=== PATIENT | male | born 1940 | race Caucasian/White ===

== ENCOUNTER 2016-10-10 12:09 | Inpatient (IN) | payer MEDICARE, OTHER ==
[2016-10-10] VITALS (15 sets, daily range): BP systolic 97–126; BP diastolic 55–78
[~2016-10-10] VITALS: Ht 175.3 cm; Wt 103.6 kg
--- NOTE | ~2016-10-10 | PR ---
[place], [place] PROGRESS NOTE NAME: RENY QUEVEDO UNIT #: [id number] ROOM: [place] [address] DOCTOR: CHAITANYA WAN MD BIRTHDATE: [birth year] DOS: 10/12/2016 SUBJECTIVE: The patient is awake, alert, but confused. OBJECTIVE: VITAL SIGNS: Blood pressure 103/59, heart rate 79 beats per minute, breathing 19 times per minute, temperature 98 degrees Fahrenheit. GENERAL APPEARANCE: The patient is alert and oriented x 3, in no visible distress, except for mental confusion and generalized weakness. HEENT AND NECK: Exam within normal limits. CARDIOVASCULAR SYSTEM: Heart rate is regular in rate and rhythm. S1 and S2 normally audible. LUNGS: Clear to auscultation. ABDOMEN: Soft, nontender. No obvious organomegaly. Bowel sounds are present. EXTREMITIES: Without significant cyanosis or edema. IMPRESSION: 1. Urinary tract infection resistant to Escherichia coli, being treated with ceftriaxone to which it is resistant. I will change the antibiotic, to be treated with cefoxitin and ceftriaxone which is being discontinued based on the sensitivity report for Escherichia coli urine infection. 2. Acute pancreatitis with elevation of lipase as he was again made n.p.o. by Dr. Zhu who continues to follow him. He has an acalculous, but enlarged gallbladder on CT scan. 3. The patient with sepsis, being treated with antibiotics. No leukocytosis, no fever anymore. 4. History of deep venous thrombosis involving right lower extremity. 5. The patient being hydrated with normal saline. 6. Hypokalemia, being treated with extra potassium supplements. CHAITANYA WAN MD CM:PNTRANS [phone] CHAITANYA WAN MD 10/12/16 2244 interface
--- NOTE | ~2016-10-10 | WRIGHTHP ---
[place], [place] PATIENT HISTORY AND PHYSICAL EXAM NAME: RENY QUEVEDO UNIT #: [id number] ROOM: [place] [address] DOCTOR: ROCÍO NASH MD BIRTHDATE: [birth year] DATE OF DICTATION: 10/11/16 DATE OF ADMISSION: 10/10/16 HISTORY OF PRESENT ILLNESS: The patient is 75 years old, comes in with complaints of low oxygen. The patient was just released from the half-way about a few days ago. He was at home. Visiting nurses saw him yesterday. They found that he was quite hypoxic and was asked to be sent out to the Emergency Room. In the ER, he was evaluated, was found to have lactic acidosis with possible sepsis and was admitted. The patient was hypotensive and tachycardic. He denies having any chest pains or palpitations or shortness of breath this morning, is slightly confused, does not remember exactly where he lives right now. He thinks he is still at the [facility]. PAST MEDICAL HISTORY: Significant for: 1. Last hospitalization in December 2015 with an infected knee prosthesis, and at that time ____ for surgery and he was sent to the half-way for close to a year and was just released about a week ago. 2. Septic joint, left knee, status post repair, redo knee. 3. Multiple admissions for UTIs. 4. COPD. 5. Benign hypertension. 6. History of DVT and IVC filter placement in the past in 2006. 7. Type 2 diabetes mellitus, [id number]. 8. Failure to thrive, adult. 9. Mixed hyperlipidemia. 10. Chronic low back pain. MEDICATIONS: That he is currently on are amlodipine/olmesartan 10/20 daily, atorvastatin 40 daily, citalopram 10 daily, Lasix 20 daily, glipizide 5 b.i.d., metformin 500 daily, potassium 20 daily. SOCIAL HISTORY: Nonsmoker. PHYSICAL EXAMINATION: GENERAL: He is awake, alert, oriented to person and not to place or time. VITAL SIGNS: Pressure is 108/45, pulse 103, respirations 20, temperature 97.3. LUNGS: Diminished breath sounds. HEART: Irregular. ABDOMEN: Obese. EXTREMITIES: Without any edema. ASSESSMENT AND PLAN: 1. The patient who presents with hypoxic respiratory failure, acute, most likely from sepsis. The patient has ordered blood cultures, urine cultures, IV fluids, and IV antibiotics. 2. Lactic acidosis, slowly coming down. 3. Slight elevation in troponin, possibly just related to tachycardia. Consultation with Dr. Gillespie has been obtained. The patient is placed on IV heparin protocol in the ER, which I will continue right now. 4. Slight elevation in lipase, possible mild pancreatitis. The patient is kept n.p.o. Lipase level has come down today. We will start him on a clear liquid diet. Dr. Zhu [place], [place] PATIENT HISTORY AND PHYSICAL EXAM NAME: RENY QUEVEDO UNIT #: [id number] ROOM: [place] [address] DOCTOR: ROCÍO NASH MD BIRTHDATE: [address] of the abdomen and pelvis shows no evidence of pancreatic abscess or pseudocyst or infection. 5. Staghorn calculi without any evidence of hydronephrosis. He has a Brunson catheter and it is draining clear urine. 6. Markedly distended gallbladder without any stones, awaiting opinion from Dr. Zhu. ROCÍO NASH MD CM:HISPHYS:PATIENT HISTORY AND PHYSICAL EXAMINATION 0734 1423 ROCÍO NASH MD 10/14/16 1424 XIOMARA [email or web address]
--- NOTE | ~2016-10-10 | CON ---
[place], [place] REPORT OF CONSULTATION NAME: RENY QUEVEDO UNIT #: [id number] ROOM: [place] [address] DOCTOR: DAQUAN FRANCO MD BIRTHDATE: [birth year] DATE: 10/11/16 REASON FOR CONSULTATION: New atrial fibrillation. HISTORY OF PRESENT ILLNESS: The patient is a 75-year-old Polish man with a history of longstanding hypertension, recurrent DVT with chronic venous thrombosis and has an inferior vena caval filter. He has had diastolic heart failure according to Dr. Gillespie's notes. The patient does have type 2 diabetes mellitus. He has never had a stroke, atrial fibrillation, cancer, COPD or any kidney problems and no bleeding from the stomach. He had knee surgery done last year and has had urinary tract infections. He was in a alf and went home a few days ago and apparently fell out of a chair because of manipulation, he was not dizzy, did not pass out. He came to the Emergency Department where he was found to be in atrial fibrillation with very rapid ventricular rate. He was not aware of any irregularity of his heart rate. He was not particularly short of breath and had not noticed any swelling in the legs. No loss of consciousness. HOME MEDICATIONS: Include amlodipine, atorvastatin, citalopram, furosemide, glipizide, metformin, and potassium chloride. PHYSICAL EXAMINATION: GENERAL: This reveals a patient who is alert, oriented, looks a little pale complexion, but today he is not in any distress. He is not tachypneic, although has oxygen on. VITAL SIGNS: Pulse is irregular at 84 beats per minute, blood pressure is 122/78. NECK: Normal JVP. AJR is negative. No bruits in the neck. HEART: Cardiac auscultation, there are no obvious murmurs. EXTREMITIES: He has no edema in the lower extremities, but has stasis dermatitis. Pedal pulses are difficult to appreciate. RESPIRATORY: He is not tachypneic. Auscultation reveals mildly diminished breath sounds, but a few crackles in both lungs. ABDOMEN: Large, supple, nontender. DIAGNOSTIC STUDIES: An ECG on admission demonstrated atrial fibrillation with ventricular rate of 147 beats per minute. Chest x-ray did not demonstrate any abnormality. LABORATORY DATA: Troponin I level was 0.77. BUN 81, creatinine 2.70. Serum albumin 2.4 g/dL, potassium 3.8, magnesium was 3.2. IMPRESSION: 1. This patient has atrial fibrillation with rapid ventricular rate. This is a new diagnosis. He is currently on IV diltiazem drip and the heart rate has slowed down very nicely. 2. Chronic kidney disease. Renal insufficiency is quite severe. 3. Elevated troponin I level. I think this is most likely due to marked tachycardia and significant renal insufficiency; however, because of atrial fibrillation, it is probably a good idea to perform a Lexiscan Cardiolite study to exclude significant underlying coronary artery disease. RECOMMENDATIONS: [place], [place] REPORT OF CONSULTATION NAME: RENY QUEVEDO UNIT #: [id number] ROOM: [place] [address] DOCTOR: DAQUAN FRANCO MD BIRTHDATE: [birth year] 1. I would prefer to use atenolol to control the ventricular rate, and the IV diltiazem will be discontinued. He has already been started on Xarelto and he needs to be on low dose because of renal insufficiency. 2. An echocardiogram was done today, which demonstrated an LV ejection fraction of 60%, mild left ventricular hypertrophy, moderately dilated right atrium and mildly dilated right ventricle and no sclerosis of the aortic valve, but no regurgitation. There was no pericardial effusion. In about 3-4 weeks after, i.e., adequate anticoagulation, electrical cardioversion should be attempted if he fails to revert to normal sinus rhythm spontaneously. I thank you on behalf of Dr. Gillespie for this consult. DAQUAN FRANCO MD CM:CONSTR:REPORT OF CONSULTATION 1338 10/14/16 1137 XIOMARA ABRAMS.R
--- NOTE | ~2016-10-10 | DS ---
[place], [place] DISCHARGE SUMMARY [id number]IT #: [id number] ROOM: [place] [address] DOCTOR: CHAITANYA WAN MD BIRTHDATE: [birth year] DOS: 10/13/2016 DISCHARGE DIAGNOSES: 1. Urinary tract infection with resistant Escherichia coli. 2. Acute pancreatitis with increasing lipase level. 3. CT scan of the abdomen showing acalculous enlarged gallbladder. 4. Hypernatremia. 5. Hypokalemia. 6. History of deep vein thrombosis in the right leg. 7. VQ scan low probability for pulmonary embolism. HOSPITAL COURSE: 1. The patient was admitted to the ICU for shortness of breath, atrial fibrillation with rapid ventricular response and was found to have urinary tract infection. [facility]. The patient is obese and has advanced disability. The patient was found to have acute pancreatitis and he had significant complaints of upper abdominal pains. The patient was admitted and he was found to have progressively increasing lipase levels. A CT scan of the abdomen was performed, which showed staghorn calculi in the kidneys, no hydronephrosis, markedly distended gallbladder without gallstones or biliary ductal dilatation. While the patient was kept n.p.o. and on hydration, he was developing progressive hypernatremia and hypokalemia along with elevation of pancreatic enzymes, which were elevated to 3167 today. No leukocytosis. Hemoglobin of 10.6, BUN and creatinine of 39 and 1.3. The patient continues to complain of epigastric pains. Since the patient is in poor health and his condition is getting worse and there is no specialized GI surgeon available at our hospital, I am transferring the patient to surgical ICU at [facility] in [place], [place]. The patient has been accepted and will be transferred there by an ambulance. The patient is in a stable condition to be transferred at this time. His blood pressure, heart rate and breathing are stable and he is afebrile. 2. Type 2 diabetes mellitus with reasonably controlled blood sugars. 3. Hypernatremia and hypokalemia, for which I will switch his fluids to D5W with 20 of potassium chloride per liter. His sodium was 140, elevated to 158 today and potassium low at 3.2. 4. Urinary tract infection with resistant E. coli, which are being treated with cefoxitin. Blood cultures were negative. Minimally positive cardiac enzymes maxing at 1.1 without any chest pains and the levels were coming down during his stay at the hospital. DISCHARGE MANAGEMENT: Ondansetron 4 mg every 6 hours p.r.n. IV, citalopram 10 mg a day, Lipitor 40 mg a day, atenolol 50 mg daily, Xarelto 15 mg b.i.d., cefoxitin 1 gram IV every 6 hours. The patient is n.p.o. [place], [place] DISCHARGE SUMMARY NAME: RENY QUEVEDO UNIT #: [id number] ROOM: [place] [address] DOCTOR: CHAITANYA WAN MD BIRTHDATE: [birth year] CHAITANYA WAN MD CM:NICOL [id number] CHAITANYA WAN MD 10/14/16 0236 interface
[~2016-10-10 12:09] MED LIST: AZOR 10 MG-20 M1 TAB PO; CITALOPRAM10 MG PO; COUMADIN1 MG PO; GLUCOPHAGE500 M1 PO; GLYBURIDE5 MG PO; HYDROCODONE BIT1 T11 PO; LASIX20 MG PO; LASIX40 MG PO; LEVOFLOXACIN500 MG PO; LIPITOR40 MG PO; LOPID600 MG PO; MEROPENEM500 M1 IV; METFORMIN500 MG PO; MOM30 ML PO; Metformin Hydr500 MG PO; NORCO 5-325 TA1 EACH PO; POTASSIUM20 MEQ PO; TUMS 500500 MG PO; VANCOMYCIN250 MG/5 M IV; VIBRAMYCIN100 MG PO; WARFARIN SOD5 MG PO; XANAX0.5 MG PO
[2016-10-10 12:49] LABS: BILIRUBIN NEGATIVE (NEGATIVE); BLOOD 2+ (NEGATIVE); CLARITY SL CLOUDY (CLEAR); COLOR YELLOW (YELLOW); GLUCOSE NEGATIVE (NEGATIVE); KETONE NEGATIVE (NEGATIVE); LEUKO ESTERASE 3+ (NEGATIVE); NITRITE NEGATIVE (NEGATIVE); PROTEIN 2+ (NEGATIVE); UROBILINOGEN 0.2 E.U./dl (0.2-1.0)
[2016-10-10 12:51] LABS: HEMATOCRIT 39.1 % (42.0-52.0); HEMOGLOBIN 12.8 g/dl (14.0-18.0); MEAN CELL VOLUME 83.7 fl (80.0-94.0); MEAN CORPUSCULAR HGB 27.4 pg (27.0-31.0); MEAN CORPUSCULAR HGB CONC 32.7 g/dl (33.0-37.0); MEAN PLATELET VOLUME 11.6 fl (9.6-12.3); PLATELET COUNT AUTOMATED 266 10*3/uL (130-400); RED BLOOD COUNT 4.67 10*6/uL (4.50-5.90); RED CELL DISTRI WIDTH 15.6 % (0-14.5); WHITE BLOOD COUNT 11.4 10*3/uL (4.8-10.8)
[2016-10-10 12:59] LABS: INTERNATIONAL NORM RATIO 1.1 (2.0-3.5); PROTHROMBIN TIME 11.7 SECONDS (9.0-12.4)
[2016-10-10] MEDS ORDERED: GLIPIZIDE5 MG PO (13:03)
[2016-10-10] MEDS ORDERED: LOPID600 M1 PO (13:05)
[2016-10-10 13:06] LABS: BACTERIA 3+; MUCOUS 2+; URINE REFLEX COMMENT YES (NO); WBC TNTC wbc/hpf (0-5)
[2016-10-10 13:07] LABS: ALBUMIN 2.4 gm/dl (3.1-4.5); BILIRUBIN, TOTAL 0.4 mg/dl (0.2-1.0); MAGNESIUM 3.2 mg/dL (1.5-2.1); POTASSIUM 3.8 mmol/L (3.5-5.1); TOTAL PROTEIN 7.4 gm/dL (6.4-8.2)
[2016-10-10 13:11] LABS: TROPONIN I 1.31 ng/ml (<0.045)
[2016-10-10 13:13] LABS: C-REACTIVE PROTEIN 33.2 MG/DL (0-0.3)
[2016-10-10 13:15] LABS: LYMPHOCYTE # 1.6 10*3/uL (1.3-4.4); MONOCYTE # 0.9 10*3/uL (0.1-1.0); NEUTROPHIL # 8.9 10*3/uL (2.3-7.9); NEUTROPHILS 78 % (47-73); PLATELET SUFFICIENCY NORMAL (NORMAL); TOTAL CELLS COUNTED 100 #CELLS
[2016-10-10 14:48] LABS: LA>2 REFLEX 2 HR DRAW NOW
[2016-10-10 15:20] LABS: LA>2 RFLX FOLLOW UP AT 2 HRS 3.7 mmol/L (0.4-2.0)
[2016-10-10 17:04] LABS: LA>2 REFLEX 4 HR DRAW NOW
[2016-10-11] VITALS (10 sets, daily range): BP systolic 91–112; BP diastolic 45–567
[2016-10-12] VITALS: BP 100/53
[2016-10-12 04:00] VITALS: BP 90/54
[2016-10-12 06:15] LABS: MEAN CELL VOLUME 85.4 fl (80.0-94.0); MEAN CORPUSCULAR HGB 27.3 pg (27.0-31.0); MEAN PLATELET VOLUME 11.3 fl (9.6-12.3); PLATELET COUNT AUTOMATED 301 10*3/uL (130-400); RED BLOOD COUNT 3.77 10*6/uL (4.50-5.90); RED CELL DISTRI WIDTH 15.8 % (0-14.5); WHITE BLOOD COUNT 10.6 10*3/uL (4.8-10.8)
[2016-10-12 06:26] LABS: HEMATOCRIT 32.2 % (42.0-52.0); HEMOGLOBIN 10.3 g/dl (14.0-18.0)
[2016-10-12 06:49] LABS: BILIRUBIN, TOTAL 0.3 mg/dl (0.2-1.0); TOTAL PROTEIN 6.1 gm/dL (6.4-8.2)
[2016-10-12 07:02] LABS: ACANTHOCYTES FEW; BURR CELLS FEW; LYMPHOCYTE # 0.2 10*3/uL (1.3-4.4); MONOCYTE # 0.3 10*3/uL (0.1-1.0); NEUTROPHIL # 10.1 10*3/uL (2.3-7.9); NEUTROPHILS 95 % (47-73); PLATELET SUFFICIENCY NORMAL (NORMAL); ROULEAUX SLIGHT; TOTAL CELLS COUNTED 100 #CELLS
[2016-10-12 08:00] VITALS: BP 106/66
[2016-10-12 12:00] VITALS: BP 102/60
[2016-10-12 16:00] VITALS: BP 103/59
[2016-10-12 20:00] VITALS: BP 105/53
[2016-10-13] VITALS: BP 102/55
[2016-10-13 04:00] VITALS: BP 112/61
[2016-10-13 06:08] LABS: BASO % 0.1 % (0.0-1.0); EOS % 0.2 % (1.0-4.0); HEMATOCRIT 33.3 % (42.0-52.0); HEMOGLOBIN 10.6 g/dl (14.0-18.0); IG # 0.2 10*3/uL (0.0-0.1); LYMPH # 0.9 10*3/uL (1.3-4.4); LYMPH % 8.5 % (27.0-41.0); MEAN CELL VOLUME 87.4 fl (80.0-94.0); MEAN CORPUSCULAR HGB 27.8 pg (27.0-31.0); MEAN CORPUSCULAR HGB CONC 31.8 g/dl (33.0-37.0); MEAN PLATELET VOLUME 11.2 fl (9.6-12.3); MONO # 0.6 10*3/uL (0.1-1.0); MONO % 5.5 % (3.0-9.0); NEUT # 8.4 10*3/uL (2.3-7.9); NEUT % 84.1 % (47.0-73.0); PLATELET COUNT AUTOMATED 321 10*3/uL (130-400); RED BLOOD COUNT 3.81 10*6/uL (4.50-5.90); RED CELL DISTRI WIDTH 15.9 % (0-14.5)
[2016-10-13 06:11] LABS: CARBON DIOXIDE 22 mmol/L (21-32); EST GLOM FILT AFRICAN AMERICAN > 60 ml/min; GLUCOSE 144 mg/dL (65-99)
[2016-10-13 06:24] LABS: POTASSIUM 3.2 mmol/L (3.5-5.1); SODIUM 158 mmol/L (136-145)
[2016-10-13 06:35] LABS: BUN 39 mg/dl (7-24)
[2016-10-13 06:37] LABS: CHLORIDE 129 mmol/L (98-107)
[2016-10-13 08:00] VITALS: BP 122/63
[2016-10-13 12:00] VITALS: BP 120/60
[2016-10-13 16:00] VITALS: BP 132/64
[2016-10-13] MEDS ORDERED: XARE15TA PO (17:48)
[2016-10-13 20:00] VITALS: BP 104/56
== END 2016-10-13 20:53 | disposition short-term general hospital (02) | DRG 871 ==
LOC: ED 12:09 → EDHOLD 13:55 → ICCU 14:10
PROVIDERS: Internal Medicine; Student in an Organized Health Care Education/Training Program
DX: A41.9 Sepsis, unspecified organism (principal); J96.01 Acute respiratory failure with hypoxia; E87.2 Acidosis; E87.0 Hyperosmolality and hypernatremia; K85.90 Acute pancreatitis without necrosis or infection, unspecified; N39.0 Urinary tract infection, site not specified; I82.491 Acute embolism and thrombosis of other specified deep vein of right lower extremity; J44.9 Chronic obstructive pulmonary disease, unspecified; Z86.718 Personal history of other venous thrombosis and embolism; Z79.01 Long term (current) use of anticoagulants; R62.7 Adult failure to thrive; E78.2 Mixed hyperlipidemia; M54.5 Low back pain; G89.29 Other chronic pain; N20.0 Calculus of kidney; I48.91 Unspecified atrial fibrillation; I12.9 Hypertensive chronic kidney disease with stage 1 through stage 4 chronic kidney disease, or unspecified chronic kidney disease; N18.9 Chronic kidney disease, unspecified; Z85.038 Personal history of other malignant neoplasm of large intestine; Z88.0 Allergy status to penicillin; E11.22 Type 2 diabetes mellitus with diabetic chronic kidney disease; R65.20 Severe sepsis without septic shock; E87.6 Hypokalemia

== ENCOUNTER 2017-01-19 09:38 | Inpatient (IN) | payer MEDICARE, OTHER ==
[~2017-01-19] VITALS: Ht 175.3 cm; Wt 107.7 kg
[2017-01-19] VITALS (8 sets, daily range): BP systolic 135–181; BP diastolic 79–115
--- NOTE | ~2017-01-19 | PR ---
[place], [place] PROGRESS NOTE NAME: RENY QUEVEDO [facility] #: [id number] UNIT #: [id number] ROOM: 411 DOCTOR: CHAITANYA WAN MD BIRTHDATE: [birth year] DOS: 01/21/2017 SUBJECTIVE: The patient continues to improve with his breathing and cough. OBJECTIVE: GENERAL APPEARANCE: The patient is alert and oriented x 3, in no visible distress except for obesity and generalized weakness. VITAL SIGNS: Blood pressure 112/56, heart rate of 98 beats per minute, breathing 16 times per minute, temperature 98 degrees Fahrenheit. HEENT AND NECK: Exam within normal limits. CARDIOVASCULAR SYSTEM: Heart rate is regular in rate and rhythm. S1 and S2 normally audible. LUNGS: Clear to auscultation. ABDOMEN: Soft, nontender. No obvious organomegaly. Bowel sounds are present. EXTREMITIES: Without significant cyanosis or edema. IMPRESSION: 1. The patient exacerbation of chronic obstructive pulmonary disease, increased shortness of breath, improving with treatment with antibiotics. 2. Urinary tract infection with urine cultures growing Acinetobacter lwoffi being treated with clindamycin. 3. Nonhealing ulcer on the inside of the left ankle medial malleolus related to stasis dermatitis being dressed on regular basis. Wound dressings being applied. 4. Chronic atrial fibrillation with controlled heart rates. The patient anticoagulated with Xarelto. 5. Type 2 diabetes mellitus. Blood sugars are being monitored and treated. 6. Benign essential hypertension with controlled blood pressures with treatment. 7. Hypothyroidism, treated with supplements. CHAITANYA WAN MD CM:PNTRANS 1616 0125 CHAITANYA WAN MD 01/22/17 0125 interface
--- NOTE | ~2017-01-19 | WRIGHTHP ---
[place], [place] PATIENT HISTORY AND PHYSICAL EXAM NAME: RENY QUEVEDO [facility] #: [id number] UNIT #: [id number] ROOM: 411 DOCTOR: CHAITANYA WNA MD BIRTHDATE: [birth year] DOS: 01/19/2017 HISTORY OF PRESENT ILLNESS: The patient is a 76-year-old gentleman sent over to the Emergency Department from [facility] with complaints of increasing shortness of breath. The patient was given nebulizer treatments at the intermediate without much help. The patient had a productive cough with greenish sputum for several days with increasing shortness of breath for 2 days along with wheezing. The patient was evaluated in the Emergency Department and found to have acute exacerbation of COPD and a urinary tract infection and recommended for admission and further management. REVIEW OF SYSTEMS: LUNGS: Increasing shortness of breath and wheezing. GASTROINTESTINAL: No nausea, vomiting, diarrhea, constipation. URINARY: The patient is asymptomatic. CARDIOVASCULAR: No chest pains or palpitations. PAST MEDICAL HISTORY: DVT involving the right leg. FAMILY HISTORY: Noncontributory. SOCIAL HISTORY: The patient has been a resident at the nursing homes for the last 2-1/2 years and his also recently got admitted to his present intermediate and she was there with him. ALLERGIES: PENICILLIN. PHYSICAL EXAMINATION: GENERAL: Alert and oriented x 3, morbidly obese. HEENT AND NECK: Extraocular movements are intact. Sclerae are anicteric. Oral mucosa is moist and clean. No obvious facial weakness. Neck is supple without any lymphadenopathy. No thyromegaly. No JVD. No carotid arterial bruits. LUNGS: Clear to auscultation. No wheezing. No rhonchi. CARDIOVASCULAR SYSTEM: Heart rate is regular in rate and rhythm. S1 and S2 normally audible. No significant murmur or any other abnormal cardiac sounds. ABDOMEN: Soft, nontender. No obvious organomegaly. Bowel sounds are present. No obvious herniation. EXTREMITIES: Generalized weakness and chronic stasis dermatitis in both legs with small nonhealing ulcer just over the medial malleolus at the left ankle. CENTRAL NERVOUS SYSTEM: Alert and oriented x 3. Cranial nerves II-XII are intact. Speech is normal. The patient is able to move all extremities. Normal muscle strength. Deep tendon reflexes are equal on both sides. Plantars were downgoing. LABORATORY DATA: Urinalysis fluid too numerous to count wbc's. Chest x-ray without acute abnormality. Normal serum electrolytes. INR 1.2, hemoglobin 9.7. IMPRESSION: 1. The patient with acute exacerbation of chronic obstructive pulmonary disease, to be treated with nebulizer treatments, corticosteroids, oxygen, antibiotics and followed closely on the monitor. [place], [place] PATIENT HISTORY AND PHYSICAL EXAM [facility]: [id number] UNIT #: [id number] ROOM: 411 DOCTOR: CHAITANYA WAN MD BIRTHDATE: [birth year] 2. Urinary tract infection, cystitis, urine culture sent. The patient to be treated with antibiotics and treatment adjusted according to culture results. 3. Chronic nonhealing ulcer over the left ankle medial malleolus dressings to be continued. The patient has chronic stasis dermatitis and being followed by vascular surgery and wound care. 4. Morbid obesity. The patient is to work with dietary. 5. Advance disability. The patient to work with physical therapy. 6. Morbid obesity. 7. History of chronic atrial fibrillation. The patient is anticoagulated with Xarelto. Heart rate controlled. 8. Type 2 diabetes mellitus. We will monitor blood sugars. Continue insulin and adjust treatment as necessary. 9. Mixed hyperlipidemia. 10. Benign essential hypertension. 11. Major depression, recurrent, mild. 12. Hypothyroidism. The patient treated with levothyroxine which will be continued. CHAITANYA WAN MD CM:HISPHYS:PATIENT HISTORY AND PHYSICAL EXAMINATION 1343 1414 CHAITANYA WAN MD 01/19/17 1414 interface
--- NOTE | ~2017-01-19 | DS ---
[place], [place] DISCHARGE SUMMARY NAME: RENY QUEVEDO [facility] #: [id number] UNIT #: [id number] ROOM: 411 DOCTOR: CHAITANYA WAN MD BIRTHDATE: [birth year] DOS: 01/22/2017 DISCHARGE DIAGNOSES: 1. Exacerbation of chronic obstructive pulmonary disease with acute over chronic respiratory failure, improved with treatment. 2. Urinary tract infection growing Acinetobacter Lwoffi, being treated with clindamycin and cystitis. 3. Nonhealing ulcer on the left side of the ankle medial malleolus related to stasis dermatitis, being treated on regular basis. 4. Chronic atrial fibrillation with controlled heart rates and the patient anticoagulated with Xarelto. 5. Type 2 diabetes mellitus. 6. Benign essential hypertension. 7. Hypothyroidism. 8. Morbid obesity. 9. Advanced disability. 10. Type 2 diabetes mellitus. 11. Mixed hyperlipidemia. 12. Benign essential hypertension. 13. Major depression, recurrent, mild. 14. Hypothyroidism. HOSPITAL COURSE: The patient was admitted with hypoxemia, shortness of breath, and feeling unwell. The patient was diagnosed with having exacerbation of COPD and also figured out to have a urinary tract infection and cystitis. Cultures were sent. Sputum bruce grew normal bacteria, but he was treated with antibiotics and corticosteroids and his breathing improved and he is breathing well now and at his baseline and will be discharged back to the detention. Urinary tract infection. The urine cultures growing Acinetobacter Lwoffi, being treated with clindamycin without change to Bactrim-DS at the detention and give it to him for 1 week according to urine culture results. Anemia of chronic disease. Hemoglobin at 9.3 and stable. Benign essential hypertension treated and controlled and followed. Chronic atrial fibrillation with controlled heart rates. Patient anticoagulated with Xarelto. Hypothyroidism, treated with supplements. Advanced disability. We are taking bedsore precautions turning him every 2 hours and use an air mattress. Physical therapy was also consulted. LABORATORY DATA: As mentioned above. DISCHARGE MANAGEMENT: Bactrim-DS b.i.d. for 1 week, DuoNeb every 4 hours as needed for shortness of breath, Tradjenta 5 mg daily, Levemir insulin 5 units daily. Check bedside sugars q.i.d. every Friday and , levothyroxine 25 [place], [place] DISCHARGE SUMMARY NAME: RENY QUEVEDO UNIT #: [id number] ROOM: 411 DOCTOR: SOCO PURDY,CHAITANYA Mahan BIRTHDATE: [birth year] mg daily, Lipitor 40 mg a day, Xarelto 20 mg daily, Zofran 4 mg every 6 hours p.r.n. for nausea and vomiting. CHAITANYA WAN MD CM:DISCHARG 1101 1125 CHAITANYA WAN MD 01/22/17 1125 interface
--- NOTE | ~2017-01-19 | PR ---
[place], [place] PROGRESS NOTE NAME: RENY QUEVEDO UNIT #: [id number] ROOM: 411 DOCTOR: CHAITANYA WAN MD BIRTHDATE: [birth year] DOS: 01/20/2017 SUBJECTIVE: The patient is starting to feel better. His breathing is improving. OBJECTIVE: VITAL SIGNS: Blood pressure 151/82, heart rate 85 beats per minute, breathing 16 times per minute, temperature 98 degrees Fahrenheit. GENERAL APPEARANCE: The patient is alert and oriented x 3, in no visible distress. Generalized weakness and morbid obesity. HEENT AND NECK: Exam within normal limits. CARDIOVASCULAR SYSTEM: Heart rate is regular in rate and rhythm. S1 and S2 normally audible. LUNGS: Clear to auscultation. ABDOMEN: Soft, nontender. No obvious organomegaly. Bowel sounds are present. EXTREMITIES: Without significant cyanosis or edema. IMPRESSION: 1. Urinary tract infection with heavy gram-negative bacilli, being covered with clindamycin. Final culture results are still pending. 2. Morbid obesity and generalized weakness. We are taking bedsore precautions including using an air mattress and turning the patient every 2 hours and taking fall precautions. 3. Acute exacerbation of chronic obstructive pulmonary disease with shortness of breath and hypoxemia, improved with treatment. 4. Urinary tract infection and cystitis is being treated with antibiotics now. 5. Nonhealing ulcer over the left ankle medial malleolus from venous stasis and chronic vascular insufficiency is being regularly ____, no signs of acute infection. 6. Morbid obesity. The patient is working with dietary. 7. Chronic atrial fibrillation with controlled heart rates. The patient is anticoagulated with Xarelto. 8. Type 2 diabetes mellitus. Blood sugars are being monitored and treated. 9. Benign essential hypertension with controlled blood pressures with treatment. 10. Hypothyroidism. The patient is on replacement with levothyroxine. [place], [place] PROGRESS NOTE NAME: RENY QUEVEDO UNIT #: [id number] ROOM: 411 DOCTOR: CHAITANYA WAN MD BIRTHDATE: [birth year] CHAITANYA WAN MD CM:PNTRANS 1617 1924 CHAITANYA WAN MD 01/21/17 0501 interface
[~2017-01-19 09:38] MED LIST changes: +GLIPIZIDE5 MG PO; +LOPID600 M1 PO; +XARE15TA PO
[2017-01-19 10:00] LABS: BASO % 0.5 % (0.0-1.0); EOS # 0.1 10*3/uL (0.0-0.4); EOS % 0.9 % (1.0-4.0); HEMATOCRIT 32.6 % (42.0-52.0); HEMOGLOBIN 9.7 g/dl (14.0-18.0); LYMPH # 1.1 10*3/uL (1.3-4.4); MEAN CELL VOLUME 84.2 fl (80.0-94.0); MEAN CORPUSCULAR HGB 25.1 pg (27.0-31.0); MEAN CORPUSCULAR HGB CONC 29.8 g/dl (33.0-37.0); MEAN PLATELET VOLUME 10.5 fl (9.6-12.3); MONO # 0.7 10*3/uL (0.1-1.0); MONO % 8.3 % (3.0-9.0); NEUT # 6.2 10*3/uL (2.3-7.9); NEUT % 75.9 % (47.0-73.0); PLATELET COUNT AUTOMATED 382 10*3/uL (130-400); RED BLOOD COUNT 3.87 10*6/uL (4.50-5.90); RED CELL DISTRI WIDTH 16.3 % (0-14.5); WHITE BLOOD COUNT 8.1 10*3/uL (4.8-10.8)
[2017-01-19 10:09] LABS: INTERNATIONAL NORM RATIO 1.2 (2.0-3.5); PROTHROMBIN TIME 13.4 SECONDS (9.0-12.4)
[2017-01-19 10:17] LABS: ALBUMIN 3.1 gm/dl (3.1-4.5); ALKALINE PHOSPHATASE 86 U/L (45-117); BILIRUBIN, TOTAL 0.4 mg/dl (0.2-1.0); BUN 19 mg/dl (7-24); CARBON DIOXIDE 25 mmol/L (21-32); CHLORIDE 107 mmol/L (98-107); CPK 44 U/L (39-308); EST GLOM FILT AFRICAN AMERICAN > 60 ml/min; GLUCOSE 141 mg/dL (65-99); MAGNESIUM 2.1 mg/dL (1.5-2.1); POTASSIUM 4.1 mmol/L (3.5-5.1); SGOT/AST 26 IU/L (3-35); SGPT/ALT 19 U/L (12-78); SODIUM 141 mmol/L (136-145); TOTAL PROTEIN 7.4 gm/dL (6.4-8.2)
[2017-01-19 10:18] LABS: CKMB 0.7 ng/ml (0.5-3.6); TROPONIN I 0.025 ng/ml (<0.045)
[2017-01-19 10:33] LABS: BILIRUBIN NEGATIVE (NEGATIVE); BLOOD 3+ (NEGATIVE); CLARITY CLOUDY (CLEAR); COLOR YELLOW (YELLOW); GLUCOSE NEGATIVE (NEGATIVE); KETONE NEGATIVE (NEGATIVE); LEUKO ESTERASE 3+ (NEGATIVE); NITRITE NEGATIVE (NEGATIVE); PH 7.5 (5.0-9.0); PROTEIN 2+ (NEGATIVE); SPECIFIC GRAVITY 1.015 (1.005-1.030); UROBILINOGEN 0.2 E.U./dl (0.2-1.0)
[2017-01-19 10:40] LABS: RBC TNTC rbc/hpf (0-2); URINE REFLEX COMMENT YES (NO); WBC TNTC wbc/hpf (0-5)
[2017-01-19] MEDS ORDERED: CELEXA20 MG PO (12:18)
[2017-01-19] MEDS ORDERED: ZOFRAN4 MG PO (12:18)
[2017-01-19] MEDS ORDERED: [UNRECOGNIZED DRUG - OTHER] PO (12:19)
[2017-01-19] MEDS ORDERED: MULTI-DAY VITA1 EACH PO (12:20)
[2017-01-19] MEDS ORDERED: LANTUS100 U/ML SC (12:21)
[2017-01-19] MEDS ORDERED: [UNRECOGNIZED DRUG - OTHER] PO (12:21)
[2017-01-19] MEDS ORDERED: [UNRECOGNIZED DRUG - OTHER] PO (12:22)
[2017-01-19] MEDS ORDERED: SYNTHROID25 MCG PO (12:22)
[2017-01-19] MEDS ORDERED: CITRIC ACID PO (12:22)
[2017-01-19] MEDS ORDERED: JANUVIA25 MG PO (12:23)
[2017-01-19] MEDS ORDERED: NOVOLOG10 ML SC (12:24)
[2017-01-19] MEDS ORDERED: XARE20MG PO (12:25)
[2017-01-19] MEDS ORDERED: GEMFIBROZIL600 MG PO (12:26)
[2017-01-20] VITALS: BP 148/73
[2017-01-20 04:00] VITALS: BP 122/76
[2017-01-20 06:44] LABS: BASO % 0.1 % (0.0-1.0); EOS % 0.1 % (1.0-4.0); HEMATOCRIT 31.4 % (42.0-52.0); HEMOGLOBIN 9.3 g/dl (14.0-18.0); LYMPH # 0.9 10*3/uL (1.3-4.4); LYMPH % 11.1 % (27.0-41.0); MEAN CELL VOLUME 84.2 fl (80.0-94.0); MEAN CORPUSCULAR HGB 24.9 pg (27.0-31.0); MEAN CORPUSCULAR HGB CONC 29.6 g/dl (33.0-37.0); MEAN PLATELET VOLUME 10.6 fl (9.6-12.3); MONO # 0.6 10*3/uL (0.1-1.0); MONO % 7.8 % (3.0-9.0); NEUT # 6.5 10*3/uL (2.3-7.9); NEUT % 80.4 % (47.0-73.0); PLATELET COUNT AUTOMATED 359 10*3/uL (130-400); RED BLOOD COUNT 3.73 10*6/uL (4.50-5.90); RED CELL DISTRI WIDTH 15.9 % (0-14.5); WHITE BLOOD COUNT 8.1 10*3/uL (4.8-10.8)
[2017-01-20 08:00] VITALS: BP 129/76
[2017-01-20 12:00] VITALS: BP 138/73
[2017-01-20 16:04] VITALS: BP 151/82
[2017-01-20 20:00] VITALS: BP 126/73
[2017-01-21] VITALS: BP 145/73
[2017-01-21 08:00] VITALS: BP 151/77
[2017-01-21 12:03] VITALS: BP 112/56
[2017-01-21 16:00] VITALS: BP 116/54
[2017-01-21 20:00] VITALS: BP 119/59
[2017-01-22] VITALS: BP 136/89
[2017-01-22 08:00] VITALS: BP 123/75
[2017-01-22 12:00] VITALS: BP 121/72
== END 2017-01-22 15:44 | disposition home or self-care (01) | DRG 189 ==
LOC: ED 09:38 → 4E 11:01 → EDHOLD 11:01 → 4E 11:08
PROVIDERS: Internal Medicine; Registered Nurse
DX: J96.21 Acute and chronic respiratory failure with hypoxia (principal); N30.01 Acute cystitis with hematuria; B96.89 Other specified bacterial agents as the cause of diseases classified elsewhere; J44.1 Chronic obstructive pulmonary disease with (acute) exacerbation; F33.0 Major depressive disorder, recurrent, mild; L97.329 Non-pressure chronic ulcer of left ankle with unspecified severity; E11.9 Type 2 diabetes mellitus without complications; I10 Essential (primary) hypertension; I48.2 Chronic atrial fibrillation; I87.2 Venous insufficiency (chronic) (peripheral); E03.9 Hypothyroidism, unspecified; E78.2 Mixed hyperlipidemia; E66.01 Morbid (severe) obesity due to excess calories; Z68.35 Body mass index [BMI] 35.0-35.9, adult; Z88.0 Allergy status to penicillin; Z86.718 Personal history of other venous thrombosis and embolism

== ENCOUNTER 2017-03-03 07:07 | Inpatient (IN) | payer MEDICARE, OTHER ==
[~2017-03-03] VITALS: Ht 175 cm; Wt 109.0 kg
[2017-03-03] VITALS (9 sets, daily range): BP systolic 113–147; BP diastolic 51–90
--- NOTE | ~2017-03-03 | PR ---
[place], [place] PROGRESS NOTE NAME: RENY QUEVEDO UNIT #: [id number] ROOM: 525 DOCTOR: BRAYDEN CASSIDY DO BIRTHDATE: [birth year] DOS: 03/06/2017 SUBJECTIVE: The patient was seen and evaluated this morning with Dr. Crane. The patient is alert, awake and responsive. The patient denies any fever, chills, nausea, vomiting, shortness of breath or chest pain at this time. The patient denies any complaints at this time. PHYSICAL EXAMINATION: VITAL SIGNS: Temperature 98, pulse 79, respiratory rate 20, blood pressure 143/68, pulse ox of 96 on 3 liters nasal cannula. HEENT: No changes. Chronic obesity. NECK: Supple. CARDIOVASCULAR: S1, S2 audible. LUNGS: No wheezing or no crackles noted. Decreased breath sounds at the bases. ABDOMEN: Soft and obese. EXTREMITIES: Remains unchanged from yesterday. LABORATORY DATA: No labs were done today although today the sodium was 141, potassium 3.4, chloride 98, carbon dioxide 36. Magnesium was 2.1. ASSESSMENT: 1. Acute congestive heart failure, diastolic dysfunction. 2. Pleural effusion related to underlying congestive heart failure with atrial fibrillation. 3. Chronic obesity. 4. History of past nicotine abuse. 5. Chronic obstructive pulmonary disease, no exacerbation at this time. PLAN: 1. The patient can be continued on previous treatment as in Lasix daily. 2. Supportive therapy plan of management and care. 3. The patient should be assessed as an outpatient for obstructive sleep apnea disorder. 4. Supportive care. 5. Possible discharge tomorrow. BRAYDEN CASSIDY DO [place], [place] PROGRESS NOTE NAME: RENY QUEVEDO UNIT #: [id number] ROOM: 525 DOCTOR: BRAYDEN CASSIDY DO BIRTHDATE: [birth year] RAE CRANE MD CM:PNTRANS 1114 1215 BRAYDEN CASSIDY DO 03/06/17 1528 interface
--- NOTE | ~2017-03-03 | PR ---
[place], [place] PROGRESS NOTE NAME: RENY QUEVEDO [facility] #: [id number] UNIT #: [id number] ROOM: 525 DOCTOR: ROCÍO NASH MD BIRTHDATE: [birth year] DOS: SUBJECTIVE: The patient is doing fine without any complaints. He is still short of breath. OBJECTIVE: VITAL SIGNS: Blood pressure 127/67, pulse of 84, respirations 20, temperature 97.6. LUNGS: Diminished breath sounds. Scattered wheezes heard. HEART: Regular. ABDOMEN: Obese. EXTREMITIES: Without any edema. ASSESSMENT AND PLAN: 1. Moderate size pleural effusion of the right with possible atelectasis in the right lower lobe with bronchopneumonia. The patient will need a thoracentesis. We will ask Dr. Massey for an opinion. Right now, we will continue antibiotics. 2. Benign hypertension, controlled with normal LV function. 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 3. Failure to thrive, adult. PT, OT to be consulted. ROCÍO NASH MD CM:PNTRANS [id number] ROCÍO NASH MD 03/05/17 0330 interface
--- NOTE | ~2017-03-03 | DS ---
[place], [place] DISCHARGE SUMMARY NAME: RENY QUEVEDO [facility] #: [id number] UNIT #: [id number] ROOM: 525 DOCTOR: ROCÍO NASH MD BIRTHDATE: [birth year] DOS: 03/07/2017 DIAGNOSES: 1. Acute diastolic congestive heart failure. 2. Urinary tract infection with Morganella morganii resistant to floxins. 3. Exposed hardware, right lower leg, for removal as an outpatient by Dr. Diop. 4. Severe peripheral vascular disease, left iliac occlusive disease. Please consult Dr. Song Faulkner as an outpatient. 5. Small right lower lobe pneumonia with pleural effusion, which is resolved. 6. Echocardiogram showing normal LV function with concentric LVH, cleared for surgery by Cardiology. CONSULTANTS: Dr. Diop, Dr. Massey, Dr. Gillespie. HOSPITAL COURSE: The patient is 76 years old, very well known to us, comes in with complaints of shortness of breath. Please see H and P for details. After admission, the patient had a chest x-ray which showed possibility of CHF, also possibility of pneumonia. A CT of the chest was done, which showed moderate sized pleural effusion. The patient was placed on IV diuretics. Consultation with Dr. Gillespie as well as Dr. Massey was obtained. Dr. Molina feels that cardiac thrasher, he is stable for any pending surgery. Dr. Massey did not feel that the patient's effusion was large enough to undergo thoracentesis. The patient has improved with diuretics IV. He does have poor circulation in both legs with stasis dermatitis of the left lower leg. No open wounds are seen. Small skin tears are noted. On the right ankle, the hardware is slightly exposed. The patient was seen by Dr. Diop who will remove this hardware as an outpatient. Arterial Dopplers did show occlusive disease on the left side. This should not prevent him from having his surgery on the right side. He would benefit from a CT angiogram, can be scheduled with Dr. Faulkner at [place] . Repeat chest x-ray shows clearing of the CHF. This morning, the patient is stable and can be discharged to home. He does use oxygen 2 liters, which he needs to continue using it along with breathing treatments with DuoNeb q. 4. His other medications are Lasix 40 daily, potassium 10 daily, Bactrim-DS 1 tablet twice daily, Lipitor 40 daily, citalopram 20 daily, Zofran 4 mg q. 6 p.r.n., acidophilus 3 tablets p.o. twice a day, Lantus 5 units daily, levothyroxine 25 mcg daily, Januvia 25 daily, Xarelto 20 daily, NovoLog for coverage scale. Blood sugars to be checked daily. [place], [place] DISCHARGE SUMMARY NAME: EMYRENY Nata UNIT #: [id number] ROOM: 525 DOCTOR: ROCÍO NASH MD BIRTHDATE: [birth year] ROCÍO NASH MD CM:DISCHARG [id number] ROCÍO NASH MD 03/07/17 1438 interface
--- NOTE | ~2017-03-03 | PR ---
[place], [place] PROGRESS NOTE NAME: RENY QUEVEDO [facility] #: [id number] UNIT #: [id number] ROOM: 525 DOCTOR: ROYCE CHANG MD,RAE BIRTHDATE: [birth year] DOS: 03/05/2017 SUBJECTIVE: The patient was independently seen and examined with [id number] encounter. The history was confirmed. Physical examination was personally performed as well. Changes in treatment with any additional recommendation or management were personally made for today's visit. The note done by the medical instrument technician was approved. The patient has been noted without any acute respiratory distress at this time. Still noted symptoms of shortness of breath. Denies symptoms of chest pain, coughing or sputum expectoration. The patient was planned for assessment for the thoracentesis of the right pleural effusion. The anticoagulation as Xarelto was remained on hold. OBJECTIVE: VITAL SIGNS: Noted that he remains afebrile, respiratory rate 20, heart rate 92-108, blood pressure 110/55-141/73. HEENT: Noted with chronic severe obesity. NECK: Supple. CARDIOVASCULAR: S1, S2 audible. LUNGS: Noted without any wheezing or crackles. Decreased breath sounds in the lower portion of the lungs bilaterally. ABDOMEN: Soft and obese. EXTREMITIES: Remains unchanged from yesterday. LABORATORY DATA: No labs were done today. IMPRESSION: 1. The patient with bilateral pleural fluid, larger on the right than the left side with finding consistent with acute congestive heart failure, currently considered for thoracentesis. 2. Chronic obesity. 3. Suspected obstructive sleep apnea disorder. The patient has been assessed at the bedside with the ultrasound of the chest was performed personally of both right and the left chest wall. Only small amount of fluid was noted on the right side with minimal fluid was noted on the left side as well. The patient will be continued on current conservative treatment, it will not benefit from thoracentesis for very small fluid at this time, which is not safe to perform the thoracentesis because of the lung was noted in the area of the fluid moving frequently. PLAN OF TREATMENT: He will be continued on the previous treatment as in progress as well. Other supportive therapy, plan of management and care. Outpatient assessment should be done for the obstructive sleep apnea disorder ____ did not done so. [place], [place] PROGRESS NOTE NAME: RENY QUEVEDO UNIT #: [id number] ROOM: [facility] DOCTOR: RAE SALDAÑA MD BIRTHDATE: [birth year] RAE CRANE MD CM:PNTRANS [id number] RAE CHANG MD 03/06/17 0248 interface
--- NOTE | ~2017-03-03 | PR ---
[place], [place] PROGRESS NOTE [facility] [id number] UNIT #: [id number] ROOM: 525 DOCTOR: ROYCE CHANG MD,RAE BIRTHDATE: [birth year] DOS: 03/06/2017 SUBJECTIVE: The patient was seen today for [id number] encounter. Physical examination performed the history was confirmed. The labs were reviewed. Any change in treatment for the patient for today's visit were personally made. The note done by the lpn or medical assistant, was approved. The patient has been noted comfortable, resting on the bed at this time. Shortness of breath has been noted with progressive resolution of the coughing has been decreasing progressively. OBJECTIVE: LUNGS: Auscultation of the chest was noted improvement in air entry, absence of any crackles. There were no wheezing. ABDOMEN: Soft and obese. EXTREMITIES: Remains unchanged. LABORATORY DATA: Electrolyte panel noted potassium mildly decreased at 3.4, CO2 was noted mildly elevated at 36. IMPRESSION: Resolving acute congestive heart failure, pleural fluid, which were not noted tappable by this patient at this time ____ because of progressive improvement with diuretics therapy. The coughing related to the congestive heart failure is improving. Mild hyperkalemia was noted with metabolic alkalosis secondary to diuretic therapy. The patient was recommended about current plan of management at this time. No additional change in treatment will be recommended. PLAN OF TREATMENT: To monitor the patient. A chest x-ray could be obtained again tomorrow if the patient remains in the hospital for reassessment of the pleural fluid. RAE CRANE MD CM:PNTRANS [phone] RAE CHANG MD 03/06/179 interface
--- NOTE | ~2017-03-03 | PR ---
[place], [place] PROGRESS NOTE NAME: RENY QUEVEDO [facility] #: [id number] UNIT #: [id number] ROOM: 525 DOCTOR: ROCÍO NASH MD BIRTHDATE: [birth year] DOS: 03/06/2017 SUBJECTIVE: The patient is doing fine without any complaints. He did go for an arterial Doppler this morning. During the night, he did develop a 6-beat run of V-tach and Dr. Gillespie was informed and routine labs were ordered. OBJECTIVE: VITAL SIGNS: This morning, the graph trend shows that he is afebrile, pressure is 143/60, pulse of 70, respirations 20, temperature 98.0. LUNGS: Clear. HEART: Regular. ABDOMEN: Obese. EXTREMITIES: Decreased edema. The lower leg wounds, exposure of the hardware all the same. LABORATORY DATA: Sodium 141, potassium 3.4, chloride 98, bicarbonate 36, magnesium 2.1. ASSESSMENT AND PLAN: 1. Acute diastolic congestive heart failure, on IV diuretics. 2. Hypokalemia. Supplementation given. 3. Nonsustained ventricular tachycardia. Dr. Gillespie is following. Recent echo was normal. No further workup planned. 4. Urinary tract infection with Morganella morganii, on IV antibiotics. 5. Adult failure to thrive, exposure to hardware. Discussed with . He most likely will have it removed as an outpatient. The patient should be able to go back to the intermediate in the morning. 6. Right lower lobe consolidation which is clinically improving. Chest x-ray is pending. ROCÍO NASH MD CM:PNTRANS [id number] ROCÍO NASH MD 03/06/17 1529 interface
--- NOTE | ~2017-03-03 | CON ---
[place], [place] REPORT OF CONSULTATION NAME: RENY QUEVEDO [facility] #: [id number] UNIT #: [id number] ROOM: 525 DOCTOR: ROYCE CHANG MDRAE BIRTHDATE: [birth year] DOS: 03/04/2017 REASON FOR CONSULTATION: Assessed the patient for shortness of breath and possible thoracentesis for the pleural fluid. The patient was seen with a [id number] encounter today. History was confirmed with the patient. Physical examination was personally performed as well. All the lab data was reviewed. The consultation, which was dictated by the medical investigator was approved. The assessment and management and the recommendation and changes in the treatment were personally made for today's consultation. HISTORY OF PRESENT ILLNESS: This is a 76-year-old white male brought to the hospital because the patient developed symptoms of shortness of breath, which has been ongoing for this patient for the past 4-5 days. Symptoms have been noted to be progressive worsening. The patient has symptoms of some nonproductive cough along with the symptoms of shortness of breath. The cough has been noted to be essentially dry. He denies any symptoms of wheezing. Denies symptoms of chest pain. The patient does have increased edema of the lower extremities as well. He has not been noted to have any symptoms of hemoptysis. The patient has been admitted to the hospital. Chest x-ray and later on CT scan of the chest was done yesterday without contrast that shows evidence of pleural fluids bilaterally. REVIEW OF SYSTEMS: Already done by the medical investigator. PAST MEDICAL HISTORY: This patient is known with history of: 1. Chronic cholecystitis. 2. Chronic obstructive pulmonary disease. 3. Moderate obesity. 4. Stasis dermatitis of lower extremities. 5. Atrial fibrillation. The patient long-term on anticoagulation with Xarelto. 6. Hypothyroidism. 7. Essential hypertension. 8. Chronic obesity. 9. History of failure to thrive. SOCIAL HISTORY: Reported as history of tobacco use since early age, 2 pack of cigarettes per day that has been discontinued approximately in 1986. Denies any history of alcohol use or any illicit drug use. The patient is , has no children. He has worked in the [employer] for about 42 years. . PAST SURGICAL HISTORY: Noted with history of left knee surgery in the past. HOME MEDICATIONS: Listed for the patient at the time of admission were noted as use of Lipitor, citalopram, levothyroxine, multivitamin, Zofran, Xarelto, Januvia and sliding scale insulin coverage. DRUG ALLERGIES: PENICILLIN. PHYSICAL EXAMINATION: GENERAL: This is a 76-year-old white male who has been currently noted to be [place], [place] REPORT OF CONSULTATION NAME: RENY QUEVEDO UNIT #: [id number] ROOM: [facility] DOCTOR: ROYCE CHANG MD,RAE BIRTHDATE: [birth year] awake and alert, sitting on his bed without any distress. VITAL SIGNS: Height of 5 feet 9 inches, weight 240 pounds, BMI 35.5. Vital signs which was recorded shows normal temperature, respiratory rate 20-25, heart rate of 96-106 with blood pressure 119/61-127/67. Pulse oxygen saturation of the patient was recorded as 99% saturation on 3 liters cannula this morning. HEENT: Examination shows chronic obesity. Decreased posterior pharyngeal space. NECK: Supple. Head was atraumatic. CARDIOVASCULAR: S1, S2 is audible. LUNGS: Decreased breath sounds noted in the lower portion of the lungs, more on the right than the left side. There was no wheezing heard. ABDOMEN: Soft and significantly obese. EXTREMITIES: Shows 2+ pitting edema. Chronic skin changes of the lower extremity noted with venous stasis pigmentation. There were no abnormal lesions or rashes. CENTRAL NERVOUS SYSTEM: Cranial nerves 2-12 intact. No focal deficit. MUSCULOSKELETAL: No obvious gross deformities seen. LABORATORY DATA: CBC on 03/03/2017 hemoglobin 9.6, hematocrit 35.4, WBC count normal, platelet count were normal. Lactic acid on admission yesterday was normal. PT/PTT yesterday; INR 1.4, PTT normal. CMP yesterday on admission; glucose 130, BUN and creatinine was normal. CO2 was 36. CPK-MB and troponin normal. ProBNP was elevated at approximately 9000 or greater. Echocardiogram that was done for the patient on 03/03/2017 shows left ventricular ejection fraction noted at 60%. Technically difficult study. There were significant valvular abnormalities described. Chest x-ray that was done yesterday 03/03/2017 on admission for the patient shows cardiomegaly with evidence of pleural effusions. The patient was suspected with possibility of additional area of atelectasis infiltration in the right lower lobe. The CT scan of the chest that was completed for the patient yesterday shows ____ 8 mm incidental finding of right upper lung nodule visible, which were noted noncalcified. Moderate sized pleural fluid noted in the right side. Small left-sided pleural fluid noted with area of compression atelectasis of the left lower lobe was noted likely. IMPRESSION: 1. The patient has been currently admitted to the hospital noted with acute congestive heart failure, diastolic dysfunction as well. 2. Pleural fluid was also noted related to the underlying congestive heart failure with atrial fibrillation history and chronic anticoagulation as well. 3. History of chronic obesity. Strong suspicion of obstructive sleep apnea disorder, need to be assessed as an outpatient as well. Other previous medical problems noted in the past history component. 4. History of past nicotine abuse. Discontinued several years ago. 5. History of chronic obstructive pulmonary disease, does not show any findings of acute exacerbation at the present time. PLAN OF TREATMENT: The patient's Xarelto will be discontinued temporarily for thoracentesis which will be done tomorrow with the ultrasound personal assessment being performed at the bedside prior to thoracentesis to see the [place], [place] REPORT OF CONSULTATION NAME: RENY QUEVEDO UNIT #: [id number] ROOM: [facility] DOCTOR: RAE SALDAÑA MD BIRTHDATE: [birth year] adequate pleural fluid for thoracentesis. This will result in improvement in symptoms of shortness of breath. Antibiotics will be discontinued at this time. There was no clinical suspicion of pneumonia. Other supportive therapy, plan of management as well as previously. Usual care, other supportive plan and management as well. Additional treatment changes will be done based on the progression of the illness. The patient is currently getting IV diuretics and continued monitoring of the BUN and creatinine was advised. Thanks for allowing me to participate in the care of this patient. RAE CRANE MD CM:CONSTR:REPORT OF CONSULTATION 1215 03/05/17 0316 interface
--- NOTE | ~2017-03-03 | PR ---
[place], [place] PROGRESS NOTE NAME: RENY QUEVEDO [facility] #: [id number] UNIT #: [id number] ROOM: 525 DOCTOR: ROCÍO NASH MD BIRTHDATE: [birth year] DOS: 03/07/2017 SUBJECTIVE: The patient is doing fine without any complaints this morning. OBJECTIVE: VITAL SIGNS: Graphic trend shows pressure 109/61, pulse of 81, respirations 20, temperature 98.7. LUNGS: Diminished breath sounds, clear. HEART: Regular. ABDOMEN: Obese, soft. EXTREMITIES: No edema. CHF is resolving on the chest x-ray. ASSESSMENT AND PLAN: 1. Acute diastolic congestive heart failure, improving. 2. Small right lower lobe pneumonia with pleural effusion, which is resolved. 3. Adult failure to thrive. The patient to go back to [facility] today. ROCÍO NASH MD CM:PNTRANS [id number] ROCÍO NASH MD 03/07/17 1237 interface
--- NOTE | ~2017-03-03 | WRIGHTHP ---
[place], [place] PATIENT HISTORY AND PHYSICAL EXAM NAME: RENY QUEVEDO [facility] #: [id number] UNIT #: [id number] ROOM: 525 DOCTOR: ROCÍO NASH MD BIRTHDATE: [birth year] DOS: 03/03/2017 HISTORY OF PRESENT ILLNESS: The patient comes in with complaints of increasing shortness of breath. I had seen him on Friday at the half-way and at that time he did not have any complaints. By Friday morning, he started having a cough, which is productive of copious amounts of sputum. A chest x-ray was ordered, which showed possibility of CHF and the patient was sent out this morning to the Emergency Room. He was seen in the ER, had a repeat chest x-ray performed which showed pneumonia, right lower lobe with small pleural effusion, so he was admitted. The patient complains of quite a lot of shortness of breath and cough. He denies having any fever or chills. PAST MEDICAL HISTORY: Significant for, 1. History of chronic cholecystitis. He is awaiting a cholecystectomy. 2. Exacerbation of COPD with last hospitalization in January 2017. 3. Chronic UTIs. 4. Poorly healing wounds on the left leg, which has completely healed now. 5. Stasis dermatitis. 6. Chronic AFib, on Xarelto. 7. Benign hypertension. 8. Hypothyroidism. 9. Morbid obesity. 10. Failure to thrive. MEDICATIONS: He is on are Lipitor 40 daily, citalopram 40 daily, levothyroxine 25 mcg daily, multivitamin 1 tablet daily, Zofran 4 mg q. 6, Xarelto 20 daily, Januvia 25 daily, insulin sliding scale and Lantus 5 units every 5 p.m. SOCIAL HISTORY: Nonsmoker. Does not use any alcohol. He is currently a resident of [facility] along with his . PHYSICAL EXAMINATION: VITAL SIGNS: Graphic trend shows a blood pressure of 138/64, pulse of 97, respirations 20 and temperature 97.7. LUNGS: Diminished breath sounds. Scattered wheezes and rhonchi heard today. CARDIOVASCULAR: Irregular heart rate in the low 90s. ABDOMEN: Obese, soft. EXTREMITIES: Chronic stasis dermatitis to the left leg. No swelling noticed. GENERAL: He is awake, alert and oriented with moderate respiratory distress. His Brunson catheter is tinged pink with fairly good urine output. LABORATORY DATA: At the time of admission, lactic acid 1.1. White cell count is 7.7, hemoglobin 9.6, hematocrit 35.4, platelets 295. Protime 15.1 with an INR of 1.4. Chest x-ray again bronchopneumonia, left, right lower lobe with effusion. Comp glucose 130, BUN 22, creatinine 0.96, sodium 145, potassium 4.1. ASSESSMENT AND PLAN: 1. Right lower lobe pneumonia with parapneumonic pleural effusion. The patient has been cultured in the Emergency Room. Intravenous antibiotics and breathing treatments have been started. The patient has also ordered a CT of the chest to [place], [place] PATIENT HISTORY AND PHYSICAL EXAM NAME: RENY QUEVEDO [facility] #: [id number] UNIT #: [id number] ROOM: [facility] DOCTOR: ROCÍO NASH MD BIRTHDATE: [birth year] see the extent of the infection. 2. Chronic obstructive pulmonary disease with chronic respiratory failure, on oxygen supplemental. Saturations are maintained right now. 3. Benign hypertension, controlled. 4. Chronic atrial fibrillation, on long-term anticoagulation. No changes in further medicines made. ROCÍO NASH MD CM:HISPHYS:PATIENT HISTORY AND PHYSICAL EXAMINATION [phone] ROCÍO NASH MD 03/03/17 151 interface
--- NOTE | ~2017-03-03 | CON ---
[place], [place] REPORT OF CONSULTATION NAME: RENY QUEVEDO [facility] #: [id number] UNIT #: [id number] ROOM: 525 DOCTOR: BRAYDEN CASSIDY DO BIRTHDATE: [birth year] DOS: 03/04/2017 REASON FOR CONSULTATION: Pulmonary effusion by Dr. Shae Almazan. HISTORY OF PRESENT ILLNESS: This is a 76-year-old male presenting to [facility] with chief complaint of shortness of breath that has been worsening since about 1-1/2 week. The patient presents from [facility]. The patient had an x-ray done last night and the results came this morning and was brought to the ER. The patient continues to have cough with green and black sputum. The patient states that he was also having some knee swelling of his right knee and left knee secondary to the knee surgery that he had 1 year ago. The patient denies any chest pain. HPI limited due to the patient's clinical condition. The patient denies any fever, chills, nausea or vomiting. PAST MEDICAL HISTORY: The patient has history of DVT. The patient has history of COPD, hyperlipidemia, and GERD. The patient has history of hypothyroidism, diabetes mellitus type 2. PAST SURGICAL HISTORY: Knee surgery, total knee replacement, arthroscopic knee surgery, vein stripping bilaterally, bilateral TKA, 2 disks removed, left ankle ligament transfer, left knee surgery in 08/2016. SOCIAL HISTORY: The patient denies any alcohol or drug use. The patient does not smoke currently. The patient used to smoke 2 packs per day for 40 years. FAMILY HISTORY: No pertinent family history, but history of coronary disease and hypertension in the family. OCCUPATION: The patient has been working in [employer] for 42 years. SOCIAL HISTORY: The patient is retired now. REVIEW OF SYSTEMS: GENERAL: The patient denies fever, chills, nausea, vomiting, weight loss, weight gain. HEENT: The patient denies vision change, hearing loss, nasal discharge, eye pain, tearing, nose congestion, or nose pain. CARDIOVASCULAR: The patient denies chest pain, palpitation, lower extremity edema, diaphoresis. RESPIRATORY: The patient reports shortness of breath. The patient reports cough with green and black sputum. The patient denies wheezing or dyspnea on exertion. The patient denies stridor. ABDOMINAL: The patient denies abdominal pain, nausea, vomiting, diarrhea, constipation, melena, hematochezia, hematemesis, or loss of appetite. GENITOURINARY: The patient denies hematuria, dysuria increase or decrease in frequency. NEUROLOGICAL: The patient denies lightheadedness, dizziness, confusion. PSYCHIATRIC: The patient denies depression, anxiety, substance abuse. [place], [place] REPORT OF CONSULTATION NAME: RENY QUEVEDO UNIT #: [id number] ROOM: [facility] DOCTOR: BRAYDEN CASSIDY DO BIRTHDATE: [birth year] PHYSICAL EXAMINATION: GENERAL: Appears sick, mild distress. HEENT: Atraumatic, normocephalic. Eyes: No lesion, no ulceration nonicteric. ENT: No lesion, no scars. Nares patent. No pharyngeal erythema. NECK: Without lesion, without masses. Trachea midline. Supple, nontender. HEART: Irregularly irregular rhythm, normal rate, no murmur. Pulses equal in all extremities. LUNGS: Diminished bilaterally. Diffuse wheezing and rhonchi present bilaterally. ABDOMEN: Soft, nontender, normal bowel sounds. No distention, no guarding, no rebound tenderness. EXTREMITIES: Mild bilateral lower extremity edema is present. No palpable or skin lesions. Lower extremities, chronic venous stasis notable. PSYCHOLOGICAL: Poor historian. LABORATORY DATA: Hematology: White cell count of 7.7, hemoglobin 9.6, platelet count of 294. Chemistry: Sodium of 145, potassium of 4.1, chloride of 106, carbon dioxide of 36, BUN of 22, creatinine of 0.96 and glucose of 130, magnesium of 2.3. CRP of 1.21, albumin of 2.9. INR of 1.4. Urine appears to have 3+ leukocyte esterase, 2+ protein, 3+ blood. MICROBIOLOGY: Blood cultures are pending to date. Urine culture shows about 100,000 heavy gram-negative bacteria. MRSA of the nares, pending. IMAGING: On 03/03/2017, chest x-ray showed stable cardiomegaly, bronchopneumonia of the right lower lobe with pleural effusion. Chest CT on 03/03/2017, showed mild right pleural effusion, small left pleural effusion, pulmonary fibrosis, coronary artery calcifications, small nodular densities within the right upper lobe and right middle lobes are unchanged to prior exam, date 01/02/2016. ASSESSMENT AND PLAN: 1. Plan for thoracentesis tomorrow at 6:30 upon further evaluation. 2. Please refer to Dr. Crane's note for assessment and plan. Thank you for the consult. BRAYDEN CASSIDY DO [place], [place] REPORT OF CONSULTATION NAME: RENY QUEVEDO UNIT #: [id number] ROOM: [facility] DOCTOR: BRAYDEN CASSIDY DO BIRTHDATE: [birth year] RAE CRANE MD CM:CONSTR:REPORT OF CONSULTATION 1105 03/04/17 1206 interface
--- NOTE | ~2017-03-03 | PR ---
[place], [place] PROGRESS NOTE NAME: RENY QUEVEDO [facility] #: [id number] UNIT #: [id number] ROOM: 525 DOCTOR: BRINDA DEXTER MD BIRTHDATE: [birth year] DOS: 03/06/2017 SUBJECTIVE: The patient was independently seen and examined [id number]. The patient apparently had about 8 beats on the ventricular tachycardia. Electrolytes were checked, examined. The patient was asymptomatic. Potassium was 3.4, magnesium was 2.1. Today, he is in sinus rhythm with right bundle branch block. Denies any chest discomfort. Does have shortness of breath. REVIEW OF SYSTEMS: As per HPI. OBJECTIVE: HEENT: Unremarkable. LUNGS: Diminished breath sounds. HEART: Sounds are regular. ABDOMEN: Obese, soft, nontender. NEUROLOGIC: Stable. IMPRESSION: The patient with bilateral pleural fluid, diastolic heart failure, chronic obesity, obstructive sleep apnea, history of a short run of v-tach. The patient had an echocardiogram done. Basically, left ventricle has normal size inferolateral wall at the base, appears hypokinetic, severe concentric left ventricular hypertrophy. EF is about 60%. Diastole could not be fully assessed. IMPRESSION: The patient with a short run of ventricular tachycardia. RECOMMENDATIONS: Continue the present medications as ordered. The patient is already on Xarelto and atorvastatin. If no contraindication, add a very small dose of metoprolol 25 b.i.d., selective beta quinten. Ejection fraction is well preserved and we will followup. BRINDA DEXTER MD CM:PNTRANS [id number] BRINDA DEXTER MD 03/06/17 1602 interface
--- NOTE | ~2017-03-03 | CON ---
[place], [place] REPORT OF CONSULTATION NAME: RENY QUEVEDO [facility] #: [id number] UNIT #: [id number] ROOM: 525 DOCTOR: GUERITA PURDYBRINDA BIRTHDATE: [birth year] DOS: 03/04/2017 HISTORY OF PRESENT ILLNESS: The patient is very well known to me. I was consulted because of elevated BNP. The patient had an echocardiogram done, which was read by some other grocery associate, though I am the grocery associate of the record, knowing this patient for multiple years. The patient's echocardiogram showed an ejection fraction appears to be preserved. The reason for study was possible CHF. The ejection fraction calculated at 60%, normal ejection fraction and normal wall motion. Right ventricle is normal. Atria is normal. Aortic valve was normal. Mitral valve was normal. No evidence of pulmonic or mitral regurgitation. The patient denies any chest discomfort. Chest x-ray showed possibility of congestive heart failure and the patient was adequately diuresed. He has no significant history of coronary artery disease. PAST MEDICAL HISTORY: Significant for chronic atrial fibrillation, hypertension, hypothyroidism, morbid obesity, failure to thrive, exacerbation of COPD. MEDICATIONS: He is on Lipitor, levothyroxine. SOCIAL HISTORY: He is a nonsmoker, not an alcoholic. REVIEW OF SYSTEMS: CONSTITUTIONAL: No fever, no chills. Positive shortness of breath. HEENT: No visual disturbances or hearing problems. CARDIOVASCULAR: No chest discomfort. RESPIRATORY: Does have shortness of breath. GASTROINTESTINAL: No nausea, no vomiting. GENITOURINARY: No dysuria. NEUROLOGIC: Appears to be no syncope. PHYSICAL EXAMINATION: GENERAL: The patient is not in any distress. HEENT: Unremarkable. NECK: Supple, elevated JVD. LUNGS: Diminished breath sounds. HEART: Sounds are regular. ABDOMEN: Soft, nontender. NEUROLOGIC: Stable. LABORATORY DATA: Hemoglobin 9.6, hematocrit 35.4. INR is 1.4. Electrolytes are normal. Creatinine is normal. Chest x-ray shows stable cardiomegaly, bronchopneumonia, right lower lobe with pleural effusion. IMPRESSION: The patient admitted with shortness of breath, possible pneumonia, elevated BNP, history of hypertension, chronic atrial fibrillation. RECOMMENDATIONS: Continue the Xarelto. Monitor the blood pressure closely. Continue with other medications. I do not think it is congestive heart failure, elevated BNP is multifactorial and we will follow up. [place], [place] REPORT OF CONSULTATION NAME: RENY QUEVEDO [place] UNIT #: [id number] ROOM: [facility] DOCTOR: BRINDA DEXTER MD BIRTHDATE: [birth year] BRINDA DEXTER MD CM:CONSTR:REPORT OF CONSULTATION 0738 03/04/17 2252 interface
--- NOTE | ~2017-03-03 | PR ---
[place], [place] PROGRESS NOTE NAME: RENY UQEVEDO [facility] #: [id number] UNIT #: [id number] ROOM: 525 DOCTOR: JONATHAN OLEA DPM BIRTHDATE: [birth year] DOS: 03/06/2017 SUBJECTIVE: The patient was seen for followup of exposed ankle hardware, lateral right calcaneus. The patient is resting comfortably in bed. OBJECTIVE: Upon removal of the dressing, there was exposed hardware to the lateral right calcaneus. There is localized inflammation, but no signs of purulent drainage or foul odor, no acute abscess, no acute infectious process noted. Review of radiographs revealed a protruding hardware plate from the lateral right foot. ASSESSMENT: Internal fixation exposed; ulceration, lateral aspect of the right foot. PLAN: Evaluation and management. Ordered Bactroban and gauze dressing to be applied daily. Discussed the case with Dr. Diop who had placed the patient's hardware. The patient will be discharged per Dr. Almazan and the patient will be consulted for surgical consult to be performed on an outpatient basis by Dr. Diop. Dr. Diop has photographs of the patient's foot and radiographs and will consult the patient for removal of the hardware. Discussed the case also with Dr. Almazan who is okay with the patient having the hardware removed on an outpatient basis. We will follow the patient accordingly and again, he will follow with Dr. Diop next week for surgical consultation. JONATHAN OLEA DPM CM:PNROSANNA [id number] JONATHAN OLEA DPM 03/06/17 1245 interface
--- NOTE | ~2017-03-03 | PR ---
[place], [place] PROGRESS NOTE NAME: RENY QUEVEDO UNIT #: [id number] ROOM: 525 DOCTOR: BRAYDEN CASSIDY DO BIRTHDATE: [birth year] DOS: 03/07/2017 SUBJECTIVE: The patient was seen and evaluated this morning with Dr. Crane. The patient denies any fever, chills, nausea, vomiting, shortness of breath or chest pain. The patient denies any complaint at this time. OBJECTIVE: VITAL SIGNS: Temperature 98.7, pulse 81, respiratory rate 20, blood pressure 109/61, bedside pulse ox is 94 on 2 liters of nasal cannula. HEENT: Shows no changes, chronic obesity. NECK: Supple. CARDIOVASCULAR: S1, S2 audible. PULMONARY: No wheezes or crackles noted. Decreased breath sounds at the bases. ABDOMEN: Soft and obese. EXTREMITIES: Remain unchanged from yesterday. LABORATORY DATA: White cell count 7.7, hemoglobin 9.6, platelet count 294. No labs were ordered this morning. ASSESSMENT: 1. Acute congestive heart failure with diastolic dysfunction. 2. Pleural effusion related to underlying CHF with atrial fibrillation, improving. 3. Chronic obesity. 4. History of past nicotine abuse. 5. Chronic COPD, no exacerbation at this time. PLAN: 1. The patient can be continued on previous treatment as in Lasix daily. 2. Supportive therapy, plan of management and care. 3. The patient should be assessed as an outpatient for obstructive sleep apnea disorder. 4. Supportive care. 5. Possible discharge. BRAYDEN CASSIDY DO [place], [place] PROGRESS NOTE NAME: RENY QUEVEDO UNIT #: [id number] ROOM: 525 DOCTOR: BRAYDEN CASSIDY DO BIRTHDATE: [birth year] RAE CRANE MD CM:PNTRANS [phone] [id number] BRAYDEN CASSIDY DO 03/07/17913 interface
--- NOTE | ~2017-03-03 | PR ---
[place], [place] PROGRESS NOTE NAME: [facility] [id number] UNIT #: [id number] ROOM: 525 DOCTOR: ROCÍO NASH MD BIRTHDATE: [birth year] DOS: SUBJECTIVE: The patient does not have any new complaints. Appreciate Dr. Massey's input. OBJECTIVE: VITAL SIGNS: Graphic trend shows a pressure of 110/55, pulse of 92, respirations 20 and temperature 98.3. LUNGS: Diminished breath sounds. No wheezes, rales or rhonchi heard. HEART: Regular. ABDOMEN: Soft. EXTREMITIES: Without any edema. Right leg, hardware is exposed in the lateral malleolus. LABORATORY DATA: Urine culture positive for Morganella morganii, which is sensitive to the ceftriaxone. MRSA naris was negative. ASSESSMENT AND PLAN: 1. Right-sided pneumonia with pleural effusion. Dr. Massey was consulted. He did not feel that the patient's effusion is significant enough to have a thoracentesis performed. Repeated chest x-ray will be ordered tomorrow; if it shows clearing, we will plan to discharge him back to the intermediate. 2. Urinary tract infection with Morganella morganii, again on antibiotics. We will discontinue Brunson catheter. 3. Exposed hardware. The patient has had surgery performed on the right foot 30 years ago by . ____. ROCÍO NASH MD CM:PNTRANS [id number] ROCÍO NASH MD 03/05/17 1022 interface
--- NOTE | ~2017-03-03 | CON ---
[place], [place] REPORT OF CONSULTATION [id number] UNIT #: [id number] ROOM: 525 DOCTOR: MARIA T BROOKS PRIYA BIRTHDATE: [birth year] DOS: 03/05/2017 HISTORY OF PRESENT ILLNESS: This is a 76-year-old male who was admitted for pneumonia. He is a familiar patient of our clinic. He has had surgery by Dr. Diop many years ago to bilateral feet. His recent right foot and ankle surgery was in 2013. Podiatry was consulted to evaluate exposed hardware to the right lower extremity. He does not know when the wounds appeared. He denies any pain to the ulceration site. He denies any nausea, vomiting, fever, chills, calf pain, shortness of breath or chest pain. He states that he resides in a senior living and admits that he does not ambulate much. He has not followed up at our clinic recently. He has no other pedal complaints. PAST MEDICAL HISTORY: Chronic cholecystitis, COPD, chronic UTIs, poor healing wounds, stasis dermatitis, chronic AFib, benign hypertension, hypothyroidism, morbid obesity. PAST SURGICAL HISTORY: Bilateral foot surgeries. SOCIAL HISTORY: Denies tobacco use, alcohol use. Currently resides at [facility]. MEDICATIONS: Lipitor, citalopram, levothyroxine, multivitamins, Zofran, Xarelto, Januvia, insulin sliding scale and Lantus. REVIEW OF SYSTEMS: GENERAL: A and O x 3, in no acute distress. CARDIOVASCULAR: Denies any heart murmurs, arrhythmias, chest palpitations or chest pain. LUNGS: Denies any shortness of breath or difficulty breathing. HEENT: Denies any trouble with vision or swallowing. NEUROLOGIC: Admits to decreased sensation to the bilateral lower extremities. MUSCULOSKELETAL: Admits to muscle weakness to bilateral lower extremities. DERMATOLOGIC: Ulceration to the right lower extremity. He does not know how long it has been there. PSYCHIATRIC: Denies any history of depression or anxiety. FOCUSED PODIATRIC LOWER EXTREMITY EVALUATION: VASCULAR: DP and PT pulses are faintly palpable bilaterally. No hair present to bilateral lower extremities. His skin appears to be shiny and atrophic with discoloration noted to bilateral lower extremities. CFT is less than 5 seconds to all digits. +2 pitting edema noted to bilateral lower extremities. Neuroprotective sensation is decreased to the bilateral digits. Sensation is decreased with [place] monofilament to bilateral digits. Decreased muscle tone and symmetry noted to bilateral lower extremities. MUSCULOSKELETAL: 3 to 5 muscle strength noted in bilateral lower extremities. Decreased range of motion noted to the ankle joint, subtalar joint and first MTPJ. Equinus deformity noted to bilateral lower extremities. DERMATOLOGIC: Thin, shiny skin noted to bilateral lower extremities with chronic venous changes noted as well. There is a full thickness ulceration noted down to the subcutaneous tissue with exposed hardware of the [facility] and [place], [place] REPORT OF CONSULTATION NAME: RENY QUEVEDO UNIT #: [id number] ROOM: 525 DOCTOR: MARIA T BROOKS PRIYA BIRTHDATE: [birth year] screw noted at the lateral aspect of the right foot. No ascending erythema, no calor, no purulent drainage, no fluctuation, no malodor noted to the right lower extremity. No acute signs of infection noted at this time. ASSESSMENT: 1. Exposed hardware, right foot, no acute signs of infection at this time. 2. Diabetes mellitus with peripheral neuropathy. 3. Chronic obstructive pulmonary disease. 4. Pneumonia. The patient is being treated at the hospital at this time. PLAN: 1. The patient is seen and examined. 2. Ulceration site dressed with Betadine dry sterile dressing. 3. Recommend PRAFO boots for bilateral heels at all times while in bed to avoid heel decubitus ulcers. 4. Ordered arterial ABIs to evaluate for sufficient arterial blood flow. 5. Procedure can be performed as an outpatient once he is discharged to senior living. He is to follow up in our clinic in 1 week after discharge. The senior living is to call our office to follow up for his appointment. 6. Discussed with Dr. Diop, who agrees with above assessment and plan. Thank you for the consultation. Feel free to call me at my cell phone, . MARCIAL BROOKS DPM CM:CONSTR:REPORT OF CONSULTATION 1907 03/07/17 0816 interface
--- NOTE | ~2017-03-03 | PR ---
[place], [place] PROGRESS NOTE NAME: RENY QUEVEDO [facility] #: [id number] UNIT #: [id number] ROOM: 525 DOCTOR: ROYCE CHANG MD,RAE BIRTHDATE: [birth year] DOS: 03/07/2017 SUBJECTIVE: The patient was seen today independently with [id number] encounter. History was confirmed and physical examination performed. The assessment of the patient and the management changes were personally done for this patient for today's assessment. All the available labs were reviewed. He has been noted comfortable at this time, resting on the bed without any difficulty. Denies symptoms of chest pain or any abdominal pain. The patient denies any symptoms of hemoptysis. PHYSICAL EXAMINATION: VITAL SIGNS: Reviewed for the patient was noted essentially normal today. The pulse oxygen saturation of the patient was noted as 2 liters nasal cannula 100% saturation. LUNGS: For this patient was noted without any wheezing or crackles at this time. ABDOMEN: Soft, nontender. IMPRESSION: Resolving respiratory status noted with a small pleural fluid. Clinical improvement noted in congestive heart failure. The patient did not require any intervention for the pleural fluid at this time. The pleural fluid has been improving radiologically as well as clinically. The note done by the medical consultant was approved. PLAN OF TREATMENT: No change in treatment at this time was recommended. The patient could be discharged home whenever he desires from the pulmonary standpoint. RAE CRANE MD CM:PNTRANS [phone] RAE CHANG MD 03/07/17 1643 interface
--- NOTE | ~2017-03-03 | PR ---
[place], [place] PROGRESS NOTE NAME: RENY QUEVEDO [facility] #: [id number] UNIT #: [id number] ROOM: 525 DOCTOR: BRAYDEN CASSIDY DO BIRTHDATE: [birth year] DOS: 03/05/2017 SUBJECTIVE: The patient was seen and evaluated today with Dr. Crane. The patient is alert, awake and responsive. The patient denies any nausea, vomiting, diarrhea, lightheadedness, dizziness, chest pain. The patient says his shortness of breath has improved. The patient ____ this morning. Bedside ultrasound was done to evaluate the fluid in his right lung. His CT showed bilateral pleural effusion, right greater than the left. Bedside ultrasound was performed, very small amount of fluid was appreciated, which does not need drainage as of right now. OBJECTIVE: VITAL SIGNS: Temperature 97.8, pulse 96, respiratory 20, blood pressure 113/54. GENERAL: Awake, alert, no distress. HEENT: No change. CARDIOVASCULAR: S2, S1 audible. NECK: Supple. LUNGS: Decreased breath sounds at the bases. No wheezing appreciated. ABDOMEN: Soft and significantly obese. EXTREMITIES: 2+ pitting edema and venous stasis noted. NEUROLOGY: No focal neurological deficits. LABORATORY DATA: White cell count 7.7, hemoglobin 9.6, platelet count of 294. Sodium of 145, BUN of 22, creatinine of 0.96. INR of 1.4. 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 No definitive radiologic evidence of acute osteomyelitis ____ soft tissue swelling. IMPRESSION: 1. Acute congestive heart failure, diastolic dysfunction. 2. Pleural effusion related to underlying congestive heart failure with atrial fibrillation. 3. Chronic obesity. 4. History of past nicotine abuse, continued for several years. 5. Chronic obstructive pulmonary disease, no exacerbation at this time. PLAN: 1. Thoracentesis was not performed, very minimal fluid was noted. 2. Continue Lasix 40 mg IV daily. Maintain oxygen saturation above 90%. Continue antibiotic and DuoNeb. 3. Supportive care. BRAYDEN CASSIDY DO [place], [place] PROGRESS NOTE NAME: RENY QUEVEDO UNIT #: [id number] ROOM: [facility] DOCTOR: BRAYDEN CASSIDY DO BIRTHDATE: [birth year] RAE CRANE MD CM:LATHA [phone] BRAYDEN CASSIDY DO 03/05/17 1921 interface
[~2017-03-03 07:07] MED LIST changes: +CELEXA20 MG PO; +CITRIC ACID PO; +GEMFIBROZIL600 MG PO; +JANUVIA25 MG PO; +LANTUS100 U/ML SC; +MULTI-DAY VITA1 EACH PO; +NOVOLOG10 ML SC; +SYNTHROID25 MCG PO; +XARE20MG PO; +ZOFRAN4 MG PO; +[UNRECOGNIZED DRUG - OTHER] PO; +[UNRECOGNIZED DRUG - OTHER] PO; +[UNRECOGNIZED DRUG - OTHER] PO
[2017-03-03 07:34] LABS: BASO % 0.5 % (0.0-1.0); EOS # 0.1 10*3/uL (0.0-0.4); EOS % 1.7 % (1.0-4.0); HEMATOCRIT 35.4 % (42.0-52.0); HEMOGLOBIN 9.6 g/dl (14.0-18.0); LYMPH # 0.9 10*3/uL (1.3-4.4); LYMPH % 11.1 % (27.0-41.0); MEAN CELL VOLUME 81.6 fl (80.0-94.0); MEAN CORPUSCULAR HGB 22.1 pg (27.0-31.0); MEAN CORPUSCULAR HGB CONC 27.1 g/dl (33.0-37.0); MEAN PLATELET VOLUME 11.1 fl (9.6-12.3); MONO # 0.8 10*3/uL (0.1-1.0); MONO % 9.8 % (3.0-9.0); NEUT # 5.9 10*3/uL (2.3-7.9); NEUT % 76.5 % (47.0-73.0); PLATELET COUNT AUTOMATED 294 10*3/uL (130-400); RED BLOOD COUNT 4.34 10*6/uL (4.50-5.90); RED CELL DISTRI WIDTH 17.5 % (0-14.5); WHITE BLOOD COUNT 7.7 10*3/uL (4.8-10.8)
[2017-03-03 07:43] LABS: ACT PARTIAL THROMBO TIME 25.6 SECONDS (20.8-31.5); INTERNATIONAL NORM RATIO 1.4 (2.0-3.5)
[2017-03-03 07:50] LABS: ALBUMIN 2.9 gm/dl (3.1-4.5); ALKALINE PHOSPHATASE 75 U/L (45-117); BUN 22 mg/dl (7-24); CHLORIDE 106 mmol/L (98-107); CPK 28 U/L (39-308); CREATININE 0.96 mg/dL (0.70-1.30); LIPASE 144 U/L (73-393); MAGNESIUM 2.3 mg/dL (1.5-2.1); POTASSIUM 4.1 mmol/L (3.5-5.1); SGOT/AST 19 IU/L (3-35); SGPT/ALT 12 U/L (12-78); SODIUM 145 mmol/L (136-145); TOTAL PROTEIN 7.1 gm/dL (6.4-8.2); TROPONIN I 0.026 ng/ml (<0.045)
[2017-03-03 07:51] LABS: CKMB < 0.5 ng/ml (0.5-3.6)
[2017-03-03 08:01] LABS: BILIRUBIN NEGATIVE (NEGATIVE); BLOOD 3+ (NEGATIVE); CLARITY CLOUDY (CLEAR); COLOR RED (YELLOW); GLUCOSE NEGATIVE (NEGATIVE); KETONE NEGATIVE (NEGATIVE); NITRITE NEGATIVE (NEGATIVE); PH 7.5 (5.0-9.0); UROBILINOGEN 0.2 E.U./dl (0.2-1.0)
[2017-03-03 08:07] LABS: RBC TNTC rbc/hpf (0-2)
[2017-03-03 08:08] LABS: LEUKO ESTERASE 3+ (NEGATIVE)
[2017-03-04 08:00] VITALS: BP 119/60
[2017-03-04 12:00] VITALS: BP 114/58
[2017-03-04 16:00] VITALS: BP 132/79
[2017-03-04 20:00] VITALS: BP 123/59
[2017-03-05] VITALS: BP 141/73
[2017-03-05 08:00] VITALS: BP 110/55
[2017-03-05 12:00] VITALS: BP 113/54
[2017-03-05 16:00] VITALS: BP 132/65
[2017-03-05 20:00] VITALS: BP 126/61
[2017-03-06] VITALS: BP 143/68
[2017-03-06 03:15] LABS: MAGNESIUM 2.1 mg/dL (1.5-2.1); POTASSIUM 3.4 mmol/L (3.5-5.1)
[2017-03-06 12:00] VITALS: BP 112/66
[2017-03-06 16:00] VITALS: BP 121/65
[2017-03-07] VITALS: BP 109/61
[2017-03-07 08:00] VITALS: BP 128/72
[2017-03-07] MEDS ORDERED: LASIX40 MG PO (08:15)
[2017-03-07] MEDS ORDERED: K-TAB10 MEQ PO (08:15)
[2017-03-07] MEDS ORDERED: BACTRIM 400-801 EACH PO (08:16)
== END 2017-03-07 12:09 | DRG 871 ==
LOC: ED 07:07 → 5E 08:48 → EDHOLD 08:48 → 5E 08:54
PROVIDERS: Emergency Medicine; Internal Medicine Cardiovascular Disease; ADMIT Internal Medicine
DX: A41.9 Sepsis, unspecified organism (principal); J18.9 Pneumonia, unspecified organism; I50.31 Acute diastolic (congestive) heart failure; I47.2 Ventricular tachycardia; J96.10 Chronic respiratory failure, unspecified whether with hypoxia or hypercapnia; J90 Pleural effusion, not elsewhere classified; E87.3 Alkalosis; I11.0 Hypertensive heart disease with heart failure; N39.0 Urinary tract infection, site not specified; I82.509 Chronic embolism and thrombosis of unspecified deep veins of unspecified lower extremity; B96.89 Other specified bacterial agents as the cause of diseases classified elsewhere; Z16.29 Resistance to other single specified antibiotic; I73.9 Peripheral vascular disease, unspecified; Z96.652 Presence of left artificial knee joint; R31.9 Hematuria, unspecified; K81.1 Chronic cholecystitis; I48.2 Chronic atrial fibrillation; E03.9 Hypothyroidism, unspecified; R62.7 Adult failure to thrive; I87.2 Venous insufficiency (chronic) (peripheral); G47.33 Obstructive sleep apnea (adult) (pediatric); E87.6 Hypokalemia; E11.42 Type 2 diabetes mellitus with diabetic polyneuropathy; E66.8 Other obesity; J44.9 Chronic obstructive pulmonary disease, unspecified; Z88.0 Allergy status to penicillin; Z79.4 Long term (current) use of insulin; Z79.899 Other long term (current) drug therapy; Z87.440 Personal history of urinary (tract) infections; Z82.49 Family history of ischemic heart disease and other diseases of the circulatory system; Z90.49 Acquired absence of other specified parts of digestive tract; Z87.891 Personal history of nicotine dependence; Z79.01 Long term (current) use of anticoagulants; Z68.35 Body mass index [BMI] 35.0-35.9, adult; L97.519 Non-pressure chronic ulcer of other part of right foot with unspecified severity; M24.673 Ankylosis, unspecified ankle; T50.2X5A Adverse effect of carbonic-anhydrase inhibitors, benzothiadiazides and other diuretics, initial encounter; Y92.89 Other specified places as the place of occurrence of the external cause

== ENCOUNTER → 2017-03-24 | Outpatient (CLI) | payer MEDICARE, OTHER ==
[~2017-03-24] MED LIST changes: +BACTRIM 400-801 EACH PO; +DOXYCYCLINE100 M3 PO; +DUONEB 3 MG/3 ML3 M1 INH; +K-TAB10 MEQ PO; +Synthroid,Levo25 MCG PO; +VITAMIN D50000 UNIT PO
== END | disposition home or self-care (01) ==
LOC: CT 03:10
DX: M20.11 Hallux valgus (acquired), right foot (principal); M76.61 Achilles tendinitis, right leg; I70.201 Unspecified atherosclerosis of native arteries of extremities, right leg; M86.8X7 Other osteomyelitis, ankle and foot; M62.561 Muscle wasting and atrophy, not elsewhere classified, right lower leg; I87.8 Other specified disorders of veins; Z98.890 Other specified postprocedural states

== ENCOUNTER 2017-03-27 13:15 | Inpatient (IN) | payer MEDICARE, OTHER ==
[~2017-03-27] VITALS: Ht 175.3 cm; Wt 122.2 kg
[2017-03-27] VITALS (7 sets, daily range): BP systolic 117–162; BP diastolic 52–89
--- NOTE | ~2017-03-27 | PR ---
[place], [place] PROGRESS NOTE NAME: [facility] #: [id number] UNIT #: [id number] ROOM: 521 DOCTOR: ROYCE CHANG MD,RAE BIRTHDATE: [birth year] DOS: 03/31/2017 SUBJECTIVE: The patient has been noted comfortable at this time without any distress. He has been noted fully awake and alert. Denies any acute shortness of breath. He has been using oxygen supplementation this morning with the nasal cannula. OBJECTIVE: VITAL SIGNS: For the patient which has been recorded showed the temperature as normal. The respiratory rate of the patient recorded as 20 this morning, heart rate 66, blood pressure 118/50. HEENT: Showed no new change. NECK: Supple. CARDIOVASCULAR: S1, S2 audible. LUNGS: Without any crackles, rhonchi or wheezing. Breaths are noted mildly decreased bilaterally. ABDOMEN: Soft, nontender. IMPRESSION: The patient who has been currently showing gradual reduction and improvement in respiratory symptoms with acute tracheobronchitis, acute on chronic hypoxic respiratory failure, acute congestive heart failure, which is improving gradually. Suspected obstructive sleep apnea disorder. PLAN OF MANAGEMENT: No changes in the plan for this patient at this time. Continue the BiPAP, which will be used by the patient at nighttime, diuretic therapy, other treatment plan. Discharge planning per primary care physician to be done. RAE CRANE MD CM:PNTRANS [id number] RAE CHANG MD 03/31/17 2342 interface
--- NOTE | ~2017-03-27 | PR ---
[place], [place] PROGRESS NOTE NAME: RENY QUEVEDO [facility] #: [id number] UNIT #: [id number] ROOM: [facility] DOCTOR: MARIA T BROOKS PRIYA BIRTHDATE: [birth year] DOS: SUBJECTIVE: The patient is seen for his chronic wound to the lateral aspect of his right lower extremity. He has history of chronic osteomyelitis. He follows up in our clinic regularly. He denies any nausea, vomiting, fever or chills at this time. PAST MEDICAL HISTORY: Venous insufficiency, CHF, COPD and coronary artery disease. CURRENT MEDICATIONS: Please see MAR for current list of medications. ALLERGIES: PENICILLIN. OBJECTIVE: EXTREMITIES: There is a full thickness ulceration to the right lower extremity with an exposed hardware to the lateral ankle. There is no periwound erythema, edema, malodor or purulent drainage noted to the lateral aspect of the wound. Decreased pitting edema noted to right lower extremity. ASSESSMENT: Excellent fixation with ulceration, right lateral ankle. PLAN: Betadine with dry sterile dressing and compression below the knee to the right lower extremity has been applied. Dressing changes may be performed weekly. There is no acute surgical intervention at this time. We will be keeping an eye on him. He will follow up with us in the clinic after discharge. MARCIAL BROOKS DPM CM:PNTRANS [id number] MARCIAL BROOKS DPM 03/29/171852 interface
--- NOTE | ~2017-03-27 | PR ---
[place], [place] PROGRESS NOTE NAME: RENY QUEVEDO UNIT #: [id number] ROOM: [facility] DOCTOR: CHAITANYA WAN MD BIRTHDATE: [birth year] DOS: 03/29/2017 SUBJECTIVE: The patient is breathing better. He is more awake and alert and oriented. He has been cleared to be transferred to a step-down unit by his cisco network architect. PHYSICAL EXAMINATION: VITAL SIGNS: Blood pressure 114/44, heart rate 75 beats per minute, breathing 21 times per minute, temperature 98.3 degrees Fahrenheit. GENERAL APPEARANCE: Generalized weakness and obesity. HEENT AND NECK: Exam within normal limits. CARDIOVASCULAR SYSTEM: Heart rate is regular in rate and rhythm. S1 and S2 normally audible. LUNGS: Clear to auscultation. ABDOMEN: Soft, nontender. No obvious organomegaly. Bowel sounds are present. EXTREMITIES: Without significant cyanosis or edema. IMPRESSION: 1. The patient with acute over chronic congestive heart failure, diastolic type, being diuresed by Dr. Gillespie, his cisco network architect. The patient remained in the ICU and has been cleared for transfer to [facility]. 2. Morbid obesity, generalized failure to thrive. The patient to work with physical therapy. 3. Exacerbation of severe underlying chronic obstructive pulmonary disease, being treated and controlled. The patient had some complaints of purulent sputum. 4. Left ankle hardware exposure with chronic nonhealing wound. Foot doctors and wound care to follow. 5. Type 2 diabetes mellitus with much better controlled blood sugars with no concentrated sweet diet. Her sugars are ranging between 110 to 150 mostly. The patient is apparently very poorly compliant with his diet at home. 6. Chronic atrial fibrillation with controlled heart rates. The patient is anticoagulated with Xarelto. 7. Hypothyroidism, treated with supplements. 8. Benign essential hypertension with controlled blood pressures with treatment. [place], [place] PROGRESS NOTE NAME: RENY QUEVEDO UNIT #: [id number] ROOM: [facility] DOCTOR: CHAITANYA WAN MD BIRTHDATE: [birth year] CHAITANYA WAN MD CM:PNTRANS [id number] CHAITANYA WAN MD 03/29/17 2217 interface
--- NOTE | ~2017-03-27 | PR ---
[place], [place] PROGRESS NOTE NAME: RENY QUEVEDO UNIT #: [id number] ROOM: [facility] DOCTOR: BRINDA DEXTER MD BIRTHDATE: [birth year] DOS: 03/29/2017 SUBJECTIVE: 24-hour events noted. Discussed with the nursing staff. The patient was seen by Dr. Louise who was covering me yesterday. The patient has diuresed very well and breathing significantly. The patient with chronic atrial fibrillation and diastolic heart failure. The patient is on Xarelto. The patient's breathing is also significantly better. The patient's heart rate was slightly fast and his atenolol has been resumed. He is in atrial fibrillation, rate in 80s. HEENT is unremarkable. His I's and O's, he had negative 996 mL. Blood pressure today is 110/50. He is in atrial fibrillation. REVIEW OF SYSTEMS: HEENT: No visual disturbances. CARDIOVASCULAR: No chest discomfort. RESPIRATORY SYSTEM: Positive dyspnea on exertion. NEUROLOGIC: No syncope. GASTROINTESTINAL: No nausea, no vomiting. GENITOURINARY: No dysuria or hematuria. Hemodynamically appears to be stable. He had some hematuria yesterday. PHYSICAL EXAMINATION: GENERAL: He is alert, oriented x 3. HEENT: Mildly elevated JVD. LUNGS: Diminished breath sounds. HEART: Sounds are irregularly irregular. ABDOMEN: Obese, soft, nontender. EXTREMITIES: About 2+ edema. LABORATORY DATA: Hemoglobin 9, hematocrit 31.9, BUN and creatinine is 24 and 1. IMPRESSION: Worsening of diastolic heart failure, COPD, morbid obesity, exacerbation of severe underlying COPD, type 2 diabetes, chronic atrial fibrillation. RECOMMENDATIONS: Continue with the present care. Continue IV diuretics, strict I's and O's with 1500 mL fluid restriction. Monitor the heart rate and blood pressure very closely. We did increase the diuretic yesterday and also resumed his atenolol. Heart rate is much better. Continue the Xarelto and I will followup. [place], [place] PROGRESS NOTE NAME: RENY QUEVEDO UNIT #: [id number] ROOM: [facility] DOCTOR: BRINDA DEXTER MD BIRTHDATE: [birth year] BRINDA DEXTER MD CM:LATHA 3 1 BRINDA DEXTER MD 03/29/17 0851 interface
--- NOTE | ~2017-03-27 | PR ---
[place], [place] PROGRESS NOTE [facility] [id number] UNIT #: [id number] ROOM: 521 DOCTOR: ROYCE CHANG MD,RAE BIRTHDATE: [birth year] DOS: 03/30/2017 SUBJECTIVE: He has been comfortably resting on the bed, used the BiPAP last night. This morning, using oxygen supplementation. Denies symptoms of coughing, sputum expectoration or any chest pain. OBJECTIVE: VITAL SIGNS: For the patient which has been recorded shows normal temperature, respiratory rate 17, heart rate 80, blood pressure 135/57, pulse oxygen saturation 3 liters nasal cannula 97% saturation. HEENT: Chronic obesity. NECK: Supple, short and obese. CARDIOVASCULAR: S1, S2 audible. LUNGS: The patient was noted without any wheezing. Scattered crackles of the lungs were noted bilaterally. ABDOMEN: Soft, nontender and obese. EXTREMITIES: Shows resolving edema. LABORATORY DATA: BMP: BUN 28, creatinine normal, potassium 3.3 today, culture of the sputum preliminary showing normal bruce. Final culture results pending. IMPRESSION: Acute tracheobronchitis. The patient would be considered with ongoing acute on chronic hypoxic respiratory failure with acute congestive heart failure with gradual, but progressive resolution. Overall debility. Consider obstructive sleep apnea disorder. PLAN OF TREATMENT: Continuation of the current plan of therapy with supplementation of electrolytes by the primary care physician. Other supportive plan of management and care plan. Additional treatment changes need to be made based on progression of the illness. REA CRANE MD CM:PNTRANS [id number] RAE CHANG MD 03/31/17 0327 interface
--- NOTE | ~2017-03-27 | CON ---
[place], [place] REPORT OF CONSULTATION [facility] [id number] UNIT #: [id number] ROOM: [facility] DOCTOR: DAQUAN FRANCO MD BIRTHDATE: [birth year] DOS: 03/28/2017 HISTORY OF PRESENT ILLNESS: This is a 76-year-old -[place] man with history of COPD, morbid obesity, atrial fibrillation of longstanding, hypothyroidism, essential hypertension, has had cholecystitis. He quit smoking about 30 years ago. He was admitted to this hospital about a month ago with increasing shortness of breath and pleural effusions. He came back again because of worsening shortness of breath. He had no chest pain, palpitations, and no loss of consciousness and he reports no acute neurological symptoms. Dr. Gillespie was asked to evaluate because of heart failure. HOME MEDICATIONS: Include DuoNeb, atorvastatin 40 daily, cholecalciferol 50,000 units once a week. Celexa 20 mg daily, doxycycline 100 mg daily, furosemide 40 mg p.o. daily, levothyroxine, multivitamins, potassium chloride, Xarelto, Januvia and insulin. PHYSICAL EXAMINATION: GENERAL: This is a patient who is extremely obese. He is lying in bed with head propped up. His complexion is fine. There is no jaundice. Temperature is normal. There is no obvious thyromegaly. No finger clubbing is present. VITAL SIGNS: Pulse is irregular at 120 beats per minute, blood pressure 135/87. NECK: JVP is about 10-15 cm with positive AJR. He has no obvious murmurs. Heart sounds are rather distant. Pulmonic sound is not increased in intensity. He has severe edema of the lower extremity and both legs below the knees are addressed. There is fair amount of edema of the thighs and buttocks. Torso is also quite edematous. RESPIRATORY: Breath sounds are diminished with crackles in the lower zones. LABORATORY DATA: Chest x-ray demonstrates moderate pulmonary edema and glucose 129, BUN 17, creatinine 0.87, potassium 3.8, serum albumin 3.0. Troponin I level 0.0253. IMPRESSION: This patient has at least moderate degree of heart failure. This is likely to be diastolic failure due to atrial fibrillation with rapid ventricular rate, hypertension and most likely obesity. RECOMMENDATIONS: This patient probably has about 30 pounds or more of volume overload at this time and I strongly recommended using larger doses of furosemide with potassium supplement if necessary while monitoring renal function and the patient's blood pressure. Impression is that this patient is likely to be in this hospital for the next several days while he is being diuresed. Atenolol 25 mg b.i.d. is being started. I thank you on behalf of Dr. Gillespie for this consult. [place], [place] REPORT OF CONSULTATION NAME: EMYRENY Nata UNIT #: [id number] ROOM: [facility] DOCTOR: DAQUAN FRANCO MD BIRTHDATE: [birth year] DAQUAN FRANCO MD CM:CONSTR:REPORT OF CONSULTATION 1419 03/29/17 0228 interface
--- NOTE | ~2017-03-27 | CON ---
[place], [place] REPORT OF CONSULTATION NAME: RENY QUEVEDO UNIT #: [id number] ROOM: [facility] DOCTOR: RAE SALDAÑA MD BIRTHDATE: [birth year] DOS: 03/28/2017 REASON FOR CONSULTATION: Assess the patient's respiratory failure symptoms. HISTORY OF PRESENT ILLNESS: This 76-year-old white male who has been known to me from the past, recent admission. The patient has been admitted to the hospital in 02/2017 for the acute respiratory failure noted with acute congestive heart failure, pleural fluid and other problem. The patient has been treated in this hospital and currently resides in [facility]. He has been admitted to the hospital, brought by the ambulance. The patient has been noticed with increased shortness of breath recently. He has been noted with use of oxygen supplementation 3 liters nasal cannula. The patient noted poor historian and not able to provide me much of the history. Most of the history has been obtained from her past medical records of this hospitalization in 02/2015 and others as well as a physician documentation and nurse's notes. He has not been noted with any symptoms of coughing. Denies any symptoms of chest pain or chest congestion. The patient denies symptoms of wheezing. He has been noted with acute congestive heart failure. Chest x-ray on admission yesterday and started on the BiPAP that treatment. The patient has used the BiPAP treatment until this morning. This morning, using oxygen supplementation with the nasal cannula. He has not been noted symptoms of hemoptysis. The patient's review of systems cannot be effectively completed, the patient's inability to give history; however, limited. REVIEW OF SYSTEMS: For the patient were noted as. CONSTITUTIONAL: Symptoms of shortness of breath. EYES: Denies any symptoms of burning in the eyes, redness, discharge or visual loss. ENT: Denies any symptoms of postnasal drainage or headache. CARDIOVASCULAR: Denies any symptoms of fever or chills. Complains of fatigue. GASTROINTESTINAL: Denies any symptoms of abdominal pain, nausea, vomiting, diarrhea, hematemesis, melena, or hematochezia. GENITOURINARY: Denies dysuria, suprapubic pain. MUSCULOSKELETAL: Chronic pain in the joints as well as right ankle problems with some surgical failure issues and others being treated by the wait staff as an outpatient. CENTRAL NERVOUS SYSTEM: Mostly noted bedbound without any focal deficit. Remaining systems limited review noted, negative. PAST MEDICAL HISTORY: 1. History of COPD. 2. Chronic hypoxic respiratory failure. He uses oxygen at 3 liters per nasal cannula. 3. History of stasis dermatitis of lower extremities. 4. History of chronic cholecystitis. 5. Atrial fibrillation, chronic. 6. Hypothyroidism. 7. Essential hypertension. 8. Obesity. [place], [place] REPORT OF CONSULTATION NAME: RENY QUEVEDO UNIT #: [id number] ROOM: [facility] DOCTOR: IMTIAZ SALDAÑA MDM BIRTHDATE: [birth year] 9. Failure to thrive. 10. Congestive heart failure with the diastolic dysfunction. 11. History of peripheral vascular disease, needs to be addressed by the vascular surgeon. SOCIAL HISTORY: The patient has been noted history of tobacco use since teenager, 2 packs of cigarettes per day until 1986. There is no history of alcohol or illicit drug use. The patient is . He has no children. He has worked 42 years in the [employer]. FAMILY HISTORY: Noncontributory. MEDICATIONS: Current administered medications noted use of IV Lasix, Xarelto, citalopram, and other p.r.n. medications. Medication which were listed in the medication reconciliation from the nursing facility were noted as use of DuoNeb, Lipitor, vitamin D, citalopram, doxycycline, Lasix oral, Synthroid, multivitamin, potassium chloride, Xarelto, Januvia, NovoLog insulin and Lantus insulin. DRUG ALLERGIES: NOTED ALLERGY TO THE PENICILLINS. PHYSICAL EXAMINATION: GENERAL: A 76-year-old white male who has been noted currently awake and alert without any distress at this time. VITAL SIGNS: Height of 5 feet 9 inches, weight 265 pounds, BMI 32.5. Vital signs of the patient which were recorded showed the temperature noted normal, respiratory rate 16-34, heart rate of 100-101, blood pressure 160/87-143/69. Intake since admission 720 mL intake output was 1975 mL with administration of Lasix with a negative of 1.255 liters. Pulse oxygen saturation of the patient was noted on the BiPAP as 98% with 35% oxygen. HEENT: Head was atraumatic. Eyes nonicterus. Severe decreased posterior pharyngeal space, high tongue base and crowding of soft tissue structures. CARDIOVASCULAR: S1, S2 is audible. LUNGS: The patient was noted with oeax-on-zyeialys decreased breath sounds, scattered crackles without any wheezing. ABDOMEN: Soft, obese, nontender. EXTREMITIES: Limited examination with some edema. CENTRAL NERVOUS SYSTEM: The patient was noted to have general weakness, fatigue, cranial nerves 2-12 intact. SKIN: No lesions or rashes. MUSCULOSKELETAL: No acute deformities seen. LABORATORY DATA: CBC, 03/27/2017, hemoglobin 9.1, hematocrit 32.6, WBC count normal, platelet count was normal. CMP, 03/27/2017, glucose 145, BUN and creatinine was normal. CO2 is 37. Albumin 2.8. C-reactive protein was minimally elevated with the patient as 1.91. The ESR was noted as 9.9 rather that was normal yesterday. CBC yesterday, hemoglobin 9.6, hematocrit 34.4, WBC count normal, platelet count was normal. Arterial blood gas of the patient that was done yesterday, pH of 7.33, pCO2 of 74, pO2 of 82. ABG which was done this [place], [place] REPORT OF CONSULTATION NAME: RENY QUEVEDO UNIT #: [id number] ROOM: [facility] DOCTOR: ROYCE CHANG MD,[facility] BIRTHDATE: [birth year] morning, pH of 7.48, pCO2 of 55, pO2 of 92 with BiPAP setting of 14/8. The chest x-ray of the patient 1 view, which was done for this patient yesterday was reviewed. The patient noted with findings of moderate congestive heart failure, interstitial edema, basilar area of atelectasis. Pulmonary rovreto were noted full for this patient because of his pulmonary vascular engorgement. IMPRESSION: 1. The patient who has been currently admitted to the hospital with acute congestive heart failure secondary to diastolic dysfunction and acute hypercapnic and hypoxic respiratory failure, chronic hypercapnia and hypoxia. 2. The patient with a history of chronic obstructive pulmonary disease, does not seem to be acute exacerbation. 3. History of morbid obesity as well. 4. Overall severe debility. 5. Strong suspicion of obstructive sleep apnea disorder, not assessed previously. PLAN OF MANAGEMENT: The patient has responded to the treatment with a BiPAP, which will be continued for the patient intermittently from today and continue at nighttime. Repeat another chest x-ray of the patient today to reassess the progression of the congestive heart failure. Diuretic therapy to be continued. Start the patient on Dulera in this hospital for the management of COPD and to be continued Symbicort or other similar medication outpatient as well. Upon discharge, the patient recommended to use the BiPAP. Ideally, patient should have a diagnostic sleep study done to rule out obstructive sleep apnea disorder and treatment to be addressed accordingly. Other supportive therapy, plan and management and care. A 2-view chest x-ray of the patient has been ordered. Bronchodilators were also ordered for this patient to be given 4 times a day to resolve any bronchospasm at present. Other supportive therapy, plan of management as well. Usual treatment for this patient. Additional treatment changes needs to be made for this patient based on the progression of the illness. Arterial blood gases also showing correction of the hypercarbia for this patient with complication of benign prostatic hypertrophy. Thank you for allowing me to participate in the care of this patient. RAE CRANE MD CM:CONSTR:REPORT OF CONSULTATION 1151 03/28/17 2100 interface
--- NOTE | ~2017-03-27 | DS ---
[place], [place] DISCHARGE SUMMARY NAME: RENY QUEVEDO [facility] #: [id number] UNIT #: [id number] ROOM: 521 DOCTOR: CHAITANYA WAN MD BIRTHDATE: [birth year] DOS: 03/31/2017 DISCHARGE DIAGNOSES: 1. Acute over chronic diastolic type congestive heart failure, improved with treatment. His wet machine tender, Dr. Gillespie followed. 2. Acute exacerbation of chronic obstructive pulmonary disease, improved with treatment. 3. Hypokalemia from diuresis, resolved with extra potassium supplements. 4. Left ankle hardware exposure, chronic nonhealing wound, to be followed by wound center. 5. Type 2 diabetes mellitus, well controlled with no concentrated sweet diet at the hospital. 6. Chronic atrial fibrillation. 7. Hypothyroidism. 8. Benign essential hypertension. 9. Morbid obesity. 10. Severe peripheral arterial disease with left iliac arterial occlusion. 11. Concentric left ventricular hypertrophy. 12. Major depression, recurrent. 13. Chronic obstructive pulmonary disease. 14. Advanced adult failure to thrive. Palliative care consulted. HOSPITAL COURSE: The patient was admitted to [facility] with acute congestive heart failure and acute exacerbation of severe underlying COPD with acute over chronic respiratory failure. The patient has advanced disability and morbid obesity including hardware exposure of the left ankle with chronic nonhealing wound. The patient was followed by wound care and he would be asked to continue to follow with wound care after discharge to the assisted. Acute diastolic type congestive heart failure, followed by Dr. Gillespie, wet machine tender and treated with diuresis. The patient appears to have achieved maximum benefit from this admission and will be discharged back to the assisted on increased dose of Lasix and potassium. His basic metabolic profile will need to be repeated in 1 week. Acute exacerbation of COPD, treated with bronchodilators, oxygen, antibiotics and has improved. Morbid obesity, old age and adult failure to thrive with multiple medical problems. The patient needs to be treated conservatively and I have asked for palliative care consult to follow the patient and talk to the patient and his family about other alternatives to his present aggressive treatment where he is getting repeatedly admitted to the hospital by intense treatment. The patient was kept in ICU for treatment and now moved down to a step-down unit. Considering the patient's overall bad health, I am suspecting that he will be returning to the hospital for similar diagnosis for repeated admissions related to infection, congestive heart failure, even COPD including hypoxemia and respiratory failure. [place], [place] DISCHARGE SUMMARY NAME: RENY QUEVEDO [facility] #: [id number] UNIT #: [id number] ROOM: 521 DOCTOR: CHAITANYA WAN MD BIRTHDATE: [birth year] Type 2 diabetes mellitus with much better controlled blood sugars at the hospital where he was kept on no concentrated sweet diet. The patient apparently poorly compliant with his diet at assisted and his sugars are overall uncontrolled. The patient's diet needs to be improved. At the hospital, I was able to be take him off the insulin that he was taking at the assisted by just taking sugars out of his diet. The patient is also morbidly obese and if he looses 10-15 pounds of weight, his sugar control should further improve. The patient's blood sugars during his stay at the hospital ranged between 100-150 mostly and appeared to be very well controlled with just slight modification of his diet where I removed sugars from his diet. Chronic atrial fibrillation with controlled heart rates. The patient also anticoagulated with Xarelto. Hypothyroidism, treated with supplements. Benign essential hypertension, with controlled blood pressures with treatment. LABORATORY DATA: Sputum cultures grew normal bruce. Normal serum electrolytes before discharge to the assisted today. Baseline BUN and creatinine. DISCHARGE MANAGEMENT: Tylenol 1 gram every 8 hours on regular basis, Tradjenta 5 mg daily, potassium chloride 20 mEq daily, levothyroxine 25 mcg daily, Lipitor 40 mg a day, atenolol 25 mg b.i.d., furosemide 40 mg b.i.d. orally, Dulera 200 mcg 2 inhalations twice a day, DuoNeb q.i.d., Xarelto 20 mg a day, citalopram 20 mg a day. FOLLOWUP: With the wound care center. One hour time spent with the patient in relation to his discharge back to the assisted. [place], [place] DISCHARGE SUMMARY NAME: RENY QUEVEDO UNIT #: [id number] ROOM: 521 DOCTOR: CHAITANYA WAN MD BIRTHDATE: [birth year] CHAITANYA WAN MD CM:NIOCL [id number] CHAITANYA WAN MD 03/31/17 1134 interface
--- NOTE | ~2017-03-27 | CON ---
[place], [place] REPORT OF CONSULTATION NAME: RENY QUEVEDO [facility] #: [id number] UNIT #: [id number] ROOM: [facility] DOCTOR: VANDANA MYERS DPM BIRTHDATE: [birth year] DOS: 03/28/2017 SUBJECTIVE: This patient is seen as consulted for evaluation of a chronic wound in his right lateral ankle with fixation exposed. He has history of chronic osteomyelitis. He states they are contemplating removal of the fixation, which could be another surgery, but he is not sure he would be medically weekly. He was admitted for volume overload, CHF and is in ICU. PAST MEDICAL HISTORY: Positive for chronic venous insufficiency, CHF, COPD and coronary artery disease. CURRENT MEDICATIONS: Include Xarelto, Lasix, Celexa and albuterol. ALLERGIES: THE PATIENT IS ALLERGIC TO PENICILLIN. OBJECTIVE: Upon lower extremity physical examination, there is an Unna boot on the left leg that was just placed 2 days ago. There is a dressing on the right leg that was removed at this time. Neurovascular status appears to be mildly decreased. There is mild cavovarus foot type. The lateral right heel has an open ulceration with fixation present within the wound. There is no surrounding edema or erythema, no drainage or malodor, no signs of an acute active infection at this time. ASSESSMENT: Exposed fixation with ulceration, right lateral ankle and history of surgery. PLAN: Consult is performed. Dry dressing is changed with compression below the knee on the right lower extremity. The wound on the right lateral ankle is stable and is noninfected. Nothing needs to be done acutely at this time. We will follow him while he is in the hospital and he will continue to follow up as an outpatient to address this tissue. Thanks for the opportunity to take part in care of this patient. VANDANA MYERS DPM CM:CONSTR:REPORT OF CONSULTATION 1153 03/29/17 0239 interface
--- NOTE | ~2017-03-27 | PR ---
[place], [place] PROGRESS NOTE NAME: RENY QUEVEDO [facility] #: [id number] UNIT #: [id number] ROOM: 521 DOCTOR: CHAITANYA WAN MD BIRTHDATE: [birth year] DOS: 03/30/2017 SUBJECTIVE: The patient continues to feel better, still very weak. OBJECTIVE: VITAL SIGNS: Blood pressure 129/63, heart rate 77 beats per minute, breathing 27 times per minute, temperature of 98.2 degrees Fahrenheit, morbidly obese. HEENT AND NECK: Exam within normal limits. CARDIOVASCULAR SYSTEM: Heart rate is regular in rate and rhythm. S1 and S2 normally audible. LUNGS: Clear to auscultation. ABDOMEN: Soft, nontender. No obvious organomegaly. Bowel sounds are present. EXTREMITIES: Without significant cyanosis or edema. NEUROLOGIC: Generalized weakness. SKIN: Chronic skin changes on lower extremities. IMPRESSION: 1. Hypokalemia from diuresis, to be replaced with extra potassium today. I will continue to monitor his potassium levels. 2. Acute over chronic respiratory failure and exacerbation of chronic obstructive pulmonary disease, improving with treatment. 3. Acute over chronic congestive heart failure, diastolic type, being diuresed by Dr. Gillespie, his chemical processing technician. I will transfer him to [facility]. 4. Left ankle hardware exposure, chronic nonhealing wound, followed by foot doctor. 5. Type 2 diabetes mellitus, with well controlled blood sugars without any treatment, with no concentrated sweet diet. 6. Chronic atrial fibrillation, with controlled heart rates. The patient anticoagulated with Xarelto. 7. Hypothyroidism, treated with supplements. 8. Benign essential hypertension, with controlled blood pressures with treatment. CHAITANYA WAN MD CM:PNTRANS [id number] CHAITANYA WAN MD 03/30/17 1608 interface
--- NOTE | ~2017-03-27 | WRIGHTHP ---
[place], [place] PATIENT HISTORY AND PHYSICAL EXAM NAME: RENY QUEVEDO [facility] #: [id number] UNIT #: [id number] ROOM: [facility] DOCTOR: CHAITANYA WAN MD BIRTHDATE: [birth year] DOS: HISTORY OF PRESENT ILLNESS: The patient is a 76-year-old gentleman with a past medical history of; 1. Obesity. 2. Adult failure to thrive. 3. Diastolic type, chronic CHF. 4. Exposed hardware in the right lower extremity followed by Dr. Doni Rios. 5. Severe peripheral arterial disease, left iliac arterial occlusion. 6. Concentric LVH. 7. Chronic atrial fibrillation. 8. Type 2 diabetes mellitus. 9. Benign essential hypertension. 10. Hypothyroidism. 11. Major depression recurrent. 12. COPD. The patient presented to Emergency Department at [facility] sent over from [facility] with increasing shortness of breath for over last 2 weeks. The patient also has complained of cough with purulent sputum and he says he is getting dressing to his left ankle where he has nonhealing ulcer and has both of his legs throughout. No chest pains. No other GI or urinary symptoms. REVIEW OF SYSTEMS: LUNGS: Increasing shortness of breath. No wheezing. GASTROINTESTINAL: No nausea, vomiting, diarrhea or constipation. CARDIOVASCULAR: No chest pains or palpitations. FAMILY HISTORY: Noncontributory. HOME MEDICATIONS: Tradjenta, potassium, levothyroxine, Lipitor, atenolol, furosemide, Xarelto, DuoNeb and citalopram. ALLERGIES: KNOWN ALLERGIES TO PENICILLIN. PHYSICAL EXAMINATION: GENERAL: Alert and oriented x 3, morbidly obese, very weak, generalized weakness, but in no distress. Morbid obesity. VITAL SIGNS: Blood pressure 126/54, heart rate 96 beats per minute, breathing 26 times per minute and temperature 99 degrees Fahrenheit. HEENT AND NECK: Extraocular movements are intact. Sclerae are anicteric. Oral mucosa is moist and clean. No obvious facial weakness. Neck is supple without any lymphadenopathy. No thyromegaly. No JVD. No carotid arterial bruits. LUNGS: Clear to auscultation. No wheezing. No rhonchi. CARDIOVASCULAR SYSTEM: Heart rate is regular in rate and rhythm. S1 and S2 normally audible. No significant murmur or any other abnormal cardiac sounds. ABDOMEN: Soft, nontender. No obvious organomegaly. Bowel sounds are present. No obvious herniation. EXTREMITIES: The patient has left ankle wound and stasis dermatitis involving [place], [place] PATIENT HISTORY AND PHYSICAL EXAM [facility]: [id number] UNIT #: [id number] ROOM: [facility] DOCTOR: CHAITANYA WAN MD BIRTHDATE: [birth year] both legs and superficial ulcerations. CENTRAL NERVOUS SYSTEM: Alert and oriented x 3. Cranial nerves II-XII are intact. Speech is normal. The patient is able to move all extremities. Normal muscle strength. Deep tendon reflexes are equal on both sides. Plantars were downgoing. IMPRESSION AND PLAN: 1. Morbid obesity, generalized adult failure to thrive. We will take bedsore precautions and fall precautions. 2. Acute diastolic type congestive heart failure. Dr. Dani wadsworth and the patient is being diuresed with IV Lasix. I will monitor serum electrolytes and BUN and creatinine. 3. Exacerbation of severe underlying chronic obstructive pulmonary disease. I will get a sputum culture and treat accordingly. 4. Left ankle hardware exposure with chronic nonhealing wound. have been consulted for continued wound care. 5. Type 2 diabetes mellitus. Blood sugars running between 100-150 mostly. Blood sugars to be monitored and treated accordingly. The patient started on no concentrated sweet diet. 6. Benign essential hypertension. Blood pressure to be monitored and treated. The patient is in the ICU being closely monitored. 7. Hypothyroidism, treated with thyroid supplements. 8. Chronic atrial fibrillation with controlled heart rates. The patient anticoagulated with Xarelto and Cardiology following. CHAITANYA WAN MD CM:HISPHYS:PATIENT HISTORY AND PHYSICAL EXAMINATION 20 99 CHAITANYA WAN MD 03/28/172158 interface
--- NOTE | ~2017-03-27 | PR ---
[place], [place] PROGRESS NOTE NAME: RENY QUEVEDO UNIT #: [id number] ROOM: [facility] DOCTOR: RAE SALDAÑA MD BIRTHDATE: [birth year] DOS: 03/29/2017 SUBJECTIVE: He has been noted comfortable at this time without any distress. He has been noted comfortable at this time, resting on his bed. Shortness of breath has been noted with gradual reduction. Denies symptoms of chest pain or any abdominal pain. The patient has not reported any acute new symptoms at the present time. OBJECTIVE: VITAL SIGNS: For the patient which were recorded. Temperature normal, respiratory rate 21, heart rate 74, blood pressure 114/74. Pulse oxygen saturation nasal cannula 95% saturation with the BiPAP 98% saturation last night. HEENT: Chronic obesity. NECK: Supple. CARDIOVASCULAR: S1, S2 audible. LUNGS: General reduction in the breath sounds noted in the lungs bilaterally with scattered crackles. ABDOMEN: Soft, nontender and obese. LABORATORY DATA: BMP on 03/29/2017 noted normal BUN and creatinine, CO2 39. The culture of the sputum for today was pending. Gram stain was noted with many white blood cells, moderate epithelial cells, moderate gram-positive cocci in pairs, chains and clusters. The CBC of this morning, hemoglobin 9, hematocrit 31.9, platelet count was normal. IMPRESSION: 1. The patient who been currently admitted to the hospital and treated for management of acute on chronic hypoxic respiratory failure. 2. Chronic obesity. 3. History of chronic obstructive pulmonary disease without any acute exacerbation. 4. Suspected obstructive sleep apnea disorder. PLAN OF TREATMENT: The patient is responding to treatment with currently very well. We will be continued on current plan and management and care. The chest x-ray shows continued reduction and improvement in the congestive heart failure with a followup PA and lateral chest x-ray which was obtained yesterday. [place], [place] PROGRESS NOTE NAME: RENY QUEVEDO UNIT #: [id number] ROOM: [facility] DOCTOR: RAE SALDAÑA MD BIRTHDATE: [birth year] RAE CRANE MD CM:PNTRANS [id number] RAE CHANG MD 03/30/17 0027 interface
[~2017-03-27 13:15] MED LIST changes: -DOXYCYCLINE100 M3 PO; -DUONEB 3 MG/3 ML3 M1 INH; -Synthroid,Levo25 MCG PO; -VITAMIN D50000 UNIT PO
--- NOTE | 2017-03-27 14:03 | NUR ---
WHILE TURNING PT TO CHECK FOR WOUNDS,PT'S RIGHT FOREARM STRUCK THE SIDE RAIL. PT DID SUSTAIN A SKIN TEAR, APPROX 2CM IN LENGTH. AREA WAS CLEANSED,STERILE DRESSING APPLIED TO AREA. ARIAN SAPP
[2017-03-27 14:23] LABS: BASO % 0.3 % (0.0-1.0); EOS # 0.1 10*3/uL (0.0-0.4); EOS % 0.9 % (1.0-4.0); HEMATOCRIT 34.4 % (42.0-52.0); HEMOGLOBIN 9.6 g/dl (14.0-18.0); LYMPH # 0.6 10*3/uL (1.3-4.4); LYMPH % 8.2 % (27.0-41.0); MEAN CELL VOLUME 80.9 fl (80.0-94.0); MEAN CORPUSCULAR HGB 22.6 pg (27.0-31.0); MEAN CORPUSCULAR HGB CONC 27.9 g/dl (33.0-37.0); MEAN PLATELET VOLUME 10.2 fl (9.6-12.3); MONO # 0.8 10*3/uL (0.1-1.0); MONO % 10.7 % (3.0-9.0); NEUT # 6.2 10*3/uL (2.3-7.9); NEUT % 79.4 % (47.0-73.0); PLATELET COUNT AUTOMATED 238 10*3/uL (130-400); RED BLOOD COUNT 4.25 10*6/uL (4.50-5.90); RED CELL DISTRI WIDTH 20.1 % (0-14.5); WHITE BLOOD COUNT 7.8 10*3/uL (4.8-10.8)
[2017-03-27 14:28] LABS: ABG HCO3 38.5 mmol/l (22-26); ABG O2 SATURATION 95.4 % (95-97); ARTERIAL BLOOD GAS PH 7.336 (7.35-7.45); ARTERIAL BLOOD GAS PO2 82.1 mmHg (80-90)
[2017-03-27 14:49] LABS: BUN 17 mg/dl (7-24); CHLORIDE 100 mmol/L (98-107); CREATININE 0.87 mg/dL (0.70-1.30); POTASSIUM 3.8 mmol/L (3.5-5.1); SGOT/AST 21 IU/L (3-35); SGPT/ALT 16 U/L (12-78); SODIUM 142 mmol/L (136-145)
[2017-03-27 14:51] LABS: ALKALINE PHOSPHATASE 86 U/L (45-117); TOTAL PROTEIN 7.2 gm/dL (6.4-8.2)
--- NOTE | 2017-03-27 14:55 | NUR ---
PT IS BEING PLACED ON BIPAP AT 14/8 BASED ON BLOOD GAS RESULTS. HE REMAINS AWAKE AND ALERT. ARIAN SAPP
--- NOTE | 2017-03-27 16:37 | NUR ---
PT IS SLEEPING NOW. PULSE OX ON BIPAP AT 35% O2 IS 97%. VS ARE STABLE. NO DISTRESS IS NOTED. ARIAN SAPP
--- NOTE | 2017-03-27 17:45 | NUR ---
A 76, admitted to [facility], under the services of Dr. SOCO PURDY,CHAITANYA Mahan with a diagnosis of CHF. Chief complaint is SHORTNESS OF BREATH. Patient arrived via ambulance from ER. Monitor applied. Initial assessment completed. Vital signs taken and recorded. DR. SOCO PURDY,CHAITANYA Mahan notified of admission to the unit. Orders received. See assessment for past medical history, medications and allergies. Patient and/or family oriented to unit. [facility] visitation policy reviewed. Clothing/patient valuable form completed. CALEB BECERRA
[2017-03-27] MEDS ORDERED: Synthroid,Levo25 MCG PO (18:30)
[2017-03-27] MEDS ORDERED: DOXYCYCLINE100 M3 PO (18:31)
[2017-03-27] MEDS ORDERED: DUONEB 3 MG/3 ML3 M1 INH (18:32)
[2017-03-27] MEDS ORDERED: VITAMIN D50000 UNIT PO (18:48)
--- NOTE | 2017-03-27 20:49 | NUR ---
DR CRANE NOTIFIED OF CONSULT, NEW ORDERS RECEIVED.
--- NOTE | 2017-03-27 20:52 | NUR ---
DR DERAS PAGED FOR CONSULT.
--- NOTE | 2017-03-27 20:56 | NUR ---
DR DERAS RETURNED CALL, NEW ORDERS RECEIVED.
[2017-03-28] VITALS: BP 143/69
--- NOTE | 2017-03-28 | NUR ---
Patient resting quietly with no c/o discomfort. Respirations easy and regular. Vital signs stable. No overt distress. CALEB BRINK
[2017-03-28 04:00] VITALS: BP 160/87
--- NOTE | 2017-03-28 04:00 | NUR ---
Patient resting quietly with no c/o discomfort. Respirations easy and regular. Vital signs stable. No overt distress. CALEB BRINK
[2017-03-28 05:43] LABS: ABG BASE EXCESS 15.9 mmol/L (-2.0-2.0); ABG HCO3 41.6 mmol/l (22-26); ARTERIAL BLOOD GAS PH 7.488 (7.35-7.45)
[2017-03-28 08:00] VITALS: BP 127/71
--- NOTE | 2017-03-28 08:30 | NUR ---
PT IS LTC AT [facility] AND CAN RETURN UPON DC.
--- NOTE | 2017-03-28 08:43 | NUR ---
VIOLIN TUTOR VS. DOCTOR IN ROOM. PT IS LTC AT [facility].
--- NOTE | 2017-03-28 08:56 | NUR ---
Dr. Gillespie was notified of consult.Stated that Dr. Louise would be rounding today and that he is aware of consult.
--- NOTE | 2017-03-28 09:15 | NUR ---
Awake and alert. Bi-Pap to off . Oral care given. Dr. Massey in to evaulate . No new orders at this time.
--- NOTE | 2017-03-28 10:30 | NUR ---
NOT USING BIPAP AT THIS TIME.
[2017-03-28 12:00] VITALS: BP 135/87
--- NOTE | 2017-03-28 12:55 | NUR ---
To X-Ray via cart.
--- NOTE | 2017-03-28 14:12 | NUR ---
RENY DWYER [id number] Please refer to the physician's history and physical for past medical history, comorbid conditions, and allergies. Diagnosis: CHF Refugio Score: 18,LOW OR NO RISK WOUND DESCRIPTIONS: Location of the wound: right forearm Type of wound: skin tear Thickness: Partial Size: 2cm x 2.5cm x 0.1cm Tunneling: none Undermining: none Sinus Tract: none Presence of Exudate: Serosanguineous Amount: Light Color: Red Odor: None Periwound Skin Appearance: Normal Wound edges: approximated Pain (associated with wound): patient denies pain at time of assessment How does patient state this happened? patient states he hit his arm on bed siderail. Surface the patient is resting on: Position Pro SKIN PREVENTION RECOMMENDATION: 1. Pressure redistribution support surface as appropriate 2. Elevate heels 3. Remove boots/TEDS every shift and reapply 4. Head of bed 30 degrees as tolerated 5. Assess nutrition and hydration 6. Manage moisture 7. Avoid the use of containment devices while in bed 8. Use absorptive products on surfaces limit layers of linens on bed 9. Turn and reposition every 1-2 hours in bed and every 1 hour in chair as tolerated 10. Weight shifts every 15 minutes while up in chair 11. Offloading with pillows or device to keep heels elevated off bed 12. Monitor skin at least every shift 13. Inspect under medical devices twice a day WOUND TREATMENT RECOMMENDATIONS: Skin tear guidelines: Cleanse right forearm with NS. Apply sureprep to periwound. Apply versatel, hydrogel and cover with optifoam gentle.
[2017-03-28 15:35] VITALS: BP 126/54
--- NOTE | 2017-03-28 17:41 | NUR ---
Bi-pap off for supper.
[2017-03-28 20:00] VITALS: BP 107/50
[2017-03-29] VITALS: BP 140/69
[2017-03-29 04:00] VITALS: BP 119/58
[2017-03-29 04:37] LABS: BASO % 0.4 % (0.0-1.0); EOS # 0.2 10*3/uL (0.0-0.4); EOS % 2.7 % (1.0-4.0); HEMATOCRIT 31.9 % (42.0-52.0); LYMPH # 1.4 10*3/uL (1.3-4.4); LYMPH % 18.3 % (27.0-41.0); MEAN CELL VOLUME 79.4 fl (80.0-94.0); MEAN CORPUSCULAR HGB 22.4 pg (27.0-31.0); MEAN CORPUSCULAR HGB CONC 28.2 g/dl (33.0-37.0); MEAN PLATELET VOLUME 11.1 fl (9.6-12.3); MONO # 0.9 10*3/uL (0.1-1.0); MONO % 12.4 % (3.0-9.0); NEUT # 4.9 10*3/uL (2.3-7.9); NEUT % 65.5 % (47.0-73.0); PLATELET COUNT AUTOMATED 225 10*3/uL (130-400); RED BLOOD COUNT 4.02 10*6/uL (4.50-5.90); RED CELL DISTRI WIDTH 19.9 % (0-14.5); WHITE BLOOD COUNT 7.5 10*3/uL (4.8-10.8)
[2017-03-29 05:04] LABS: BUN 24 mg/dl (7-24); CHLORIDE 98 mmol/L (98-107); CREATININE 1.04 mg/dL (0.70-1.30); POTASSIUM 3.5 mmol/L (3.5-5.1); SODIUM 143 mmol/L (136-145)
[2017-03-29 08:00] VITALS: BP 126/59
--- NOTE | 2017-03-29 10:50 | NUR ---
0800 IV to left thumb bleeding at site noted to be dislodged . 2x2 to site. Awake and alert this AM. Pleasent 1030 Assisted up to chair w/ 2 assists and use of walker. Legs elevated and Heel raisers on.
[2017-03-29 12:00] VITALS: BP 114/44
--- NOTE | 2017-03-29 13:50 | NUR ---
rEMAINS UP IN CHAIR AT THIS TIME. nO C/O OFFERED.
[2017-03-29 16:00] VITALS: BP 130/75
--- NOTE | 2017-03-29 17:05 | NUR ---
1430 rETURNED TO BED W/ 2 ASSIST AND WALKER. Spouse called in .Update was given. No c/o
--- NOTE | 2017-03-29 17:06 | NUR ---
Dr. Rodriguez and podiatry in.
--- NOTE | 2017-03-29 17:07 | NUR ---
Dressing change to rt leg per podiatry.
--- NOTE | 2017-03-29 19:14 | NUR ---
24 HR chart check completed.
[2017-03-29 20:00] VITALS: BP 129/60
--- NOTE | 2017-03-29 20:23 | NUR ---
PATIENT DOES NOT WANT A BATH AT THIS TIME.
[2017-03-30] VITALS: BP 126/70
[2017-03-30 04:00] VITALS: BP 134/75
[2017-03-30 05:27] LABS: BUN 28 mg/dl (7-24); CHLORIDE 98 mmol/L (98-107); CREATININE 0.99 mg/dL (0.70-1.30); POTASSIUM 3.3 mmol/L (3.5-5.1); SODIUM 142 mmol/L (136-145)
--- NOTE | 2017-03-30 06:36 | NUR ---
GLUCOSE ON THIS MORNINGS LABS 111.
--- NOTE | 2017-03-30 06:41 | NUR ---
PATIENT REMOVED FROM BI-PAP PER HIS REQUEST. WILL MONITOR SPO2.
[2017-03-30 08:00] VITALS: BP 135/57
--- NOTE | 2017-03-30 08:27 | NUR ---
Awake , alert and oriented this AM. Pleasent, Breakfast ordered.
[2017-03-30 12:00] VITALS: BP 129/63
--- NOTE | 2017-03-30 15:15 | NUR ---
To bed felton for large soft BM , Then complete bed bath and up to chair w/ 2 assists.
[2017-03-30 15:40] VITALS: BP 113/46
--- NOTE | 2017-03-30 16:12 | NUR ---
RECEIVED ON . CONDITION STABLE.
--- NOTE | 2017-03-30 16:18 | NUR ---
Transferred to 521 via easy chair. Report to Mechelle SAPP . Belongings sent w/ pt. Spouse called in prior to departure and informed of transfer.
[2017-03-30 20:00] VITALS: BP 96/54
[2017-03-31] VITALS: BP 115/57
--- NOTE | 2017-03-31 01:20 | NUR ---
C/O PAIN LEFT FOOT RATED "9" SHARP OFF AND ON. CALLED DR. WAN AND ORDER RECEIVED.
--- NOTE | 2017-03-31 01:50 | NUR ---
TYLENOL GIVEN PER ORDER FOR LEFT FOOT PAIN RATED "9" PER PT. SEE MAR.
--- NOTE | 2017-03-31 02:55 | NUR ---
TYLENOL EFFECTIVE FOR LEFT FOOT PAIN PER PT. PAIN RATED ZERO
[2017-03-31 06:44] LABS: BUN 22 mg/dl (7-24); CHLORIDE 101 mmol/L (98-107); POTASSIUM 3.7 mmol/L (3.5-5.1); SODIUM 145 mmol/L (136-145)
[2017-03-31 08:00] VITALS: BP 118/50
--- NOTE | 2017-03-31 09:35 | NUR ---
PHYSICAL THERAPY PAtient evaluated on 5, full evaluation to follow. Continue with PT as per plan of care with fall, max (A) x 2, halima out of bed recommended, wound with pin coming out right ankle- will treat NWB R LE until MD orders differently and severe acute debility precautions. May require SNF for impaired mobility. PAtient is high complexity via chart review, tests and evaluation: 62400. thank you for this referral. Patricia Pang,PT
[2017-03-31] MEDS ORDERED: KLOR-CON M2020 ME1 PO (10:36)
[2017-03-31] MEDS ORDERED: FUROSEMIDE10 MG/1 M1 PO (10:36)
[2017-03-31] MEDS ORDERED: TENORMIN25 MG PO (10:36)
--- NOTE | 2017-03-31 10:44 | NUR ---
Faxed updates to [facility], patient can return when medically stable for discharge.
[2017-03-31 11:23] VITALS: BP 118/62
--- NOTE | 2017-03-31 11:55 | NUR ---
DR. MYERS APPROVED PATIENTS DISCHARGE. SPOKE WITH HIM AT AT 1148. DR. VALENTE ALSO APPROVED PATIENT DISCHARGE TODAY. SPOKE TO HIS OFFICE AT 2632. AWAITING RESPONSE FROM DR. REAVES, OFFICE LINE WAS BUSY X2.
--- NOTE | 2017-03-31 13:14 | NUR ---
CONTACTED DR. DEXTER AT 1313 AND HE CLEARED PATIENT FOR DISCHARGE TODAY. HE WANTS PATIENT TO FOLLOW UP WITH HIM IN 4 WEEKS.
--- NOTE | 2017-03-31 13:58 | NUR ---
Patient is being discharged back to the [facility] transportation scheduled for 2:30 with [place]. NH, nursing and family noitfied.
--- NOTE | 2017-03-31 15:19 | NUR ---
Discharge instructions reviewed with patient/family. Patient receptive and verbalizes understanding. Follow-up care arranged. Written instructions given to patient/family. Patient transported by [facility] to [facility]. TOM ZAMORA
== END 2017-03-31 15:19 | disposition home or self-care (01) | DRG 291 ==
LOC: ED 13:15 → 5E 16:47 → EDHOLD 16:47 → ICCU 17:23 → 5E 03-30 15:59
PROVIDERS: Emergency Medicine; Internal Medicine Critical Care Medicine; ADMIT Internal Medicine
PROC: 5A09457 Assistance with Respiratory Ventilation, 24-96 Consecutive Hours, Continuous Positive Airway Pressure (ICD-10-PCS; principal; 2017-03-27)
DX: I11.0 Hypertensive heart disease with heart failure (principal); J96.21 Acute and chronic respiratory failure with hypoxia; I74.5 Embolism and thrombosis of iliac artery; J44.0 Chronic obstructive pulmonary disease with (acute) lower respiratory infection; E66.01 Morbid (severe) obesity due to excess calories; M86.9 Osteomyelitis, unspecified; J96.22 Acute and chronic respiratory failure with hypercapnia; J44.1 Chronic obstructive pulmonary disease with (acute) exacerbation; F33.9 Major depressive disorder, recurrent, unspecified; L97.319 Non-pressure chronic ulcer of right ankle with unspecified severity; L97.329 Non-pressure chronic ulcer of left ankle with unspecified severity; E11.69 Type 2 diabetes mellitus with other specified complication; E11.622 Type 2 diabetes mellitus with other skin ulcer; I50.33 Acute on chronic diastolic (congestive) heart failure; E11.51 Type 2 diabetes mellitus with diabetic peripheral angiopathy without gangrene; I48.2 Chronic atrial fibrillation; E03.9 Hypothyroidism, unspecified; R62.7 Adult failure to thrive; Z51.5 Encounter for palliative care; Z96.652 Presence of left artificial knee joint; J20.9 Acute bronchitis, unspecified; G47.33 Obstructive sleep apnea (adult) (pediatric); I25.10 Atherosclerotic heart disease of native coronary artery without angina pectoris; Z88.0 Allergy status to penicillin; Z79.4 Long term (current) use of insulin; Z79.899 Other long term (current) drug therapy; Z68.32 Body mass index [BMI] 32.0-32.9, adult

== ENCOUNTER 2017-04-05 09:59 | Inpatient (IN) | payer MEDICARE, OTHER ==
[~2017-04-05] VITALS: Ht 175.2 cm; Wt 117.2 kg
--- NOTE | ~2017-04-05 | PR ---
[place], [place] PROGRESS NOTE NAME: RENY QUEVEDO [facility] #: [id number] UNIT #: [id number] ROOM: 419 DOCTOR: BRINDA DEXTER MD BIRTHDATE: [birth year] DOS: 04/10/2017 SUBJECTIVE: 24-hour events noted. Discussed with the nursing staff. Patient has been seen for the exposed hardware of the right ankle by vascular people and Unna boots are in place. The patient has chronic dyspnea on exertion. The patient is with morbid obesity. Denies any chest discomfort. OBJECTIVE: VITAL SIGNS: Blood pressure is 130/70. Heart rate is controlled at 86. NECK: Supple. No JVD. LUNGS: Diminished air entry. HEART: Sounds regular. ABDOMEN: Morbidly obese. LABORATORY DATA: Last hemoglobin 8.6 and 21.2. Today's labs are pending. Last creatinine is 1.0. IMPRESSION AND PLAN: Acute diastolic heart failure, improving chest x-ray, decreased right pleural effusion, exacerbation of chronic obstructive pulmonary disease, type 2 diabetes, morbidly obese, sleep apnea. Continue the present care. Continue fluid restrictions of 1500 mL if feasible and monitor. We will followup. BRINDA DEXTER MD CM:PNROSANNA [id number] BRINDA DEXTER MD 04/15/17 2879 interface
--- NOTE | ~2017-04-05 | PR ---
[place], [place] PROGRESS NOTE NAME: RENY QUEVEDO [facility] #: [id number] UNIT #: [id number] ROOM: 419 DOCTOR: ROYCE CHANG MD,RAE BIRTHDATE: [birth year] DOS: 04/09/2017 SUBJECTIVE: He has been doing well with continued reduction and improvement of respiratory symptoms. Shortness of breath has been improving. Denies symptoms of chest pain or any abdominal pain. OBJECTIVE: VITAL SIGNS: Showed a normal temperature, respiratory rate 20, heart rate 91, blood pressure 146/82. Pulse oxygen saturation 3 liters 97% saturation. HEENT: Examination shows no acute change. NECK: Supple. CARDIOVASCULAR: S1, S2 audible. LUNGS: Questionable crackles, no wheezing. Breath sounds noted mildly decreased bilaterally. ABDOMEN: Soft, nontender. LABORATORY DATA: Cytology of the right pleural fluid was noted as benign. This was done from the pleural fluid of the 16th of this month. IMPRESSION: 1. The patient who has been currently noted with transudative pleural fluid. 2. Congestive heart failure, resolving. 3. Resolving acute exacerbation of chronic obstructive pulmonary disease as well and other problems progressively. PLAN OF MANAGEMENT: No changes from the pulmonary standpoint. The patient will continue other previous therapy as in progress without changes. Other supportive plan of therapy and care. RAE CRANE MD CM:PNTRANS [phone] [id number] RAE CHANG MD 04/09/17 2000 interface
--- NOTE | ~2017-04-05 | PR ---
[place], [place] PROGRESS NOTE NAME: RENY QUEVEDO [facility] #: [id number] UNIT #: [id number] ROOM: 419 DOCTOR: ROCÍO NASH MD BIRTHDATE: [birth year] DOS: 04/08/2017 SUBJECTIVE: The patient states that he feels a lot better. Thoracentesis was performed; about 1000 mL of fluid was removed by Dr. Massey. The patient denies having any chest pains, palpitations. OBJECTIVE: VITAL SIGNS: Graphic trend shows blood pressure 110/70, pulse of 84, respirations 16, temperature 97.8. LUNGS: Diminished breath sounds. No wheezes, rales or rhonchi heard. HEART: Regular. ABDOMEN: Obese. EXTREMITIES: Bilateral Unna boot present. ASSESSMENT AND PLAN: 1. Acute diastolic congestive heart failure. The patient has diuresed nicely. We will go ahead and decrease the dose of the diuretics. Discussed with Dr. Massey and Dr. Gillespie. Chest x-ray continues to show improvement in the vascular congestion. 2. Chronic atrial fibrillation, on long-term use of anticoagulants. 3. Type 2 diabetes mellitus, blood sugar is controlled. A repeat chest x-ray will be ordered tomorrow and the plan is to [facility]. ROCÍO NASH MD CM:PNTRANS [id number] ROCÍO NASH MD 04/11/17 0455 interface
--- NOTE | ~2017-04-05 | PROC NOTE ---
[place], [place] PROCEDURE NOTE NAME: RENY QUEVEDO [facility] #: [id number] UNIT #: [id number] ROOM: 419 DOCTOR: ROYCE CHANG MD,RAE BIRTHDATE: [birth year] DOS: 04/07/2017 Right-sided ultrasound guided thoracentesis PREOPERATIVE DIAGNOSES: The patient with increased right pleural fluid. The patient's symptoms of shortness of breath. POSTOPERATIVE DIAGNOSIS: Removal of 1000 mL of pleural fluid from the right pleural space without any difficulty, which was noted renny colored. PROCEDURE DESCRIPTION: Informed consent was obtained from the patient. The patient was brought to the OR and placed in sitting position. Ultrasound of the chest was personally performed and the pocket of fluid. Thoracentesis was localized and lower posterior chest wall. After that, skin was cleaned with chlorhexidine solution. 1% lidocaine was administered in the skin in intercostal space during administration of local anesthetic, the right pleural space was entered. A small amount of fluid was aspirated after a small incision given in the skin. Turkel thoracentesis catheter introduced through the incision into the right pleural space. A total of 1000 mL of pleural fluid was drained in the vacuum bottles and specimens were also collected. All the specimens sent for appropriate testing. Procedure was tolerated by the patient. The chest x-ray done post-procedure shows significant improvement in the aeration of the lungs with small area of remaining atelectasis. Finding of congestive heart failure, remains persistent. RAE CRANE MD CM:PROCNOTE:PROCEDURE NOTE 1025 16 RAE CHANG MD
--- NOTE | ~2017-04-05 | WRIGHTHP ---
[place], [place] PATIENT HISTORY AND PHYSICAL EXAM NAME: RENY QUEVEDO [facility] #: [id number] UNIT #: [id number] ROOM: 419 DOCTOR: ROCÍO NASH MD BIRTHDATE: [birth year] DOS: 04/05/2017 HISTORY OF PRESENT ILLNESS: This is one of the multiple admissions of the patient to the hospital. He is a resident of [facility], became extremely short of breath and started having audible wheezes, so was sent out to the Emergency Room. He was evaluated in the ER, was admitted with acute exacerbation of COPD, was last admitted to the hospital earlier this month with acute diastolic CHF. The patient denies having any chest pains, palpitations, does not have any fever or chills, does not have any abdominal pain, nausea, any emesis. PAST MEDICAL HISTORY: Significant for; 1. Diastolic CHF. 2. Benign hypertension with normal LV function. 3. COPD. 4. Morbid obesity. 5. Benign hypertension. 6. Chronic atrial fibrillation. 7. Hypothyroidism. 8. Peripheral vascular disease of the left side, left lower leg. 9. Right side of the exposed hardware. 10. Major depression. MEDICATIONS: That he is on are breathing treatments, Tylenol, atorvastatin, vitamin D, citalopram, Lasix, levothyroxine, multivitamin, potassium, Xarelto, Januvia, Lantus and sliding scale. SOCIAL HISTORY: Nonsmoker, does not use any alcohol. PHYSICAL EXAMINATION: GENERAL: He is awake and alert and oriented. VITAL SIGNS: Graphic trend shows a pressure 159/85, pulse of 85, respirations 20, temperature 97.4. LUNGS: Diminished breath sounds, few scattered wheezes heard. HEART: Regular. ABDOMEN: Obese with abdominal breathing noted. EXTREMITIES: Quinton wrap both legs. LABORATORY DATA: At the time of admission, ESR is normal at 10. WBC count is 8.4, hemoglobin 8.2, hematocrit 30.4, platelets 219. Comprehensive glucose 121. Electrolytes were normal. Chest x-ray shows vascular congestion with moderate size pleural effusion in the right base. ASSESSMENT AND PLAN: 1. The patient with acute diastolic congestive heart failure. Diuresis will be started. Because of the possibility of moderate pleural effusion, the patient will undergo a CT of the chest this morning. Rule out myocardial infarction protocol has so far been negative. Cardiology consultation will be obtained. 2. Chronic obstructive pulmonary disease, oxygen dependent, stable without major issues this morning, is getting breathing treatments. [place], [place] PATIENT HISTORY AND PHYSICAL EXAM NAME: RENY QUEVEDO UNIT #: [id number] ROOM: [facility] DOCTOR: ROCÍO NASH MD BIRTHDATE: [birth year] 3. Chronic atrial fibrillation, controlled heart rates with the long-term use of anticoagulants. ROCÍO NASH MD CM:HISPHYS:PATIENT HISTORY AND PHYSICAL EXAMINATION 0732 4 ROCÍO NASH MD 04/06/1745 interface
--- NOTE | ~2017-04-05 | PR ---
[place], [place] PROGRESS NOTE NAME: RENY QUEVEDO [facility] #: [id number] UNIT #: [id number] ROOM: 419 DOCTOR: ROCÍO NASH MD BIRTHDATE: [birth year] DOS: SUBJECTIVE: The patient is doing fine without any complaints this morning. OBJECTIVE: VITAL SIGNS: Blood pressure is 130/77, pulse of 70, respirations 18, afebrile. LUNGS: Diminished breath sounds, very few fine rales heard at the bases. HEART: Irregular. ABDOMEN: Obese. EXTREMITIES: Without any edema. LABORATORY DATA His chest x-ray continues to show minimal amount of CHF, but clinically the patient has improved. BMP this morning shows glucose 197, BUN 35, creatinine 1, sodium 138, potassium 3.9, chloride 96, bicarbonate 30. WBC count is 8.9, hemoglobin 9.4, hematocrit 33.6, platelets 235. ASSESSMENT AND PLAN: 1. Acute diastolic congestive heart failure, resolving. 2. Chronic obstructive pulmonary disease with acute exacerbation, improving. 3. Chronic lymphedema, status post Unna boot placement. 4. Benign hypertension. 5. Type 2 diabetes mellitus, non-insulin dependent. The patient is overall stable. Plan is to discharge him back to the shelter. ROCÍO NASH MD CM:PNTRANS 8 14 ROCÍO NASH MD 04/10/172113 interface
--- NOTE | ~2017-04-05 | PR ---
[place], [place] PROGRESS NOTE NAME: RENY QUEVEDO [facility] #: [id number] UNIT #: [id number] ROOM: 419 DOCTOR: BRINDA DEXTER MD BIRTHDATE: [birth year] DOS: 04/08/2017 SUBJECTIVE: The patient very well known to me. Morbid obesity with diastolic heart failure with recent admission. Dr. Louise who was covering me yesterday saw the patient. The patient has been on IV diuretics and diuresing very well. The last ejection fraction was well preserved. He has put out 1800 mL. Total input of 1550/3350 mL. Leg edema has significantly improved. OBJECTIVE: HEENT: Unremarkable with elevated JVD. LUNGS: Diminished breath sounds. HEART: Sounds are regular. ABDOMEN: Obese. EXTREMITIES: 2+ edema. LABORATORY DATA: Hemoglobin 8.6, hematocrit 31.2, BUN is 28, creatinine is 1. REVIEW OF SYSTEMS: Significantly improved as per HPI. IMPRESSION AND PLAN: Diastolic heart failure, COPD, hypertension, hyperlipidemia, morbid obesity, right-sided heart failure. Continue with the present medications. Post-thoracentesis, chronic atrial fibrillation. Continue the Xarelto. Continue the respiratory toilet and I will followup. BRINDA DEXTER MD CM:PNTRANS 0722 1414 BRINDA DEXTER MD 04/15/17 0739 interface
--- NOTE | ~2017-04-05 | PROC NOTE ---
[place], [place] PROCEDURE NOTE NAME: RENY QUEVEDO UNIT #: [id number] ROOM: 419 DOCTOR: BRINDA DEXTER MD BIRTHDATE: [birth year] DOS: 04/10/2017 SUBJECTIVE: 24-hour events noted. Discussed with the nursing staff. Patient has been seen for the exposed hardware of the right ankle by vascular people and Unna boots are in place. The patient has chronic dyspnea on exertion. The patient is with morbid obesity. Denies any chest discomfort. OBJECTIVE: VITAL SIGNS: Blood pressure is 130/70. Heart rate is controlled at 86. NECK: Supple. No JVD. LUNGS: Diminished air entry. HEART: Sounds regular. ABDOMEN: Morbidly obese. LABORATORY DATA: Last hemoglobin 8.6 and 21.2. Today's labs are pending. Last creatinine is 1.0. IMPRESSION AND PLAN: Acute diastolic heart failure, improving chest x-ray, decreased right pleural effusion, exacerbation of chronic obstructive pulmonary disease, type 2 diabetes, morbidly obese, sleep apnea. Continue the present care. Continue fluid restrictions of 1500 mL if feasible and monitor. We will followup. BRINDA DEXTER MD CM:PROCNOTE:PROCEDURE NOTE 0631 1712 BRINDA DEXTER MD
--- NOTE | ~2017-04-05 | PR ---
[place], [place] PROGRESS NOTE NAME: RENY QUEVEDO [facility] #: [id number] UNIT #: [id number] ROOM: 419 DOCTOR: ROCÍO NASH MD BIRTHDATE: [birth year] DOS: 04/07/2017 SUBJECTIVE: The patient states that he still feels that he is choking because of shortness of breath. He denies having any chest pains or palpitations, denies having any fever or chills. OBJECTIVE: VITAL SIGNS: Graphic trend shows that he is afebrile, blood pressure 119/78, pulse of 90, respirations 18, temperature 98.2. LUNGS: Diminished breath sounds. Scattered wheezes. HEART: Irregular. ABDOMEN: Obese, soft. EXTREMITIES: Without any edema. ASSESSMENT AND PLAN: 1. Moderate right-sided pleural effusion from acute diastolic congestive heart failure. Discussed with Dr. Massey. He plans to do a thoracentesis this morning. 2. Acute diastolic congestive heart failure, already on maximal medication. Plan, diuretics and cardiac medications. 3. Chronic atrial fibrillation, rate controlled. Continue Xarelto. 4. Chronic obstructive pulmonary disease with mild exacerbation, Pulmicort will be added to his breathing treatments. ROCÍO NASH MD CM:PNTRANS 32 ROCÍO NASH MD 04/08/1749 interface
--- NOTE | ~2017-04-05 | PR ---
[place], [place] PROGRESS NOTE NAME: RENY QUEVEDO [facility] #: [id number] UNIT #: [id number] ROOM: 419 DOCTOR: ROCÍO NASH MD BIRTHDATE: [birth year] DOS: 04/09/2017 SUBJECTIVE: The patient is quite bright this morning. He states that he is starting to feel better. OBJECTIVE: VITAL SIGNS: Graphic trend shows blood pressure 150/89, pulse of 94, respirations 20, temperature 98.4. LUNGS: Diminished breath sounds. Few scattered wheezes heard. HEART: Regular. ABDOMEN: Obese, soft. EXTREMITIES: Bilateral Unna boot. ASSESSMENT AND PLAN: 1. Acute diastolic congestive heart failure, improving clinically. Chest x-ray the last one we have is from , which shows decrease in the right pleural effusion with continued presence of congestive heart failure. Pleural fluid analysis, this most likely is transudative from the congestive heart failure. 2. Acute exacerbation of chronic obstructive pulmonary disease, stable and improving. 3. Chronic respiratory failure, partly related to restrictive lung disease. Would benefit from weight loss. 4. Type 2 diabetes mellitus. Blood sugars are fairly controlled even on the steroids. 5. Failure to thrive. We will discontinue Brunson catheter. Plan is to discharge her to intermediate in the morning. ROCÍO NASH MD CM:PNTRANS 1853 ROCÍO NASH MD 04/10/17 0041 interface
--- NOTE | ~2017-04-05 | CON ---
[place], [place] REPORT OF CONSULTATION [id number] UNIT #: [id number] ROOM: 419 DOCTOR: JONATHAN OLEA DPM BIRTHDATE: [birth year] DOS: 04/08/2017 SUBJECTIVE: The patient presents well known to our practice, has had exposed hardware to lateral right foot and chronic venous insufficiency of the left lower leg. PAST MEDICAL HISTORY: Diastolic CHF, benign hypertension, COPD, morbid obesity, chronic AFib, hypothyroidism, PVD of the left lower extremity, right side exposed hardware, major depression. SOCIAL HISTORY: Nonsmoker. Denies alcohol or illicit drug use. OBJECTIVE: Upon removal of dressing on the right lower extremity, the ulceration of the lateral right foot has improved. There is still exposed hardware in the lateral foot noted. No signs of abscess or infection. The Unna boots is intact of the left lower extremity. ASSESSMENT: Chronic venous insufficiency, edema of left lower extremity exposed hardware with ulceration, lateral right foot. PLAN: Evaluation and management. Dry dressing applied to right foot daily, spoke with Dr. Villarreal regarding the patient's case. She will see the patient tomorrow and change the Unna boot on the left lower extremity. The patient again questioned when his hardware would be removed but the patient had a pending vascular consultation for proceeding with removal of the fixation, Dr. Villarreal will discuss with Dr. Diop and discussed with the patient again tomorrow as they have been treating the patient at the office, but the patient needs a vascular clearance before removal of the hardware. JONATHAN OLEA DPM CM:CONSTR:REPORT OF CONSULTATION 1232 04/11/17 0803 interface
--- NOTE | ~2017-04-05 | DS ---
[place], [place] DISCHARGE SUMMARY NAME: RENY QUEVEDO [facility] #: [id number] UNIT #: [id number] ROOM: 419 DOCTOR: ROCÍO NASH MD BIRTHDATE: [birth year] DOS: 04/10/2017 DIAGNOSES: 1. Acute diastolic congestive heart failure. 2. Benign hypertension. 3. Type 2 diabetes mellitus, insulin-dependent. 4. Chronic obstructive pulmonary disease exacerbation. 5. Restrictive lung disease from morbid obesity. 6. Possible obstructive sleep apnea. 7. Chronic atrial fibrillation, on long-term use of anticoagulants. 8. Hypothyroidism. 9. Peripheral vascular disease of the left lower leg. 10. Exposed hardware on the right lower leg. 11. Major depression. DISCHARGE MEDICATIONS: Breathing treatments with DuoNeb q. 4 hours, carvedilol 3.125 twice a day, lisinopril 2.5 daily, Aldactone 25 daily, Pulmicort 0.5 b.i.d. in the breathing treatments, Lipitor 40 daily, citalopram 20 daily, Zofran 4 q. 6 hours p.r.n., Januvia 25 daily, Xarelto 20 daily, doxycycline 100 b.i.d. for 7 days, potassium 10 daily, insulin Lantus 5 units q.p.m., levothyroxine 25 mcg daily and Lasix 40 mg twice a day. Please do basic metabolic panels every week since the patient is on Aldactone and potassium supplementation. HOSPITAL COURSE: The patient is 76-year-old, very well known to us, comes in with complaints of difficulty breathing. Please refer to H and P dictated for further details. After admission, the patient was placed on high dose of Lasix, cardiac medications were adjusted. Dr. Massey and Dr. Gillespie were consulted. The patient was placed on IV steroids. CT of the chest was done, which showed a large right-sided pleural effusion. Dr. Massey did do a thoracentesis, about 1000 mL of fluid was removed and the patient started feeling better after that. His Lasix has been increased to twice a day and he has slowly diuresed. Chest x-rays still lagging behind, still shows some mild CHF. Clinically, the patient has improved. The plan therefore is to discharge him to home. Please do CBC also with the next basic metabolic panel and repeat a chest x-ray in 1 week. Blood sugars to be checked daily. ADA 1800 diet and fluid restriction to 1800 mL. [place], [place] DISCHARGE SUMMARY NAME: RENY QUEVEDO UNIT #: [id number] ROOM: [facility] DOCTOR: ROCÍO NASH MD BIRTHDATE: [birth year] ROCÍO NASH MD CM:DISCHELIZ 1 [phone] ROCÍO NASH MD 04/10/17 1731 interface
--- NOTE | ~2017-04-05 | PR ---
[place], [place] PROGRESS NOTE NAME: RENY QUEVEDO UNIT #: [id number] ROOM: 419 DOCTOR: MARIA T BROOKS PRIYA BIRTHDATE: [birth year] DOS: 04/09/2017 SUBJECTIVE: The patient seen and examined at bedside. Denies any nausea, vomiting, fever or chills. He states he feels better after the thoracentesis. Denies any calf pain to bilateral lower extremities at this time. OBJECTIVE: VITAL SIGNS: Blood pressure 146/82, respirations 20, pulse 91, temperature 97.9. No new labs performed today. Focused lower extremities physical examination: Neurovascular status unchanged since admission. Right lower extremity: The lateral aspect of the right ankle has exposed hardware, noted to the lateral ankle. No purulent drainage, no malodor, no periwound erythema, no active signs of infection noted. +3 pitting edema noted in bilateral extremities. Unna boot applied to the left lower extremity at this time. No open wounds or open lesions noted. No acute signs of cellulitis noted at this time. MUSCULOSKELETAL: The patient admits to pain on palpation to bilateral ankles. Denies any pain to the ulceration sites on the right lower extremity. ASSESSMENT: 1. Exposed hardware, right ankle, currently stable at this time. 2. Venous insufficiency, bilateral. 3. Generalized edema, bilateral. 4. Congestive heart failure, status post thoracentesis. PLAN: 1. The patient is seen and examined. 2. Reapplied Unna boot to the left lower extremity. Change dressing with Betadine, dry sterile dressing to the right ankle. Applied Quinton bandage to the right lower extremity up to the knee for attempt and compression. 3. The patient needs vascular examination prior to removal of hardware at this time. 4. We will continue to follow. 5. Continue offloading bilateral heels with Prevalon boots. 6. Okay to discharge from Podiatry standpoint once clinically stable. [place], [place] PROGRESS NOTE NAME: RENY QUEVEDO UNIT #: [id number] ROOM: 419 DOCTOR: MARIA T BROOKS PRIYA BIRTHDATE: [birth year] MARCIAL BROOKS DPM CM:PNTRANS [id number] MARCIAL BROOKS DPM 04/10/17 0400 interface
--- NOTE | ~2017-04-05 | PR ---
[place], [place] PROGRESS NOTE NAME: RENY QUEVEDO UNIT #: [id number] ROOM: 419 DOCTOR: ROYCE CHANG MD,RAE BIRTHDATE: [birth year] DOS: 04/08/2017 SUBJECTIVE: He has been noted with significant reduction and improvement of respiratory symptoms after thoracentesis that was done yesterday. Shortness of breath has improved significantly. There was some mild cough. The patient denies symptoms of chest pain or any abdominal pain. Denies symptoms of hemoptysis. OBJECTIVE: VITAL SIGNS: For the patient which were recorded, showed the temperature noted as normal. The respiratory rate 20, heart rate 87, blood pressure 138/86. Pulse oxygen saturation was recorded 3 liters nasal cannula 97% saturation this morning. HEENT: Chronic obesity. NECK: Supple. CARDIOVASCULAR: S1, S2 audible. LUNGS: Shows improved aeration of the lungs bilaterally with occasional crackles. There was no wheezing. ABDOMEN: Soft, obese, nontender. EXTREMITIES: Show chronic obesity with mild edema. LABORATORY DATA: Analysis of pleural fluid ____ right pleural space, noted WBC count of 1375 with differentials of macrophages, lymphocytes and neutrophils. The pleural fluid was noted with the chemistry of total protein of 2.1, albumin 1.1, pH of 7.37. ____ 86, all consistent with a transudative effusion. Chest x-ray of the patient that was done post-thoracentesis was also reviewed, shows reduction and improvement in the pleural fluid with findings of congestive heart failure still noted. IMPRESSION: 1. The patient with resolving acute congestive heart failure, status post thoracentesis with removal of recurrent pleural fluid effectively. 2. The patient with morbid obesity with obstructive sleep apnea disorder. 3. Acute on chronic hypoxic respiratory failure as well. 4. Acute exacerbation of chronic obstructive pulmonary disease, resolving gradually. PLAN OF TREATMENT: Continue maximal diuretic therapy. Monitor kidney functions. The patient received Lasix 40 mg IV b.i.d. Monitor intake and output and bronchodilators. Also, dose of Solu-Medrol will be continued same for exacerbation of COPD management as well. Bronchodilator will be continued ____ BiPAP was encouraged. [place], [place] PROGRESS NOTE NAME: RENY QUEVEDO UNIT #: [id number] ROOM: [facility] DOCTOR: RAE SALDAÑA MD BIRTHDATE: [birth year] RAE CRANE MD CM:LATHA 22 33 RAE CHANG MD 04/08/171932 interface
--- NOTE | ~2017-04-05 | CON ---
[place], [place] REPORT OF CONSULTATION [facility] [id number] UNIT #: [id number] ROOM: 419 DOCTOR: DAQUAN FRANCO MD BIRTHDATE: [birth year] DOS: 04/07/2017 HISTORY OF PRESENT ILLNESS: This is a 76-year-old -Turkmen male with a history of diastolic heart failure, chronic atrial fibrillation, severe COPD with exacerbation, morbid obesity, essential hypertension, hypothyroidism, peripheral vascular disease with some procedures and depression. He was in the hospital a week or so ago and now has come back because of increasing shortness of breath. He has been coughing and also has been wheezing quite a bit. Nothing really comes up. He has had no chest pain or palpitations. No loss of consciousness. He has chronic swelling in the legs. HOME MEDICATIONS: Include DuoNeb aerosol treatments, atorvastatin 40 daily, vitamin D3, citalopram 20 mg daily, doxycycline 100 mg b.i.d., furosemide 40 mg p.o., levothyroxine 25 mcg daily, multivitamins, Zofran p.r.n., potassium 10 mEq daily, Xarelto 20 mg daily, Januvia 25 mg daily and NovoLog. PHYSICAL EXAMINATION: GENERAL: Reveals a patient who is very obese. He is not able to sit up because of obesity. He has oxygen on and is fairly tachypneic, but not cyanotic. Temperature is normal. VITAL SIGNS: Pulses are irregular at 96 beats per minute, blood pressure 145/81. NECK: External jugular veins are distended. EXTREMITIES: He has severe edema of the feet and also there is edema of the torso and the thighs. RESPIRATORY: Breath sounds are severely diminished with expiratory and inspiratory crackles and wheezing. DIAGNOSTIC STUDIES: Chest x-ray demonstrated mild pulmonary edema and an ECG demonstrated atrial fibrillation with a ventricular rate of 107 beats per minute and complete right bundle branch block. IMPRESSION: 1. This patient has significant diastolic heart failure and IV furosemide that we have started is appropriate and should be continued until his edema has substantially reduced and/or renal function begins to get abnormal. 2. Chronic obstructive pulmonary disease exacerbation is also a major problem. He had an echocardiogram done about a year ago, which demonstrated hyperdynamic left ventricle and LVH. Another echocardiogram will be done and will be read by Dr. Gillespie. I thank you on behalf of Dr. Gillespie for this consult. [place], [place] REPORT OF CONSULTATION NAME: EMYRENY UNIT #: [id number] ROOM: 419 DOCTOR: DAQUAN FRANCO MD BIRTHDATE: [birth year] DAQUAN FRANCO MD CM:CONSTR:REPORT OF CONSULTATION 1229 04/08/17 0341 interface
--- NOTE | ~2017-04-05 | CON ---
[place], [place] REPORT OF CONSULTATION NAME: RENY QUEVEDO [facility] #: [id number] UNIT #: [id number] ROOM: 419 DOCTOR: ROYCE CHANG MDRAE BIRTHDATE: [birth year] DOS: 04/07/2017 CONSULTATION REQUESTED BY: Dr. Jennie Almazan. REASON FOR CONSULTATION: Assess the patient for possible thoracentesis. HISTORY OF PRESENT ILLNESS: This is a 76-year-old white male, who has been known to me, has been hospitalized a couple of times in the last 4 weeks. He has been managed for acute congestive heart failure for this patient with respiratory failure in the hospital. The patient was treated adequately and improved significantly and discharged to the [facility]. The patient has been readmitted to the hospital as the patient came into the hospital from the nursing facility as he has developed increased shortness of breath with audible wheezing. The patient denies any symptoms of chest pain. Denies symptoms of hemoptysis. The patient's shortness of breath was noted with mild exertion activity and rest as well. The wheezing has been noted somewhat decreased since hospitalization. He denies any symptoms of acute chest pain or angina. He has been noted with history of chronic edema of the lower extremity with intermittent increased edema noted at times. REVIEW OF SYSTEMS: CONSTITUTIONAL: Fatigue and tiredness described without any symptoms of fever or chills. EYES: Denies any burning, redness, or tenderness. EARS, NOSE, AND THROAT SYMPTOMS: No sore throat, hoarseness, otalgia, postnasal drainage or epistaxis. CARDIOVASCULAR SYSTEM: The patient was noted without any symptoms of anginal pain. Edema of the lower extremity with some lymphedema, which has been noted chronic as well. Denies any palpitations. GASTROINTESTINAL: Chronic obesity was noted with patient without any symptoms of dysphagia, nausea, vomiting, diarrhea, hematemesis, melena, or hematochezia. GENITOURINARY: Denies dysuria, suprapubic pain, or hematuria. SKIN: Chronic venous stasis pigmentation of the lower extremities without any abnormal rashes or lesions noted. CENTRAL NERVOUS SYSTEM: The patient was noted essentially with decreased mobility. Remaining systems were reviewed with the patient, they were noted all negative. PAST MEDICAL HISTORY: 1. The patient was known with history of COPD. 2. Chronic hypoxic respiratory failure, use of oxygen supplementation. 3. Chronic stasis dermatitis, pigmentation in the lower extremities. 4. History of chronic cholecystitis. 5. Atrial fibrillation. 6. Hypothyroidism. 7. Essential hypertension. 8. Morbid obesity. 9. Failure to thrive. 10. Congestive heart failure, diastolic dysfunction. [place], [place] REPORT OF CONSULTATION NAME: RENY QUEVEDO UNIT #: [id number] ROOM: 419 DOCTOR[facility] [birth year] 11. Peripheral vascular disease. 12. History of deep venous thrombosis as well. 13. History of colon cancer. PAST SURGICAL HISTORY: reported. 1. [place] filter placement. 2. Partial colectomy for the cancer of the colon. 3. Right total knee replacement. 4. Diskectomy. 5. Ligament transfer of the left ankle with the problem of the hardware. 6. Venous stripping both lower extremities. SOCIAL HISTORY: Currently a resident of nursing facility. He has been noted history of tobacco use since teenager, 2 packs of cigarettes per day, with complete tobacco cessation done in 1986. There was no history of alcohol or illicit drug use. He has worked 42 years in the [employer]. FAMILY HISTORY: Noted noncontributory. CURRENT MEDICATIONS: Administered was noted as use of IV Solu-Medrol, spironolactone, lisinopril, Pulmicort Respules, Coreg, Lipitor, Xarelto 20 mg, Tradjenta, citalopram, levothyroxine, Lasix, sliding scale insulin coverage, doxycycline and oxygen supplementation and other p.r.n. medications administration. DRUG ALLERGIES: NOTED WITH ALLERGIES TO THE PENICILLINS. PHYSICAL EXAMINATION: GENERAL: A 76-year-old male who has been currently noted awake and alert without any distress. VITAL SIGNS: Height of 5 feet 9 inches, weight of 285 pounds with BMI of 42.6. Vital signs recorded as a normal temperature, respiratory recorded as 20, heart rate of 96-103, blood pressure 130/70-145/81, pulse oxygen saturation on nasal cannula 3 L 96% saturation. HEENT: Examination shows chronic severe obesity. Head was atraumatic. Eyes, no icterus. NECK: Supple. CARDIOVASCULAR: S1, S2 is audible. LUNGS: The patient noted with ____ breath sounds in the right lower lung and the left lung base. Scattered crackles. Expiratory wheezing bilaterally. ABDOMEN: Soft, obese, nontender. EXTREMITIES: Showed chronic venous stasis pigmentation with mild superimposed edema. The abdomen noted with severe morbid obesity. Bowel sounds are present. CENTRAL NERVOUS SYSTEM: There were no gross focal deficits noted for this patient with cranial nerves 2-12 intact. MUSCULOSKELETAL: No gross deformities. SKIN: Showed no abnormal lesions. Chronic venous stasis pigmentation changes in lower extremities. LABORATORY DATA: The patient's CBC on 04/05/2017; hemoglobin 8.2, hematocrit [place], [place] REPORT OF CONSULTATION NAME: RENY QUEVEDO UNIT #: [id number] ROOM: 419 DOCTOR: RO[facility]CE [facility] B[facility]: [birth year] 30.1, platelet count were normal, WBC count were normal. PT/PTT noted normal. INR was noted mildly elevated at 1.5 with normal PTT. CMP of the patient on 04/05/2017; glucose 117. CO2 was 34. ProBNP 5230. Lactic acid 1.7. The troponin for the patient 3 sets were noted all normal. CBC of the patient this morning, hemoglobin 8.6, hematocrit 31.2, platelet count normal, WBC count normal. BMP today: BUN 28, creatinine was normal. Glucose was noted at 140. Blood culture of the patient showed no bacterial growths taken on admission. ESR was noted at 10. Chest x-ray on 04/05/2017 that was done for this patient shows pleural fluid was noted with finding of congestive heart failure, fluid overload with worsening of the chest x-ray noted as compared with the previous chest x-ray on his last admission. The pleural fluid certainly has been noted increased significantly on the right side. The CT scan of the chest without contrast done yesterday, shows moderate to large pleural fluid noted with increased fluid with comparison of CT scan of 03/03/2017. The patient was noted to have two nodules which were present in the right upper lung and one nodule appeared to be 8 mm in size, at this time appeared to be decreased to 5 mm at this time; another nodule which is noted close to the current nodule, subpleural surface was still noted with triangular density 8 mm in size. Small right pleural fluids were noted as well. Interstitial edema noted, ground glass opacity and a cyst was also noted for this patient in the right lower lobe as well. IMPRESSION: 1. The patient who has been currently noted with progressive increased of the pleural fluid with acute respiratory failure, congestive heart failure worsening with diastolic dysfunction causing the current symptoms. 2. Nodules in the lung noted previously in the right lung one appear to be smaller than the previous one, the other 8 mm nodule was noted significance unknown. Left pleural fluid secondary to congestive heart failure. There was no clinical evidence, radiologic evidence of pneumonia suspected at this time, passive atelectasis of the right lower lobe was noted secondary to the pleural fluid. The patient had finding of pulmonary nodule in the right lung needs further monitoring. 3. The patient with suspected obstructive sleep apnea disorder, not diagnosed for this patient in the past. The patient has acute exacerbation of chronic obstructive pulmonary disease as well. 4. Severe morbid obesity as well. History of chronic venous stasis pigmentation of lower extremities as well. 5. History of ankle surgery previously with some hardware issue, which has been addressed by the Podiatry services previously as well on his last admission. PLAN OF MANAGEMENT: Certainly because of the pleural fluid is increasing for the patient significantly at this time, the bedside thoracentesis will be done. I personally performed the ultrasound assessment of the lungs bilaterally, very small left pleural fluid was noted, but moderate to large right pleural fluid was identified which would be amenable for safe thoracentesis. The patient was told about that and the consent was obtained as the patient agreed for the procedure. Continue diuretic therapy and to closely monitor kidney functions as well. The antibiotics certainly could be discontinued. Continue IV Solu-Medrol [place], [place] REPORT OF CONSULTATION NAME: RENY QUEVEDO [facility] UNIT #: [id number] ROOM: 419 DOCTOR: ROYCE CHANG MD,RAE BIRTHDATE: [birth year] for this patient for the medical management of acute exacerbation of COPD. Current nodule for the patient needs to be monitored with outpatient followup CT scan, possibly to be done in 3 and 6 months later on for assessment. Solu-Medrol dose will be gradually decreased based on progression of the illness. Other supportive therapy, plan of management and care as previously in progress. Additional treatment changes will be done based on the progression of the illness. Maximize the diuretic therapy. Continuation ____ for this patient with chronic atrial fibrillation. RAE CRANE MD CM:CONSTR:REPORT OF CONSULTATION 1050 04/08/17 0259 interface
[~2017-04-05 09:59] MED LIST changes: +DOXYCYCLINE100 M3 PO; +DUONEB 3 MG/3 ML3 M1 INH; +FUROSEMIDE10 MG/1 M1 PO; +KLOR-CON M2020 ME1 PO; +Synthroid,Levo25 MCG PO; +TENORMIN25 MG PO; +VITAMIN D50000 UNIT PO
[2017-04-05 10:09] VITALS: BP 130/66
[2017-04-05 10:16] LABS: BASO % 0.3 % (0.0-1.0); EOS # 0.1 10*3/uL (0.0-0.4); EOS % 1.8 % (1.0-4.0); HEMATOCRIT 30.1 % (42.0-52.0); HEMOGLOBIN 8.2 g/dl (14.0-18.0); LYMPH # 1.1 10*3/uL (1.3-4.4); MEAN CELL VOLUME 80.5 fl (80.0-94.0); MEAN CORPUSCULAR HGB 21.9 pg (27.0-31.0); MEAN CORPUSCULAR HGB CONC 27.2 g/dl (33.0-37.0); MEAN PLATELET VOLUME 10.5 fl (9.6-12.3); MONO # 0.7 10*3/uL (0.1-1.0); MONO % 8.7 % (3.0-9.0); NEUT # 5.7 10*3/uL (2.3-7.9); NEUT % 74.5 % (47.0-73.0); PLATELET COUNT AUTOMATED 215 10*3/uL (130-400); RED BLOOD COUNT 3.74 10*6/uL (4.50-5.90); WHITE BLOOD COUNT 7.7 10*3/uL (4.8-10.8)
[2017-04-05 10:25] LABS: ACT PARTIAL THROMBO TIME 28.9 SECONDS (20.8-31.5); INTERNATIONAL NORM RATIO 1.5 (2.0-3.5)
[2017-04-05 10:34] LABS: ALBUMIN 2.7 gm/dl (3.1-4.5); ALKALINE PHOSPHATASE 77 U/L (45-117); BUN 18 mg/dl (7-24); CHLORIDE 102 mmol/L (98-107); CREATININE 0.93 mg/dL (0.70-1.30); MAGNESIUM 2.1 mg/dL (1.5-2.1); POTASSIUM 4.1 mmol/L (3.5-5.1); SGOT/AST 18 IU/L (3-35); SGPT/ALT 13 U/L (12-78); SODIUM 142 mmol/L (136-145); TOTAL PROTEIN 6.7 gm/dL (6.4-8.2)
[2017-04-05 10:35] LABS: TROPONIN I 0.031 ng/ml (<0.045)
--- NOTE | 2017-04-05 11:56 | NUR ---
LEVAQUIN INFUSING AT TIME OF ADMISSION.
[2017-04-05 12:00] VITALS: BP 142/82
[2017-04-05 12:10] VITALS: BP 142/82
--- NOTE | 2017-04-05 12:10 | NUR ---
A 76, admitted to , under the services of ROCÍO Mcgarry MD with a diagnosis of CHF. Chief complaint is SHORTNESS OF BREATH AND CHEST PAIN. Patient arrived via ambulance from ER. Monitor applied. Initial assessment completed. Vital signs taken and recorded. ROCÍO MCGARRY MD notified of admission to the unit. Orders received. See assessment for past medical history, medications and allergies. Patient and/or family oriented to unit. [facility] Clothing/patient valuable form completed. KATE TRINIDAD
[2017-04-05] MEDS ORDERED: PAIN RELIEVER650 MG PO (12:24)
[2017-04-05] MEDS ORDERED: DOXYCYCLINE100 M3 PO (12:25)
[2017-04-05] MEDS ORDERED: KLOR-CON 1010 ME1 PO (12:26)
[2017-04-05] MEDS ORDERED: LANTUS SOL100 UNIT/1 SQ (12:27)
[2017-04-05] MEDS ORDERED: LASIX40 MG PO (12:28)
[2017-04-05] MEDS ORDERED: Synthroid,Levo25 MCG PO (12:29)
[2017-04-05] MEDS ORDERED: NOVOLOG10 ML SQ (12:30)
[2017-04-05] MEDS ORDERED: PROBIOTIC250 MG PO (12:31)
--- NOTE | 2017-04-05 12:33 | NUR ---
MED REC UPDATED PER LIST PROVIDED BY [facility].
--- NOTE | 2017-04-05 14:47 | NUR ---
PHOTO OF WOUND UPPER RT ARM TAKEN PER POLICY WITH PT'S PERMISSION. PT HAS WOUND/WOUNDS ON RT LEG. DRSG CHANGED YESTERDAY, PER PT DRSG IS TO BE CHANGED WEEKLY BY DR. BOLDEN. COOKER CASING NOTIFIED. PICTURE OF DRSG/DATE TAKEN.
[2017-04-05 16:00] VITALS: BP 134/65
[2017-04-05 20:00] VITALS: BP 144/76
--- NOTE | 2017-04-05 20:00 | NUR ---
PATIENT IS SITTING IN BED WATCHING TV. HE HAS NO VOICED COMPLAINTS AT THIS TIME. RESPIRATIONS EASY/REGULAR. NO SXS OF DISTRESS. PLEASANT/COOPERATIVE WITH CARE. HE HAD SOME ISSUES WITH HIS IV BLEEDING AROUND THE SITE. I CLEANED IT UP, REDRESSED IT. IT STILL FLUSHES EASILY AND HAS GOOD BLOOD RETURN. PATIENT STATES IT DOES NOT HURT AT ALL AND DOES NOT WANT TO BE POKED AGAIN IF HE DOESNT HAVE TO BE.
[2017-04-06] VITALS: BP 159/85
--- NOTE | 2017-04-06 03:25 | NUR ---
SLEEPING. RESPIRATIONS EASY/REGULAR. NO SXS OF DISTRESS. CALL LIGHT IN REACH.
[2017-04-06 08:00] VITALS: BP 146/88
--- NOTE | 2017-04-06 10:06 | NUR ---
CALLED DR GÓMEZ FOR NEW CONSULTATION. HE DID NOT ANSWER AND VOICEMAIL WAS NOT SET UP YET.
--- NOTE | 2017-04-06 10:18 | NUR ---
DR FRANCO NOTIFIED OF NEW CONSULTATION. HE STATES THAT HE WILL SEE MR QUEVEDO ON 04/07/17. NO NEW ORDERS ARE GIVEN.
[2017-04-06 12:00] VITALS: BP 113/50
[2017-04-06 16:00] VITALS: BP 119/56
--- NOTE | 2017-04-06 16:31 | NUR ---
Dr shi notified of consult.
[2017-04-06 20:00] VITALS: BP 125/61
--- NOTE | 2017-04-06 20:00 | NUR ---
PT RESTING IN BED. REPOSITIONED SELF IN BED. OXYGEN IN USE. HEEL PROTECTORS ON. ECCYMOTIC AREAS BILATERAL ARMS NOTED. CALL LIGHT IN REACH. SEE SHIFT ASSESSMENT.
--- NOTE | 2017-04-06 22:30 | NUR ---
PT RESTING IN BED. NO C/O AT THIS TIME. CALL LIGHT IN REACH.
[2017-04-07] VITALS: BP 130/73
--- NOTE | 2017-04-07 | NUR ---
PT RESTING IN BED. RESP-EASY AND REGULAR. CALL LIGHT IN REACH. NO C/O AT THIS TIME.
--- NOTE | 2017-04-07 04:00 | NUR ---
PT RESTING IN BED. DRESSING TO RIGHT ARM CHANGED WITH SMALL AMOUNT RED DRAINAGE NOTED. CALL LIGHT IN REACH. BED ALARM ON.
[2017-04-07 04:50] LABS: BASO % 0.1 % (0.0-1.0); HEMATOCRIT 31.2 % (42.0-52.0); HEMOGLOBIN 8.6 g/dl (14.0-18.0); LYMPH # 0.8 10*3/uL (1.3-4.4); LYMPH % 9.4 % (27.0-41.0); MEAN CELL VOLUME 80.2 fl (80.0-94.0); MEAN CORPUSCULAR HGB 22.1 pg (27.0-31.0); MEAN CORPUSCULAR HGB CONC 27.6 g/dl (33.0-37.0); MEAN PLATELET VOLUME 11.9 fl (9.6-12.3); MONO # 0.6 10*3/uL (0.1-1.0); MONO % 7.5 % (3.0-9.0); NEUT # 6.8 10*3/uL (2.3-7.9); NEUT % 82.5 % (47.0-73.0); PLATELET COUNT AUTOMATED 247 10*3/uL (130-400); RED BLOOD COUNT 3.89 10*6/uL (4.50-5.90); RED CELL DISTRI WIDTH 19.9 % (0-14.5); WHITE BLOOD COUNT 8.2 10*3/uL (4.8-10.8)
[2017-04-07 05:02] LABS: BUN 28 mg/dl (7-24); CHLORIDE 99 mmol/L (98-107); CREATININE 1.02 mg/dL (0.70-1.30); POTASSIUM 4.2 mmol/L (3.5-5.1); SODIUM 139 mmol/L (136-145)
--- NOTE | 2017-04-07 06:00 | NUR ---
PT RESTING IN BED. TOLERATED ROUTINE MEDS WITH NO PROBLEM. BSG-[id number], SEE EMAR. CALL LIGHT IN REACH.
[2017-04-07 08:00] VITALS: BP 145/81
--- NOTE | 2017-04-07 08:30 | NUR ---
RECONSIGNMENT CLERK VS. EATING BREAKFAST. LTC AT [facility] AND PLANS TO RETURN UPON DC.
[2017-04-07 10:01] LABS: BODY FLUID WBC 1375 /uL
[2017-04-07 10:53] LABS: BF LYMPHOCYTES 34 %; BF MACROPHAGES 63 %; BF MESOTHELIALS 1 %; BF NEUTROPHILS 2 %
--- NOTE | 2017-04-07 11:29 | NUR ---
EMYRENY GERARDO [id number] Please refer to the physician's history and physical for past medical history, comorbid conditions, and allergies. Diagnosis: CHF SEVERE SEPSIS RESP FAILURE PNEUMONIA Refugio Score: 20,LOW OR NO RISK WOUND DESCRIPTIONS: Location of the wound: right upper arm Type of wound: skin tear Thickness: Partial Size: 1.3cm x 2.5cm x 0.1cm Tunneling: none Undermining: none Sinus Tract: none Presence of Exudate: Serosanguineous Amount: Moderate Color: Red Odor: None Periwound Skin Appearance: Normal Wound edges: approximated Pain (associated with wound): none at time of assessment How does patient state this happened? pt stated it happened during his last admission here on the [facility]. Patient has wraps to BLE patient stated that Dr. Marion comes and changes the RLE daily and the LLE weekly and was changed last on 04/04/17. Patient stated the hardware is still sticking out of the RLE and he isn't sure when he is going to get surgery. Surface the patient is resting on: Isoflex SKIN PREVENTION RECOMMENDATION: 1. Pressure redistribution support surface as appropriate 2. Elevate heels 3. Remove boots/TEDS every shift and reapply 4. Head of bed 30 degrees as tolerated 5. Assess nutrition and hydration 6. Manage moisture 7. Avoid the use of containment devices while in bed 8. Use absorptive products on surfaces limit layers of linens on bed 9. Turn and reposition every 1-2 hours in bed and every 1 hour in chair as tolerated 10. Weight shifts every 15 minutes while up in chair 11. Offloading with pillows or device to keep heels elevated off bed 12. Monitor skin at least every shift 13. Inspect under medical devices twice a day WOUND TREATMENT RECOMMENDATIONS: Consult podiatry for RLE and LLE. Cleanse Right upper arm with nss and apply sureprep around wound versatel to wound bed cover with hydrogel then optifoam gentle daily.
[2017-04-07 12:00] VITALS: BP 122/59
--- NOTE | 2017-04-07 13:08 | NUR ---
PATIENT CONSULT CALLED. DR. MYERS BARREL LATHE OPERATOR OUTSIDE. AITCHBONE BREAKER STATED THAT SHE WOULD LET DR. MYERS KNOW ABOUT CONSULT. NO OTHER CONCERNS.
[2017-04-07 16:00] VITALS: BP 119/78
[2017-04-07 20:00] VITALS: BP 135/57
[2017-04-08] VITALS: BP 128/65
--- NOTE | 2017-04-08 00:14 | NUR ---
24 HR chart check completed.
--- NOTE | 2017-04-08 06:49 | NUR ---
DR. DEXTER CALLED AND WANTED CONSULT IN HIS NAME INSTEAD OF DR. FRANCO. DR. FRANCO WAS COVERING FOR HIM.
[2017-04-08 08:00] VITALS: BP 138/86
--- NOTE | 2017-04-08 08:00 | NUR ---
DR. REAVES IN TO SEE PT.
--- NOTE | 2017-04-08 08:27 | NUR ---
PATIENT IS RESTING COMFORTABLY IN BED. PATIENT DENIES ANY SOB OR PAIN AT THIS TIME. PATIENT WAS COOPERATIVE AND HAD NO FURTHER COMPLAINTS OR REQUESTS UPON ASSESSSMENT. SEE SHIFT ASSESSMENT. STUDENT NURSE ON FLOOR AND WILL BE DOCUMENTING AND PERFORMING MEDICATION ADMINISTRATION.
--- NOTE | 2017-04-08 09:00 | NUR ---
DR NASH DOES NOT WANT PALLIATIVE CARE FOR THIS PT.
[2017-04-08 12:00] VITALS: BP 110/70
--- NOTE | 2017-04-08 12:03 | NUR ---
DR. OLEA IN TO SEE PT. HE CHANGED DRESSING TO RIGHT ANKLE. HE WILL ORDER DRESSINGS
--- NOTE | 2017-04-08 14:00 | NUR ---
PATIENT RESTING IN BED. PATIENT WAS ABLE TO GET UP AND MOVE TO BEDSIDE CHAIR WITH WALKER PLUS 2 ASSIST. PATIENT HAS NO FURTHER REQUESTS OR COMPLAINTS AT THE TIME. WILL CONTINUE TO MONITOR PATIENT. CALL LIGHT WITHIN REACH.
[2017-04-08 16:00] VITALS: BP 110/61
--- NOTE | 2017-04-08 18:44 | NUR ---
PATIENT RESTING COMFORTABLY IN BED. FAMILY MEMBER IS AT PATIENT BEDSIDE. PATIENT HAS NO COMPLAINTS OR REQUESTS AT THIS TIME. WILL CONTINUE TO MONITOR PATIENT. SEE SHIFT ASSESSMENT.
[2017-04-08 20:00] VITALS: BP 128/76
--- NOTE | 2017-04-08 20:00 | NUR ---
PATIENT VOICES NO COMPLAINTS AT THIS TIME. SAID HE THINKS HES GOING BACK TO [facility] TOMORROW. PATIENT STATES HE CAN TELL SOME OF THE SWELLING HAS GONE DOWN. WILL CONTINUE TO MONITOR. PATIENT LEFT WITH CALL LIGHT IN REACH.
[2017-04-09] VITALS: BP 109/53
--- NOTE | 2017-04-09 07:24 | NUR ---
Rested quietly through the night. Denied pain. Resp easy and regular. Will continue to monitor.
[2017-04-09 08:00] VITALS: BP 132/86; BP 146/82
--- NOTE | 2017-04-09 08:21 | NUR ---
PATIENT IS RESTING COMFORTABLY IN BED WATCHING TELEVISION. PATIENT DENIES ANY PAIN, DISCOMFORT, OR SOB. PATIENT IS RECEIVING 3LPM VIA NC AND HAS A SLIGHT WHEEZE ON BOTH INS AND EXP. PATIENT WAS PLEASANT AND COOPERATIVE UPON ASSESSMENT. CALL LIGHT IS WITHIN REACH. SEE SHIFT ASSESSMENT.
--- NOTE | 2017-04-09 10:44 | NUR ---
PATIENT REQUESTING MEDICATION FOR LEFT LEG PAIN. NOTIFIED AND ORDERS TAKEN AND REVIEWED.
--- NOTE | 2017-04-09 11:07 | NUR ---
PT C/O LEFT LEG RATES PAIN 6 ON PAIN SCALE 0-10. MEDICATED WITH NORCO PO PER PRN ORDER, SEE EMAR. CALL LIGHT IN REACH.
--- NOTE | 2017-04-09 11:52 | NUR ---
DR. BROOKS WAS IN TO SEE PATIENT AND CHANGE REGIS BOOT ON THE LEFT LEG AND PERFORM DRESSING CHANGE ON THE RIGHT. NO FURTHER ORDERS GIVEN AT THIS TIME.
[2017-04-09 12:00] VITALS: BP 147/77
--- NOTE | 2017-04-09 12:00 | NUR ---
PT RESTING IN BED. STATES PAIN MEDICATION HELPED. CALL LIGHT IN REACH.
--- NOTE | 2017-04-09 13:13 | NUR ---
PATIENT IS SITTING UP IN THE CHAIR, PATIENT DENIES ANY PAIN OR DISCOMFORT AT THIS TIME. PATIENT WAS POLITE AND COOPERATIVE DURING ASSESSMENT. PATIENT IS ON THE MONITOR. SEE SHIFT ASSESSMENT.
[2017-04-09 16:00] VITALS: BP 150/89
--- NOTE | 2017-04-09 17:47 | NUR ---
PATIENT IS RESTING IN BED, PATIENT HAS URINARY FREQUENCY AND REQUIRES FREQ LINEN CHANGES. PATIENT HAD NO COMPLAINTS OR REQUESTS UPON ASSESSMENT. CALL LIGHT IS WITHIN REACH SEE SHIFT ASSESSMENT.
--- NOTE | 2017-04-09 19:44 | NUR ---
PATIENT LYING IN BED, STATED HE WAS HOPING TO GET OUT OF HERE TODAY. WASNT SURE WANT THE PLANS FOR HIM WAS. PATIENT LEFT WITH CALL LIGHT IN REACH.
[2017-04-09 20:00] VITALS: BP 154/82
[2017-04-10] VITALS: BP 132/76
--- NOTE | 2017-04-10 | NUR ---
RESTING IN BED WATCHING T.V. 02 INTACT AT 3LPM VIA NASAL CANNULA; PULSE OX 97% ON 3 LITERS. LUNGS WITH A SLIGHT WHEEZE NOTED; NO COUGH NOTED AT THIS TIME. HEP LOCK INTACT TO RIGHT WRIST; SITE ASYMPTOMATIC. REGIS BOOTS INTACT & HEEL PROTECTORS. PT. VOICES NO C/O AT THIS TIME; CALL LIGHT WITHIN REACH.
--- NOTE | 2017-04-10 05:49 | NUR ---
BLOOD SUGAR 205; COVERAGE GIVEN PER EMAR.
[2017-04-10 06:33] LABS: BASO % 0.1 % (0.0-1.0); HEMATOCRIT 33.6 % (42.0-52.0); HEMOGLOBIN 9.4 g/dl (14.0-18.0); LYMPH # 0.4 10*3/uL (1.3-4.4); MEAN CORPUSCULAR HGB 21.8 pg (27.0-31.0); MEAN PLATELET VOLUME 10.8 fl (9.6-12.3); MONO # 0.5 10*3/uL (0.1-1.0); NEUT # 7.9 10*3/uL (2.3-7.9); NEUT % 88.4 % (47.0-73.0); PLATELET COUNT AUTOMATED 235 10*3/uL (130-400); RED BLOOD COUNT 4.31 10*6/uL (4.50-5.90); RED CELL DISTRI WIDTH 19.1 % (0-14.5); WHITE BLOOD COUNT 8.9 10*3/uL (4.8-10.8)
[2017-04-10 07:04] LABS: BUN 35 mg/dl (7-24); CHLORIDE 96 mmol/L (98-107); POTASSIUM 3.9 mmol/L (3.5-5.1); SODIUM 138 mmol/L (136-145)
[2017-04-10 07:06] LABS: CREATININE 0.97 mg/dL (0.70-1.30)
[2017-04-10 08:00] VITALS: BP 130/77
--- NOTE | 2017-04-10 08:00 | NUR ---
IN BED AWAKE ALERT AND ORIENTED X3, NO S/S OF DISTRESS. WILL CONT TO MONITOR. CALL LIGHT IN REACH. SEE ASSESS.
[2017-04-10] MEDS ORDERED: ALDACTONE25 MG PO (09:16)
[2017-04-10] MEDS ORDERED: LASIX40 MG PO (09:16)
[2017-04-10] MEDS ORDERED: CARVEDILOL3.125 MG PO (09:16)
[2017-04-10] MEDS ORDERED: LISINOPRIL2.5 MG PO (09:16)
[2017-04-10] MEDS ORDERED: PULMICORT RESP0.5 MG NEB (09:16)
--- NOTE | 2017-04-10 10:37 | NUR ---
Patient is being discharged back to [facility], transportation scheduled for 1:30 with [facility]. ME and nursing notified.
--- NOTE | 2017-04-10 11:23 | NUR ---
REPORT CALLED TO [facility].
[2017-04-10 12:00] VITALS: BP 123/53
--- NOTE | 2017-04-10 14:00 | NUR ---
PT DISCHARGED AT THIS TIME. IV REMOVED AND PRESSURE DRESSING APPLIED. HEART MONITOR RETURNED TO FLOOR. REPORT WAS ALREADY CALLED TO [facility].
== END 2017-04-10 14:00 | disposition home or self-care (01) | DRG 871 ==
LOC: ED 09:59 → 4E 11:39 → EDHOLD 11:39 → 4E 11:45
PROVIDERS: Internal Medicine Critical Care Medicine; Student in an Organized Health Care Education/Training Program; ADMIT Internal Medicine
PROC: 0W993ZZ Drainage of Right Pleural Cavity, Percutaneous Approach (ICD-10-PCS; principal; 2017-04-07)
DX: A41.9 Sepsis, unspecified organism (principal); I50.31 Acute diastolic (congestive) heart failure; J96.21 Acute and chronic respiratory failure with hypoxia; L97.519 Non-pressure chronic ulcer of other part of right foot with unspecified severity; J90 Pleural effusion, not elsewhere classified; E11.51 Type 2 diabetes mellitus with diabetic peripheral angiopathy without gangrene; J44.1 Chronic obstructive pulmonary disease with (acute) exacerbation; K81.1 Chronic cholecystitis; L97.929 Non-pressure chronic ulcer of unspecified part of left lower leg with unspecified severity; J98.11 Atelectasis; I11.0 Hypertensive heart disease with heart failure; R65.20 Severe sepsis without septic shock; R91.1 Solitary pulmonary nodule; Z96.651 Presence of right artificial knee joint; I89.0 Lymphedema, not elsewhere classified; E78.5 Hyperlipidemia, unspecified; R62.7 Adult failure to thrive; I87.2 Venous insufficiency (chronic) (peripheral); F32.9 Major depressive disorder, single episode, unspecified; E03.9 Hypothyroidism, unspecified; G47.33 Obstructive sleep apnea (adult) (pediatric); E66.01 Morbid (severe) obesity due to excess calories; I48.2 Chronic atrial fibrillation; Z99.81 Dependence on supplemental oxygen; Z79.01 Long term (current) use of anticoagulants; Z79.899 Other long term (current) drug therapy; Z86.718 Personal history of other venous thrombosis and embolism; Z85.038 Personal history of other malignant neoplasm of large intestine; Z90.49 Acquired absence of other specified parts of digestive tract; Z87.891 Personal history of nicotine dependence; Z88.0 Allergy status to penicillin; Z68.39 Body mass index [BMI] 39.0-39.9, adult; Z86.73 Personal history of transient ischemic attack (TIA), and cerebral infarction without residual deficits; Z82.49 Family history of ischemic heart disease and other diseases of the circulatory system

== ENCOUNTER 2017-04-11 21:10 | Inpatient (IN) | payer MEDICARE, OTHER ==
[~2017-04-11] VITALS: Ht 175.2 cm; Wt 119.4 kg
--- NOTE | ~2017-04-11 | DS ---
[place], [place] DISCHARGE SUMMARY NAME: RENY QUEVEDO [facility] #: [id number] UNIT #: [id number] ROOM: 526 DOCTOR: CHAITANYA WAN MD BIRTHDATE: [birth year] DOS: 04/16/2017 DISCHARGE DIAGNOSES: 1. The patient with acute diastolic type congestive heart failure, improved with treatment. Dr. Gillespie, his air technician evaluated him. 2. Severe sepsis with urine infection, extended-spectrum beta-lactamase positive, urine cultures and blood cultures were positive for gram-negative bacilli, being followed by Infectious Disease. 3. Morbid obesity. 4. Chronic atrial fibrillation, with controlled heart rates. 5. Type 2 diabetes mellitus. 6. Mixed hyperlipidemia. 7. Diastolic type congestive heart failure, chronic. 8. Morbid obesity, generalized weakness and adult failure to thrive. 9. Hardware exposure at the right ankle with chronic infection, followed by Dr. Rios. 10. Concentric left ventricular hypertrophy. 11. Severe peripheral arterial disease and left iliac arterial occlusion. 12. Major depression, recurrent, moderate. 13. Chronic obstructive pulmonary disease. 14. Benign essential hypertension. 15. Type 2 diabetes mellitus, better controlled on no concentrated sweet diet. The patient with advanced disability and adult failure to thrive presented to [facility] for admission again for shortness of breath, some purulent sputum. The patient was found to have severe sepsis with urine cultures growing resistant ESBL E. coli, which was treated with meropenem and Infectious Disease specialist, Dr. Guevara followed the patient. We are arranging to [facility] the [facility] to [facility], [place] where he came from, but the cost of antibiotic is an issue. Case management working along with Infectious disease specialist to get him discharged back to the [facility] today. The patient has achieved maximum benefit from the stay at the hospital and he is alert and oriented and asymptomatic now, but requires at least 2 weeks of more antibiotics. Acute diastolic type congestive heart failure, followed by Dr. Gillespie and Dr. Louise. The patient was diuresed with IV Lasix. Acute exacerbation of COPD, treated with antibiotics, bronchodilators. Sputum cultures were ordered. The patient is followed by foot doctors for right ankle hardware exposure and chronic infection. The patient also had followed with Dr. Rios as an outpatient. Type 2 diabetes mellitus, with better controlled blood sugars with no concentrated sweet diet, all treatment continued. Hypothyroidism, replaced with supplements. [place], [place] DISCHARGE SUMMARY [id number] #: [id number] ROOM: 526 DOCTOR: CHAITANYA WAN MD BIRTHDATE: [birth year] Benign essential hypertension, with controlled blood pressures with treatment. Chronic atrial fibrillation. The patient's heart rate is controlled. The patient anticoagulated with Xarelto. LABORATORY DATA: Culture results positive as mentioned above. Normal serum electrolytes, bilirubin, liver enzymes. Hemoglobin 8.4 with anemia of chronic disease. Urine cultures grew resistant E. coli. Blood culture is growing gram-negative bacilli. Final culture results are still pending. DISCHARGE MANAGEMENT: Antibiotic to be discharged and written by Infectious Disease specialist, Dr. Guevara, Flomax 0.4 mg a day, Lipitor 40 mg a day, Levemir insulin 5 units daily, spironolactone 25 mg a day, Tradjenta 5 mg a day, ____ mg a day, potassium chloride 10 mEq daily, lisinopril 2.5 mg a day, furosemide 40 mg b.i.d., citalopram 20 mg a day, Coreg 3.125 mg b.i.d., Protonix 40 mg a day, DuoNeb q.i.d. with Pulmicort 0.5 mg b.i.d., doxycycline 100 mg b.i.d., furosemide 40 mg b.i.d., ____ 20 mg a day. Antibiotic orders to come from Infectious Disease specialist. One hour time spent on patient's discharge procedure and making arrangements. CHAITANYA WAN MD CM:DISCHARG [id number] 140 CHAITANYA WAN MD 04/16/17 1404 interface
--- NOTE | ~2017-04-11 | CON ---
[place], [place] REPORT OF CONSULTATION NAME: RENY QUEVEDO [facility] #: [id number] UNIT #: [id number] ROOM: 526 DOCTOR: VANDANA MYERS DPM BIRTHDATE: [birth year] DOS: 04/14/2017 SUBJECTIVE: The patient is seen as consult for evaluation of right foot wound. The patient has had a chronic wound in the area with hardware exposed. He was recently admitted at this time for UTI and sepsis. He denies any pain. He also has an Unna boot on his left lower extremity, which is changed every Friday. PAST MEDICAL HISTORY: Positive for morbid obesity, chronic AFib, type 2 diabetes, CHF, COPD, hyperlipidemia, overall very poor health. ALLERGIES: PENICILLIN. CURRENT MEDICATIONS: Include Lipitor, Aldactone, Xarelto, Micro-K, Zestril, Tradjenta, Levemir, Lasix, doxycycline, Celexa, Coreg, Protonix, Zofran, albuterol and Pulmicort. OBJECTIVE: Upon lower extremity physical examination, the left lower extremity is wrapped with an Unna boot with minimal edema noted. No stricture or drainage is noted. The right lower extremity neurovascular status is unchanged. There is fixation exposed at the lateral ankle and heel area with no surrounding edema or erythema. No purulent drainage or malodor. No signs of infection noted at the wound site on the right lateral heel. ASSESSMENT: Diabetes mellitus; chronic wound, right lateral ankle with exposed fixation; venous insufficiency; edema. PLAN: Consult is performed. Dry dressing is changed on the right foot. Unna boot can be changed on Friday. Right foot is stable. We will continue to follow while in the hospital. Thank you for the opportunity to take part in care of this patient. VANDANA MYERS DPM CM:CONSTR:REPORT OF CONSULTATION 1157 04/14/17 1558 interface
--- NOTE | ~2017-04-11 | PR ---
[place], [place] PROGRESS NOTE NAME: RENY QUEVEDO UNIT #: [id number] ROOM: 526 DOCTOR: MARIA T BROOKS PRIYA BIRTHDATE: [birth year] DOS: 04/16/2017 SUBJECTIVE: The patient is seen and examined. Planning for discharge either today or tomorrow. He states he feels a lot better and denies any shortness of breath. He denies any calf pain at this time. OBJECTIVE: VITAL SIGNS: Temperature 97.7, pulse 76, respirations 20, blood pressure 126/67. LOWER EXTREMITY PHYSICAL EXAMINATION: NEUROVASCULAR: Status unchanged. MUSCULOSKELETAL: Pain to bilateral lower extremities in multiple areas along the ankle and heel. DERMATOLOGIC: There is a full thickness ulceration with exposed hardware to lateral aspect of the right foot. No active signs of infection noted at this time. There is significant pretibial edema noted to bilateral lower extremities with the right worse than the left. On bilateral extremities, there are chronic stasis dermatitis changes noted. No other open lesions or wounds or heel decubitus ulcers are noted at this time. ASSESSMENT 1. Full thickness ulceration with exposed hardware to the right foot. 2. Venous insufficiency bilaterally. 3. Stasis dermatitis bilateral. 4. Generalized edema bilateral. 5. Congestive heart failure. PLAN: 1. The patient is seen and examined. 2. Unna boot wrap to the left lower extremity. 3. Dry sterile dressing with compressive bandage applied up to the knee to the right lower extremity. 4. The patient okay to discharge from Podiatry standpoint once medically stable. 5. He is to follow up with Podiatry in the office next Friday if he is discharged prior to then. [place], [place] PROGRESS NOTE NAME: RENY QUEVEDO UNIT #: [id number] ROOM: 526 DOCTOR: MARIA T BROOKS PRIYA BIRTHDATE: [birth year] MARCIAL BROOKS DPM CM:PNTRANS [id number] 03 MARCIAL BROOKS DPM 04/16/172202 interface
--- NOTE | ~2017-04-11 | PR ---
[place], [place] PROGRESS NOTE NAME: RENY QUEVEDO [facility] #: [id number] UNIT #: [id number] ROOM: 526 DOCTOR: CHAITANYA WAN MD BIRTHDATE: [birth year] DOS: 04/14/2017 SUBJECTIVE: Patient feeling about the same, but his urine cultures are growing E. coli and blood culture also growing gram-negative bacilli. PHYSICAL EXAMINATION: VITAL SIGNS: Blood pressure 112/58, heart rate 77 beats per minute, breathing 20 times per minute, temperature 98 degrees Fahrenheit. GENERAL APPEARANCE: The patient is alert and oriented x 3, in no visible distress. Obesity and adult failure to thrive. HEENT AND NECK: Exam within normal limits. CARDIOVASCULAR SYSTEM: Heart rate is regular in rate and rhythm. S1 and S2 normally audible. LUNGS: Clear to auscultation. ABDOMEN: Soft, nontender. No obvious organomegaly. Bowel sounds are present. EXTREMITIES: Without significant cyanosis or edema. With right ankle hardware which is exposed. IMPRESSION: 1. Patient with sepsis and urine culture is growing E. coli and blood culture showing gram-negative bacilli, is being now treated with meropenem. 2. Advanced adult failure to thrive. I have recommended palliative care for the patient. 3. Morbid obesity. Patient working with Physical Therapy and Dietary. 4. Chronic atrial fibrillation with controlled heart rates. 5. Type II diabetes mellitus. Patient's blood sugars are reasonably controlled. 6. Chronic diastolic type congestive heart failure, compensated. CHAITANYA WAN MD CM:PNTRANS [phone] CHAITANYA WAN MD 04/16/17 1458 interface
--- NOTE | ~2017-04-11 | PR ---
[place], [place] PROGRESS NOTE NAME: RENY QUEVEDO [facility] #: [id number] UNIT #: [id number] ROOM: 526 DOCTOR: CHAITANYA WAN MD BIRTHDATE: [birth year] DOS: 04/13/2017 SUBJECTIVE: The patient without any new complaints. Generalized weakness. OBJECTIVE: VITAL SIGNS: Blood pressure 104/73, heart rate 91 beats per minute, breathing 20 times per minute, temperature 98 degrees Fahrenheit. GENERAL: Morbidly obese. EXTREMITIES: With right ankle hardware exposure and chronic bilateral leg and pedal edema. IMPRESSION: 1. The patient with urinary tract infection, sepsis, leukocytosis, fever and lactic acid elevation is all improving. Blood cultures are growing gram-negative bacilli. Urine culture final reports are still pending. They are also growing heavy gram-negative bacilli. Infectious disease specialist, Dr. Thalia Guevara is following and treating the patient with doxycycline. Final culture results are still pending. 2. Morbid obesity. The patient working physical therapy and dietary. 3. Chronic atrial fibrillation, with controlled heart rate. 4. Type 2 diabetes mellitus. Blood sugars are being monitored and treated. The patient is on no concentrated sweet diet. 5. Mixed hyperlipidemia, treated with Lipitor. 6. Diastolic type congestive heart failure, compensated. 7. Overall very poor health and adult failure to thrive with recurrent admissions to the hospital. CHAITANYA WAN MD CM:PNTRANS [phone] CHAITANYA WAN MD 04/13/172133 interface
--- NOTE | ~2017-04-11 | WRIGHTHP ---
[place], [place] PATIENT HISTORY AND PHYSICAL EXAM NAME: RENY QUEVEDO [facility] #: [id number] UNIT #: [id number] ROOM: 526 DOCTOR: CHAITANYA WAN MD BIRTHDATE: [birth year] DOS: 04/12/2017 HISTORY OF PRESENT ILLNESS: The patient is a 76-year-old gentleman who presented to the Emergency Department, brought over from [facility] with complaints of right upper quadrant pains for about 4 days, worse for about 3 hours prior to coming to the hospital. The patient was evaluated in the Emergency Department and found to be febrile and septic with elevated lactic acid level, elevated at 3.8. His chest x-ray showed bibasilar atelectasis and he was found to have urosepsis and too numerous to count white cells in the urine and was nitrite positive. The patient also had leukocytosis with white cell count of 14,800 and he was recommended for admission and management. The patient has been admitted to a monitored bed. Overall, he is in poor health with recurrent hospital admissions and he has improved with treatment with antibiotics and with hydration. No chest pain. No shortness of breath. No other GI or urinary symptoms. The patient is starting to feel better. No chest pains. REVIEW OF SYSTEMS: LUNGS: No increasing shortness of breath or wheezing. GASTROINTESTINAL: No nausea, vomiting, diarrhea or constipation. CARDIOVASCULAR: No chest pains or palpitations. SOCIAL HISTORY: Denies smoking cigarettes, alcohol and drug abuse. FAMILY HISTORY: Noncontributory. HOME MEDICATIONS: Potassium, levothyroxine, Tradjenta, Dulera, furosemide, atenolol, Xarelto, citalopram, DuoNeb. ALLERGIES: Known allergies to PENICILLIN. PHYSICAL EXAMINATION: VITAL SIGNS: Blood pressure of 130/80, heart rate 99 beats per minute, breathing 18 times per minute, temperature of 99 degrees, going up to 101.4 degrees Fahrenheit. GENERAL: Alert and oriented x 3. Moderately obese with generalized weakness. EXTREMITIES: Hardware exposure at the left ankle, chronic bilateral leg edema and stasis dermatitis. LABORATORY DATA: Blood culture is growing gram-negative bacilli in 2/2 bottles. Chest x-ray showing bibasilar atelectasis. Urinalysis showing signs of urinary tract infection, white cell count elevated to 14,800. Normal serum electrolytes. IMPRESSION: 1. The patient presenting with urine infection and sepsis with leukocytosis, fever of more than 101 degrees Fahrenheit. Lactic acid elevation of 3.8. The patient admitted and Infectious disease specialist has been consulted and the patient is on doxycycline and improving. Infectious Diseases is to continue to [place], [place] PATIENT HISTORY AND PHYSICAL EXAM NAME: RENY QUEVEDO UNIT #: [id number] ROOM: 526 DOCTOR: SOCO PURDY,CHAITANYA Mahan BIRTHDATE: [birth year] follow him for sepsis. 2. Left ankle hardware exposure, follows up with Orthopedic Surgery. 3. Benign essential hypertension. Blood pressure monitored and treated. 4. Chronic atrial fibrillation. The patient anticoagulated and heart rates are controlled. 5. Type 2 diabetes mellitus, insulin requiring. Blood sugars are being monitored and treated. The patient kept on no concentrated sweet diet, but generally keeps his sugars under control. 6. Morbid obesity. The patient to work with dietary. 7. Diastolic type congestive heart failure, compensated. 8. Mixed hyperlipidemia, treated with Lipitor. 9. Overall poor health and adult failure to thrive with recurrent admissions to the hospital. I will consult palliative care again. One hour of time was spent with the patient, evaluation and history and physical. CHAITANYA WAN MD CM:HISPHYS:PATIENT HISTORY AND PHYSICAL EXAMINATION 56 39 CHAITANYA WAN MD 04/12/172038 interface
--- NOTE | ~2017-04-11 | PR ---
[place], [place] PROGRESS NOTE NAME: RENY QUEVEDO [facility] #: [id number] UNIT #: [id number] ROOM: 526 DOCTOR: JONATHAN OLEA DPM BIRTHDATE: [birth year] DOS: 04/15/2017 SUBJECTIVE: The patient is seen for followup of wound, lateral right foot with exposed hardware and followup of left lower extremity, which has an Unna boot. The patient is sleeping comfortably in bed without any apparent distress. OBJECTIVE: The dressings are intact bilateral. The Unna boot is intact with no breakthrough bleeding, left foot. The dressing intact to the right foot with no acute drainage. No signs of purulent drainage or foul odor. 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 PLAN: Evaluation and management. Continue dressing changes. The Unna boot will be changed tomorrow. JONATHAN OLEA DPM CM:PNTRANS [id number] JONATHAN OLEA DPM 04/15/17 1238 interface
[2017-04-11 21:10] VITALS: BP 99/53
[~2017-04-11 21:10] MED LIST changes: +ALDACTONE25 MG PO; +CARVEDILOL3.125 MG PO; +KLOR-CON 1010 ME1 PO; +LANTUS SOL100 UNIT/1 SQ; +LISINOPRIL2.5 MG PO; +NOVOLOG10 ML SQ; +PAIN RELIEVER650 MG PO; +PROBIOTIC250 MG PO; +PULMICORT RESP0.5 MG NEB
[2017-04-11 22:26] LABS: HEMATOCRIT 34.9 % (42.0-52.0); HEMOGLOBIN 9.8 g/dl (14.0-18.0); MEAN CELL VOLUME 77.4 fl (80.0-94.0); MEAN CORPUSCULAR HGB 21.7 pg (27.0-31.0); MEAN CORPUSCULAR HGB CONC 28.1 g/dl (33.0-37.0); MEAN PLATELET VOLUME 11.6 fl (9.6-12.3); PLATELET COUNT AUTOMATED 225 10*3/uL (130-400); RED BLOOD COUNT 4.51 10*6/uL (4.50-5.90); RED CELL DISTRI WIDTH 19.6 % (0-14.5); WHITE BLOOD COUNT 14.8 10*3/uL (4.8-10.8)
--- NOTE | 2017-04-11 22:29 | NUR ---
INFORMED OF CRITICAL LACTIC ACID
[2017-04-11 22:35] VITALS: BP 102/62
[2017-04-11 22:42] LABS: BILIRUBIN NEGATIVE (NEGATIVE); BLOOD 3+ (NEGATIVE); CLARITY CLOUDY (CLEAR); COLOR YELLOW (YELLOW); GLUCOSE NEGATIVE (NEGATIVE); KETONE NEGATIVE (NEGATIVE); LEUKO ESTERASE 3+ (NEGATIVE); NITRITE POSITIVE (NEGATIVE); PH 5.5 (5.0-9.0); SPECIFIC GRAVITY <= 1.005 (1.005-1.030); UROBILINOGEN 0.2 E.U./dl (0.2-1.0)
[2017-04-11 22:43] LABS: ALBUMIN 2.7 gm/dl (3.1-4.5); ALKALINE PHOSPHATASE 86 U/L (45-117); BUN 41 mg/dl (7-24); CHLORIDE 99 mmol/L (98-107); CREATININE 1.26 mg/dL (0.70-1.30); LIPASE 259 U/L (73-393); MAGNESIUM 2.1 mg/dL (1.5-2.1); SGOT/AST 27 IU/L (3-35); SGPT/ALT 28 U/L (12-78); SODIUM 141 mmol/L (136-145); TOTAL PROTEIN 6.1 gm/dL (6.4-8.2); TROPONIN I 0.035 ng/ml (<0.045)
[2017-04-11 22:49] LABS: TOTAL CELLS COUNTED 100 #CELLS
[2017-04-11 22:50] LABS: BURR CELLS FEW; MICROCYTOSIS SLIGHT; OVALOCYTES FEW; TARGET CELLS FEW
[2017-04-11 22:51] LABS: WBC TNTC wbc/hpf (0-5)
[2017-04-11 22:51] LABS: SCHISTOCYTES FEW
[2017-04-11 22:52] LABS: BACTERIA 2+
[2017-04-11 22:52] LABS: PLATELET SUFFICIENCY NORMAL (NORMAL)
--- NOTE | 2017-04-12 00:33 | NUR ---
PATIENT BATHED. TOLERATED WELL. BED IN POSITION, SIDE RIALS UPX2, CALL LIGHT IN REACH
--- NOTE | 2017-04-12 01:30 | NUR ---
RECIEVED REPORT FROM RN IN ER. AT THIS TIME.
--- NOTE | 2017-04-12 01:43 | NUR ---
[facility] 76, admitted to , under the services of Dr. SOCO PURDY,CHAITANYA Mahan with a diagnosis of UTI AND SEPSIS. Chief complaint is UPPER ABDOMINAL PAIN. Patient arrived via ambulance from ER. Monitor applied. Initial assessment completed. Vital signs taken and recorded. DR. SOCO PURDY,CHAITANYA Mahan notified of admission to the unit. Orders received. See assessment for past medical history, medications and allergies. Patient and/or family oriented to unit. [address] visitation policy reviewed. Clothing/patient valuable form completed. ELVIS SHI
--- NOTE | 2017-04-12 01:43 | NUR ---
A 76, admitted to , under the services of Dr. SOCO PURDY,CHAITANYA Mahan with a diagnosis of UTI, SEPSIS. Chief complaint is SENT FROM [facility] FOR EVAL OF ABD PAIN, PATIENT STATES D/T GALLBLADDER. Patient arrived via bed from ER. Monitor applied. Initial assessment completed. Vital signs taken and recorded. DR. SOCO PURDY,CHAITANYA Mahan notified of admission to the unit. Orders received. See assessment for past medical history, medications and allergies. Patient and/or family oriented to unit. [facility] visitation policy reviewed. Clothing/patient valuable form completed. TORRES RAM
[2017-04-12 01:45] VITALS: BP 105/54
--- NOTE | 2017-04-12 01:45 | NUR ---
UNABLE TO VIEW WOUNDS TO PATIENTS LEFT LOWER LEG D/T MAJO HAVING ON AN UNNA BOOT THAT WAS APPLIED BY DR. OLEA . MAJO STATES NOONE IS TO REMOVE THT EXCEPT THE DOCTOR.
[2017-04-12 02:00] VITALS: BP 105/54
[2017-04-12] MEDS ORDERED: LIQUACEL 100 LI30 ML PO (02:45)
--- NOTE | 2017-04-12 03:00 | NUR ---
DR. WAN CALLED ADMISSION ORDERS RECIEVED. DR. WAN AWARE OF WOUNDS , DR. OLEA CONSULTED.
--- NOTE | 2017-04-12 06:25 | NUR ---
ATTEMPTED TO CALL DR. GONZALEZ AT THIS TIME FOR CONSULTATION. DR. GONZALEZ'S CELL PHONE WENT STRAIGHT TO [employer] X2. A BRIEF MESSAGE HAS BEEN LEFT REQUESTING A RETURN CALL TO THE 5TH FLOOR FOR A CONSULTATION. AWAITING RETURN CALL.
--- NOTE | 2017-04-12 07:54 | NUR ---
DR GONZALEZ NOTIFIED OF CONSULT. NEW ORDERS RECEIVED.
[2017-04-12 08:00] VITALS: BP 130/80
--- NOTE | 2017-04-12 10:46 | NUR ---
RENY QUEVEDO [id number] Please refer to the physician's history and physical for past medical history, comorbid conditions, and allergies. Diagnosis: UTI SPESIS Refugio Score: 15,AT RISK WOUND DESCRIPTIONS: Location of the wound: right ankle Type of wound: stage 4 Thickness: Full Size: 1.0cm x 0.5cm x 0.2cm Tunneling: none Undermining: none Sinus Tract: none Presence of Exudate: Amount: None Color: Odor: None Periwound Skin Appearance: Erythema Wound edges: Pain (associated with wound): Patient stated pain 12/30 during assessment How does patient state this happened? Patient states he had surgery done to the ankle "few years ago." Metal noted protruding out of wound. Patient was unsure if metal was used in prior surgery. Location of the wound: right forearm Type of wound: skin tear Thickness: Partial Size: 2.0cm x 2.5cm x 0.1cm Tunneling: none Undermining: none Sinus Tract: none Presence of Exudate: Serous Amount: Light Color: [place] Odor: None Periwound Skin Appearance: Normal Wound edges: approximated Pain (associated with wound): patient denied pain at time of assessment How does patient state this happened? patient stated he bumped it off the bed Location of the wound: right hand Type of wound: skin tear Thickness: Partial Size: 0.4cm x 0.3cm x 0.1cm Tunneling: none Undermining: none Sinus Tract: none Presence of Exudate: Amount: None Color: Red Odor: None Periwound Skin Appearance: Normal Wound edges: approximated Pain (associated with wound): patient denies pain at time of assessment How does patient state this happened? patient states he bumped it off the bed Surface the patient is resting on: Position Pro SKIN PREVENTION RECOMMENDATION: 1. Pressure redistribution support surface as appropriate 2. Elevate heels 3. Remove boots/TEDS every shift and reapply 4. Head of bed 30 degrees as tolerated 5. Assess nutrition and hydration 6. Manage moisture 7. Avoid the use of containment devices while in bed 8. Use absorptive products on surfaces limit layers of linens on bed 9. Turn and reposition every 1-2 hours in bed and every 1 hour in chair as tolerated 10. Weight shifts every 15 minutes while up in chair 11. Offloading with pillows or device to keep heels elevated off bed 12. Monitor skin at least every shift 13. Inspect under medical devices twice a day WOUND TREATMENT RECOMMENDATIONS: Consult podiatry for right ankle Skin tear guidelines for right forearm and hand: cleanse wound with NS. Apply sureprep to periwound. Apply versatel, hydrogel and cover with optifoam gentle or rolled gauze.
[2017-04-12 12:00] VITALS: BP 103/43
--- NOTE | 2017-04-12 12:06 | NUR ---
DR WAN NOTIFIED OF CRITICAL LAB VALUE OF POSITIVE BLOOD CULTURES; INFECTION DISEASE CONSULTED. LEFT MESSAGE WITH ANSWERING SERVICE. WAITING FOR PHYSCIAN TO RETURN PHONE CALL.
--- NOTE | 2017-04-12 15:53 | NUR ---
MEDICATED WITH TYLENOL PER PRN ORDER FOR COMPLAINTS OF LEFT LEG PAIN. WILL MONITOR FOR EFFECTIVENESS.
[2017-04-12 16:00] VITALS: BP 86/45
[2017-04-12 20:00] VITALS: BP 92/68
[2017-04-13] VITALS: BP 95/50
--- NOTE | 2017-04-13 00:33 | NUR ---
24 HR chart check completed.
[2017-04-13 06:11] LABS: EOS # 0.1 10*3/uL (0.0-0.4); EOS % 0.9 % (1.0-4.0); HEMATOCRIT 30.4 % (42.0-52.0); HEMOGLOBIN 8.7 g/dl (14.0-18.0); LYMPH # 0.7 10*3/uL (1.3-4.4); LYMPH % 5.3 % (27.0-41.0); MEAN CELL VOLUME 75.8 fl (80.0-94.0); MEAN CORPUSCULAR HGB 21.7 pg (27.0-31.0); MEAN CORPUSCULAR HGB CONC 28.6 g/dl (33.0-37.0); MEAN PLATELET VOLUME 10.8 fl (9.6-12.3); MONO # 0.9 10*3/uL (0.1-1.0); NEUT # 11.5 10*3/uL (2.3-7.9); RED BLOOD COUNT 4.01 10*6/uL (4.50-5.90); RED CELL DISTRI WIDTH 19.8 % (0-14.5); WHITE BLOOD COUNT 13.4 10*3/uL (4.8-10.8)
[2017-04-13 06:21] LABS: PLATELET COUNT AUTOMATED 155 10*3/uL (130-400)
[2017-04-13 06:37] LABS: BUN 37 mg/dl (7-24); CHLORIDE 100 mmol/L (98-107); CREATININE 1.04 mg/dL (0.70-1.30); POTASSIUM 3.7 mmol/L (3.5-5.1); SODIUM 142 mmol/L (136-145)
[2017-04-13 08:00] VITALS: BP 126/66
[2017-04-13 12:00] VITALS: BP 117/58
--- NOTE | 2017-04-13 13:00 | NUR ---
DRESSING CHANGED TO RIGHT LEG PER ORDER. PT TOLERATED WELL.
[2017-04-13 16:00] VITALS: BP 104/73
[2017-04-13 20:00] VITALS: BP 121/64
[2017-04-14] VITALS: BP 103/63
[2017-04-14 06:29] LABS: EOS # 0.1 10*3/uL (0.0-0.4); EOS % 1.4 % (1.0-4.0); HEMATOCRIT 29.7 % (42.0-52.0); HEMOGLOBIN 8.7 g/dl (14.0-18.0); LYMPH # 0.7 10*3/uL (1.3-4.4); LYMPH % 7.7 % (27.0-41.0); MEAN CELL VOLUME 75.8 fl (80.0-94.0); MEAN CORPUSCULAR HGB 22.2 pg (27.0-31.0); MEAN CORPUSCULAR HGB CONC 29.3 g/dl (33.0-37.0); MEAN PLATELET VOLUME 11.1 fl (9.6-12.3); MONO # 1.2 10*3/uL (0.1-1.0); MONO % 12.3 % (3.0-9.0); NEUT # 7.4 10*3/uL (2.3-7.9); NEUT % 77.8 % (47.0-73.0); PLATELET COUNT AUTOMATED 150 10*3/uL (130-400); RED BLOOD COUNT 3.92 10*6/uL (4.50-5.90); RED CELL DISTRI WIDTH 19.9 % (0-14.5); WHITE BLOOD COUNT 9.5 10*3/uL (4.8-10.8)
[2017-04-14 06:31] LABS: BUN 30 mg/dl (7-24); CHLORIDE 99 mmol/L (98-107); CREATININE 0.99 mg/dL (0.70-1.30); POTASSIUM 3.9 mmol/L (3.5-5.1); SODIUM 138 mmol/L (136-145)
--- NOTE | 2017-04-14 07:49 | NUR ---
Dr. Rodriguez called with positive BC. Orders to call ID, Dr. Guevara with results. Asked about BS stated leave at BID.
[2017-04-14 08:00] VITALS: BP 118/73
--- NOTE | 2017-04-14 08:06 | NUR ---
CALLED DR. HICKMAN TO NOTIFY THAT SENSITIVITY IS BACK. HER OFFICE IS GOING TO PAGE HER.
--- NOTE | 2017-04-14 10:24 | NUR ---
PATIENT MEDICATED WITH PRN TYLENOL FOR CHRONIC PAIN IN HIS ANKLES. PATIENT RATED PAIN 7/10 DURING PATIENT CARE/BATH. WILL MONITOR.
--- NOTE | 2017-04-14 11:15 | NUR ---
TYLENOL EFFECTIVE, PATIENT IS SATISFIED.
[2017-04-14 12:00] VITALS: BP 109/72
[2017-04-14 16:00] VITALS: BP 112/58
[2017-04-14 20:00] VITALS: BP 138/56
[2017-04-15] VITALS: BP 101/52
--- NOTE | 2017-04-15 01:11 | NUR ---
PATIENT RESTING IN BED WITH EYES CLOSED. NO SIGNS OR SYMPTOMS OF DISTRESS NOTED. AROUSES TO VERBAL STIMULI. DENIES COMPLAINTS OF PAIN OR DISCOMFORT. WILL CONTINUE TO MONITOR. CALL LIGHT IN REACH.
[2017-04-15 06:31] LABS: BASO % 0.1 % (0.0-1.0); EOS # 0.1 10*3/uL (0.0-0.4); EOS % 1.7 % (1.0-4.0); HEMATOCRIT 29.3 % (42.0-52.0); HEMOGLOBIN 8.4 g/dl (14.0-18.0); LYMPH # 0.9 10*3/uL (1.3-4.4); LYMPH % 11.9 % (27.0-41.0); MEAN CELL VOLUME 75.3 fl (80.0-94.0); MEAN CORPUSCULAR HGB 21.6 pg (27.0-31.0); MEAN CORPUSCULAR HGB CONC 28.7 g/dl (33.0-37.0); MEAN PLATELET VOLUME 12.1 fl (9.6-12.3); MONO # 1.1 10*3/uL (0.1-1.0); MONO % 14.2 % (3.0-9.0); NEUT # 5.3 10*3/uL (2.3-7.9); NEUT % 71.3 % (47.0-73.0); PLATELET COUNT AUTOMATED 139 10*3/uL (130-400); RED BLOOD COUNT 3.89 10*6/uL (4.50-5.90); RED CELL DISTRI WIDTH 19.8 % (0-14.5); WHITE BLOOD COUNT 7.5 10*3/uL (4.8-10.8)
[2017-04-15 07:02] LABS: BUN 29 mg/dl (7-24); CHLORIDE 99 mmol/L (98-107); CREATININE 1.03 mg/dL (0.70-1.30); POTASSIUM 4.2 mmol/L (3.5-5.1); SODIUM 137 mmol/L (136-145)
--- NOTE | 2017-04-15 07:34 | NUR ---
Patient comes from the [facility] and can return when medically stable for discharge.
--- NOTE | 2017-04-15 07:39 | NUR ---
INITIAL ASSESSMENT COMPLETE. RESPS EASY ON 3LO2, SPO2 98%. DENIES SOB, EXERTIONAL DYSPNEA NOTED. PT C/O BLE ANKLE PAIN, TYLENOL 650 MG GIVEN PER MAR. ICEPACK IN PLACE TO LL ANKLE. LLE UNNA BOOT IN PLACE. PRAFO BOOTS ON MARICRUZ FEET. VOICES NO OTHER NEEDS AT THIS TIME. CALL LIGHT IN REACH.
[2017-04-15 08:00] VITALS: BP 131/71
--- NOTE | 2017-04-15 10:30 | NUR ---
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
[2017-04-15 12:00] VITALS: BP 137/72
--- NOTE | 2017-04-15 12:00 | NUR ---
MESSAGED DR SANCHEZ-RESIDENT WITH INF DISEASE-THAT [facility] WILL NOT TAKE HIM BACK ON IV MEROPENEM IT IS TOO EXPENSIVE. HE RESPONDED THAT HE WILL TRY TO FIGURE OUT AN ALTERNATIVE.
--- NOTE | 2017-04-15 12:39 | NUR ---
Spoke with Dr. Rodriguez regarding wound care recommendation for skin tears to Right forearm and Right hand.
[2017-04-15 16:00] VITALS: BP 103/50
[2017-04-15 20:00] VITALS: BP 123/78
[2017-04-16] VITALS: BP 132/53
--- NOTE | 2017-04-16 02:01 | NUR ---
RESTING IN BED WITH EYES CLOSED. NO SIGNS OR SYMPTOMS OF DISTRESS NOTED. AROUSES TO VERBAL STIMULI. REPOSITIONED FOR COMFORT. WILL CONTINUE TO MONITOR. CALL LIGHT IN REACH.
[2017-04-16 08:00] VITALS: BP 132/84
--- NOTE | 2017-04-16 08:42 | NUR ---
PATIENT RESTING IN BED, PT IS IN CONTACT ISOLATION. PATIENT DENIES ANY PAIN AND IS WAITING FOR BREAKFAST TO COME TO HIS ROOM. PATIENT DENIES SOB AND IS RECEIVING 2LPM VIA NC. PATIENT HAS NO FURTHER REQUESTS AT THIS TIME. SEE SHIFT ASSESSMENT. CALL LIGHT IS WITHIN REACH.
--- NOTE | 2017-04-16 10:04 | NUR ---
NOTIFIED ENGINEER [employer] OF OF CONSULT FOR VENOUS ACCESS.
--- NOTE | 2017-04-16 11:23 | NUR ---
DR WAN MESSAGED X2 THAT PT NEEDS PICC LINE BEFOER GOING BACK TO SNF.
[2017-04-16 11:39] VITALS: BP 126/67
--- NOTE | 2017-04-16 12:09 | NUR ---
WAS IN TO SEE PATIENT AND DRESSING CHANGES TO BOTH LE.
--- NOTE | 2017-04-16 12:37 | NUR ---
PER JEFF AT [facility], PT CANNOT GET IV MEDS VIA MEDIPORT THERE LPNS ARE NOT ALLOWED TO USE IT. DR WAN MESSAGED.
--- NOTE | 2017-04-16 13:57 | NUR ---
PER JEFF AT [facility], IF PT GETS PICC LINE IN TODAY-MAY RETURN TODAY. STAFF CAN CALL REPORT WHEN READY FOR DC. HE CANNOT GO WITH MEDIOPRT. JET AIRCRAFT SERVICER AWARE.
--- NOTE | 2017-04-16 14:04 | NUR ---
SPOKE TO REGARDING VENOUS ACCESS CONSULT. REQUESTS THAT PATIENTS BE SENT BACK TO SKILLED NURSING, THEN PICC LINE ACCESS CAN BE DETERMINED.
--- NOTE | 2017-04-16 14:44 | NUR ---
SPOKE WITH DR. WAN HE STATES DR. MUSA IS PLACING A MEDIPORT TOMORROW.
--- NOTE | 2017-04-16 15:53 | NUR ---
PATIENT GIVEN TYLENOL PER REQUEST FOR LEFT LEG PAIN RATED A 7/10.
[2017-04-16 16:00] VITALS: BP 113/53
--- NOTE | 2017-04-16 18:40 | NUR ---
PATIENT IS RESTING IN BED. PATIENT HAS BEEN APPLYING AN ICE PACK TO THE LLE THAT HAS AN UNNA BOOT APPLIED. PATIENT HAS HAD PAIN THROUGHOUT THE DAY THAT HAS BEEN RELIEVED WITH MEDICATIONS PER PT REQUEST. PT DENIES SOB AND HAS NO FURTHER REQUESTS AT THIS TIME. SEE SHIFT ASSESSMENT.
[2017-04-16 20:00] VITALS: BP 155/74
[2017-04-17] VITALS: BP 127/78
--- NOTE | 2017-04-17 02:09 | NUR ---
PATIENT RESTING IN BED WITH EYES CLOSED. NO SIGNS OR SYMPTOMS OF DISTRESS NOTED. MEDICATED WITH TYLENOL AT 2118 FOR COMPLAINTS OF LEFT FOOT PAIN WITH EFFECTIVE RESULTS NOTED. ICE PACK ALSO APPLIED TO LEFT FOOT. INCONTINENT OF BLADDER EVERY HOUR WITH LINENS CHANGED AND PATIENT CLEANED. WILL CONTINUE TO MONITOR. CALL LIGHT IN REACH.
--- NOTE | 2017-04-17 07:40 | NUR ---
PT RESTING IN BED, REPOSITIONED IN BED. RESP-EASY AND REGULAR. OXYGEN IN USE. NO C/O AT THIS TIME. CALL LIGHT IN REACH. SEE SHIFT ASSESSMENT.
[2017-04-17 08:00] VITALS: BP 96/50
--- NOTE | 2017-04-17 10:00 | NUR ---
RESTING IN BED. RESP-EASY AND REGULAR. OXYGEN IN USE. CALL LIGHT IN REACH.
[2017-04-17] MEDS ORDERED: INVANZ1 GM/50 ML IV (11:13)
[2017-04-17 11:54] VITALS: BP 110/54
--- NOTE | 2017-04-17 14:40 | NUR ---
DR. SANCHEZ CALLED OK TO GO TO [facility]ARY FOLLOW UP IN 2WEEKS WITH DR. HICKMAN.
--- NOTE | 2017-04-17 14:40 | NUR ---
CALLED DR. OLEA REGARDING DISCHARGE.
--- NOTE | 2017-04-17 14:43 | NUR ---
Patient being discharged back to [facility] [place] and nursing notified.
--- NOTE | 2017-04-17 14:53 | NUR ---
DR. RHINA LYNCH KEEP UNABOOT CLEAN AND DRY TO LEFT FOOT. AND FIGHT FOORT DRESSING CHANGE DRY DRESSING Q 2DAYS. KEEP CLINIC APPOINTMENT ON WEDNESDAYS.
--- NOTE | 2017-04-17 15:00 | NUR ---
Discharge instructions reviewed with patient/AMBULANCE. Patient receptive and verbalizes understanding. Follow-up care arranged. Written instructions given to patient/AMBULANCE. HEPLOCK REMOVED. PICC LINE LEFT IN FOR ANTIBIOTICS. PEEWEE ROSS R
--- NOTE | 2017-04-17 15:44 | NUR ---
DOLORES FROM [employer] TOOK REPORT ON PT. NOTIFIED [facility] WOULD BE HERE AT 4PM.
--- NOTE | 2017-04-17 16:00 | NUR ---
PT REFUSED DISCHARGE PICTURES AT THIS TIME. DON'T WANT DRESSING REMOVED.
--- NOTE | 2017-04-17 16:31 | NUR ---
[facility] ON FLOOR TO TAKE PT TO [facility]. PAPERS GIVEN.
== END 2017-04-17 15:00 | disposition home or self-care (01) | DRG 871 ==
LOC: ED 21:10 → EDHOLD 04-12 00:59 → 5E 04-12 00:59
PROVIDERS: Emergency Medicine Emergency Medical Services; ADMIT Internal Medicine
PROC: 02HV33Z Insertion of Infusion Device into Superior Vena Cava, Percutaneous Approach (ICD-10-PCS; principal; 2017-04-17)
DX: A41.50 Gram-negative sepsis, unspecified (principal); E43 Unspecified severe protein-calorie malnutrition; I50.33 Acute on chronic diastolic (congestive) heart failure; I74.5 Embolism and thrombosis of iliac artery; I48.2 Chronic atrial fibrillation; E11.51 Type 2 diabetes mellitus with diabetic peripheral angiopathy without gangrene; E11.621 Type 2 diabetes mellitus with foot ulcer; N39.0 Urinary tract infection, site not specified; F33.1 Major depressive disorder, recurrent, moderate; J44.1 Chronic obstructive pulmonary disease with (acute) exacerbation; L97.518 Non-pressure chronic ulcer of other part of right foot with other specified severity; R65.20 Severe sepsis without septic shock; E11.65 Type 2 diabetes mellitus with hyperglycemia; I11.0 Hypertensive heart disease with heart failure; E66.01 Morbid (severe) obesity due to excess calories; B96.20 Unspecified Escherichia coli [E. coli] as the cause of diseases classified elsewhere; E78.2 Mixed hyperlipidemia; R62.7 Adult failure to thrive; E03.9 Hypothyroidism, unspecified; Z96.652 Presence of left artificial knee joint; R31.9 Hematuria, unspecified; I87.2 Venous insufficiency (chronic) (peripheral); D50.9 Iron deficiency anemia, unspecified; Z16.12 Extended spectrum beta lactamase (ESBL) resistance; Z79.4 Long term (current) use of insulin; Z88.0 Allergy status to penicillin; Z68.37 Body mass index [BMI] 37.0-37.9, adult; Z79.899 Other long term (current) drug therapy

== ENCOUNTER 2017-10-14 18:14 | Emergency (ER) | payer MEDICARE, OTHER ==
[~2017-10-14] VITALS: Ht 172.7 cm; Wt 147.4 kg
[~2017-10-14 18:14] MED LIST changes: +INVANZ1 GM/50 ML IV; +LIQUACEL 100 LI30 ML PO
[2017-10-14] MEDS ORDERED: LASIX40 MG PO (18:54)
[2017-10-14] MEDS ORDERED: ZOFRAN4 MG PO (18:56)
[2017-10-14 19:25] LABS: HEMATOCRIT 19.3 % (42.0-52.0); MEAN CELL VOLUME 97.5 fl (80.0-94.0); MEAN CORPUSCULAR HGB 30.3 pg (27.0-31.0); MEAN CORPUSCULAR HGB CONC 31.1 g/dl (33.0-37.0); MEAN PLATELET VOLUME 11.4 fl (9.6-12.3); NUCLEATED RED BLOOD CELL 0.1 10*3/uL (0.0-0.0); NUCLEATED RED BLOOD CELL 0.3 % (0.0-0.0); PLATELET COUNT AUTOMATED 219 10*3/uL (130-400); RED BLOOD COUNT 1.98 10*6/uL (4.50-5.90); RED CELL DISTRI WIDTH 15.4 % (0-14.5); WHITE BLOOD COUNT 15.1 10*3/uL (4.8-10.8)
[2017-10-14 19:35] LABS: ACT PARTIAL THROMBO TIME 29.7 SECONDS (20.8-31.5); INTERNATIONAL NORM RATIO 1.3 (2.0-3.5)
[2017-10-14 19:40] VITALS: BP 101/50; BP 103/48; BP 104/44; BP 111/57; BP 111/58; BP 77/32; BP 80/40; BP 83/38; BP 86/39; BP 90/40; BP 92/50; BP 95/56; BP 97/58; BP 99/60
[2017-10-14 19:43] LABS: ALBUMIN 2.4 gm/dl (3.1-4.5); POTASSIUM 4.7 mmol/L (3.5-5.1); TOTAL PROTEIN 5.6 gm/dL (6.4-8.2)
[2017-10-14 19:44] LABS: TOTAL CELLS COUNTED 100 #CELLS; TROPONIN I 0.02 ng/ml (<0.045)
[2017-10-14 19:45] LABS: BURR CELLS MODERATE; PLATELET SUFFICIENCY NORMAL (NORMAL); POLYCHROMASIA SLIGHT
[2017-10-14 20:10] LABS: CREATININE 4.59 mg/dL (0.70-1.30)
[2017-10-14 20:41] LABS: BILIRUBIN NEGATIVE (NEGATIVE); BLOOD 3+ (NEGATIVE); CLARITY CLEAR (CLEAR); COLOR YELLOW (YELLOW); GLUCOSE NEGATIVE (NEGATIVE); KETONE NEGATIVE (NEGATIVE); LEUKO ESTERASE 2+ (NEGATIVE); NITRITE POSITIVE (NEGATIVE); UROBILINOGEN 0.2 E.U./dl (0.2-1.0)
[2017-10-14 20:49] LABS: RBC TNTC rbc/hpf (0-2)
[2017-11-04] MEDS ORDERED: SYNTHROID25 MCG PEG (18:47)
[2017-11-04] MEDS ORDERED: PROTONIX40 MG PEG (18:47)
[2017-11-04] MEDS ORDERED: Carafate1 GM/10 ML PEG (18:48)
[2017-11-04] MEDS ORDERED: DULCOLAX STOOL100 M1 PEG (18:49)
== END 2017-10-15 01:27 | disposition short-term general hospital (02) ==
LOC: ED 18:14
PROVIDERS: Emergency Medicine; Student in an Organized Health Care Education/Training Program
DX: K92.2 Gastrointestinal hemorrhage, unspecified (principal); A41.9 Sepsis, unspecified organism; R65.21 Severe sepsis with septic shock; I11.0 Hypertensive heart disease with heart failure; I50.9 Heart failure, unspecified; I48.91 Unspecified atrial fibrillation; J44.9 Chronic obstructive pulmonary disease, unspecified; E03.9 Hypothyroidism, unspecified; Z79.4 Long term (current) use of insulin; Z79.899 Other long term (current) drug therapy; Z96.652 Presence of left artificial knee joint; Z86.718 Personal history of other venous thrombosis and embolism; Z88.0 Allergy status to penicillin; Z99.81 Dependence on supplemental oxygen

== ENCOUNTER 2017-11-04 18:23 | Inpatient (IN) | payer MEDICARE, OTHER ==
[~2017-11-04] VITALS: Ht 175.3 cm; Wt 114.0 kg
--- NOTE | ~2017-11-04 | DS ---
[place], [place] DISCHARGE SUMMARY NAME: RENY QUEVEDO [facility] #: [id number] UNIT #: [id number] ROOM: 519 DOCTOR: ROCÍO NASH MD BIRTHDATE: [birth year] DOS: 11/06/2017 DIAGNOSES: 1. Acute deep venous thrombosis of the left lower leg. 2. 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 3. Recent PEG tube placement. The patient passed the modified barium swallow. He is starting to eat. PEG tube to be removed at a later date. 4. Benign hypertension. 5. Chronic atrial fibrillation. 6. Peripheral vascular disease with history of hardware removal from the right foot. 7. No osteomyelitis seen on the left foot. HOSPITAL COURSE: This patient is 76-year-old who comes in with complaints of redness and swelling of the left leg with unilateral swelling. A venous Doppler was done, which showed positive DVT. The patient was placed on Xarelto. He has had a recent PEG tube placement at another hospital. Modified barium swallow was done. He passed and he has been started on a regular diet. The patient is not having any other complaints. The left ankle did undergo an MRI, which did not show any evidence of osteomyelitis, Achilles tendinosis and partial tear and plantar fasciitis were seen. Urine culture showed heavy gram-negative bacteria. The patient is on Rocephin. This morning, the patient is stable. The plan is to discharge him back to the [place] [facility]. DISCHARGE MEDICATIONS: Atorvastatin 40 daily, Celexa 20 daily, Zofran 4 q. 6 hours p.r.n., multivitamin 1 tablet daily, breathing treatments, DuoNeb q. 4 hours p.r.n. for shortness of breath, Tylenol 650 q. 6 hours p.r.n. for pain, potassium 10 daily, insulin sliding scale, Lasix 40 daily, Xanax 0.5 q.i.d. p.r.n., vitamin C daily, Protonix 40 daily, levothyroxine 25 daily, Carafate 2 grams a.c. and at bedtime, Levemir 5 units at bedtime, Colace 100 daily, ADA diet 1800 calorie, Ceftin 250 twice daily for 5 days. Repeat urine culture after the completion of the antibiotic and also Xarelto 15 b.i.d. for 2 weeks and then decrease it to 20 daily. [place], [place] DISCHARGE SUMMARY NAME: RENY QUEVEDO UNIT #: [id number] ROOM: 519 DOCTOR: ROCÍO NASH MD BIRTHDATE: [birth year] ROCÍO NASH MD CM:DISCHELIZ [id number] ROCÍO NASH MD 11/12/17 0824 interface
--- NOTE | ~2017-11-04 | PR ---
[place], [place] PROGRESS NOTE NAME: RENY QUEVEDO [facility] #: [id number] UNIT #: [id number] ROOM: 519 DOCTOR: ROCÍO NASH MD BIRTHDATE: [birth year] DOS: 11/06/2017 SUBJECTIVE: The patient is doing fine without any complaints. He is eating after he passed the swallow test. OBJECTIVE: VITAL SIGNS: Graphic trend shows blood pressure of 132/76, pulse of 70, respirations 18. LUNGS: Clear. HEART: Regular. ABDOMEN: Obese, soft. EXTREMITIES: Without any edema. LABORATORY DATA: Urine culture shows heavy gram negative bacteria. Marrow of the ankle shows some ligamental issues. No osteomyelitis was seen. Venous ultrasound showed DVT extensive of the left lower leg. ASSESSMENT AND PLAN: 1. Left leg swelling, unilateral with deep venous thrombosis noted, on Xarelto. The patient has history of deep venous thrombosis and inferior vena cava filter in the past. 2. Urinary tract infection, on antibiotics. The patient should be able to go back to the care home today. ROCÍO NASH MD CM:PNTRANS [id number] ROCÍO NASH MD 11/06/17 0947 interface
--- NOTE | ~2017-11-04 | PROC NOTE ---
[place], [place] PROCEDURE NOTE NAME: RENY QUEVEDO UNIT #: [id number] ROOM: 519 DOCTOR: WILLOW GABRIEL BIRTHDATE: [birth year] DOS: 11/05/2017 MODIFIED BARIUM SWALLOW LOCATION: [facility], room 519, bed 1. ORDERING PHYSICIAN: Dr. Almazan. RADIOLOGIST: Dr. Wolff. BACKGROUND INFORMATION: The patient is a 76-year-old male who was seen for a modified barium swallow. This test was ordered to determine appropriateness to resume oral feeding. This patient has been tube fed for the past couple of weeks. A prior modified barium swallow had been performed at another facility. Results of this study are not available at this time. The patient was admitted through the Emergency Department from [facility] for evaluation of infection, cellulitis and possible DVT. MEDICAL HISTORY: Includes HTN, DVT, DM, CVA, COPD, colon cancer, AFib, depression and anemia. The patient was alert and cooperative for the examination, but displayed mild confusion regarding his history. Oral peripheral examination revealed edentulous status. Labial range of motion was poor. Labial strength and coordination were adequate. Lingual range of motion was mildly impaired. Strengths and coordination were adequate. The patient was able to volitionally cough and swallow. METHODS AND MATERIALS USED FOR THE EXAM: The patient was positioned in the lateral plane and the exam was viewed under fluoroscopy. The patient was presented with a variety of consistencies to assess swallowing skills including applesauce mixed with barium presented in half teaspoon amounts, barium-coated banana and cookie taken in bite size pieces and thin liquid barium taken by cup and straw in single sip size amounts. ORAL PHASE: The patient achieved adequate labial seal around cup, spoon and straw with no anterior loss. Bolus formation and transit were adequate with all consistencies. Mastication of barium-coated cookie was impaired. The patient was not able to chew the cookie due to edentulous status and eventually spit it out. Tongue to palate contact was adequate with consistencies given. Tongue retraction was adequate. Velar functioning was within normal limits with no nasal regurgitation. PHARYNGEAL PHASE: Unremarkable. ESOPHAGEAL PHASE: This phase of the swallow was not formally assessed during this exam. IMPRESSIONS AND RECOMMENDATIONS: Based upon assessment results, this [place], [place] PROCEDURE NOTE NAME: RENY QUEVEDO UNIT #: [id number] ROOM: [facility] DOCTOR: WILLOW GABRIEL BIRTHDATE: [birth year] 76-year-old patient presents with a mild oral dysphagia characterized by difficulty chewing solid consistency. No other difficulty was displayed. There was no penetration, aspiration or residue. Recommend an oral diet consisting of soft foods and thin liquid. Recommend universal safe swallow precautions such as upright seating for meals, small bites and sips and eating slowly. Short term followup is recommended to ensure safety as the patient will be resuming oral intake. The patient and nurse were educated on results and recommendations and verbalized understanding. Thank you very much for this referral. Should you have any questions regarding this patient, please contact the speech pathologist at [phone]. WILLOW GABRIEL CM:PROCNOTE:PROCEDURE NOTE 1045 1949 WILLOW GABRIEL
--- NOTE | ~2017-11-04 | WRIGHTHP ---
[place], [place] PATIENT HISTORY AND PHYSICAL EXAM NAME: RENY QUEVEDO [facility] #: [id number] UNIT #: [id number] ROOM: 519 DOCTOR: ROCÍO NASH MD BIRTHDATE: [birth year] DOS: 11/04/2017 HISTORY OF PRESENT ILLNESS: The patient is 76-year-old, very well known to us. I had seen him exactly a week ago when he came back from [facility] after admission there for sepsis and respiratory failure. When he came back, he was noted to have a small wound about size of a quarter, 1 cm deep on the top of the left ankle. The legs did not look red or swollen at that time. He also had a PEG tube for feeding purposes. Yesterday, the nursing staff at the [facility] noted the left leg to be increasingly swollen and red and so the patient was sent out to the Emergency Room. The patient's left leg is quite red and swollen and angry looking. He does not complain of a lot of discomfort. He does not have any fever or chills. He would like to drink some water. PAST MEDICAL HISTORY: Significant for: 1. Recent sepsis with respiratory failure. 2. Recent PEG tube placement. 3. Type 2 diabetes mellitus, non-insulin dependent. 4. Benign hypertension with normal LV function. 5. Chronic atrial fibrillation. 6. Peripheral vascular disease with history of hardware removal from the right foot recently. MEDICATIONS: That he is on are breathing treatments, Xanax, ascorbic acid, Colace, levothyroxine, Protonix, Carafate, atorvastatin, citalopram, Lasix, potassium and Levemir. SOCIAL HISTORY: Nonsmoker, does not use any alcohol. He is a resident currently at [facility]. PHYSICAL EXAMINATION: GENERAL: He is awake and alert and oriented, in no distress. VITAL SIGNS: Graphic trend shows blood pressure of 132/70, pulse of 76, respirations 14, afebrile. LUNGS: Diminished breath sounds. No wheezes, rales or rhonchi heard. HEART: Regular. ABDOMEN: Soft. PEG tube in place. EXTREMITIES: Without any edema on the right. The hardware was removed recently on the right lower leg for, which he had for history of a trimalleolar fracture. On the left the wound is about the same as last time I saw him over a week ago, small eschar noted on it, but the whole leg is quite red and swollen and tender. ASSESSMENT AND PLAN: 1. Left leg swelling, unilateral leg edema. We will have to do a venous Doppler to rule out deep venous thrombosis. 2. Cellulitis of the left leg, on antibiotics, question is whether the patient has an osteomyelitis. ESR, CRP mildly elevated. MRI of the foot is ordered and depending on the findings, we will decide on further treatment plan. 3. Recent PEG tube placement. The patient is awake and alert and oriented and does not have any trouble swallowing saliva. We will try to do a speech study with modified barium swallow. [place], [place] PATIENT HISTORY AND PHYSICAL EXAM NAME: RENY QUEVEDO [facility] #: [id number] UNIT #: [id number] ROOM: [facility] DOCTOR: ROCÍO NASH MD BIRTHDATE: [birth year] 4. Type 2 diabetes mellitus, insulin-dependent. Continue insulin. Blood sugar is to be checked twice daily. The patient is on tube feeding. ROCÍO NASH MD CM:HISPHYS:PATIENT HISTORY AND PHYSICAL EXAMINATION [id number] ROCÍO NASH MD 11/12/17 0821 interface
[2017-11-04 18:24] VITALS: BP 98/67
[2017-11-04] MEDS ORDERED: XANAX0.5 MG PEG (18:41)
[2017-11-04] MEDS ORDERED: ASCORBIC ACID 500 MG/ML PEG (18:42)
[2017-11-04] MEDS ORDERED: SYNTHROID25 MCG PO (18:47)
[2017-11-04] MEDS ORDERED: PROTONIX40 MG PO (18:47)
[2017-11-04] MEDS ORDERED: Carafate1 GM/10 ML PO (18:48)
[2017-11-04] MEDS ORDERED: DULCOLAX STOOL100 M1 PO (18:49)
[2017-11-04] MEDS ORDERED: LEVEMIR100 UNIT/1 SC (19:21)
[2017-11-04 19:55] LABS: BILIRUBIN NEGATIVE (NEGATIVE); BLOOD 1+ (NEGATIVE); CLARITY SL CLOUDY (CLEAR); COLOR YELLOW (YELLOW); GLUCOSE NEGATIVE (NEGATIVE); KETONE NEGATIVE (NEGATIVE); LEUKO ESTERASE 3+ (NEGATIVE); NITRITE POSITIVE (NEGATIVE); SPECIFIC GRAVITY <= 1.005 (1.005-1.030)
[2017-11-04 20:10] LABS: BASO % 0.5 % (0.0-1.0); EOS # 0.2 10*3/uL (0.0-0.4); EOS % 1.9 % (1.0-4.0); HEMATOCRIT 31.9 % (42.0-52.0); HEMOGLOBIN 10.1 g/dl (14.0-18.0); LYMPH # 1.9 10*3/uL (1.3-4.4); LYMPH % 21.7 % (27.0-41.0); MEAN CELL VOLUME 91.4 fl (80.0-94.0); MEAN CORPUSCULAR HGB 28.9 pg (27.0-31.0); MEAN CORPUSCULAR HGB CONC 31.7 g/dl (33.0-37.0); MEAN PLATELET VOLUME 11.3 fl (9.6-12.3); MONO % 11.7 % (3.0-9.0); NEUT # 5.4 10*3/uL (2.3-7.9); NUCLEATED RED BLOOD CELL 0.2 % (0.0-0.0); PLATELET COUNT AUTOMATED 258 10*3/uL (130-400); RED BLOOD COUNT 3.49 10*6/uL (4.50-5.90); RED CELL DISTRI WIDTH 15.9 % (0-14.5); WHITE BLOOD COUNT 8.6 10*3/uL (4.8-10.8)
[2017-11-04 20:23] LABS: BACTERIA 2+; WBC TNTC wbc/hpf (0-5)
[2017-11-04 20:27] LABS: ALBUMIN 2.5 gm/dl (3.1-4.5); ALKALINE PHOSPHATASE 101 U/L (45-117); BUN 20 mg/dl (7-24); CHLORIDE 101 mmol/L (98-107); CREATININE 0.87 mg/dL (0.70-1.30); POTASSIUM 3.6 mmol/L (3.5-5.1); SGOT/AST 24 IU/L (3-35); SGPT/ALT 13 U/L (12-78); SODIUM 136 mmol/L (136-145); TOTAL PROTEIN 6.7 gm/dL (6.4-8.2)
[2017-11-04 20:57] VITALS: BP 108/41
[2017-11-04 21:15] VITALS: BP 103/62
[2017-11-05] VITALS: BP 103/58
[2017-11-05 08:00] VITALS: BP 105/54
[2017-11-05 12:00] VITALS: BP 108/53
[2017-11-05 16:00] VITALS: BP 115/54
[2017-11-05 20:00] VITALS: BP 101/50
[2017-11-06] VITALS: BP 112/57
[2017-11-06 08:00] VITALS: BP 129/62
[2017-12-16] MEDS ORDERED: MILK OF MA400 MG/51 PO (11:29)
[2017-12-16] MEDS ORDERED: ACIDOPHILUS1 EACH PO (11:30)
[2017-12-16] MEDS ORDERED: GLUCAGEN DIAGNOS1 MG IJ (11:31)
[2017-12-16] MEDS ORDERED: RISA-BID CAPLE1 EACH PO (11:34)
[2017-12-16] MEDS ORDERED: VITAMIN C500 M4 PO (11:36)
[2017-12-16] MEDS ORDERED: XARE20MG PO (11:37)
[2017-12-16] MEDS ORDERED: Percocet 325 MG1 TAB PO (11:38)
[2017-12-16] MEDS ORDERED: BISCOLAX10 M1 R (11:39)
[2017-12-16] MEDS ORDERED: ALBUTEROL S5 MG/1 ML INH (11:40)
== END 2017-11-06 13:15 | disposition other institution (70) | DRG 300 ==
LOC: ED 18:23 → EDHOLD 20:28 → 5E 20:28
PROVIDERS: Nurse Practitioner
PROC: BD11YZZ Fluoroscopy of Esophagus using Other Contrast (ICD-10-PCS; principal; 2017-11-05)
DX: I82.402 Acute embolism and thrombosis of unspecified deep veins of left lower extremity (principal); L03.116 Cellulitis of left lower limb; I48.2 Chronic atrial fibrillation; N39.0 Urinary tract infection, site not specified; J44.9 Chronic obstructive pulmonary disease, unspecified; E11.51 Type 2 diabetes mellitus with diabetic peripheral angiopathy without gangrene; I10 Essential (primary) hypertension; F32.9 Major depressive disorder, single episode, unspecified; Z96.652 Presence of left artificial knee joint; Z79.4 Long term (current) use of insulin; Z79.899 Other long term (current) drug therapy; Z95.828 Presence of other vascular implants and grafts; Z86.73 Personal history of transient ischemic attack (TIA), and cerebral infarction without residual deficits; Z85.038 Personal history of other malignant neoplasm of large intestine; Z88.0 Allergy status to penicillin

== ENCOUNTER 2017-11-21 13:55 | Emergency (ER) | payer MEDICARE, OTHER ==
[~2017-11-21 13:55] MED LIST changes: +ASCORBIC ACID 500 MG/ML PEG; +Carafate1 GM/10 ML PO; +DULCOLAX STOOL100 M1 PO; +LEVEMIR100 UNIT/1 SC; +PROTONIX40 MG PO; +XANAX0.5 MG PEG
[2017-11-21 13:59] VITALS: BP 115/58
[2017-11-21 14:21] LABS: BASO # 0.1 10*3/uL (0.0-0.1); BASO % 0.7 % (0.0-1.0); EOS # 0.3 10*3/uL (0.0-0.4); EOS % 3.8 % (1.0-4.0); HEMATOCRIT 29.7 % (42.0-52.0); HEMOGLOBIN 9.2 g/dl (14.0-18.0); LYMPH # 1.3 10*3/uL (1.3-4.4); LYMPH % 17.2 % (27.0-41.0); MEAN CELL VOLUME 90.8 fl (80.0-94.0); MEAN CORPUSCULAR HGB 28.1 pg (27.0-31.0); MEAN PLATELET VOLUME 10.6 fl (9.6-12.3); MONO # 0.7 10*3/uL (0.1-1.0); MONO % 9.7 % (3.0-9.0); NEUT # 5.2 10*3/uL (2.3-7.9); NEUT % 67.9 % (47.0-73.0); PLATELET COUNT AUTOMATED 250 10*3/uL (130-400); RED BLOOD COUNT 3.27 10*6/uL (4.50-5.90); RED CELL DISTRI WIDTH 15.5 % (0-14.5); WHITE BLOOD COUNT 7.6 10*3/uL (4.8-10.8)
[2017-11-21 14:40] LABS: ALBUMIN 2.4 gm/dl (3.1-4.5); ALKALINE PHOSPHATASE 94 U/L (45-117); BUN 12 mg/dl (7-24); CHLORIDE 109 mmol/L (98-107); CREATININE 0.97 mg/dL (0.70-1.30); LIPASE 195 U/L (73-393); POTASSIUM 3.7 mmol/L (3.5-5.1); SGOT/AST 20 IU/L (3-35); SGPT/ALT 15 U/L (12-78); SODIUM 141 mmol/L (136-145); TOTAL PROTEIN 6.9 gm/dL (6.4-8.2)
[2017-12-16] MEDS ORDERED: MILK OF MA400 MG/51 PO (11:29)
[2017-12-16] MEDS ORDERED: ACIDOPHILUS1 EACH PO (11:30)
[2017-12-16] MEDS ORDERED: GLUCAGEN DIAGNOS1 MG IJ (11:31)
[2017-12-16] MEDS ORDERED: RISA-BID CAPLE1 EACH PO (11:34)
[2017-12-16] MEDS ORDERED: VITAMIN C500 M4 PO (11:36)
[2017-12-16] MEDS ORDERED: XARE20MG PO (11:37)
[2017-12-16] MEDS ORDERED: Percocet 325 MG1 TAB PO (11:38)
[2017-12-16] MEDS ORDERED: BISCOLAX10 M1 R (11:39)
[2017-12-16] MEDS ORDERED: ALBUTEROL S5 MG/1 ML INH (11:40)
== END 2017-11-21 16:17 ==
LOC: ED 13:55
PROVIDERS: Nurse Practitioner Family
DX: K59.00 Constipation, unspecified (principal); E66.01 Morbid (severe) obesity due to excess calories; I48.91 Unspecified atrial fibrillation; I11.0 Hypertensive heart disease with heart failure; I50.9 Heart failure, unspecified; E03.9 Hypothyroidism, unspecified; Z96.652 Presence of left artificial knee joint; Z86.718 Personal history of other venous thrombosis and embolism; Z98.890 Other specified postprocedural states; Z79.4 Long term (current) use of insulin; Z79.899 Other long term (current) drug therapy; Z88.0 Allergy status to penicillin

== ENCOUNTER → 2017-12-17 | Day surgery (SDC) | payer MEDICARE, OTHER ==
[~2017-12-17] MED LIST changes: +ACIDOPHILUS1 EACH PO; +ALBUTEROL S5 MG/1 ML INH; +BISCOLAX10 M1 R; +FLEET MINERAL133 ML R; +GLUCAGEN DIAGNOS1 MG IJ; +MACRODANTIN100 M1 PO; +MILK OF MA400 MG/51 PO; +NYSTATIN1 EAC5 T; +Percocet 325 MG1 TAB PO; +RISA-BID CAPLE1 EACH PO; +VITAMIN C500 M4 PO
--- NOTE | ~2017-12-17 | CON ---
[place], [place] REPORT OF CONSULTATION NAME: RENY QUEVEDO UNIT #: [id number] ROOM: DOCTOR: CARLOS PURDYYANAFORMERLY [facility] BIRTHDATE: [birth year] DOS: 12/17/2017 GASTROENDOSCOPIC REPORT This is a 77-year-old patient who is residing in a [facility] with a history of dysphagia in the past and history of PEG tube. The patient has regained his swallow and based on the investigation that I did he has been able to complete 3 solid meals without choking and coughing on meals. PAST MEDICAL HISTORY: Associated with respiratory insufficiency and sepsis, diabetes mellitus, obesity, hypertension, chronic atrial fibrillation, peripheral vascular disease. SOCIAL HISTORY: Nonsmoker, nonalcohol consumer. FAMILY HISTORY: Noncontributory. ALLERGIES: Listed in the chart. MEDICATIONS: List reviewed as listed in the chart. Did not include any anticoagulants or antiplatelets. REVIEW OF SYSTEMS: HEAD, EYES, EARS, NOSE, AND THROAT: Denies double vision, blurred vision. RESPIRATORY: Denies acute shortness of breath. CARDIOVASCULAR: Denies acute chest pain. DIGESTIVE SYSTEM: Regain of swallow with a history of dysphagia, history of PEG tube placement. PHYSICAL EXAMINATION: VITAL SIGNS: Stable. HEAD, EYES, EARS, NOSE, AND THROAT: Head normocephalic, nontraumatic. Mouth and buccal mucosa benign. NECK: Supple, no thyromegaly, no cervical lymphadenopathy. CHEST: Symmetric anatomy, equal expansion. Decreased air entry in general. HEART: At the present time normal sinus rhythm. ABDOMEN: Obese, large, soft. No hepato-organomegaly. PEG tube in place. EXTREMITIES: No cyanosis, no pedal edema. NEUROLOGIC: Alert, oriented to time, place, person. IMPRESSION: History of dysphagia, status post PEG tube, history of regain of swallow for removal of PEG. OTHER ADJUNCTIVE DIAGNOSES: History of diabetes, hypertension, dysphagia, respiratory insufficiency. In his old records, I see that he has old medications listed. PLAN AND DISCUSSION: At this stage, the anterior abdominal wall, aseptically was prepped and percutaneous endoscopic gastrostomy was pulled, site was dressed, saturated Neosporin ointment and pressure banding by physician was [place], [place] REPORT OF CONSULTATION NAME: RENY QUEVEDO UNIT #: [id number] ROOM: DOCTOR: CARLOS PURDY,TANIA BIRTHDATE: [birth year] applied. The patient to have back on his medications and today to stay on clear liquid and from tomorrow, can be restarted feeding. His Xarelto has been on hold. At this time, per request of the [facility] and he can be restarted from tomorrow on board. TANIA GONZALEZ MD CM:CONSTR:REPORT OF CONSULTATION 1119 12/17/17 1159 interface
[2017-12-17 09:50] VITALS: BP 106/67
== END | disposition home or self-care (01) ==
LOC: SDC 12-16 08:45
DX: K94.23 Gastrostomy malfunction (principal); I10 Essential (primary) hypertension; E11.9 Type 2 diabetes mellitus without complications; E66.09 Other obesity due to excess calories; I48.2 Chronic atrial fibrillation; I73.9 Peripheral vascular disease, unspecified; Z79.899 Other long term (current) drug therapy; Z79.01 Long term (current) use of anticoagulants; J44.9 Chronic obstructive pulmonary disease, unspecified; E07.9 Disorder of thyroid, unspecified; F32.9 Major depressive disorder, single episode, unspecified; F41.9 Anxiety disorder, unspecified; K21.9 Gastro-esophageal reflux disease without esophagitis; I25.10 Atherosclerotic heart disease of native coronary artery without angina pectoris; Z86.73 Personal history of transient ischemic attack (TIA), and cerebral infarction without residual deficits; Z86.718 Personal history of other venous thrombosis and embolism; Z96.653 Presence of artificial knee joint, bilateral; Z88.0 Allergy status to penicillin; Z98.890 Other specified postprocedural states

== ENCOUNTER 2017-12-30 00:21 | Inpatient (IN) | payer MEDICARE, OTHER ==
[~2017-12-30] VITALS: Ht 175.2 cm; Wt 125.0 kg
[2017-12-30] VITALS (9 sets, daily range): BP systolic 97–123; BP diastolic 48–64
--- NOTE | ~2017-12-30 | WRIGHTHP ---
[place], [place] PATIENT HISTORY AND PHYSICAL EXAM NAME: RENY QUEVEDO [facility] #: [id number] UNIT #: [id number] ROOM: 510 DOCTOR: ROCÍO NASH MD BIRTHDATE: [birth year] DOS: 12/30/2017 HISTORY OF PRESENT ILLNESS: The patient is 77 years old. The patient comes in with complaints of high grade fever. [facility] Yesterday, the nursing staff noted that he had a temperature of 100 initially and 2 hours later, the temperature went up to 103. So the patient was sent down to the Emergency Room where he was evaluated. He was found to have lactic acidosis, possibly from meeting sepsis criteria with possibility of UTI and was admitted. This morning, he has significant diaphoresis, but does not have any complaints of chest pains or palpitations, does not have any fever or chills, does not have any abdominal pain, nausea, any emesis. He does have a wound on his right lower leg, but this seems to be healing and granulating nicely. He does not have any drainage or evidence of cellulitis. PAST MEDICAL HISTORY: Significant for: 1. Last hospitalization in October 2017. 2. History of sepsis with respiratory failure. 3. Diabetes mellitus, non-insulin dependent. 4. Benign hypertension. 5. Chronic atrial fibrillation. 6. Peripheral vascular disease. 7. History of DVT, left leg. 8. History of hardware removal from the right foot. 9. History of a left foot surgery. MEDICATIONS: That he is on are breathing treatments, Percocet, ascorbic acid, atorvastatin, citalopram, Colace, levothyroxine, multivitamin, potassium, Protonix, Xarelto, Carafate, bisacodyl, insulin. SOCIAL HISTORY: Nonsmoker, does not use any alcohol. He is a resident currently of [facility]. lives there too. PHYSICAL EXAMINATION: GENERAL: He is awake and alert and oriented, in no major distress this morning. He had a temperature of 101.8, which seems to have resolved after admission. VITAL SIGNS: Rest of the graphic trend shows that he has a blood pressure is 114/55, pulse of 95, respirations 18, temperature 98.3. LUNGS: Clear. HEART: Regular. ABDOMEN: Obese, soft, nontender. EXTREMITIES: With again the right leg, no swelling; left leg, small wound, which is granulating nicely on the anterior aspect of the left foot. LABORATORY DATA: At the time of admission showed a white cell count, which is 15.1, hemoglobin 9.9, hematocrit 33.2, platelets 290. Chest x-ray, no acute abnormalities. Lactic acid 2.8. Protime 13.0 with an INR of 1.2. Comprehensive glucose 188, BUN 23, creatinine 1.23. Electrolytes were normal. ASSESSMENT AND PLAN: 1. The patient is 77 years old who presents with high grade fever, lactic [place], [place] PATIENT HISTORY AND PHYSICAL EXAM NAME: RENY QUEVEDO UNIT #: [id number] ROOM: 510 DOCTOR: ROCÍO NASH MD BIRTHDATE: [birth year] acidosis, meets sepsis criteria. Blood cultures, urine cultures have been ordered. The patient is placed on IV antibiotics, most likely has underlying urinary tract infection. 2. Type 2 diabetes mellitus, insulin-dependent. Blood sugars to be checked, insulin is ordered, diet is also ordered. 3. Benign hypertension, controlled. The [facility] once we have resolution of the fever and identification of the UTI. ROCÍO NASH MD CM:HISPHYS:PATIENT HISTORY AND PHYSICAL EXAMINATION 0732 0810 ROCÍO NASH MD 12/31/17 1345 interface
--- NOTE | ~2017-12-30 | EKG ---
[place], [place] ELECTROCARDIOGRAM REPORT NAME: RENY QUEVEDO UNIT #: [id number] ROOM: 510 DOCTOR: DAQUAN FRANCO MD BIRTHDATE: [birth year] DOS: 12/30/2017 Atrial fibrillation with ventricular rate of 113 beats per minute. Complete right bundle branch block. Mild left axis deviation. An abnormal ECG. No previous tracing is available for comparison. DAQUAN FRANCO MD CM:EKGRPT:ELECTROCARDIOGRAM REPORT 1638 1754 DAQUAN FRANCO MD
--- NOTE | ~2017-12-30 | EKG ---
[place], [place] ELECTROCARDIOGRAM REPORT NAME: RENY QUEVEDO UNIT #: [id number] ROOM: 510 DOCTOR: DAQUAN FRANCO MD BIRTHDATE: [birth year] DOS: 12/30/2017 TIME: 0056 hours. FINDINGS: 1. Normal sinus rhythm at DICTATION ENDS HERE DAQUAN FRANCO MD CM:EKGRPT:ELECTROCARDIOGRAM REPORT 1707 1850 DAQUAN FRANCO MD
--- NOTE | ~2017-12-30 | PR ---
[place], [place] PROGRESS NOTE NAME: RENY QUEVEDO [facility] #: [id number] UNIT #: [id number] ROOM: 510 DOCTOR: ROCÍO NASH MD BIRTHDATE: [birth year] DOS: 12/31/2017 SUBJECTIVE: The patient is not having any complaints today. He has been afebrile for the last 24 hours. OBJECTIVE: VITAL SIGNS: Blood pressure is 117/50, pulse of 78, respirations 20, temperature 98. LUNGS: Clear. HEART: Regular. ABDOMEN: Obese, soft, nontender. EXTREMITIES: Without any edema. LABORATORY DATA: Blood cultures so far preliminary results show no bacterial growth. Urine culture is still pending. Lactic acid level is still slightly elevated at 2.6. No other labs available. ASSESSMENT AND PLAN: 1. The patient who presents with fever and sepsis pattern is being ruled out with cultures. 2. Urinary tract infection, on IV antibiotics, awaiting culture results. The patient has become afebrile. Routine labs will be ordered for tomorrow. 3. Type 2 diabetes mellitus, insulin-dependent. Blood sugars are not very well controlled. Increase Lantus dosage. 4. Chronic atrial fibrillation, on long-term use of anticoagulants, to be continued. ROCÍO NASH MD CM:PNTRANS ROCÍO NASH MD 12/31/17 0734 interface
--- NOTE | ~2017-12-30 | DS ---
[place], [place] DISCHARGE SUMMARY NAME: RENY QUEVEDO [facility] #: [id number] UNIT #: [id number] ROOM: 510 DOCTOR: ROCÍO NASH MD BIRTHDATE: [birth year] DOS: 01/01/2018 DIAGNOSES: Urinary tract infection with ESBL E. coli, contact isolation. HOSPITAL COURSE: The patient is very well known to us, a resident of [facility], was brought in because of complaints of high-grade fever, temperature going up to 103. He denies having any chest pains or palpitations. Urine was positive for leukocytes with reflux. White cell count was elevated and lactic acid was also elevated. White cell count was 15,000, went up to 16.3 and then has come down to normal. Lactic acid has remained in the 2.6 range. Urine culture shows gram negative bacteria, which turned out to be ESBL E. coli. Avoid antibiotics if we need to, but since the patient had a high grade fever and elevated white cell count, I have opted to treat him with antibiotics. The patient is relatively stable this morning. White cell count is normalized and he has not had any fever, so the plan is to discharge him to home on p.o. antibiotics. DISCHARGE MEDICATIONS: Will be nitrofurantoin 100 b.i.d., atorvastatin 40 daily, citalopram 20 daily, ondansetron 4 mg q. 6 hours p.r.n. for nausea, acidophilus, 3 tablets p.o. b.i.d., multivitamin 1 tablet daily, DuoNeb q. 6 hours p.r.n., Tylenol 650 q. 6 hours p.r.n., Klor-Con 20 daily, NovoLog a.c. and at bedtime for coverage, Zofran 4 mg q. 6 hours p.r.n., Protonix 40 daily, levothyroxine 25 mcg daily, Carafate 10 q.i.d., Colace 100 daily, insulin, increased to 10 units at bedtime, Lantus, mag oxide 30 mL daily p.r.n., vitamin C 500 daily, Xarelto 20 daily, breathing treatment with DuoNeb q. 4 hours p.r.n. ROCÍO NASH MD CM:NICOL 0736 2 ROCÍO NASH MD 01/01/18 0801 interface
--- NOTE | ~2017-12-30 | PR ---
[place], [place] PROGRESS NOTE NAME: RENY QUEVEDO [facility] #: [id number] UNIT #: [id number] ROOM: 510 DOCTOR: ROCÍO NASH MD BIRTHDATE: [birth year] DOS: 01/01/2018 SUBJECTIVE: The patient is feeling good. He does not have any complaints. He has been afebrile. OBJECTIVE: VITAL SIGNS: Blood pressure is 114/68, pulse of 87, respirations 18, temperature 98.1. LUNGS: Diminished breath sounds. No wheezes, rales or rhonchi heard. HEART: Regular. ABDOMEN: Obese, soft. EXTREMITIES: Without any edema. LABORATORY DATA: Urine culture shows E. coli, which is an extended beta lactamase organism. ASSESSMENT AND PLAN: This is a patient who presents with high-grade fever, urinary tract infection with ESBL E. coli. The patient since he has had a high-grade fever will be treated with antibiotics, and since he is afebrile now, I will place him on nitrofurantoin and discharge him to [facility] this morning. ROCÍO NASH MD CM:PNTRANS 0730 ROCÍO NASH MD 01/01/18 0740 interface
[~2017-12-30 00:21] MED LIST changes: -FLEET MINERAL133 ML R; -MACRODANTIN100 M1 PO; -NYSTATIN1 EAC5 T
[2017-12-30 01:11] LABS: BASO # 0.1 10*3/uL (0.0-0.1); BASO % 0.3 % (0.0-1.0); EOS # 0.1 10*3/uL (0.0-0.4); EOS % 0.3 % (1.0-4.0); HEMATOCRIT 33.2 % (42.0-52.0); HEMOGLOBIN 9.9 g/dl (14.0-18.0); LYMPH # 2.1 10*3/uL (1.3-4.4); MEAN CORPUSCULAR HGB 24.8 pg (27.0-31.0); MEAN CORPUSCULAR HGB CONC 29.8 g/dl (33.0-37.0); MEAN PLATELET VOLUME 10.8 fl (9.6-12.3); MONO # 1.3 10*3/uL (0.1-1.0); MONO % 8.8 % (3.0-9.0); NEUT # 11.5 10*3/uL (2.3-7.9); NEUT % 76.2 % (47.0-73.0); PLATELET COUNT AUTOMATED 290 10*3/uL (130-400); RED CELL DISTRI WIDTH 16.8 % (0-14.5); WHITE BLOOD COUNT 15.1 10*3/uL (4.8-10.8)
[2017-12-30 01:21] LABS: INTERNATIONAL NORM RATIO 1.2 (2.0-3.5)
[2017-12-30 01:27] LABS: ALBUMIN 2.7 gm/dl (3.1-4.5); ALKALINE PHOSPHATASE 94 U/L (45-117); BUN 23 mg/dl (7-24); CHLORIDE 104 mmol/L (98-107); CREATININE 1.23 mg/dL (0.70-1.30); POTASSIUM 4.2 mmol/L (3.5-5.1); SGOT/AST 12 IU/L (3-35); SGPT/ALT 12 U/L (12-78); SODIUM 138 mmol/L (136-145); TOTAL PROTEIN 7.8 gm/dL (6.4-8.2)
[2017-12-30 01:29] LABS: TROPONIN I < 0.015 ng/ml (<0.045)
[2017-12-30 01:50] LABS: BILIRUBIN NEGATIVE (NEGATIVE); BLOOD 3+ (NEGATIVE); CLARITY SL CLOUDY (CLEAR); COLOR YELLOW (YELLOW); GLUCOSE NEGATIVE (NEGATIVE); KETONE NEGATIVE (NEGATIVE); LEUKO ESTERASE 3+ (NEGATIVE); NITRITE NEGATIVE (NEGATIVE); PH 6.5 (5.0-9.0); SPECIFIC GRAVITY <= 1.005 (1.005-1.030); UROBILINOGEN 0.2 E.U./dl (0.2-1.0)
[2017-12-30 02:02] LABS: WBC TNTC wbc/hpf (0-5)
[2017-12-30] MEDS ORDERED: NYSTATIN1 EAC5 T (03:16)
[2017-12-30] MEDS ORDERED: FLEET MINERAL133 ML R (03:29)
[2017-12-31 07:36] LABS: BASO % 0.1 % (0.0-1.0); HEMATOCRIT 28.4 % (42.0-52.0); HEMOGLOBIN 8.4 g/dl (14.0-18.0); LYMPH # 1.4 10*3/uL (1.3-4.4); LYMPH % 8.5 % (27.0-41.0); MEAN CORPUSCULAR HGB 24.6 pg (27.0-31.0); MEAN CORPUSCULAR HGB CONC 29.6 g/dl (33.0-37.0); MEAN PLATELET VOLUME 10.4 fl (9.6-12.3); MONO % 6.2 % (3.0-9.0); NEUT # 13.7 10*3/uL (2.3-7.9); NEUT % 84.3 % (47.0-73.0); PLATELET COUNT AUTOMATED 268 10*3/uL (130-400); RED BLOOD COUNT 3.42 10*6/uL (4.50-5.90); RED CELL DISTRI WIDTH 16.7 % (0-14.5); WHITE BLOOD COUNT 16.3 10*3/uL (4.8-10.8)
[2017-12-31 07:58] LABS: BUN 23 mg/dl (7-24); CHLORIDE 109 mmol/L (98-107); CREATININE 1.07 mg/dL (0.70-1.30); POTASSIUM 4.4 mmol/L (3.5-5.1); SODIUM 141 mmol/L (136-145)
[2017-12-31 08:00] VITALS: BP 140/82
[2017-12-31 12:00] VITALS: BP 109/58
[2017-12-31 16:00] VITALS: BP 119/68
[2017-12-31 20:00] VITALS: BP 108/84
[2018-01-01] VITALS: BP 114/68
[2018-01-01 07:21] LABS: BASO % 0.2 % (0.0-1.0); EOS # 0.1 10*3/uL (0.0-0.4); EOS % 0.7 % (1.0-4.0); HEMATOCRIT 29.6 % (42.0-52.0); HEMOGLOBIN 8.8 g/dl (14.0-18.0); LYMPH # 1.2 10*3/uL (1.3-4.4); LYMPH % 11.5 % (27.0-41.0); MEAN CELL VOLUME 84.1 fl (80.0-94.0); MEAN CORPUSCULAR HGB CONC 29.7 g/dl (33.0-37.0); MEAN PLATELET VOLUME 11.2 fl (9.6-12.3); MONO # 0.8 10*3/uL (0.1-1.0); PLATELET COUNT AUTOMATED 288 10*3/uL (130-400); RED BLOOD COUNT 3.52 10*6/uL (4.50-5.90); RED CELL DISTRI WIDTH 16.9 % (0-14.5); WHITE BLOOD COUNT 10.1 10*3/uL (4.8-10.8)
[2018-01-01] MEDS ORDERED: MACRODANTIN100 M1 PO (07:30)
[2018-01-01 07:32] LABS: BUN 26 mg/dl (7-24); CHLORIDE 104 mmol/L (98-107); CREATININE 1.12 mg/dL (0.70-1.30); POTASSIUM 4.2 mmol/L (3.5-5.1); SODIUM 138 mmol/L (136-145)
[2018-01-01 08:00] VITALS: BP 127/80
== END 2018-01-01 11:53 | disposition other institution (70) | DRG 690 ==
LOC: ED 00:21 → 5E 02:28
PROVIDERS: Internal Medicine; Student in an Organized Health Care Education/Training Program
DX: N39.0 Urinary tract infection, site not specified (principal); E11.51 Type 2 diabetes mellitus with diabetic peripheral angiopathy without gangrene; I48.2 Chronic atrial fibrillation; L97.929 Non-pressure chronic ulcer of unspecified part of left lower leg with unspecified severity; I50.9 Heart failure, unspecified; I11.0 Hypertensive heart disease with heart failure; J44.9 Chronic obstructive pulmonary disease, unspecified; B96.20 Unspecified Escherichia coli [E. coli] as the cause of diseases classified elsewhere; Z96.652 Presence of left artificial knee joint; E03.9 Hypothyroidism, unspecified; Z86.718 Personal history of other venous thrombosis and embolism; Z79.4 Long term (current) use of insulin; Z79.899 Other long term (current) drug therapy; Z88.0 Allergy status to penicillin; Z87.440 Personal history of urinary (tract) infections; Z82.49 Family history of ischemic heart disease and other diseases of the circulatory system; Z80.9 Family history of malignant neoplasm, unspecified

== ENCOUNTER 2018-02-21 16:37 | Inpatient (IN) | payer MEDICARE, OTHER ==
[~2018-02-21] VITALS: Ht 175.3 cm; Wt 113.5 kg
--- NOTE | ~2018-02-21 | PR ---
[place], [place] PROGRESS NOTE [id number] UNIT #: [id number] ROOM: 403 DOCTOR: ROYCE CHANG MD,RAE BIRTHDATE: [birth year] DOS: 02/26/2018 SUBJECTIVE: He has been noted comfortable. Bronchoscopy completed yesterday without difficulties with marked improvement in the respiratory secretion clearance noted. The cough has improved significantly. Shortness of breath was noted decreased. There were no symptoms of chest pain. OBJECTIVE: VITAL SIGNS: Normal temperature, respiratory rate 18, heart rate 83, blood pressure 132/57 this morning. Pulse ox saturation on room air 97% saturation. HEENT: Chronic obesity. NECK: Supple. CARDIOVASCULAR: S1, S2 is audible. LUNGS: The patient was noted with occasional wheezing, no crackles. ABDOMEN: Soft, obese, nontender. EXTREMITIES: Chronic changes. LABORATORY DATA: The Gram stain of the bronchial washing yesterday were noted as many white blood cells, moderate epithelial cells, few gram-positive cocci in pairs, normal bruce. IMPRESSION: The patient who has been currently noted with resolving acute tracheobronchitis, removal of the mucus plug. After bronchoscopy, significant reduction and improvement in respiratory symptoms noted. PLAN AND MANAGEMENT. The patient could be considered for discharge to the nursing facility today. Cultures to be monitored with change in antibiotics to be done accordingly. RAE CRANE MD CM:PNTRANS [id number] RAE CHANG MD 02/26/18 1350 interface
--- NOTE | ~2018-02-21 | PR ---
[place], [place] PROGRESS NOTE NAME: RENY QUEVEDO [facility] #: [id number] UNIT #: [id number] ROOM: 403 DOCTOR: ROCÍO NASH MD BIRTHDATE: [birth year] DOS: 02/26/2018 SUBJECTIVE: The patient is resting comfortably, does not have any new complaints. OBJECTIVE: VITAL SIGNS: Blood pressure is 132/57, pulse of 83, respirations 18, temperature 98.2. LUNGS: Diminished breath sounds, but clear. HEART: Regular. ABDOMEN: Obese. EXTREMITIES: No edema. He does have chronic poorly healing wounds on his legs, which is no different than when he came into the hospital. ASSESSMENT AND PLAN: 1. Acute exacerbation of chronic obstructive pulmonary disease, improved. 2. Acute tracheobronchitis with mucus plugging, status bronchoscopy. Bronch cultures so far negative. 3. Urinary tract infection with E. coli resistant to multiple medications. The patient is on IV Zosyn. The plan is to discharge him to long-term on IV antibiotics. A midline has been placed. 4. Type 2 diabetes mellitus, insulin-dependent. Blood sugars are much better this morning, is 189. ROCÍO NASH MD CM:PNTRANS 1013 ROCÍO NASH MD 03/10/18 0805 interface
--- NOTE | ~2018-02-21 | PR ---
[place], [place] PROGRESS NOTE NAME: RENY QUEVEDO [facility] #: [id number] UNIT #: [id number] ROOM: 403 DOCTOR: ROCÍO NASH MD BIRTHDATE: [birth year] DOS: 02/24/2018 SUBJECTIVE: The patient is doing fine without any complaints this morning, but continues to have a moist sounding cough. OBJECTIVE: VITAL SIGNS: Graphic trend this morning, 02/24/2018, pressure is 104/88, pulse of 92, respirations 18, temperature 98.1. LUNGS: Diminished breath sounds, scattered rhonchi. HEART: Regular. ABDOMEN: Obese. EXTREMITIES: Without any edema. ASSESSMENT AND PLAN: 1. Acute exacerbation of chronic obstructive pulmonary disease, on IV steroids. Unfortunately, the blood sugars became extremely high with IV steroids, so it has been discontinued. We will add Pulmicort and a low dose prednisone p.o. We will ask Dr. Massey for a bronchoscopy for mucus clearing. A CT of the chest will also be ordered. 2. Hyperglycemia with hyperosmolar state. Ketone level was normal. Further adjust insulin. 3. Conjunctivitis, improved with the current treatment plan. ROCÍO NASH MD CM:PNTRANS [id number] ROCÍO NASH MD 02/26/18 1246 interface
--- NOTE | ~2018-02-21 | PR ---
[place], [place] PROGRESS NOTE NAME: RENY QUEVEDO [facility] #: [id number] UNIT #: [id number] ROOM: 403 DOCTOR: ROYCE CHANG MD,RAE BIRTHDATE: [birth year] DOS: 02/25/2018 SUBJECTIVE: The patient has been noted the same with nonproductive cough, chest congestion, and some shortness of breath at rest. There were no symptoms of hemoptysis, fever, or chills. The patient minnie no symptoms of nausea, vomiting, diarrhea, n.p.o. past midnight for bronchoscopy planned today. The patient denies any symptoms of pain in the lower extremities. Remaining systems were reviewed with the patient, they were noted all negative. OBJECTIVE: VITAL SIGNS: For the patient which were recorded shows the temperature was noted as normal, respiratory rate 20, heart rate 91, blood pressure 190/50-120/56. Pulse oxygen saturation on room air was 98% saturation. Intake for the patient noted as 460, the output was not recorded. HEENT: Examination shows no acute change. NECK: Supple. CARDIOVASCULAR: S1, S2 was audible. LUNGS: The patient was noted with moderate decreased breath sounds with scattered expiratory wheezing, no crackles. ABDOMEN: Soft and obese. EXTREMITIES: Shows chronic changes without any edema. VISIBLE SKIN: No lesions or rashes. CENTRAL NERVOUS SYSTEM: No gross focal deficit. MUSCULOSKELETAL: No deformities. LABORATORY DATA: CBC today: WBC count was noted as normal, hemoglobin 8.8, hematocrit 30.0, and platelet count 165,000. BMP: BUN 33, creatinine 1.45, and glucose 369. Remaining electrolytes were normal. CT scan of the chest that was done yesterday was personally reviewed. CT scan of the chest does not show any abnormal pulmonary nodule for this patient as well as any pulmonary infiltration. The marking appeared to be increased for in the lungs. CT scan of the chest in 2014 was compared, but had not been off noted much because at that time, the patient noted with large pleural fluid including area of atelectasis in the patient's left lung. The current finding would certainly not suggestive of possibility of malignancy. IMPRESSION: 1. The patient has been currently admitted to the hospital. The patient had been undergoing bronchoscopy today, which is therapeutic because of severe nonproductive cough expected sputum for the tracheobronchitis nonresolving current maximal medical management. 2. Escherichia coli infection. PLAN OF MANAGEMENT: No change in plan of management. Proceed with the bronchoscopy any changes modification in treatment necessary, a bronchoscopy done. Continue the management of the hyperglycemia, other medical plan of care. Monitor kidney functions for this patient as well. The acute kidney injury seems to be gradually resolving current medical treatment. [place], [place] PROGRESS NOTE NAME: RENY QUEVEDO UNIT #: [id number] ROOM: 403 DOCTOR: ROYCE CHANG MD,RAE BIRTHDATE: [birth year] RAE CRANE MD CM:LATHA [id number] RAE CHANG MD 02/26/18 1244 interface
--- NOTE | ~2018-02-21 | PROC NOTE ---
[place], [place] PROCEDURE NOTE [facility] [id number] UNIT #: [id number] ROOM: 403 DOCTOR: ROYCE CHANG MD,RAE BIRTHDATE: [birth year] DOS: 02/25/2018 PROCEDURE: Fibrobronchoscopy done on 02/25/2018. PREOPERATIVE DIAGNOSIS: The patient with persistent severe coughing. POSTOPERATIVE DIAGNOSES: For this patient was noted with a large mucous impaction noted in the bronchial tree with thick green purulent secretion, mucoid secretion, endobronchial tree bilaterally. There were no endobronchial obstructive lesions, acute inflammatory change consistent with tracheobronchitis. PROCEDURE DESCRIPTION: Informed consent obtained for the patient. The patient brought to the OR and placed in supine position. Conscious sedation was initiated by the Anesthesia Department after achieving a proper sedation, airway introduced into the mouth. Bronchoscope advanced airway into laryngeal area. Epiglottis and vocal cord seen. Vocal cord was noted, symmetrically moving with the movement bilaterally. Bronchoscope entered any vocal and tracheal lumen noted with copious amount of thick secretions appeared to be mixture of mucus and green purulent secretion suctioned out the nasim level. Right upper, right middle, right lower, left upper, lingular lobe bronchi were noted similar finding, thick impaction with the mucus plugs. Bronchial tree bilaterally sent for culture. There were no endobronchial obstructive lesions. Acute inflammatory changes noted in the airway with acute tracheobronchitis. Postoperative findings will be discussed with the patient once the patient recovered the effects of acute sedation. RAE CRANE MD CM:PROCNOTE:PROCEDURE NOTE [id number] RAE CHANG MD
--- NOTE | ~2018-02-21 | EKG ---
[place], [place] ELECTROCARDIOGRAM REPORT NAME: RENY QUEVEDO UNIT #: [id number] ROOM: 403 DOCTOR: ANAIS DRAFT REPORT BIRTHDATE: [birth year] [facility] Test Date: 2018-02-21 Test Time: 17:03:43 Pat Name: RENY QUEVEDO Department: ER Room: [facility] Gender: M Station Agent: Hitesh Bustillo : 1940 Requested By: LILO CHRISTIE Order Number: [id number] Reading MD: Campbell Gillespie MD Measurements Intervals Coyle Rate: 105 P: -37 IL: 179 QRS: -32 QRSD: 135 T: -1 QT: 378 QTc: 500 Interpretive Statements Sinus tachycardia Atrial premature complex Right bundle branch block Left ventricular hypertrophy Inferior infarct, old Electronically Signed On 02-24-2018 4:22:05 PDT by Campbell Gillespie MD CM:EKGRPT:ELECTROCARDIOGRAM REPORT [id number] [id number] LILO CHRISTIE EPIPHANY DRAFT REPORT LILO CHRISTIE
--- NOTE | ~2018-02-21 | PR ---
[place], [place] PROGRESS NOTE [facility] [id number] UNIT #: [id number] ROOM: 403 DOCTOR: ROCÍO NASH MD BIRTHDATE: [birth year] DOS: 02/23/2018 SUBJECTIVE: The patient does not have any new complaints. She feels better. OBJECTIVE: VITAL SIGNS: Blood pressure is 110/56, pulse of 92, respirations 16, temperature 97.8. LUNGS: Diminished breath sounds, few scattered rhonchi. HEART: Irregular. ABDOMEN: Obese. EXTREMITIES: No edema noticed. ASSESSMENT AND PLAN: 1. Acute exacerbation of chronic obstructive pulmonary disease, on medications. 2. Acute tracheobronchitis, improving. 3. Possible urinary tract infection. Urine culture pending. 4. Left conjunctivitis. 5. Adult failure to thrive, to go back to [facility] once stable. ROCÍO NASH MD CM:PNTRANS [id number] ROCÍO NASH MD 02/26/18 1245 interface
--- NOTE | ~2018-02-21 | DS ---
[place], [place] DISCHARGE SUMMARY NAME: RENY QUEVEDO [facility] #: [id number] UNIT #: [id number] ROOM: 403 DOCTOR: ROCÍO NASH MD BIRTHDATE: [birth year] DOS: HOSPITAL COURSE: The patient is very well known to us. He is a resident of [facility], was brought in with increasing shortness of breath, cough and hypoxemia. Please refer to H and P for details. After being evaluated in the ER, was admitted. He had acute exacerbation of COPD, was placed on IV steroids, breathing treatments, had a UTI, for which he was placed on Zosyn, which is sensitive to, the patient did not improve a whole lot continued to have significant bronchospasm and Dr. Massey was consulted. Bronchoscopy was performed. Bronch cultures are negative and he seems to be much improved after the bronchoscopy. A midline was placed. Urine culture grew E. coli, which is resistant to quite a lot of antibiotics, but is sensitive to Zosyn. He will continue to receive Zosyn for another 7 days at the snf. Blood pressures are controlled. Echocardiogram showed normal LV function. There is no evidence of CHF. His blood sugars have been controlled, has not been very well controlled as an outpatient and with the steroids that he was given here his blood sugars became extremely elevated and so the steroid dosage has been slowly cut back and the insulin dose has been increased and the blood sugars have finally under control. He does have chronic small poorly healing wounds, which is about the same. He also has been given offloading device and he will go back to the snf today on continued IV antibiotics. His left eye showed evidence of conjunctivitis tobramycin was given, which seems to have improved DISCHARGE MEDICATIONS: Will be DuoNeb q.4, Mucinex 600 b.i.d., Pulmicort 0.5 b.i.d. for 7 days, tobramycin solution 2 drops to left eye q.i.d. for 7 days, prednisone 5 daily for 7 days, atorvastatin 40 daily, Zofran 4 mg q. 6 p.r.n., acidophilus lactobacillus 3 tablets p.o. b.i.d., multivitamin 1 tablet daily, DuoNeb q. 4 Straight, Tylenol 650 q. 6 p.r.n., Liquacel 30 mL q 8, Protonix 40 daily, levothyroxine 25 mcg daily, Colace 100 daily, ascorbic acid 500 mg daily, Xarelto 20 daily, Percocet 5 q.4 p.r.n., bisacodyl 10 mg daily p.r.n., nystatin for local application, Amaryl 4 mg p.o. b.i.d., potassium 20 daily, mirtazapine 15 at bedtime, Lantus insulin has been changed to 40 units q. 5 p.m., Zosyn 3.375 IV q. 8 for 7 days. [place], [place] DISCHARGE SUMMARY NAME: RENY QUEVEDO [facility] UNIT #: [id number] ROOM: 403 DOCTOR: ROCÍO NASH MD BIRTHDATE: [birth year] ROCÍO NASH MD CM:NICOL [phone] ROCÍO NASH MD 02/26/18 0954 interface
--- NOTE | ~2018-02-21 | CON ---
[place], [place] REPORT OF CONSULTATION NAME: RENY QUEVEDO [facility] #: [id number] UNIT #: [id number] ROOM: 403 DOCTOR: ROYCE CHANG MDRAE BIRTHDATE: [birth year] DOS: 02/24/2018 PULMONARY CONSULTATION, EVALUATION AND MANAGEMENT CONSULTATION REQUESTED BY: DR. ALMAZAN REASON FOR CONSULTATION: Assessment of possible bronchoscopy because of significant current retained secretion airway, inability to expectorate and ongoing acute exacerbation of chronic obstructive pulmonary disease. HISTORY OF PRESENT ILLNESS: This is a 77-year-old white male patient, current resident of [facility], brought to the hospital as the patient has been noted with increased symptoms of chest congestion, also noted with hypoxia at nursing facility with wheezing. The patient stated symptoms has been present for the past couple of weeks and not resolving. He cough excessively, unable to expectorate sputum and also noted some rattling in the chest. He does have symptoms of wheezing as well and increased shortness of breath that was noted at rest. The patient was assessed in the Emergency Room and hospitalized on 02/21/[address] Jennie Almazan. He has been rather treated with medication of bronchodilators, oxygen supplementation and the antibiotics as well as other medication. He failed to respond to the treatment. Continue to remain symptomatic. The patient denies any symptoms of chest pain or hemoptysis. His wheezing was still reported with symptoms of shortness of breath. REVIEW OF SYSTEMS: CONSTITUTIONAL: Fatigue and tiredness noted without any symptoms of fever or chills. EYES: Denies any burning, redness, or tenderness. Eyes for this patient was noted with some discharge noted from the left eye for this patient and redness that has been resolving. EARS, NOSE, THROAT SYMPTOMS: Denies sore throat, hoarseness, otalgia, postnasal drainage or epistaxis. CARDIOVASCULAR: Denies anginal pain, edema or pain in the lower extremities. GASTROINTESTINAL: Denies dysphagia, nausea, vomiting, diarrhea, abdominal pain, hematemesis, melena, hematochezia. GENITOURINARY: Denies dysuria, suprapubic pain, or hematuria. MUSCULOSKELETAL: Denies any joint pain, redness, or tenderness. SKIN: Denies abdominal lesions or rashes. CENTRAL NERVOUS SYSTEM: Denies dizziness, headache, diplopia or syncopal episodes. Remaining systems were reviewed with the patient, they were noted all negative. PAST MEDICAL HISTORY: Noted: 1. Longstanding COPD. 2. Chronic hypoxic respiratory failure. 3. Past history of ESBL urinary tract infection. 4. Type 2 diabetes mellitus. 5. Essential hypertension. [place], [place] REPORT OF CONSULTATION NAME: RENY QUEVEDO UNIT #: [id number] ROOM: 403 DOCTOR: ROYCE CHANG MD,[facility] BIRTHDATE: [birth year] 6. Long-term atrial fibrillation, on anticoagulation with Xarelto. 7. History of deep venous thrombosis, left lower extremity. 8. Peripheral vascular disease. 9. History of surgery of the right foot of the patient as well and then subsequent removal of the hardware. 10. Left foot surgery as well. PAST SURGICAL HISTORY: 1. Surgery of both ankles. IVC filter placement. 2. Partial colectomy for the cancer of the colon. 3. Right total knee replacement. 4. Diskectomy. 5. The venous stripping of both lower extremities. SOCIAL HISTORY: The patient is current resident of nursing facility for long-term, has been known with tobacco use since teenager, 2 packs of cigarettes per day until 1986. No history of alcohol use or illicit drug use. He has worked in the [employer] for 42 years. FAMILY HISTORY: Noted noncontributory. MEDICATIONS: The current medication administered for this patient during this hospitalization: 1. Prednisone 10 mg daily. 2. Solu-Medrol 20 mg IV b.i.d. 3. Mucinex 600 mg p.o. b.i.d. 4. Sliding insulin coverage. 5. Synthroid 25 mcg daily. 6. Protonix 40 mg p.o. daily. 7. Lipitor 40 mg daily. 8. Remeron 15 mg at bedtime. 9. Potassium chloride 20 mEq p.o. daily. 10. Vitamin C 500 mg daily. 11. Amaryl 4 mg b.i.d. 12. DuoNeb q. 4 hours. 13. Tobramycin eyedrops. 14. IV Zosyn q. 8 hours. 15. Other p.r.n. medication for different symptoms were also noted, ordered. DRUG ALLERGIES: PENICILLIN CAUSING HIVES. However, the patient was receiving Zosyn without any side effects. PHYSICAL EXAMINATION: GENERAL: This is a 77-year-old white male who has been noted currently awake and alert without any acute distress, noted with excessive coughing and chest congestion on assessment at rest. Height of 5 feet 9 inches, weight of 250 pounds. VITAL SIGNS: The patient shows a normal temperature, respiratory rate 24-20. The heart rate of 88-96. Blood pressure of 104/62-120/56. The pulse oxygen saturation on room air 95% saturation. [place], [place] REPORT OF CONSULTATION NAME: [facility] QUE[facility] #[facility] [id number] UNIT #: [id number] ROOM: [facility] DOCTOR[facility] BIR[facility]: [birth year] HEENT: Moderate obesity. Head was atraumatic. Eyes nonicterus. Decreased posterior pharyngeal space, high tongue base, crowding of soft tissue structures. CARDIOVASCULAR: S1, S2 is audible. LUNGS: The expiratory wheezing in the lungs bilaterally. No crackles were heard. ABDOMEN: Soft. Moderate obesity. Bowel sounds present. EXTREMITIES: Without acute edema. CENTRAL NERVOUS SYSTEM: No apparent focal neurologic deficit. Exam was noted limited. SKIN: Visible skin, no lesions or rashes. MUSCULOSKELETAL: Without any acute deformities. LABORATORY DATA: CBC today: WBC count 10.9, hemoglobin 9.2, platelet count was normal, 90% segmented neutrophils were noted. BMP of the patient this morning, BUN 32, creatinine 1.58, glucose 327. Glucose was noted as 513 yesterday. The CMP of the patient, BUN 23, creatinine 1.35 were noted yesterday as well. PT/PTT on admission noted INR 1.3 and PTT of 34. Urinalysis noted positive for nitrites and 3+ leukocyte esterase, 2+ bacteria. The blood culture for the patient, which was done on 02/21/2018 does not show any abnormal bacterial growth. Culture of the urine for the patient was noted with heavy growth of E. coli for this patient was noted sensitive to the cefoxitin, amikacin, gentamicin, Levaquin, meropenem, Zosyn and some other antibiotics as well. IMPRESSION: 1. The patient who has been currently admitted to the hospital noted with ongoing acute exacerbation of chronic obstructive pulmonary disease with acute bronchitis, retained secretion of major airways, excessive chest congestion, inability to expectorate sputum. 2. Urinary tract infection. The patient is also suspected with E. coli versus colonization. 3. Severely uncontrolled hyperglycemia secondary to corticosteroids use as well noted in the admission. 4. History of type 2 diabetes mellitus and other medical problems noted in the past history were still noted. PLAN OF MANAGEMENT: Continue current dose of Solu-Medrol, bronchodilators and other medications. The patient has been assessed for therapeutic bronchoscopy planned to be done tomorrow morning. Risk and benefits of procedure has been discussed. Xarelto was placed on hold for the next 24 hours; however, the patient has been already administered Xarelto by the nursing staff this morning at 9:30. Even though the dose was scheduled at 10:00 a.m. The other plan of therapy and changes will be ordered based on progression of the illness and other assessments. Usual care. No change in bronchodilator frequency. No changes in the antibiotic will be necessary. The patient receiving the Zosyn for the patient that should give coverage for the acute bronchitis as well along with the current urinary tract infection be treated. Chest x-ray that was done on 02/21/2018 for the patient does not show any major pulmonary infiltration. The patient has been ordered CT scan of chest without contrast by the primary care attending, which is pending, will be reviewed once available to rule out [place], [place] REPORT OF CONSULTATION NAME: RENY QUEVEDO UNIT #: [id number] ROOM: 403 DOCTOR: RAE SALDAÑA MD BIRTHDATE: [birth year] any pneumonia. RAE CRANE MD CM:CONSTR:REPORT OF CONSULTATION 1051 03/10/18 0806 interface
--- NOTE | ~2018-02-21 | WRIGHTHP ---
[place], [place] PATIENT HISTORY AND PHYSICAL EXAM NAME: RENY QUEVEDO [facility] #: [id number] UNIT #: [id number] ROOM: 403 DOCTOR: ROCÍO NASH MD BIRTHDATE: [birth year] DOS: 02/21/2018 HISTORY OF PRESENT ILLNESS: The patient is very well known to us. The patient is a resident of [facility]. Nursing staff called saying that the patient was increasingly short of breath and has had a moist sounding cough and drainage from the left eye and was hypoxic, so he was sent out to the Emergency Room. In the ER, he remained slightly hypoxic and had bronchospasm, so was admitted. He denies having any complaints today, but appears to be in some mild respiratory distress. He denies having any chest pains or palpitations, does not have any fever or chills, does not have any abdominal pain, nausea, any emesis. PAST MEDICAL HISTORY: 1. Significant for multiple hospitalizations with exacerbation of chronic obstructive pulmonary disease. 2. Extended-spectrum beta-lactamase Escherichia coli in the past. 3. History of respiratory failure. 4. History of sepsis. 5. History of type 2 diabetes mellitus, noninsulin dependent. 6. Hypertension. 7. Chronic atrial fibrillation, long-term use of anticoagulants. 8. History of deep venous thrombosis, left leg. 9. Peripheral vascular disease. 10. History of hardware removal, right foot. 11. History of left foot surgery. MEDICATIONS: Breathing treatments, acidophilus, ascorbic acid, atorvastatin, Colace, glimepiride, lactobacillus, levothyroxine, mirtazapine, multivitamin, ondansetron, Protonix, potassium, Xarelto, Levemir. SOCIAL HISTORY: Nonsmoker, does not use any alcohol. PHYSICAL EXAMINATION: GENERAL: He is awake and alert and oriented, in mild to moderate respiratory distress. VITAL SIGNS: Graphic trend shows a pressure of 132/70, pulse of 76, respirations 18. LUNGS: Diminished breath sounds. No wheezes, rales, rhonchi heard. HEART: Regular. ABDOMEN: Obese, soft, nontender. EXTREMITIES: Without any edema, chronic skin changes noticed from peripheral vascular disease. Still has a lot of drainage from the left eye. ASSESSMENT AND PLAN: 1. The patient who presents with shortness of breath, hypoxic respiratory failure, most likely from exacerbation of chronic obstructive pulmonary disease. He was placed on IV steroids. 2. Acute tracheobronchitis, possible early pneumonia seen on chest x-ray. IV Zosyn as ordered. 3. Urinary tract infection in the past with extended-spectrum beta-lactamase. [place], [place] PATIENT HISTORY AND PHYSICAL EXAM NAME: RENY QUEVEDO UNIT #: [id number] ROOM: 403 DOCTOR: ROCÍO NASH MD BIRTHDATE: [birth year] Repeat cultures will be sent. 4. Conjunctivitis. Cultures of the drainage will be ordered and the patient will be placed on tobramycin eyedrops. Patient's overall prognosis remains poor and guarded. 5. Type 2 diabetes mellitus. Blood sugars to be checked twice daily, coverage scale insulin have been ordered. ROCÍO NASH MD CM:HISPHYS:PATIENT HISTORY AND PHYSICAL EXAMINATION [id number] ROCÍO NASH MD 02/22/18 1019 interface
--- NOTE | ~2018-02-21 | PR ---
[place], [place] PROGRESS NOTE NAME: RENY QUEVEDO [facility] #: [id number] UNIT #: [id number] ROOM: 403 DOCTOR: ROCÍO NASH MD BIRTHDATE: [birth year] DOS: 02/25/2018 SUBJECTIVE: The patient is about the same. Does not have any new complaints. OBJECTIVE: VITAL SIGNS: Blood pressure is 144/79, pulse of 84, respirations 19, temperature 97.6. LUNGS: Diminished with some scattered rhonchi. HEART: Regular. ABDOMEN: Obese. EXTREMITIES: Without any edema. ASSESSMENT AND PLAN: 1. Acute exacerbation of chronic obstructive pulmonary disease, on maximal treatment plan. 2. Acute tracheobronchitis. CT of the chest done yesterday showed chronic inflammatory changes and interstitial changes, inflammatory nodules, but no actual pneumonia was seen. Dr. Massey was consulted and he scheduled the patient for a bronchoscopy today. 3. Benign hypertension. Echocardiogram shows normal LV function. 4. Type 2 diabetes mellitus insulin-dependent. Blood sugar is not controlled. Further increases in medications have been made. 5. Recent urinary tract infection with Escherichia coli, which is resistant to many antibiotics. We will plan on placing a midline and discharging the patient to the care home on IV antibiotics. ROCÍO NASH MD CM:PNTRANS [id number] ROCÍO NASH MD 02/26/18 1247 interface
[2018-02-21 16:37] VITALS: BP 117/60
[~2018-02-21 16:37] MED LIST changes: +FLEET MINERAL133 ML R; -GLUCAGEN DIAGNOS1 MG IJ; +GLUCAGEN DIAGNOS1 MG IM; +MACRODANTIN100 M1 PO; +NYSTATIN1 EAC5 T
[2018-02-21 17:34] LABS: BASO # 0.1 10*3/uL (0.0-0.1); BASO % 0.4 % (0.0-1.0); EOS # 0.1 10*3/uL (0.0-0.4); EOS % 0.8 % (1.0-4.0); HEMATOCRIT 33.4 % (42.0-52.0); LYMPH # 2.3 10*3/uL (1.3-4.4); LYMPH % 17.7 % (27.0-41.0); MEAN CELL VOLUME 76.8 fl (80.0-94.0); MEAN CORPUSCULAR HGB CONC 29.9 g/dl (33.0-37.0); MONO # 1.4 10*3/uL (0.1-1.0); MONO % 11.4 % (3.0-9.0); NEUT # 8.8 10*3/uL (2.3-7.9); NEUT % 69.2 % (47.0-73.0); PLATELET COUNT AUTOMATED 235 10*3/uL (130-400); RED BLOOD COUNT 4.35 10*6/uL (4.50-5.90); RED CELL DISTRI WIDTH 18.6 % (0-14.5); WHITE BLOOD COUNT 12.7 10*3/uL (4.8-10.8)
[2018-02-21] MEDS ORDERED: AMARYL4 MG PO (17:46)
[2018-02-21] MEDS ORDERED: ARTIFICIAL TEAR15 M1 OPH (17:47)
[2018-02-21 17:50] LABS: ACT PARTIAL THROMBO TIME 34.4 SECONDS (20.8-31.5); INTERNATIONAL NORM RATIO 1.3 (2.0-3.5)
[2018-02-21 17:52] LABS: ALBUMIN 2.9 gm/dl (3.1-4.5); ALKALINE PHOSPHATASE 98 U/L (45-117); BUN 23 mg/dl (7-24); CHLORIDE 104 mmol/L (98-107); CREATININE 1.35 mg/dL (0.70-1.30); POTASSIUM 4.4 mmol/L (3.5-5.1); SGOT/AST 23 IU/L (3-35); SGPT/ALT 23 U/L (12-78); SODIUM 138 mmol/L (136-145); TOTAL PROTEIN 7.9 gm/dL (6.4-8.2)
[2018-02-21 17:53] LABS: TROPONIN I 0.024 ng/ml (<0.045)
[2018-02-21 18:00] VITALS: BP 117/60
[2018-02-21] MEDS ORDERED: K-TAB20 MEQ PO (18:02)
[2018-02-21] MEDS ORDERED: REMERON15 M2 PO (18:03)
[2018-02-21 18:41] LABS: BILIRUBIN NEGATIVE (NEGATIVE); BLOOD 3+ (NEGATIVE); CLARITY CLOUDY (CLEAR); COLOR YELLOW (YELLOW); GLUCOSE NEGATIVE (NEGATIVE); KETONE NEGATIVE (NEGATIVE); LEUKO ESTERASE 3+ (NEGATIVE); NITRITE POSITIVE (NEGATIVE); PH 6.5 (5.0-9.0); SPECIFIC GRAVITY <= 1.005 (1.005-1.030); UROBILINOGEN 0.2 E.U./dl (0.2-1.0)
[2018-02-21 18:47] LABS: BACTERIA 2+; RBC 21-30 rbc/hpf (0-2); WBC TNTC wbc/hpf (0-5)
[2018-02-21 19:42] VITALS: BP 104/47
[2018-02-21 20:00] VITALS: BP 100/55
[2018-02-22] VITALS: BP 136/56
[2018-02-22 08:00] VITALS: BP 110/50
[2018-02-22 12:00] VITALS: BP 134/55
[2018-02-22 16:00] VITALS: BP 127/58
[2018-02-22 20:00] VITALS: BP 100/54
[2018-02-23] VITALS: BP 110/56
[2018-02-23 08:00] VITALS: BP 121/75
[2018-02-23 12:00] VITALS: BP 101/26
[2018-02-23 13:52] LABS: CREATININE 1.7 mg/dL (0.70-1.30); POTASSIUM 4.3 mmol/L (3.5-5.1)
[2018-02-23 16:00] VITALS: BP 104/62
[2018-02-23 20:00] VITALS: BP 108/56
[2018-02-24] VITALS: BP 103/88
[2018-02-24 06:10] LABS: HEMATOCRIT 31.2 % (42.0-52.0); HEMOGLOBIN 9.2 g/dl (14.0-18.0); MEAN CELL VOLUME 76.8 fl (80.0-94.0); MEAN CORPUSCULAR HGB 22.7 pg (27.0-31.0); MEAN CORPUSCULAR HGB CONC 29.5 g/dl (33.0-37.0); MEAN PLATELET VOLUME 11.7 fl (9.6-12.3); PLATELET COUNT AUTOMATED 269 10*3/uL (130-400); RED BLOOD COUNT 4.06 10*6/uL (4.50-5.90); RED CELL DISTRI WIDTH 18.4 % (0-14.5); WHITE BLOOD COUNT 10.9 10*3/uL (4.8-10.8)
[2018-02-24 06:11] LABS: CREATININE 1.58 mg/dL (0.70-1.30); POTASSIUM 4.7 mmol/L (3.5-5.1)
[2018-02-24 06:52] LABS: MICROCYTOSIS SLIGHT; PLATELET SUFFICIENCY NORMAL (NORMAL); POLYCHROMASIA SLIGHT; TOTAL CELLS COUNTED 100 #CELLS
[2018-02-24 06:53] LABS: BURR CELLS FEW
[2018-02-24 08:00] VITALS: BP 120/56
[2018-02-24 16:00] VITALS: BP 125/51
[2018-02-24 20:00] VITALS: BP 125/57
[2018-02-25] VITALS (7 sets, daily range): BP systolic 105–153; BP diastolic 46–88
[2018-02-25 06:28] LABS: BASO % 0.1 % (0.0-1.0); HEMOGLOBIN 8.8 g/dl (14.0-18.0); LYMPH # 0.8 10*3/uL (1.3-4.4); LYMPH % 8.9 % (27.0-41.0); MEAN CELL VOLUME 76.1 fl (80.0-94.0); MEAN CORPUSCULAR HGB 22.3 pg (27.0-31.0); MEAN CORPUSCULAR HGB CONC 29.3 g/dl (33.0-37.0); MONO # 0.7 10*3/uL (0.1-1.0); MONO % 7.8 % (3.0-9.0); NEUT # 7.3 10*3/uL (2.3-7.9); NEUT % 80.9 % (47.0-73.0); NUCLEATED RED BLOOD CELL 0.2 % (0.0-0.0); PLATELET COUNT AUTOMATED 265 10*3/uL (130-400); RED BLOOD COUNT 3.94 10*6/uL (4.50-5.90); RED CELL DISTRI WIDTH 18.3 % (0-14.5)
[2018-02-25 07:12] LABS: POTASSIUM 4.6 mmol/L (3.5-5.1)
[2018-02-25 07:34] LABS: CREATININE 1.45 mg/dL (0.70-1.30)
[2018-02-26] VITALS: BP 130/83
[2018-02-26 08:00] VITALS: BP 132/57
[2018-02-26] MEDS ORDERED: PULMICORT RESP0.5 MG NEB (08:30)
[2018-02-26] MEDS ORDERED: Tobrex Ophth S2.5 ML OPH (08:30)
[2018-02-26] MEDS ORDERED: PREDNISONE10 MG PO (08:30)
[2018-02-26] MEDS ORDERED: MUCINEX ER600 MG PO (08:30)
[2018-02-26] MEDS ORDERED: Lantus SC (08:35)
[2018-02-26] MEDS ORDERED: GLIMEPIRIDE4 M1 PO (08:35)
[2018-02-26 12:00] VITALS: BP 117/64
[2018-02-26 15:05] LABS: ACID FAST SPEC PROCESSING Concentration (.)
[2018-03-27 16:08] LABS: M AVIUM COMPLEX Positive (.); M GORDONAE Not Indicated (.); M KANSASII Not Indicated (.); M TUBERCULOSIS COMPLEX Negative (.)
[2018-03-30 08:01] LABS: ACID FAST CULTURE Positive (.)
== END 2018-02-26 13:07 | DRG 190 ==
LOC: ED 16:37 → 4E 19:29 → EDHOLD 19:29 → 4E 19:56
PROVIDERS: Internal Medicine; Internal Medicine Critical Care Medicine; Nurse Practitioner Family
PROC: 0BC88ZZ Extirpation of Matter from Left Upper Lobe Bronchus, Via Natural or Artificial Opening Endoscopic (ICD-10-PCS; principal; 2018-02-25)
PROC: 0BC78ZZ Extirpation of Matter from Left Main Bronchus, Via Natural or Artificial Opening Endoscopic (ICD-10-PCS; principal; 2018-02-25)
PROC: 0BC98ZZ Extirpation of Matter from Lingula Bronchus, Via Natural or Artificial Opening Endoscopic (ICD-10-PCS; principal; 2018-02-25)
PROC: 0BC68ZZ Extirpation of Matter from Right Lower Lobe Bronchus, Via Natural or Artificial Opening Endoscopic (ICD-10-PCS; principal; 2018-02-25)
PROC: 0BCB8ZZ Extirpation of Matter from Left Lower Lobe Bronchus, Via Natural or Artificial Opening Endoscopic (ICD-10-PCS; principal; 2018-02-25)
PROC: 0BC48ZZ Extirpation of Matter from Right Upper Lobe Bronchus, Via Natural or Artificial Opening Endoscopic (ICD-10-PCS; principal; 2018-02-25)
PROC: 0BC18ZZ Extirpation of Matter from Trachea, Via Natural or Artificial Opening Endoscopic (ICD-10-PCS; principal; 2018-02-25)
PROC: 0BC58ZZ Extirpation of Matter from Right Middle Lobe Bronchus, Via Natural or Artificial Opening Endoscopic (ICD-10-PCS; principal; 2018-02-25)
PROC: 05HY33Z Insertion of Infusion Device into Upper Vein, Percutaneous Approach (ICD-10-PCS; principal; 2018-02-25)
PROC: 0BC38ZZ Extirpation of Matter from Right Main Bronchus, Via Natural or Artificial Opening Endoscopic (ICD-10-PCS; principal; 2018-02-25)
DX: J44.1 Chronic obstructive pulmonary disease with (acute) exacerbation (principal); N17.0 Acute kidney failure with tubular necrosis; N39.0 Urinary tract infection, site not specified; T17.590A Other foreign object in bronchus causing asphyxiation, initial encounter; J96.11 Chronic respiratory failure with hypoxia; J44.0 Chronic obstructive pulmonary disease with (acute) lower respiratory infection; J20.9 Acute bronchitis, unspecified; H10.9 Unspecified conjunctivitis; I11.0 Hypertensive heart disease with heart failure; L89.151 Pressure ulcer of sacral region, stage 1; E11.51 Type 2 diabetes mellitus with diabetic peripheral angiopathy without gangrene; Z96.651 Presence of right artificial knee joint; R62.7 Adult failure to thrive; I48.2 Chronic atrial fibrillation; E11.65 Type 2 diabetes mellitus with hyperglycemia; T38.0X5A Adverse effect of glucocorticoids and synthetic analogues, initial encounter; Z96.652 Presence of left artificial knee joint; B96.20 Unspecified Escherichia coli [E. coli] as the cause of diseases classified elsewhere; X58.XXXA Exposure to other specified factors, initial encounter; I50.9 Heart failure, unspecified; E03.9 Hypothyroidism, unspecified; Z87.440 Personal history of urinary (tract) infections; Z88.0 Allergy status to penicillin; Z79.4 Long term (current) use of insulin; Z79.899 Other long term (current) drug therapy; Z86.718 Personal history of other venous thrombosis and embolism; Z82.49 Family history of ischemic heart disease and other diseases of the circulatory system; Z80.9 Family history of malignant neoplasm, unspecified; Y92.89 Other specified places as the place of occurrence of the external cause; Y93.89 Activity, other specified; Y99.8 Other external cause status

== ENCOUNTER 2018-12-03 22:18 | Inpatient (IN) | payer MEDICARE, OTHER ==
[~2018-12-03] VITALS: Ht 175.2 cm; Wt 117.2 kg
--- NOTE | ~2018-12-03 | PR ---
[place], [place] PROGRESS NOTE NAME: RENY QUEVEDO UNIT #: [id number] ROOM: [facility] DOCTOR: BRINDA DEXTER MD BIRTHDATE: [birth year] DOS: 12/08/2018 SUBJECTIVE: The patient was examined in the Intensive Care Unit. Patient of mine who I know for many years, was seen by Dr. Louise, as he was covering me. The patient is extubated. He is now in the Intensive Care Unit. Denies any chest discomfort. Does have chronic shortness of breath. REVIEW OF SYSTEMS: Somewhat limited because of the critical nature. The patient was also seen by a [employer] service technician. PHYSICAL EXAMINATION: GENERAL: The patient is alert and oriented x 3. HEENT: Unremarkable. The patient was febrile yesterday. He is much better today. VITAL SIGNS: Blood pressure is 130/70. He is in sinus rhythm. Today it is 130/60. I's and O's, negative, 580 mL. LUNGS: Diminished air entry. HEART: Sounds are regular. ABDOMEN: Soft, nontender. EXTREMITIES: Trace edema. NEUROLOGIC: Appears to be stable. LABORATORY DATA: Shows hemoglobin 10, hematocrit 34.8. Potassium is only 2.9, creatinine is 1.4. Chest x-ray done yesterday, basically shows hypoinflated lungs, grossly no lung consolidation. No evidence of congestive heart failure. ASSESSMENT: The patient with chronic diastolic heart failure, well compensated; history of atrial fibrillation, now in sinus rhythm; COPD, status post extubation. PLAN: Continue the present care and I will follow up. BRINDA DEXTER MD CM:PNTRANS [id number] BRINDA DEXTER MD 12/08/18 0751 interface
--- NOTE | ~2018-12-03 | DS ---
[place], [place] DISCHARGE SUMMARY NAME: RENY QUEVEDO UNIT #: [id number] ROOM: 508 DOCTOR: ROCÍO NASH MD BIRTHDATE: [birth year] DOS: 12/14/2018 DIAGNOSES: 1. Acute hypercapnic respiratory failure. 2. Clostridium difficile diarrhea. 3. Extended-spectrum beta-lactamase Escherichia coli. 4. Klebsiella oxytoca in the sputum. 5. Morbid obesity with obesity hypoventilation. 6. Adult failure to thrive. 7. Benign hypertension. 8. Chronic atrial fibrillation. 9. Chronic obstructive pulmonary disease oxygen dependent with chronic respiratory failure. 10. Type 2 diabetes mellitus, insulin-dependent. 11. History of deep venous thrombosis. 12. Peripheral vascular disease. 13. History of hardware removal of the right foot, chronic poorly healing wounds. DISCHARGE MEDICATIONS: Medications on discharge will be Vancomycin 250 mg p.o. q.i.d. for 2 weeks, t.i.d. for 1 week, twice a day for 1 week, and then discontinued. Metronidazole 250 mg q. 6 for 2 weeks, q. 8 for 1 week, twice a day for 1 week, and then discontinued. Breathing treatments with DuoNeb q. 4 hours, Xarelto 20 daily, atorvastatin 40 daily, diltiazem 180 daily, Percocet 5 q. 6 hours p.r.n., Tylenol 650 q. 6 hours p.r.n., Remeron 15 at bedtime, potassium 20 daily, Pulmicort 0.5 b.i.d., guaifenesin 600 b.i.d., artificial tears twice a day, Lomotil one tablet p.o. q. 6 hours p.r.n. for diarrhea, Colace 100 mg p.o. b.i.d. p.r.n. for constipation, mag oxide 30 mL p.r.n. for constipation, bisacodyl 10 q. day p.r.n. for constipation, mineral oil 133 mL rectally for constipation, MiraLax 17 g daily p.r.n. for constipation, Zofran 4 mg q. 6 hours p.r.n., Protonix 40 daily, Florastor three tablets twice a day, Januvia 100 daily, insulin sliding scale, Lantus 50 units q. 5.p.m., glimepiride 4 mg daily, levothyroxine 25 mcg daily, nystatin for local application to the groin and affected areas with vitamin C 500 daily, multivitamin 1 tablet daily, Liqui-Stefanie 30 mL q. 8 hours, and meropenem 1 g IV q. 8 hours for 5 more days. Please do a repeat urine culture after the completion of antibiotics. HOSPITAL COURSE: This patient is very well known to us, comes in with complaints of difficulty breathing. By the time I saw him the morning of admission, he was unresponsive. Blood gas revealed that he was hypercapnic. He was sent to ICU, was intubated, after being placed on a BiPAP without any improvement. After intubation, he improved remarkably well. He is taken off the ventilator. Dr. Massey was consulted. Urine cultures, blood cultures were done, which have all come back negative. Sepsis was ruled out with negative blood cultures. He did have acute kidney injury possibly from over diuresis. IV fluids were given. Kidney functions improved and is back to baseline. Once IV antibiotics were started he started having a low-grade fever. White cell count started going up; again, he was becoming septic. Blood cultures and urine cultures, C. diff titers were negative. Sputum culture showed Klebsiella oxytoca. C. diff titers came back positive and ESBL was noticed in the urine. [place], [place] DISCHARGE SUMMARY NAME: RENY QUEVEDO [facility] #: [id number] UNIT #: [id number] ROOM: 508 DOCTOR: ROCÍO NASH MD BIRTHDATE: [birth year] Blood cultures again came back negative. Appropriate antibiotics were started and the fevers have resolved. PICC line was placed and the patient to go to [facility] where he lives long-term. Diet is ADA 1800, blood sugars twice a day. ROCÍO NASH MD CM:DISCHELIZ [id number] ROCÍO NASH MD 12/14/18 7297 interface
--- NOTE | ~2018-12-03 | PR ---
[place], [place] PROGRESS NOTE NAME: RENY QUEVEDO UNIT #: [id number] ROOM: 508 DOCTOR: ROYCE CHANG MD,RAE BIRTHDATE: [birth year] DOS: 12/12/2018 PULMONARY PROGRESS NOTE SUBJECTIVE: The patient noted without any acute distress this morning of assessment, remains comfortable, resting on the bed, has not been reported any acute new respiratory symptoms of complaint for shortness of breath, coughing, or chest pain. OBJECTIVE: VITAL SIGNS: For the patient, which were recorded showed the temperature noted as normal. Respiratory rate recorded as 18, heart rate 89, blood pressure 107/56. Pulse oxygen saturation on 3 liters nasal cannula 97% saturation. HEENT: Head was atraumatic. EYES: No icterus. NECK: Supple. CARDIOVASCULAR: S1, S2 is audible. LUNGS: Noted without any wheezing or crackles. ABDOMEN: Soft and obese. EXTREMITIES: Chronic changes. IMPRESSION: 1. The patient with Escherichia coli urinary tract infection with extended spectrum beta lactamase as well as Clostridium difficile colitis. 2. Stable respiratory failure. PLAN OF TREATMENT: No changes in the plan of care. Continue the patient's current plan of management. Usual care. RAE CRANE MD CM:PNTRANS [id number] RAE CHANG MD 12/22/18 0904 interface
--- NOTE | ~2018-12-03 | PR ---
[place], [place] PROGRESS NOTE NAME: RENY QUEVEDO UNIT #: [id number] ROOM: 508 DOCTOR: ROYCE CHANG MD,RAE BIRTHDATE: [birth year] DOS: 12/13/2018 PULMONARY PROGRESS NOTE SUBJECTIVE: The patient appeared to be comfortable at this time, resting in the bed, noted fully awake and alert. Denies any symptoms of chest pain, stating the diarrhea was improving. There was no abdominal pain. Does not have any much sputum expectoration at the present time. OBJECTIVE: VITAL SIGNS: For the patient, which have been recorded shows a normal temperature, respiratory rate of 18, heart rate 98, blood pressure 140/50. The pulse oxygen saturation recorded on 3 liters nasal cannula 99% saturation. BiPAP 30% oxygen supplementation 98% saturation. HEENT: Examination shows head was atraumatic. Eyes nonicterus. NECK: Supple. CARDIOVASCULAR: S1, S2 is audible. LUNGS: Noted without any wheezing or crackles at the present time. ABDOMEN: Soft, nontender. Bowel sounds present with chronic changes. IMPRESSION: Stable respiratory status, resolving acute Clostridium difficile colitis, resolving acute urinary tract infection, stable respiratory failure with hypercapnia. PLAN OF MANAGEMENT: No changes are planned for the patient at this time. Continuation of current plan of management, other therapy, and plan of care as in progress with usual care. RAE CRANE MD CM:PNTRANS [id number] RAE CHANG MD 12/22/18 0905 interface
--- NOTE | ~2018-12-03 | PR ---
[place], [place] PROGRESS NOTE NAME: RENY QUEVEDO UNIT #: [id number] ROOM: [facility] DOCTOR: ROCÍO NASH MD BIRTHDATE: [birth year] DOS: 12/09/2018 SUBJECTIVE: The patient has been doing well. Unfortunately, he started spiking a fever. He denies having any complaints. He does not have any pain anywhere. OBJECTIVE: VITAL SIGNS: Blood pressure is 131/52, pulse of 85, respirations 18, temperature 99.1, T-max of 101.7. LUNGS: Diminished breath sounds. Clear. HEART: Regular, slightly tachycardic about 100. ABDOMEN: Obese. Small wound of the abdominal wall, which does not appear to be infected. EXTREMITIES: Legs without any edema. Left leg, small wound on the medial malleolus, which again is early stage 1. LABORATORY DATA: No labs available. ASSESSMENT AND PLAN: 1. Fever of unknown etiology. Blood cultures and urine cultures, CT of the chest will be ordered. 2. Chronic obstructive pulmonary disease with acute hypercapnic respiratory failure. Dr. Massey has already ordered a Trilogy ventilator. 3. Type 2 diabetes mellitus. Blood sugars controlled. 4. Chronic atrial fibrillation with a slightly rapid ventricular response, already on long-term use of anticoagulants. ROCÍO NASH MD CM:PNTRANS [id number] ROCÍO NASH MD 12/10/18 0044 interface
--- NOTE | ~2018-12-03 | PR ---
[place], [place] PROGRESS NOTE NAME: RENY QUEVEDO UNIT #: [id number] ROOM: [facility] DOCTOR: CHAITANYA WAN MD BIRTHDATE: [birth year] DOS: 12/06/2018 SUBJECTIVE: The patient intubated and on mechanical ventilation, being weaned off the ventilator by Dr. Massey. OBJECTIVE: GENERAL APPEARANCE: The patient is alert and oriented x 3, in no visible distress. Generalized weakness and morbid obesity. The patient is intubated. VITAL SIGNS: Blood pressure 131/59, breathing 14 times per minute, heart rate ranging between 90-106 beats per minute, fever of up to 101.8 degrees Fahrenheit. HEENT AND NECK: Exam within normal limits. CARDIOVASCULAR SYSTEM: Heart rate is regular in rate and rhythm. S1 and S2 normally audible. LUNGS: Clear to auscultation. ABDOMEN: Soft, nontender. No obvious organomegaly. Bowel sounds are present. EXTREMITIES: Without significant cyanosis or edema. SKIN: The patient also has a skin discoloration measuring about 6 inches on his left forearm where he had infiltration of the Levophed infusion 2 days ago. IMPRESSION: 1. The patient with acute over chronic respiratory failure, remains intubated and on mechanical ventilation, Dr. Massey is trying to wean him off mechanical ventilation. 2. The patient developed fever of up to 102 degrees Fahrenheit for which I am growing 2 blood cultures and getting a urine culture on him. 3. Extended-spectrum beta-lactamase urinary tract infection, being treated. 4. Acute exacerbation of chronic obstructive pulmonary disease with acute respiratory failure. 5. Benign essential hypertension, treated and controlled. 6. Left forearm with Levophed infiltration, treated with nitroglycerin paste, has been evaluated by Dr. Garcia, the presidential support specialist and surgeon, followed closely. 7. Benign essential hypertension, being followed and treated. 8. Deep venous thrombosis involving the left lower extremity. 9. Chronic atrial fibrillation. The patient anticoagulated with Xarelto. 10. Acute over chronic diastolic type congestive heart failure, treated with diuresis. 11. Chronic kidney disease and diabetic nephropathy, stage 3B kidney functions are being followed. [place], [place] PROGRESS NOTE NAME: RENY QUEVEDO UNIT #: [id number] ROOM: [facility] DOCTOR: CHAITANYA WAN MD BIRTHDATE: [birth year] CHAITANYA WAN MD CM:PNTRANS [id number] CHAITANYA WAN MD 12/07/18 0056 interface
--- NOTE | ~2018-12-03 | PR ---
[place], [place] PROGRESS NOTE NAME: RENY QUEVEDO UNIT #: [id number] ROOM: [facility] DOCTOR: ROYCE CHANG MD,RAE BIRTHDATE: [birth year] DOS: 12/06/2018 PULMONARY CRITICAL CARE EVALUATION AND MANAGEMENT SUBJECTIVE: The patient was noted comfortable at this time, resting on the bed this morning of assessment, remains intubated and sedated. Mental status has been noted the patient to be opening his eyes. The patient to follow some vocal commands with reduction of sedation. Has not been noted hemodynamic instabilities with pressure. The patient has been completely tapered off because improvement in the hypotension. He has been noted infiltration of the upper extremity with intravenous Levophed, which has been noted without any major issue at the present time. It seemed to be stable. Low-grade fever noted. Feeding was continued with the NG tube feeding, which has been tolerated, trophic feeding. He has not been noted any acute new hemodynamic severe respiratory problem in the last 24 hours. PHYSICAL EXAMINATION: GENERAL: The patient is currently intubated, remains on mechanical ventilator this morning without any distress. Orogastric tube and endotracheal tube both noted in place. VITAL SIGNS: Temperature 99.5 degree Fahrenheit, respiration 16, heart rate of 93, blood pressure 120/52. Pulse oxygen saturation recorded as 98% saturation. HEENT: Examination shows head was atraumatic. Eyes nonicterus. NECK: Supple. CARDIOVASCULAR: S1, S2 is audible. LUNGS: The patient was noted with decreased breath sounds. There were no wheezing or crackles heard. ABDOMEN: Soft and obese. EXTREMITIES: The patient with resolving edema. MUSCULOSKELETAL: Without any acute deformity. VISIBLE SKIN: No lesions or rashes. CENTRAL NERVOUS SYSTEM: At this time appeared to be improving in the mental status. LABORATORY DATA: CBC this morning, WBC count 12.3, hemoglobin 10.8, hematocrit 35.2, platelet count 345,000. CMP this morning, BUN 38, creatinine 2.34, glucose 153. Albumin 2.8. Arterial blood gas, pH of 7.46, pCO2 of 39, pO2 of 127, 30% oxygen, assist control, volume control on mechanical ventilation. IMPRESSION: The patient who has been currently noted with: 1. Improving acute on chronic hypercapnic hypoxic respiratory failure. 2. The patient with chronic morbid obesity. 3. Acute congestive heart failure with systolic dysfunction with left ventricle ejection fraction currently noted 30% decreased from previously more than 50% in the past. 4. The patient with acute exacerbation of chronic obstructive pulmonary disease. 5. Severe debility as well. 6. Metabolic alkalosis, multifactorial. [place], [place] PROGRESS NOTE NAME: RENY QUEVEDO UNIT #: [id number] ROOM: [facility] DOCTOR: ROYCE CHANG MD,RAE BIRTHDATE: [birth year] PLAN OF THERAPY: Weaning will be started today. The patient will be started on CPAP 5, pressure support of 10 for a couple of hours if tolerated ____ arterial blood gas and the patient appeared to be stable clinically, may be liberated from mechanical ventilator. Post-liberation of mechanical ventilation the patient definitely would be needing the BiPAP medical respiratory failure support. Other therapy, plan and management, the patient additional treatment changes will be made based on progression of the illness. Usual care, other therapy, plan of management, care plan and treatment. Supportive care. Total pulmonary critical care evaluation and management was 34 minutes. RAE CRANE MD CM:PNTRANS [id number] RAE CHANG MD 12/06/18 1445 interface
--- NOTE | ~2018-12-03 | PR ---
[place], [place] PROGRESS NOTE [id number] UN[facility] #: [id number] ROOM: [facility] DOCTOR: RAMON IZAGUIRRE DO BIRTHDATE: [birth year] DOS: 12/08/2018 INFECTIOUS DISEASE PROGRESS NOTE: SUBJECTIVE: The patient was resting comfortably in bed at this time. The patient is doing well since he was liberated from mechanical ventilation. The patient states that he feels well today. The patient has been titrated off of medications that were such as pressors. PHYSICAL EXAMINATION: GENERAL: The patient was resting comfortably in bed. VITAL SIGNS: The patient had a T-max on the of 100.1. Since then the patient has been afebrile. Today's temperature is 98.7, pulse 84, respiratory rate 20, pulse oximetry 99% on 4 liters by nasal cannula. HEENT: Atraumatic, normocephalic. Eyes nonicteric. NECK: Supple, nontender, trachea midline. CARDIOVASCULAR: S1, S2 are audible. LUNGS: The patient is noted to have clear breath sounds bilaterally. ABDOMEN: Soft, nontender. Bowel sounds are present. EXTREMITIES: No acute changes. No clubbing, cyanosis or edema. MUSCULOSKELETAL: Without any acute deformities. CENTRAL NERVOUS SYSTEM: Generalized weakness and fatigue, but no focal neurologic deficits. LABORATORY DATA: White count 14.8, hemoglobin is 10.0, hematocrit 34.8, platelet count is 321. Chemistries: Sodium 142, potassium 2.9, chloride 101, carbon dioxide 34, BUN 31, creatinine 1.42, calcium 8.4, phosphorus 4.0, magnesium 2.4, T-bili 0.5, AST 29, ALT 20, alkaline phosphatase 90, total protein 7.1, albumin 2.9. Microbiology: Urine from 12/04/2018 shows 25,000 CFUs of E. coli, is not clinically significant. Gram stain from sputum culture shows normal bruce. ASSESSMENT: 1. Acute on chronic hypercapnic hypoxic respiratory failure. 2. The patient is afebrile, but still considered to have fever of unknown origin. 3. Morbid obesity. 4. Obstructive sleep apnea. 5. Resolving acute kidney injury. 6. Failure to thrive, adult. PLAN: Continue bronchodilators, oxygen supplementation at this time. Continue antibiotics as well as monitor any other temperatures. The patient can be moved out of the ICU from pulmonology standpoint. The patient is to start to have PT and OT at this time. The patient continues to improve on this course. We can consider discharge back to the residential in the next few days. [place], [place] PROGRESS NOTE NAME: RENY QUEVEDO UNIT #: [id number] ROOM: [facility] DOCTOR: RAMON IZAGUIRRE DO BIRTHDATE: [birth year] Prosper Izaguirre DO RAE CRANE MD CM:LATHA [id number] RAMON IZAGUIRRE DO 12/08/181947 interface
--- NOTE | ~2018-12-03 | PR ---
[place], [place] PROGRESS NOTE NAME: RENY QUEVEDO UNIT #: [id number] ROOM: 508 DOCTOR: CHAITANYA WAN MD BIRTHDATE: [birth year] DOS: 12/11/2018 SUBJECTIVE: The patient is feeling much better. He has no new complaints today. He has generalized weakness. OBJECTIVE: GENERAL APPEARANCE: The patient is alert and oriented x 3, in no visible distress. Obesity and generalized weakness. VITAL SIGNS: Blood pressure 134/52, heart rate of 86 beats per minute, breathing 20 times per minute, temperature 98.6 degrees Fahrenheit. HEENT AND NECK: Exam within normal limits. CARDIOVASCULAR SYSTEM: Heart rate is regular in rate and rhythm. S1 and S2 normally audible. LUNGS: Clear to auscultation. ABDOMEN: Soft, nontender. No obvious organomegaly. Bowel sounds are present. EXTREMITIES: Without significant cyanosis or edema. IMPRESSION: 1. The patient's signs of infection and fever and Clostridium difficile colitis is in isolation and being treated with oral vancomycin. 2. Type 2 diabetes mellitus and diabetic nephropathy. Blood sugars are reasonably controlled. They are being monitored. 3. The patient with acute respiratory failure requiring mechanical ventilation, has been weaned off the ventilator and stable. 4. Acute diastolic type congestive heart failure, resolved with diuresis. 5. Infection with extended-spectrum beta-lactamase Escherichia coli, being treated with meropenem. CHAITANYA WAN MD CM:PNTRANS 1827 CHAITANYA WAN MD 12/12/18 0046 interface
--- NOTE | ~2018-12-03 | PR ---
[place], [place] PROGRESS NOTE NAME: RENY QUEVEDO UNIT #: [id number] ROOM: 508 DOCTOR: ROYCE CHANG MD,RAE BIRTHDATE: [birth year] DOS: 12/14/2018 SUBJECTIVE: The patient noted comfortable, resting comfortably in the bed. Denies any symptoms of chest pain, coughing or sputum expectoration, stating improvement in the diarrhea as well. OBJECTIVE: VITAL SIGNS: For the patient which was recorded at this time with a normal temperature, respiratory rate 20, heart rate 88, blood pressure 139/58. Pulse oxygen saturation recorded as 99% saturation. HEENT: Examination shows head was atraumatic. Eyes nonicterus. NECK: Supple. CARDIOVASCULAR: S1, S2 audible. LUNGS: The patient without any wheezing or crackles at the present time. ABDOMEN: Soft and obese, nontender. Bowel sounds present. The patient was noted with chronic obesity. EXTREMITIES: Without any clubbing or cyanosis. Chronic changes. IMPRESSION: 1. Stable respiratory status. The patient with resolving acute on chronic hypercapnia hypoxic respiratory failure. 2. Extended spectrum beta-lactamase urinary tract infection. 3. Congestive heart failure care. 4. Acute Clostridium difficile colitis. PLAN OF TREATMENT: No changes in plan of management at this time. All other previous treatment, the patient is in progress would be continued. Usual care. RAE CRANE MD CM:PNTRANS [id number] RAE CHANG MD 12/22/18 0907 interface
--- NOTE | ~2018-12-03 | PR ---
[place], [place] PROGRESS NOTE NAME: RENY QUEVEDO UNIT #: [id number] ROOM: 508 DOCTOR: ROYCE CHANG MD,RAE BIRTHDATE: [birth year] DOS: 12/10/2018 SUBJECTIVE: The patient has been noted comfortable at this time noted with intermittent fever, but not in any respiratory distress, noted comfortable resting on the bed. Denies symptoms of fever or chills. Fever was noted low grade at 100.5 degree Fahrenheit, intermittent last 24 hours. The patient has not reported any symptoms of hemoptysis. General weakness and fatigue was also noted. Remaining systems were reviewed and they were noted all negative. OBJECTIVE: GENERAL: This is an 78-year-old white male patient who has been currently resting on the bed noted awake and alert, using oxygen supplementation nasal cannula. VITAL SIGNS: For the T-max patient noted 100.5 degree Fahrenheit, respiratory rate 20-25, heart rate 89-101, blood pressure 120/57-136/52. The pulse oxygen saturation recorded as 97% saturation with 3 liters nasal cannula. HEENT: Examination shows head was atraumatic. Eyes nonicterus. NECK: Supple. CARDIOVASCULAR: S1, S2 is audible. LUNGS: Noted without any wheezing or crackles. Breaths are noted mildly decreased. ABDOMEN: Soft, nontender. Bowel sounds present. EXTREMITIES: Noted with chronic obesity findings. MUSCULOSKELETAL: Without any acute deformities. SKIN: No lesions or rashes. CENTRAL NERVOUS SYSTEM: Awake and alert. LABORATORY DATA: ESR was noted as 11. CBC that was done on 12/10/2018, WBC count 16.5, hemoglobin 10.6, and platelet count was normal. BMP this morning, BUN 32, creatinine 1.41, glucose 149. C-reactive protein was elevated. CT scan of the chest report as the CT scan personally reviewed does not show evidence of acute pneumonia. IMPRESSION: 1. The patient's leukocytosis, low grade fever, diarrhea, very strong possibility of C. diff colitis to be treated. There was no evidence of finding consistent with congestive heart failure clinically at this time. 2. Stable respiratory failure, chronic hypercapnia and hypoxia. 3. Morbid obesity as well. PLAN OF TREATMENT: Stool C. difficile toxin was also ordered. Continue in the meantime other therapy, plan of management, care plan and treatment. Continue to follow all the cultures results to assess for any additional areas of infection, which are non-pulmonary. ADDENDUM The patient is independently seen and examined in [id number] encounter, [place], [place] PROGRESS NOTE NAME: RENY QUEVEDO UNIT #: [id number] ROOM: 508 DOCTOR: ROYCE CHANG MD,RAE BIRTHDATE: [birth year] history was confirmed. Labs were reviewed. Assessment and management today was personally completed. Note done by the medical economics consultant was approved. was personally completed. Note done by the medical economics consultant was approved. RAE CRANE MD CM:PNTRANS [id number] RAE CHANG MD 12/22/18 0902 interface
--- NOTE | ~2018-12-03 | PR ---
[place], [place] PROGRESS NOTE NAME: RENY QUEVEDO UNIT #: [id number] ROOM: 508 DOCTOR: ROCÍO NASH MD BIRTHDATE: [birth year] DOS: 12/12/2018 SUBJECTIVE: The patient is not having any new complaints. His fever finally resolved after the C. diff was diagnosed and placed on medications. His urine culture also again came back showing ESBL E. coli. OBJECTIVE: VITAL SIGNS: Graphic trend shows a pressure of 110/56, pulse of 89, respirations 20, temperature 99.2. LUNGS: Diminished breath sounds. Clear. HEART: Irregular. ABDOMEN: Obese. EXTREMITIES: Without any edema. LABORATORY DATA: Blood cultures, no bacterial growth. Urine culture ESBL E. coli. Sputum culture, gram-negative bacteria light, light Klebsiella oxytoca, which is also sensitive to meropenem. ASSESSMENT AND PLAN: 1. Acute hypercapnic respiratory failure, status post artificial ventilation, doing well post extubation. Plan is to discharge him back to the intermediate on Trilogy ventilator. 2. Urinary tract infection with extended-spectrum beta-lactamase Escherichia coli. PICC line will be placed, meropenem will be continued. 3. Sputum culture with Klebsiella oxytoca, sensitive to meropenem. 4. Clostridium difficile colitis with minimal diarrhea, elevated white cell count. Repeat labs will be ordered for tomorrow. White cell count is trending down. Hopefully, plan to discharge him back to the intermediate tomorrow. ROCÍO NASH MD CM:PNTRANS [id number] ROCÍO NASH MD 12/12/18 1009 interface
--- NOTE | ~2018-12-03 | WRIGHTHP ---
[place], [place] PATIENT HISTORY AND PHYSICAL EXAM NAME: RENY QUEVEDO [facility] #: [id number] UNIT #: [id number] ROOM: [facility] DOCTOR: ROCÍO NASH MD BIRTHDATE: [birth year] DOS: 12/04/2018 HISTORY OF PRESENT ILLNESS: The patient recently was diagnosed with ESBL E. coli and was placed on cefoxitin IV, yesterday developed some increasing shortness of breath. The patient did not want to go to the hospital, but a chest x-ray was done, which showed CHF, was given diuretics in the longterm, but by midnight, the patient became unresponsive as per the nursing staff there. The patient was therefore sent out. This morning, the patient is unresponsive, lethargic. He does not respond to any questions. He is unable to question to me, appears to have increased respiratory rate with abdominal breathing. PAST MEDICAL HISTORY: Significant for: 1. Morbid obesity. 2. Recent diagnosis of ESBL Escherichia coli. 3. History of cholecystectomy with status post poorly healing wound, which is finally resolved. 4. Type 2 diabetes mellitus, insulin-dependent. 5. COPD, oxygen dependent. 6. Chronic atrial fibrillation, long-term use of anticoagulants. 7. Benign hypertension. 8. History of DVT of the leg. 9. Peripheral vascular disease. 10. History of left foot surgery, foot surgery, status post hardware removal in the right foot, chronic poorly healing wounds. MEDICATIONS: He is currently on are breathing treatments, Pulmicort, Percocet, vitamin C, atorvastatin, diltiazem, Colace, glimepiride, levothyroxine, Remeron, Protonix, potassium, Xarelto, Januvia, Lantus. SOCIAL HISTORY: Nonsmoker, does not use any alcohol. Lives in [facility]. His just recently. He does not have any children. He does have stepchildren. PHYSICAL EXAMINATION: VITAL SIGNS: Blood pressure is 154/76 at 8:00, pulse of 89, respirations 20, temperature 98.4. GENERAL: The patient is unresponsive, lethargic, abdominal breathing. LUNGS: Diminished breath sounds. Scattered rales. HEART: Irregular, heart rate in the 90s. ABDOMEN: Obese, soft. EXTREMITIES: Without any edema. ASSESSMENT AND PLAN: 1. The patient with acute congestive heart failure, most likely diastolic. The patient has been admitted. IV diuretics have been ordered. 2. Change in mental status, most likely from hypercapnic respiratory failure. ABG is pending. The patient is again transferred to the ICU because he is full code. BiPAP will be started. Consultation with Dr. Massey obtained. 3. Recent extended-spectrum beta-lactamases, he is most likely colonized so we will discontinue. His WBC count is slightly elevated at 13. He is on [place], [place] PATIENT HISTORY AND PHYSICAL EXAM NAME: RENY QUEVEDO UNIT #: [id number] ROOM: [facility] DOCTOR: ROCÍO NASH MD BIRTHDATE: [birth year] cefoxitin, which is being continued. 4. Chronic kidney disease, most likely diabetic nephropathy. Avoid nephrotoxic agents. Prognosis is poor and guarded. Discussed with nursing staff. ROCÍO NASH MD CM:HISPHYS:PATIENT HISTORY AND PHYSICAL EXAMINATION [id number] ROCÍO NASH MD 12/04/18 0908 interface
--- NOTE | ~2018-12-03 | PR ---
[place], [place] PROGRESS NOTE NAME: RENY QUEVEDO UNIT #: [id number] ROOM: 508 DOCTOR: ROYCE CHANG MD,RAE BIRTHDATE: [birth year] DOS: 12/10/2018 ADDENDUM The patient is independently seen and examined in [id number] encounter, history was confirmed. Labs were reviewed. Assessment and management today was personally completed. Note done by the medical detail representative was approved. RAE CRANE MD CM:LATHA [id number] RAE CHANG MD 12/11/18 1327 interface
--- NOTE | ~2018-12-03 | PR ---
[place], [place] PROGRESS NOTE NAME: RENY QUEVEDO UNIT #: [id number] ROOM: [facility] DOCTOR: ROYCE CHANG MD,RAE BIRTHDATE: [birth year] DOS: 12/07/2018 PULMONARY PROGRESS NOTE SUBJECTIVE: The patient noted comfortable at this time, resting on the bed, was liberated from mechanical ventilator yesterday successfully. Not noted in any respiratory distress. Orogastric tube in place to assess the patient's volume prior to starting the patient on feeding. He had not been noted with any acute hemodynamic instability at the present time. The patient has been started on free water supplementation because of the acute kidney injury, noted intravascular volume depletion. He had not been noted with symptoms of chest pain. He has been noted to be awake. He was noted with temperature elevation yesterday 101.8 degrees Fahrenheit and later became gradually afebrile, noted afebrile this morning. He has not been reported any pain in any parts of the body. The BiPAP was used yesterday post-liberation off mechanical ventilator as well. The review of systems cannot be effectively performed at the present time. PHYSICAL EXAMINATION: GENERAL: The patient was comfortably resting on the bed this morning of assessment. VITAL SIGNS: The T-max of 101.8 degrees Fahrenheit, noted afebrile later on. Respiratory rate 15-18. Heart rate of 116-75, blood pressure 133/56-123/57. Intake of 830, output was at 1.320 liters. Pulse oxygen saturation 5 liters nasal cannula 100% with the BiPAP 30% oxygen 99% saturation. HEENT: Examination shows head was atraumatic. Eyes nonicterus. NECK: Supple. CARDIOVASCULAR: S1, S2 was audible. LUNGS: The patient was noted with essentially anterolateral auscultation clear. ABDOMEN: Soft, nontender. Bowel sounds present. EXTREMITIES: Noted with chronic obesity. MUSCULOSKELETAL: Without any acute deformities. CENTRAL NERVOUS SYSTEM: The patient was noted with general weakness and fatigue. LABORATORY DATA: The patient's CBC this morning, WBC count 13.0, hemoglobin 10.5, platelet count was normal. CMP this morning, BUN 34, creatinine 1.60. Potassium 3.2. Magnesium 2.5, albumin 2.9. Arterial blood gas on the BiPAP and CPAP. The additional blood gas done at CPAP 5, pressure support of 10, pH of 7.45, pCO2 of 44, pO2 of 84. The repeat arterial blood gas 2 hours post-liberation of mechanical ventilation with the BiPAP settings of 16/10, pH of 7.44, pCO2 of 47, pO2 of 83.3. Another arterial blood gas that was done later in the evening as 6/25, pH of 7.44, pCO2 of 95, pO2 of 94 with 30% oxygen. The endotracheal aspirate was ordered completed prior to liberation of mechanical ventilator with the Gram stain many white blood cells, few gram-negative bacilli, few gram-positive cocci in pairs and normal bruce. Chest x-ray does not show any evidence of major pulmonary infiltrates. IMPRESSION: 1. The patient who has been currently liberated from mechanical ventilator with [place], [place] PROGRESS NOTE NAME: RENY QUEVEDO UNIT #: [id number] ROOM: [facility] DOCTOR: ROYCE CHANG MD,RAE BIRTHDATE: [birth year] acute on chronic hypercapnic hypoxemic respiratory failure. 2. This patient with evidence of fever at this time. The exact etiology not known after being afebrile for several days. Rule out infection in other parts of the body. 3. Morbid obesity. 4. Obstructive sleep apnea. 5. Rule out dysphagia as well. 6. Resolving acute kidney injury with intravascular volume depletion. Creatinine decreased from 2 to 1.6 today. 7. The patient with overall debility, which are noted multifactorial. PLAN OF MANAGEMENT: Continuation of the bronchodilator, oxygen supplementation at the present time. Continue antibiotic as well. Monitoring surveillance of any active infection. Follow the culture results of endotracheal aspirate. Assess the patient for swallowing prior to start the patient on oral feeding and nutritional support orally. Continuation of bronchodilator therapy, plan of management. Addition of treatment plan change will be based on progression of the illness. The patient noted with atrial fibrillation, remains in control. IV Lasix was discontinued as the patient was started on oral Lasix by primary care physician. Past family, social, surgical history of the patient remains unchanged since admission, already documented in my history and current notes. RAE CRANE MD CM:PNTRANS 1307 RAE CHANG MD 12/08/18 0116 interface
--- NOTE | ~2018-12-03 | PR ---
[place], [place] PROGRESS NOTE NAME: RENY QUEVEDO UNIT #: [id number] ROOM: [facility] DOCTOR: DAQUAN FRANCO MD BIRTHDATE: [birth year] DOS: 12/07/2018 SUBJECTIVE: I saw this patient on admission, he had acute on chronic respiratory failure and there was no evidence of cardiac decompensation. He was finally extubated yesterday and now tells me that he has no chest pain, no breathing difficulty, very little cough and is not coughing up any phlegm. He has no palpitations, no nausea. PHYSICAL EXAMINATION: GENERAL: This was a patient who is alert, seems to be oriented. He has oxygen by mask. Complexion is fine. VITAL SIGNS: Temperature is normal. He had a temperature of 101.8 degrees yesterday, pulse is 76 and regular, blood pressure 133/56. NECK: JVP is normal. There is no carotid bruit. CARDIOVASCULAR: There is no cardiomegaly, no murmurs are present. EXTREMITIES: He has had no edema of the lower extremities. ROS: He is mildly tachypneic and auscultation reveals fairly decent breath sounds with few adventitious sounds in both lungs. IMPRESSION: 1. The patient has chronic diastolic heart failure. This is well compensated and he did not have any decompensation during this hospitalization. 2. History of atrial fibrillation, he remains in normal sinus rhythm. 3. Chronic obstructive pulmonary disease with exacerbation, has improved markedly. No new recommendations. I saw this patient on behalf of Dr. Gillespie. DAQUAN FRANCO MD CM:PNTRANS [id number] DAQUAN FRANCO MD 12/07/18 2338 interface
--- NOTE | ~2018-12-03 | CON ---
[place], [place] REPORT OF CONSULTATION NAME: RENY QUEVEDO UNIT #: [id number] ROOM: 508 DOCTOR: RAE SALDAÑA MD BIRTHDATE: [birth year] DOS: 12/04/2018 PULMONARY CONSULTATION, EVALUATION AND CRITICAL CARE ASSESSMENT DATE OF CONSULTATION: 12/04/2018, at about 9:00 a.m., the patient was examined. REASON FOR CONSULTATION: Assess the patient for mental status changes and respiratory failure. HISTORY OF PRESENT ILLNESS: This is an 78-year-old white male patient known to me from the past. The patient admitted to the hospital this morning initially on medical floor. The patient later on transferred to the Intensive Care Unit. He has been noted unresponsive, the patient only respond to deep painful stimuli. Not responding to vocal commands. Arterial blood gas that was done, which shows severe hypercapnia and decreased pH. The patient transferred to Intensive Care Unit, where he has been examined. The patient does respond to the deep painful stimuli, but does not open eyes to vocal commands, had been started on the BiPAP, initial setting 12/6, which I changed 16/10 later on. Oxygen supplementation was given as a 50% oxygen with a pulse ox saturation noted 100% on that as well. He was brought to the hospital, as the patient has been recently noted increased symptoms of shortness of breath and also diagnosed ESBL infection as well. The patient was insisting to going to the hospital, but eventually brought to the hospital for further assessment and management. He has been noted with unresponsiveness, unable to give me any history, further history of the patient could not be obtained. All the history is contained a document in addition today his review of the medical record documentation of the other physician note, my past consultation history and assessment, and the nurse's notes. REVIEW OF SYSTEMS: Certainly cannot be completed because of that. PAST MEDICAL HISTORY: 1. Noted with recent diagnosis for ESBL urinary tract infection, which was diagnosed on the urine culture of 11/27/2018, been treated with antibiotics. 2. End-stage chronic obstructive pulmonary disease. 3. Chronic hypoxic respiratory failure and acute chronic hypercapnic respiratory failure. 4. Type 2 diabetes mellitus. 5. Essential hypertension. 6. Permanent atrial fibrillation, on anticoagulation. 7. Severe morbid obesity. 8. Deep venous thrombosis, left lower extremity. 9. Peripheral arterial disease. 10. Problem of the ankle in the past. PAST SURGICAL HISTORY: 1. Open reduction and internal fixation right foot, later removal of the hardware. 2. Left foot surgery. 3. Partial colectomy, cancer of the colon. Also has a history of cancer of the [place], [place] REPORT OF CONSULTATION NAME: RENY QUEVEDO UNIT #: [id number] ROOM: 508 DOCTOR: ROYCE CHANG MD,RAE BIRTHDATE: [birth year] colon, treated with the surgical intervention. Continue other surgery. 4. Right total knee replacement. 5. Diskectomy. 6. Venous stripping of the lower extremity. 7. Therapeutic bronchoscopy done in 2018. SOCIAL HISTORY: Long-term resident of nursing facility, has not been noted with history of alcohol or illicit drug use. Tobacco use noted since teenager, 2 packs of cigarettes actively until 1986. There is no history of alcohol use or illicit drug use. The patient worked in [employer] for 42 years. FAMILY HISTORY: Unknown. CURRENT MEDICATIONS: Administered was noted as Remeron, Lipitor, Trajenta, Xarelto 20 mg daily, potassium chloride, multivitamin, Mucinex, Amaryl, Cardizem-CD, vitamin C, Lasix 40 mg IV b.i.d., Protonix, levothyroxine, IV Rocephin, and other p.r.n. meds. DRUG ALLERGIES: NOTED WITH ALLERGY TO THE PENICILLINS CAUSING RESPIRATORY DIFFICULTY. PHYSICAL EXAMINATION: GENERAL: The patient is an 78-year-old white male noted unresponsive with the BiPAP, full face mask. The patient noted with chronic moderate obesity. No distress. Height of recorded by the nursing staff on current admission with height of 5 feet 9 inches, weight of 254 pounds, BMI 37.5. VITAL SIGNS: The patient recorded a normal temperature, respiratory rate noted 18-16. The blood pressure noted as 154/76 at 8 o' clock previously noted. Blood pressure remains 152/69, respiratory rate of 16-27, heart rate 91-89. Pulse oxygen saturation recorded on 5 liters nasal cannula 94% saturation and then later on the BiPAP 50% on 100% saturation noted. HEENT: Chronic obese. Head was atraumatic. Eyes nonicterus. CARDIOVASCULAR SYSTEM: S1, S2 is audible. LUNGS: The patient was noted with decreased breath sounds in the lungs bilaterally. There were no wheezing or crackles. ABDOMEN: Soft, chronic obesity. Bowel sounds present. EXTREMITIES: Severe edema of the upper and lower extremities. VISIBLE SKIN: No lesions or rashes. MUSCULOSKELETAL: Without acute deformities. CENTRAL NERVOUS SYSTEM: The patient is responsive to the painful stimuli. The patient moving his extremities and withdrawing from the pain elicited area on his body. LABORATORY DATA: CBC that was done this morning, WBC count 13.0, hemoglobin 11.9, platelet count was normal. PT/INR this morning was normal. CMP that was done this morning, glucose of 198, BUN 19, creatinine 1.47. Remaining CMP was normal. Lactic acid 1.3. CBC that was done this morning WBC count 12.1. Platelet count was normal. The BMP repeated again this morning, BUN 19, creatinine 1.48, glucose 194. Other blood gas that was done this morning at 08:16 a.m., pH of 7.22, pCO2 of 82.3, pO2 71.6. Urinalysis which were done this [place], [place] REPORT OF CONSULTATION NAME: RENY QUEVEDO UNIT #: [id number] ROOM: 508 DOCTOR: ROYCE CHANG MD,[facility] BIRTHDATE: [birth year] morning was noted, 2+ leukocyte esterase, 3+ blood. The chest x-ray that was done was noted as limited study. Cardiomegaly was noted portable x-ray. Increased pulmonary venous congestion marking unable to assess in pulmonary infiltration because of portable and limited study and large body habitus. IMPRESSION: 1. The patient unresponsive related to [id number] hypercapnic respiratory failure. 2. Chronic hypoxic respiratory failure. 3. Congestive heart failure was also considered with diastolic dysfunction, very likely. 4. The patient with morbid obesity. 5. Suspicion of obstructive sleep apnea disorder. 6. Past history of urinary tract infection, ESBL recurrent diagnosis of morganii noted recurrent urinary tract infection. 7. The patient with chronic severe obesity as well. 8. The patient with chronic obstructive pulmonary disease with consideration of acute exacerbation of chronic obstructive pulmonary disease. 9. Rule out acute sepsis as well or bacteremia. So far, the blood culture, which were done on 10/04/2018, were not noted with any abnormal bacterial growth with final culture results were pending. PLAN OF THERAPY: The patient will be ordered the BiPAP with the additional setting of 16/10, oxygen saturation 40%. Arterial blood gas done. Closely monitor mental status. The patient's oxygen ventilatory status does not improve and mental status further worsened. Continue the patient on mechanical ventilation. Antibiotic to be adjusted based on the culture results and panculture and endotracheal intubation. Obtain the sputum culture. The patient does expectorate sputum sent for culture, avoid any oral intake with change in mental status, to prevent the aspiration. DVT prophylaxis as well. Monitor kidney function, which were noted normal. Possible consideration of chronic kidney disease would be considered as well. Congestive heart failure has been managed with use of diuretic will be continued. Close monitor BUN and creatinine and other labs. Supportive therapy, plan of management. Additional treatment changes, continue to be made based on progression of the illness based on clinical course. Total time in pulmonary critical care evaluation and management was 40 minutes. [place], [place] REPORT OF CONSULTATION NAME: RENY QUEVEDO UNIT #: [id number] ROOM: 508 DOCTOR: RAE SALDAÑA MD BIRTHDATE: [birth year] RAE CRANE MD CM:CONSTR:REPORT OF CONSULTATION 1432 12/22/18 0858 interface
--- NOTE | ~2018-12-03 | PR ---
[place], [place] PROGRESS NOTE NAME: RENY QUEVEDO UNIT #: [id number] ROOM: [facility] DOCTOR: RAE SALDAÑA MD BIRTHDATE: [birth year] DOS: 12/09/2018 SUBJECTIVE: The patient was independently seen and examined in [id number] encounter, history was confirmed. Labs were reviewed. Assessment management today was personally completed. Note done by the biomedical engineering supervisor, was approved. The patient has been treated in the hospital. The patient was doing extremely well yesterday. He has been noted with elevation in temperature this morning with a temperature elevation noted of 101.7 degree Fahrenheit low grade fever noted last evening as well. Clark culture was ordered by Dr. Jennie Almazan, and the patient was also ordered CT scan of the chest that was completed earlier today. The CT scan of chest was reviewed. He has been noted awake and alert, does not have any symptoms of coughing, chest pain or chest congestion. Denied abdominal pain. The patient's Brunson catheter was removed yesterday. Denied dysuria. The patient has suprapubic pain. Remaining systems were reviewed. They were noted all negative. OBJECTIVE: GENERAL: The patient is comfortably resting in the bed this morning of assessment. VITAL SIGNS: T-max noted at 101.7 degrees Fahrenheit yesterday evening. This morning, temperature noted at 8 o'clock at 99.5 degree Fahrenheit, respiratory rate 18-23, heart rate 87-103, blood pressure 140/48-141/54, pulse ox saturation recorded on 4 liters nasal cannula 94% saturation same as previously. Oxygen requirement unchanged. CARDIOVASCULAR: S1, S2 audible. LUNGS: Without any wheeze or crackles. ABDOMEN: Soft, obese, nontender. EXTREMITIES: Noted with chronic obesity. MUSCULOSKELETAL: Without any acute deformity. VISIBLE SKIN: No lesions or rashes. LABORATORY DATA: CT scan of the chest that was completed this morning on 12/09/2018 the patient does not show any acute pulmonary infiltration at the present time. Stable small pulmonary nodules noted in the area of right minor fissure most likely intraparenchymal lymph node would be considered. Previous Urine legionella antigen on 12/04/2018 negative. Blood culture 12/04/2018, reported no bacterial growth, final results. IMPRESSION: 1. Elevation of temperature at this time not clear. The patient's heart rate, being treated patient for pneumonia resolution noted clinically and radiologically. 2. Chronic obesity. 3. Rule out active pulmonary source of infection as well including urinary tract and others. 4. Chronic obesity with suspected obstructive sleep apnea disorder. 5. Resolving acute on chronic hypercapnic hypoxic respiratory failure. 6. Severe morbid obesity. [place], [place] PROGRESS NOTE NAME: RENY QUEVEDO UNIT #: [id number] ROOM: [facility] DOCTOR: ROYCE CHANG MD,RAE BIRTHDATE: [birth year] PLAN OF TREATMENT: The patient will be continued on current plan of management as in progress. Monitor temperature curve. Use antibiotics empirically until the infection is excluded. Continue other therapy, plan of management. Additional treatment changes will be made based on progression of his illness. RAE CRANE MD CM:PNTRANS [id number] RAE CHANG MD 12/09/18 1516 interface
--- NOTE | ~2018-12-03 | PR ---
[place], [place] PROGRESS NOTE NAME: RENY QUEVEDO UNIT #: [id number] ROOM: [facility] DOCTOR: ROCÍO NASH MD BIRTHDATE: [birth year] DOS: 12/08/2018 SUBJECTIVE: The patient is sitting up in bed, eating his breakfast, in no distress today. OBJECTIVE: VITAL SIGNS: Graphic trend shows a pressure 155/54, pulse of 84, respirations 20, temperature 98.7. LUNGS: Diminished breath sounds. Clear. HEART: Regular. ABDOMEN: Obese. EXTREMITIES: Without any edema. LABORATORY DATA: Urine culture is negative now. Sputum culture shows normal bruce. Blood culture shows no bacterial growth. Chest x-ray shows clearing of the CHF. Comprehensive, glucose 115, BUN 34, creatinine 1.60, sodium 141, potassium 3.2, chloride 102, bicarbonate 29, calcium 8.4, phosphorus 4.5, magnesium 2.5. SGOT and SGPT normal. WBC count is 13.0, hemoglobin 10.5. ASSESSMENT AND PLAN: 1. Acute hypercapnic respiratory failure, which seems to have resolved. He is off the ventilator and is oxygenating well. 2. Acute kidney injury, possibly from over diuresis, diuretic dosage was cut down. 3. Hypokalemia. Supplementation will be ordered. 4. Acute diastolic congestive heart failure, which is improving. Diuretics have been cut back. 5. Recent extended-spectrum beta-lactamases Escherichia coli, which is resolved. Discontinue cefoxitin. 6. History of Methicillin-resistant Staphylococcus aureus of the wound, that wound is completely healed, it is an abdominal wound from previous cholecystectomy. ROCÍO NASH MD CM:PNTRANS [id number] ROCÍO NASH MD 12/09/18 0500 interface
--- NOTE | ~2018-12-03 | CON ---
[place], [place] REPORT OF CONSULTATION NAME: RENY QUEVEDO UNIT #: [id number] ROOM: [facility] DOCTOR: DAQUAN FRANCO MD BIRTHDATE: [birth year] DOS: 12/04/2018 I am seeing this patient on behalf of Dr. Gillespie. HISTORY OF PRESENT ILLNESS: This is an 78-year-old -[place] Citizen male with a history of severe COPD, who is on oxygen, morbid obesity, essential hypertension, hypothyroidism, paroxysmal atrial fibrillation, and peripheral vascular disease. He has had diastolic heart failure. He lives in a residential. His son recently and within the last couple of weeks, who was very close to him. He was admitted to the hospital from residential because of increasing shortness of breath and x-ray allegedly showed congestive heart failure. He was given diuretic in the residential and yesterday got worse and came to the Emergency Department and was admitted from the regular floor. He was transferred to the Intensive Care Unit because he became unresponsive and found to have CO2 retention. PAST MEDICAL HISTORY: Also includes type 2 diabetes mellitus, essential hypertension, DVT of the left leg and cholecystectomy in the remote past. HOME MEDICATIONS: His home medications are numerous, of these cardiac medications include atorvastatin 40 daily, diltiazem 180 daily, potassium chloride 20 mEq daily, rivaroxaban 20 mg daily, and he has been on furosemide. PHYSICAL EXAMINATION: GENERAL: This reveals the patient who is intubated and is sedated. He is coughing and is little restless. Nurses are attending to him. His complexion looks fine. VITAL SIGNS: Temperature is normal, pulse is regular at 96 beats per minute, blood pressure 111/77. NECK: JVP difficult to see because of the patient's morbid obesity and short neck. He has no edema whatsoever in the lower extremity. RESPIRATORY: Breath sounds are diminished with rhonchi and some crackles bilaterally. ECG was not done. Monitor shows normal sinus rhythm with heart rate in the 90s. I reviewed the chest x-rays and they do not show any acute abnormality suggestive of edema or pneumonia. Hemoglobin is 11.9 grams, WBC 10.1. BUN 19, creatinine 1.48. IMPRESSION: This patient has severe chronic obstructive pulmonary disease with exacerbation and has had CO2 retention. He is now intubated and is sedated. He is on bronchodilator therapy and also was put on some IV furosemide. Clinically and radiographically, there does not seem to be any evidence of heart failure; however, he has had diastolic heart failure in the past. [place], [place] REPORT OF CONSULTATION NAME: RENY QUEVEDO UNIT #: [id number] ROOM: [facility] DOCTOR: SALVADOR PURDY,DAQUAN BIRTHDATE: [birth year] RECOMMENDATIONS: I agree with imperative use of IV furosemide as it is likely to be of some benefit. An echocardiogram demonstrated an LV ejection fraction of 30% and mild LVH. I thank you on behalf of Dr. Gillespie for this consult. DAQUAN FRANCO MD CM:CONSTR:REPORT OF CONSULTATION 1819 12/05/18 0418 interface
--- NOTE | ~2018-12-03 | PR ---
[place], [place] PROGRESS NOTE NAME: RENY QUEVEDO UNIT #: [id number] ROOM: 508 DOCTOR: ROCÍO NASH MD BIRTHDATE: [birth year] DOS: 12/10/2018 SUBJECTIVE: The patient is doing well, does not have any complaints, resting comfortably, but unfortunately continues to spike a fever. OBJECTIVE: VITAL SIGNS: Graphic trend shows a pressure of 136/52, pulse of 94, respirations 25, temperature 99.7, T-max 100.5. LUNGS: Diminished breath sounds. Clear. HEART: Irregular. ABDOMEN: Obese, soft. EXTREMITIES: Without any edema. LABORATORY DATA: Glucose 149, BUN 32, creatinine 1.41, sodium 138, potassium 3.7, chloride 102, bicarbonate 31. C-reactive protein is 17.6. ESR, do not have the results yet. ASSESSMENT AND PLAN: 1. The patient with continued low-grade fever. The white cell count is now slowly going up. Blood cultures and urine cultures were repeated. CT of the chest was negative. We will do a CT of the abdomen. The patient has a history of Clostridium difficile titer, we will also repeat that. 2. Type 2 diabetes mellitus with chronic kidney disease. Blood sugars controlled. 3. Acute hypercapnic respiratory failure, stable, off the ventilator. 4. Acute diastolic congestive heart failure, resolved, changed to p.o. diuretics. The patient is unable to go back to the nursing until the fever is resolved. We will also try to get him artificial ventilator for home usage. ROCÍO NASH MD CM:PNTRANS [id number] ROCÍO NASH MD 12/11/18 0509 interface
--- NOTE | ~2018-12-03 | PR ---
[place], [place] PROGRESS NOTE NAME: RENY QUEVEDO UNIT #: [id number] ROOM: 508 DOCTOR: GUERITA PURDY,BRINDA BIRTHDATE: [birth year] DOS: 12/10/2018 SUBJECTIVE: I examined him. I was asked to do a transesophageal echo, I came to do the LYNSEY. Unfortunately, anesthesia is not available to do it and I thought that I could sedate here at the bedside. According to the policy, the LYNSEY has to be done with anesthesia here in the bedside or in the surgical OR, anesthesia is not available at this point to do the LYNSEY. I reviewed the original echocardiogram, ejection fraction is 30%. No obvious vegetations, but it was suboptimal study. The patient developed fever last night of 101.7. The patient's original blood cultures were negative. The patient had a UTI and is being treated also. The patient denies any chest discomfort. He started spiking fever as mentioned, intermittent shortness of breath. The patient was examined in the Intensive Care Unit. REVIEW OF SYSTEMS: Somewhat limited. The patient is lethargic, arousable. No chest discomfort. Does have shortness of breath, no syncope. Hemodynamically as mentioned stable. No focal neurologic deficits. OBJECTIVE: VITAL SIGNS: Blood pressure is 130/50. He is in sinus rhythm to sinus tachycardia. NECK: Supple, no JVD. LUNGS: Diminished air entry. HEART: Sounds are regular. ABDOMEN: Obese. EXTREMITIES: No edema. LABORATORY DATA: Hemoglobin 10.6, hematocrit 36.7. White count is 16.2, sodium 138, potassium 3.7, creatinine is 1.4. INR is 1.1. CT of the chest basically showed no acute cardiopulmonary disease, cardiomegaly, pulmonary vascular congestion with mosaic attenuation. No congestive heart failure, solid nodules. IMPRESSION: Fever of unknown origin, probably urinary tract infection, history of cardiomyopathy, and hypertension. RECOMMENDATIONS: The patient continue with IV antibiotics at this point, unfortunately anesthesia is not available to do the transesophageal echo. Continue with the present care. Continue doing antibiotics. If the blood cultures remain positive, consideration should be for LYNSEY at a later date. [place], [place] PROGRESS NOTE NAME: RENY QUEVEDO UNIT #: [id number] ROOM: 508 DOCTOR: BRINDA DEXTER MD BIRTHDATE: [birth year] BRINDA DEXTER MD CM:PNTRANS [phone] BRINDA DEXTER MD 12/22/18 0901 interface
--- NOTE | ~2018-12-03 | EKG ---
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: : 1940 Requested By: JESS CASAREZ Order Number: [id number] Reading MD: Niurka Hunter Measurements Intervals [place] Rate: 87 P: 1 NJ: 226 QRS: -30 QRSD: 139 T: -1 QT: 392 QTc: 472 Interpretive Statements Sinus rhythm Atrial premature complex Prolonged NJ interval Right bundle branch block Inferior infarct, old Compared to ECG 09/03/2018 15:14:53 Atrial premature complex(es) now present First degree AV block now present Atrial fibrillation no longer present Prolonged QT interval no longer present Myocardial infarct finding still present Electronically Signed On 12-06-2018 12:43:10 PDT by Niurka Hunter CM:EKGRPT:ELECTROCARDIOGRAM REPORT 0000 1243 JESS LORA DRAFT REPORT JESS CASAREZ DO
--- NOTE | ~2018-12-03 | PR ---
[place], [place] PROGRESS NOTE NAME: RENY QUEVEDO UNIT #: [id number] ROOM: [facility] DOCTOR: CHAITANYA WAN MD BIRTHDATE: [birth year] DOS: 12/05/2018 SUBJECTIVE: The patient sedated and on mechanical ventilation. OBJECTIVE: VITAL SIGNS: Blood pressure 106/50, heart rate 88 beats per minute, breathing 14 times per minute, temperature 98.1 degrees Fahrenheit. GENERAL APPEARANCE: The patient is alert and oriented x 3, in no visible distress. Obese. HEENT AND NECK: Exam within normal limits. CARDIOVASCULAR SYSTEM: Heart rate is regular in rate and rhythm. S1 and S2 normally audible. LUNGS: Clear to auscultation. ABDOMEN: Soft, nontender. No obvious organomegaly. Bowel sounds are present. EXTREMITIES: Without significant cyanosis or edema. The patient has a large area of discoloration of skin where he apparently had an infiltration of the IV site where he was being infused with Levophed for severe hypotension. Apparently, nursing staff discussed with pharmacy. IMPRESSION: 1. Patient with acute over chronic respiratory failure with acute exacerbation of chronic obstructive pulmonary disease, remains intubated and on mechanical ventilation. 2. ESBL urinary tract infection, which is being treated. 3. Benign essential hypertension. Blood pressure is being monitored. The patient recently hypotensive in the ICU, being closely monitored and was treated with Levophed infusion which is being tapered off. Early during the morning and at night time, the patient had infiltration of Levophed infusion. I was not informed. I will consult [facility] to follow the site. 4. Deep venous thrombosis involving left lower extremity. The patient on anticoagulation. 5. Chronic atrial fibrillation. The patient anticoagulated. 6. Acute over chronic diastolic type congestive heart failure, treated with diuresis. 7. Chronic kidney disease and diabetic nephropathy, stage 3b. [place], [place] PROGRESS NOTE NAME: RENY QUEVEDO UNIT #: [id number] ROOM: [facility] DOCTOR: CHAITANYA WAN MD BIRTHDATE: [birth year] CHAITANYA WAN MD CM:PNTRANS 1528 CHAITANYA WAN MD 12/06/180 interface
--- NOTE | ~2018-12-03 | PR ---
[place], [place] PROGRESS NOTE NAME: RENY QUEVEDO UNIT #: [id number] ROOM: 508 DOCTOR: ROCÍO NASH MD BIRTHDATE: [birth year] DOS: SUBJECTIVE: The patient feels good and is not having any complaints. A PICC line was placed. OBJECTIVE: VITAL SIGNS: Graphic trend shows a pressure of 139/58, pulse of 85, respirations 20, temperature 97.9. LUNGS: Clear. HEART: Regular. ABDOMEN: Soft. EXTREMITIES: Without any edema. ASSESSMENT AND PLAN: 1. Clostridium difficile diarrhea, on medicines. 2. Extended-spectrum beta-lactamase Escherichia coli, status post PICC line placement. The patient to go back to the long-term on IV meropenem. 3. Fever, most likely from above infections, which is resolved. 4. Acute hypercapnic respiratory failure, improved. The patient to get Trilogy ventilator at the long-term. The patient is stable and can be discharged. ROCÍO NASH MD CM:PNTRANS [id number] ROCÍO NASH MD 12/14/18 1127 interface
--- NOTE | ~2018-12-03 | PR ---
[place], [place] PROGRESS NOTE NAME: RENY QUEVEDO UNIT #: [id number] ROOM: [facility] DOCTOR: ROYCE CAHNG MD,RAE BIRTHDATE: [birth year] DOS: 12/05/2018 SUBJECTIVE: The patient was successfully intubated and started on mechanical ventilation. Correction of the ventilatory status with mechanical ventilation. He had been noted sedated at this time with Diprivan. Appeared to be comfortable. He was noted with hypotension as well, requiring vasopressor therapy. Infiltration of the liver noted to the upper extremity at the site of previous infusion of the Levophed. The patient was noted with low-grade fever and tachycardia at times previously was also noted. Vasopressor therapy has been gradually currently decreased the tachycardia was resolving gradually and progressively. All the ventilator bundle management was initiated. OBJECTIVE: GENERAL: At time is the patient is currently intubated and sedated effectively with intravenous propofol. Mechanical ventilation. Continue assist control, volume control as well with the oxygen requirement was changed based on the need of oxygen supplementation with gradual reduction done. Currently comfortable, resting on the bed, intubated, noted on mechanical ventilation. VITAL SIGNS: Temperature 99.7 degree Fahrenheit was noted in the last 24 hours and also noted 101 degree Fahrenheit rectal temperature. Respiratory rate ranged between 14 and same on mechanical ventilator, heart rate of 128, currently resolved noted with heart rate of 88. Blood pressure ranging between 85/45 to 111/51. The pulse oxygen saturation 30% oxygen supplementation noted 97% saturation. CARDIOVASCULAR: S1, S2 audible. LUNGS: Decreased breath sounds in the lungs noted bilaterally. ABDOMEN: Soft, nontender and severe obesity. EXTREMITIES: Noted with edema, which resolved. MUSCULOSKELETAL: Without any acute deformities. CENTRAL NERVOUS SYSTEM: At this time, the patient is sedated. MUSCULOSKELETAL: Without any acute deformities. SKIN: No lesions or rashes. LABORATORY DATA: Chest x-ray that was done this morning was reviewed, noted endotracheal intubation. NG tube in position with clear lung alejandro. Denies evidence of pulmonary infiltration. Endotracheal aspirate, Gram stain, many white blood cell with gram-positive cocci in pairs, normal bruce. Final culture results were pending. CBC this morning: WBC count 15,000, hemoglobin 11.2, platelet count was normal. Urine culture was noted as light growth of gram-negative bacilli. CMP of the this morning, BUN 30, creatinine 2.29. Glucose 197. LFT normal except albumin mildly decreased at 3.2. Echocardiogram was completed yesterday noted left ventricular ejection fraction as 30% noted global hypokinesia and LVH. There were no significant valvular abnormalities was stated. IMPRESSION: 1. The patient with acute severe hypercapnic and hypoxic respiratory failure, chronic hypercapnia, hypoxic respiratory failure. 2. The patient with acute congestive heart failure with systolic dysfunction. 3. The patient with urinary tract infection with extended spectrum beta [place], [place] PROGRESS NOTE NAME: RENY QUEVEDO UNIT #: [id number] ROOM: [facility] DOCTOR: ROYCE CHANG MD,RAE BIRTHDATE: [birth year] lactamase as well. 4. Severe morbid obesity. 5. Acute exacerbation of chronic obstructive pulmonary disease as well. There was no evidence of sepsis. PLAN OF CARE: Continuation of the mechanical ventilation at this time as previously. Arterial blood gas was noted, pH of 7.44, pCO2 of 40, pO2 121 with 40% oxygen. Bronchodilator to be continued. Continue diuretic with the Lasix. Continue sedation. Trophic feedings as well. Continue chronic anticoagulation for medical management of atrial fibrillation. Other therapy, plan and management and additional treatment changes as necessary will be ordered and made according to the progression of the illness. Feeding could be considered was started for tomorrow morning depending on further clinical stability of the problems. Cardizem, which has been given intravenously has been discontinued. The patient is free to the Cardizem from the NG tube as well. Monitor all the culture results. Total time in pulmonary critical care evaluation and management for today was 36 minutes. RAE CRANE MD CM:PNTRANS 01 26 RAE CHANG MD 12/05/182226 interface
--- NOTE | ~2018-12-03 | PR ---
[place], [place] PROGRESS NOTE NAME: RENY QUEVEDO UNIT #: [id number] ROOM: 508 DOCTOR: RAE SALDAÑA MD BIRTHDATE: [birth year] DOS: 12/11/2018 SUBJECTIVE: The patient has been independently seen and examined with [id number] encounter. History was confirmed. Physical examination performed. Labs were reviewed personally. The assessment and management of today's visit was personally completed. Note done by the medical office asst was approved as well. The patient was noted comfortable at this time, resting on the bed this morning of assessment. He has not been reporting any symptoms of shortness of breath, coughing, or wheezing. Denies symptoms of chest pain or abdominal pain. Diarrhea has been present intermittently with diagnosis of C. difficile colitis confirmed with the lab testing and also noted urinary tract infection with ESBL. He remains afebrile at this time of treatment. PHYSICAL EXAMINATION: GENERAL: The patient is comfortably resting on the bed this morning of assessment. VITAL SIGNS: Which were recorded showed normal temperature. The respiratory rate was recorded as 20, heart rate 97, blood pressure 118/52. HEENT: Shows chronic obesity. Head was atraumatic. EYES: No icterus. NECK: Supple. CARDIOVASCULAR: S1 and S2 audible. LUNGS: The patient was noted clear of any wheezing or crackles. ABDOMEN: Soft, nontender. Bowel sounds present. EXTREMITIES: No acute change. IMPRESSION: 1. The patient has been currently noted stable at the present time with new infection with Clostridium difficile colitis and urinary tract infection with extended-spectrum beta-lactamases. 2. Resolving acute respiratory failure. PLAN OF MANAGEMENT: Continuation of current plan of management with the use of the antibiotic for the ESBL. Continuation of the medical management of C. diff colitis. Other therapy, plan of management, and additional treatment changes will be made based on progression of the illness. The patient remains stable at this time. Transfer from the intensive care unit to medical floor. [place], [place] PROGRESS NOTE NAME: RENY QUEVEDO UNIT #: [id number] ROOM: 508 DOCTOR: RAE SALDAÑA MD BIRTHDATE: [birth year] RAE CRANE MD CM:PNROSANNA [id number] 1 RAE CHANG MD 12/12/18 0241 interface
--- NOTE | ~2018-12-03 | PR ---
[place], [place] PROGRESS NOTE NAME: [id number] UNIT #: [id number] ROOM: 508 DOCTOR: ROYCE CHANG MD,RAE BIRTHDATE: [birth year] DOS: 12/08/2018 PULMONARY PROGRESS NOTE SUBJECTIVE: The patient independently seen and examined in [id number] encounter, history was confirmed. Physical examination performed. Labs were reviewed. Assessment and management of the patient today was personally completed. Note done by the senior medical transcriptionist approved as well. He has been doing extremely well in the last 24 hours. The shortness of breath has been noted improved. He was noted fully awake, alert, oriented. Orogastric tube was removed. The patient is tolerating clear liquid diet. The patient had soft diet yesterday without any difficulty of swallowing. He has not been reported symptoms of chest pain, fever or chills. Denies acute shortness of breath at rest. Denies symptoms of pain or chills. Remaining systems were noted negative. OBJECTIVE: VITAL SIGNS: For the patient normal temperature, respiratory rate of 20, heart rate of 84, blood pressure 115/71. Pulse oxygen saturation on 4 liters nasal cannula 98% saturation. BiPAP 99% saturation. HEENT: Examination shows head was atraumatic. Eyes nonicterus. NECK: Supple and obese. CARDIOVASCULAR SYSTEM: S1, S2 audible. LUNGS: Decreased breaths in the lungs noted bilaterally. ABDOMEN: Soft, obese, nontender. Bowel sounds present. EXTREMITIES: Without any acute edema. Chronic obesity findings. MUSCULOSKELETAL: Without acute deformities. CENTRAL NERVOUS SYSTEM: Generalized weakness and fatigue. LABORATORY DATA: CBC today, WBC count 14.8, hemoglobin 10, platelet count was normal. CMP of this morning, BUN 31, creatinine 1.42. Potassium decreased at 2.9, albumin 2.9. Culture of the endotracheal aspiration noted as normal bruce. IMPRESSION: 1. The patient with continued improvement noted in acute on chronic hypercapnic hypoxic respiratory failure. 2. No fever. The patient without any acute intervention and there was no acute infection superimposed noted. 3. Leukocytosis, resolving. 4. Resolving acute kidney injury. 5. Morbid obesity with severe debility 6. Hyperkalemia. 7. Resolving congestive heart failure. PLAN OF Therapy: No changes from the pulmonary standpoint at this time would be recommended. The patient will be continued to be treated, could be transferred from the ICU to telemetry floor. The catheter will be discontinued. Recommended physical therapy and occupation therapy. Supplementation of potassium per primary care attending. [place], [place] PROGRESS NOTE NAME: RENY QUEVEDO UNIT #: [id number] ROOM: [facility] DOCTOR: RAE SALDAÑA MD BIRTHDATE: [birth year] RAE CRANE MD CM:PNTRANS 1250 1436 RAE CHANG MD 12/22/18 0859 interface
--- NOTE | ~2018-12-03 | PR ---
[place], [place] PROGRESS NOTE NAME: RENY QUEVEDO UNIT #: [id number] ROOM: 508 DOCTOR: BRINDA DEXTER MD BIRTHDATE: [birth year] DOS: 12/13/2018 SUBJECTIVE: The patient examined. Cardiac status appears to be stable. He denies any chest discomfort, remains comfortable, not in acute distress. The patient is being followed by Dr. Massey. Had reviewed the echocardiogram. No obvious evidence of any vegetations. The patient is positive for C. difficile and also urinary bacteremia. OBJECTIVE: GENERAL: The patient is alert and oriented x 3. HEENT: Unremarkable. NECK: Supple, no JVD. LUNGS: Clear. HEART: Sounds are regular. ABDOMEN: Soft, nontender. NEUROLOGIC: Stable. LABORATORY DATA: Shows hemoglobin 10.7, hematocrit 37. Sodium 139, potassium 3.6, creatinine is 1.6. IMPRESSION AND PLAN: The patient with respiratory failure, urinary tract infection, Clostridium difficile, and cardiomyopathy. Cardiac status is stable. No obvious evidence of endocarditis and we will follow up. BRINDA DEXTER MD CM:PNTRANS 1122 0023 BRINDA DEXTER MD 12/14/18 0022 interface
--- NOTE | ~2018-12-03 | PR ---
[place], [place] PROGRESS NOTE NAME: RENY QUEVEDO UNIT #: [id number] ROOM: 508 DOCTOR: ROCÍO NASH MD BIRTHDATE: [birth year] DOS: SUBJECTIVE: The patient is not having any new complaints. Unfortunately, PICC line was not placed yesterday. OBJECTIVE: VITAL SIGNS: Graphic trend shows a pressure of 104/50, pulse of 80, respirations 18, temperature 97.4. LUNGS: Clear. HEART: Irregular. ABDOMEN: Obese, soft. EXTREMITIES: Without any edema. LABORATORY DATA: Blood culture shows no bacterial growth. ASSESSMENT AND PLAN: 1. Acute hypercapnic respiratory failure, home ventilator later on discharge. Right now, he is using BiPAP here. 2. Sputum cultures with Klebsiella oxytoca sensitive to meropenem. 3. Urine culture with extended-spectrum beta-lactamase Escherichia coli sensitive to meropenem. PICC line pending. 4. Clostridium difficile diarrhea, on Flagyl and vancomycin p.o. White cell count is normalized. He does not have any more fever. The patient to go back to the detention as soon as we have the PICC line placed. ROCÍO NASH MD CM:PNTRANS 6 21 ROCÍO NASH MD 12/13/182221 interface
--- NOTE | ~2018-12-03 | PR ---
[place], [place] PROGRESS NOTE NAME: RENY QUEVEDO UNIT #: [id number] ROOM: 508 DOCTOR: RAMON IZAGUIRRE DO BIRTHDATE: [birth year] DOS: 12/10/2018 PULMONARY PROGRESS NOTE SUBJECTIVE: The patient was noted to be resting in bed comfortably. The patient denies any symptoms of fevers or chills. However, the patient was noted to have a fever of 100.5 last night around midnight. The patient has no respiratory symptoms today. The patient denies shortness of breath or hemoptysis. All remaining review of systems is negative. OBJECTIVE: GENERAL: The patient was resting in bed comfortably using supplemental oxygen by nasal cannula. VITAL SIGNS: T-max overnight was 100.5, once again, respiratory rate was 22, heart rate 95, respiratory rate 25, blood pressure is 137/50. The patient is 95% on 3 liters by nasal cannula. HEENT: The patient is normocephalic, atraumatic. NECK: Supple, nontender, trachea midline. HEART: S1, S2 audible. LUNGS: Clear to auscultation bilaterally, decreased breath sounds bilaterally. ABDOMEN: Soft, nontender, obese. Bowel sounds are present. EXTREMITIES: Noted with chronic obesity findings, however, there is no clubbing, cyanosis or edema. MUSCULOSKELETAL: Without acute deformities. SKIN: No lesions or rashes. CENTRAL NERVOUS SYSTEM: No focal neurologic deficits. LABORATORY DATA: The patient had a white count of 16.5, hemoglobin 10.6, hematocrit 36.7, and platelet count was 318. The patient had an ESR today and was noted to be 18. Chemistries: Sodium 138, potassium 3.7, chloride 102, carbon dioxide 31, BUN 32, and creatinine 1.41. C-reactive protein was 17.6. MICROBIOLOGY: C. diff toxin was sent off and was positive. Urine culture also came back today for gram-negative bacilli greater than 100 CFUs, therefore we will address that. ASSESSMENT: 1. Clostridium difficile colitis. 2. Respiratory failure, stable. 3. Morbid obesity. PLAN: C. diff was positive. Primary team has already started the patient on appropriate therapy. The patient's urine culture was positive. We will continue doxycycline until final cultures come back positive. Also, defer to his primary team for this. For the respiratory status, the patient is stable at this time. The patient can be moved to the medical floor from pulmonary standpoint. [place], [place] PROGRESS NOTE NAME: RENY QUEVEDO UNIT #: [id number] ROOM: 8 DOCTOR: RAMON IZAGUIRRE DO BIRTHDATE: [birth year] Prosper Izaguirre DO RAE CRANE MD CM:LATHA [id number] RAMON IZAGUIRRE DO 12/11/18 0313 interface
--- NOTE | ~2018-12-03 | PR ---
[place], [place] PROGRESS NOTE NAME: RENY QUEVEDO UNIT #: [id number] ROOM: [facility] DOCTOR: ROCÍO NASH MD BIRTHDATE: [birth year] DOS: SUBJECTIVE: The patient is about the same, does not have any new complaints. He is off the ventilator after being on it for 48 hours. OBJECTIVE: VITAL SIGNS: Graphic trend shows a pressure of 133/56, pulse of 75, respirations 20, temperature 97.7 with a T-max of 101.8. LUNGS: Diminished breath sounds. No wheezes heard this morning. HEART: Regular. ABDOMEN: Obese. EXTREMITIES: Without any edema. LABORATORY DATA: Urine culture preliminary shows no bacterial growth. Sputum culture preliminary shows normal bruce. Chest x-ray shows clearing of the CHF. ASSESSMENT AND PLAN: 1. Acute diastolic congestive heart failure, improved and stable. 2. Hypercapnic respiratory failure, status post ventilation. The patient is stable on the BiPAP. 3. Chronic obstructive pulmonary disease with chronic respiratory failure, oxygen dependent. 4. Elevated white cell count, so far, all the cultures have come back negative. 5. Acute kidney injury, possibly from diuretics. We will decrease the dose of Lasix from 80 to 40. 6. Recent ESBL Escherichia coli in the urine. Urine culture is negative. Once urine culture comes back completed, we will discontinue cefoxitin. ROCÍO NASH MD CM:PNTRANS [id number] ROCÍO NASH MD 12/07/18 1516 interface
[~2018-12-03 22:18] MED LIST changes: +AMARYL4 MG PO; +ARTIFICIAL TEAR15 M1 OPH; +GLIMEPIRIDE4 M1 PO; +K-TAB20 MEQ PO; +Lantus SC; +MUCINEX ER600 MG PO; +PREDNISONE10 MG PO; +REMERON15 M2 PO; +Tobrex Ophth S2.5 ML OPH
[2018-12-03 22:25] VITALS: BP 152/69
[2018-12-03 23:11] VITALS: BP 147/69
[2018-12-04] VITALS (58 sets, daily range): BP systolic 38–187; BP diastolic 0–97
[2018-12-04 00:15] LABS: BASO # 0.1 10*3/uL (0.0-0.1); BASO % 0.5 % (0.0-1.0); EOS # 0.2 10*3/uL (0.0-0.4); EOS % 1.4 % (1.0-4.0); HEMOGLOBIN 11.9 g/dl (14.0-18.0); LYMPH # 1.6 10*3/uL (1.3-4.4); LYMPH % 12.2 % (27.0-41.0); MEAN CELL VOLUME 84.5 fl (80.0-94.0); MEAN CORPUSCULAR HGB 23.9 pg (27.0-31.0); MEAN CORPUSCULAR HGB CONC 28.3 g/dl (33.0-37.0); MEAN PLATELET VOLUME 10.3 fl (9.6-12.3); MONO # 1.2 10*3/uL (0.1-1.0); NEUT # 9.7 10*3/uL (2.3-7.9); NEUT % 74.7 % (47.0-73.0); PLATELET COUNT AUTOMATED 395 10*3/uL (130-400); RED BLOOD COUNT 4.97 10*6/uL (4.50-5.90); RED CELL DISTRI WIDTH 18.7 % (0-14.5)
[2018-12-04 00:25] LABS: INTERNATIONAL NORM RATIO 1.1 (2.0-3.5)
[2018-12-04 00:34] LABS: ALBUMIN 3.1 gm/dl (3.1-4.5); CREATININE 1.47 mg/dL (0.70-1.30); POTASSIUM 4.7 mmol/L (3.5-5.1); TOTAL PROTEIN 7.8 gm/dL (6.4-8.2); TROPONIN I 0.023 ng/ml (<0.045)
[2018-12-04 00:39] LABS: BILIRUBIN NEGATIVE (NEGATIVE); BLOOD 3+ (NEGATIVE); CLARITY SL CLOUDY (CLEAR); COLOR YELLOW (YELLOW); GLUCOSE NEGATIVE (NEGATIVE); KETONE NEGATIVE (NEGATIVE); LEUKO ESTERASE 2+ (NEGATIVE); NITRITE NEGATIVE (NEGATIVE); PH 5.5 (5.0-9.0); SPECIFIC GRAVITY 1.025 (1.005-1.030); UROBILINOGEN 0.2 E.U./dl (0.2-1.0)
[2018-12-04 00:50] LABS: RBC 41-50 rbc/hpf (0-2); WBC 31-40 wbc/hpf (0-5)
--- NOTE | 2018-12-04 01:21 | NUR ---
SCAB NOTED TO THE MEDIAL LEFT ANKLE NO DRAINAGE. NO PHOTO TAKEN
--- NOTE | 2018-12-04 02:20 | NUR ---
A 78, admitted to , under the services of ROCÍO Mcgarry MD with a diagnosis of UTI, CHF. Chief complaint is INCREASED SOB. Patient arrived via bed from ER. Monitor applied. Initial assessment completed. Vital signs taken and recorded. ROCÍO MCGARRY MD notified of admission to the unit. Orders received. See assessment for past medical history, medications and allergies. Patient and/or family oriented to unit. [facility] visitation policy reviewed. Clothing/patient valuable form completed. RUBA MONTEIRO
--- NOTE | 2018-12-04 03:00 | NUR ---
NOTIFIED DR NASH OF PATIENTS ADMISSION. NEW ORDERS RECIEVED
[2018-12-04] MEDS ORDERED: ALBUTEROL S5 MG/1 ML NEB (03:21)
[2018-12-04] MEDS ORDERED: CARDIZEM CD180 MG PO (03:22)
[2018-12-04] MEDS ORDERED: Ipratropium Brom3 ML INH (03:23)
[2018-12-04] MEDS ORDERED: IMODIUM A-D2 M2 PO (03:24)
[2018-12-04] MEDS ORDERED: JANUVIA100 MG PO (03:25)
[2018-12-04] MEDS ORDERED: LANTUS SOL100 UNIT/1 SQ (03:26)
[2018-12-04] MEDS ORDERED: MIRALAX17 GM PO (03:26)
--- NOTE | 2018-12-04 05:40 | NUR ---
RENY QUEVEDO [id number] Please refer to the physician's history and physical for past medical history, comorbid conditions, and allergies. Diagnosis: UTI, CHF Refugio Score: 15,AT RISK WOUND DESCRIPTIONS: Wound Number: 1 Location of the wound: right upper quad medial apsect Type of wound: surgical Thickness: Full Size: 0.5cm x 1.3cm x 0.8cm Tunneling: none Undermining: none Sinus Tract: none Presence of Exudate: Purulent Amount: Light Color: Yellow, red Odor: None Periwound Skin Appearance: Scar Wound edges: approximated Pain (associated with wound): none at time of assessment How does patient state this happened? pt stated he had an operation on his gallbladder Wound Number: 2 Location of the wound: right upper quadrant lateral aspect Type of wound: surgical Thickness: Full Size: 0.5cm x 1.7cm x 0.1cm Tunneling: none Undermining: none Sinus Tract: none Presence of Exudate: Serosanguineous Amount: Light Color: Red Odor: None Periwound Skin Appearance: Scar Wound edges: approximated Pain (associated with wound): none at time of assessment How does patient state this happened? pt stated he had an operation on his gallbladder Wound Number: 3 Intact scab noted left medial aspect of ankle surrounding tissue is intact scar. No drainage noted at time of assessment. Surface the patient is resting on: Position Pro SKIN PREVENTION RECOMMENDATION: 1. Pressure redistribution support surface as appropriate 2. Elevate heels 3. Remove boots/TEDS every shift and reapply 4. Head of bed 30 degrees as tolerated 5. Assess nutrition and hydration 6. Manage moisture 7. Avoid the use of containment devices while in bed 8. Use absorptive products on surfaces limit layers of linens on bed 9. Turn and reposition every 1-2 hours in bed and every 1 hour in chair as tolerated 10. Weight shifts every 15 minutes while up in chair 11. Offloading with pillows or device to keep heels elevated off bed 12. Monitor skin at least every shift 13. Inspect under medical devices twice a day WOUND TREATMENT RECOMMENDATIONS: Full thickness guidelines: Cleanse right upper quad medial apsect with nss and apply sureprep around the wound therahoney to wound bed and lightly pack with maxorb rope daily and prn for soiling. Partial thickness guidelines: Cleanse right upper quadrant lateral aspect with nss and apply sureprep around the wound therahoney to wound bed and cover with optifoam gentle daily and prn for soiling. Apply sureprep to left medial aspect of ankle the cover with optifoam gentle. Heel raiser pro boots while in bed to bilateral feet.
--- NOTE | 2018-12-04 06:09 | NUR ---
NOTIFIED ANSWERING SERVICE OF DR DEXTER CONSULT
--- NOTE | 2018-12-04 06:12 | NUR ---
DR DEXTER NOTIFIED OF CONSULT. NO NEW ORDERS AT THIS TIME.
[2018-12-04 06:19] LABS: BASO # 0.1 10*3/uL (0.0-0.1); BASO % 0.6 % (0.0-1.0); EOS # 0.1 10*3/uL (0.0-0.4); EOS % 0.7 % (1.0-4.0); HEMATOCRIT 43.1 % (42.0-52.0); HEMOGLOBIN 11.9 g/dl (14.0-18.0); LYMPH # 1.8 10*3/uL (1.3-4.4); LYMPH % 14.6 % (27.0-41.0); MEAN CELL VOLUME 85.5 fl (80.0-94.0); MEAN CORPUSCULAR HGB 23.6 pg (27.0-31.0); MEAN CORPUSCULAR HGB CONC 27.6 g/dl (33.0-37.0); MONO # 1.1 10*3/uL (0.1-1.0); MONO % 9.3 % (3.0-9.0); NEUT # 8.8 10*3/uL (2.3-7.9); NEUT % 72.5 % (47.0-73.0); NUCLEATED RED BLOOD CELL 0.2 % (0.0-0.0); PLATELET COUNT AUTOMATED 394 10*3/uL (130-400); RED BLOOD COUNT 5.04 10*6/uL (4.50-5.90); RED CELL DISTRI WIDTH 18.8 % (0-14.5); WHITE BLOOD COUNT 12.1 10*3/uL (4.8-10.8)
[2018-12-04 06:53] LABS: CREATININE 1.48 mg/dL (0.70-1.30); POTASSIUM 4.6 mmol/L (3.5-5.1)
--- NOTE | 2018-12-04 08:00 | NUR ---
PT UNARROUSABLE AT THIS TIME. VITAL SIGNS STABLE. DR. NASH TO THE FLOOR, ASSESSED PATIENT. ABGS DONE AND TO BE TRANSFERRED TO ICCU.
--- NOTE | 2018-12-04 08:20 | NUR ---
PT TRANSFERRED TO ICCU. REPORT GIVEN TO RECIEVING UNIT.
[2018-12-04 08:26] LABS: ABG BASE EXCESS 3.3 mmol/L (-2.0-2.0); ABG HCO3 32.9 mmol/l (22-26); ABG O2 SATURATION 93.2 % (95-97); ARTERIAL BLOOD GAS PH 7.225 (7.35-7.45); ARTERIAL BLOOD GAS PO2 71.6 mmHg (80-90)
[2018-12-04 08:31] LABS: ARTERIAL BLOOD GAS PCO2 82.3 mmHg (35-45)
--- NOTE | 2018-12-04 08:45 | NUR ---
PATIENT PLACED ON BIPAP / WITH BACK UP RATE OF 8, 50%. HR 98 SPO2 97%.
[2018-12-04 08:56] LABS: BILIRUBIN NEGATIVE (NEGATIVE); BLOOD 3+ (NEGATIVE); CLARITY CLOUDY (CLEAR); COLOR YELLOW (YELLOW); GLUCOSE NEGATIVE (NEGATIVE); KETONE NEGATIVE (NEGATIVE); LEUKO ESTERASE 2+ (NEGATIVE); NITRITE NEGATIVE (NEGATIVE); PH 5.5 (5.0-9.0); SPECIFIC GRAVITY 1.025 (1.005-1.030); UROBILINOGEN 0.2 E.U./dl (0.2-1.0)
--- NOTE | 2018-12-04 09:01 | NUR ---
BIPAP CHANGES MADE PER DR CRANE'S ORDER. EPAP INCREASED TO 10, FIO2 DECREASED TO 40%.
--- NOTE | 2018-12-04 09:15 | NUR ---
Not availalbe for echo.
[2018-12-04 09:16] LABS: RBC TNTC rbc/hpf (0-2); WBC TNTC wbc/hpf (0-5)
--- NOTE | 2018-12-04 09:38 | NUR ---
DR CRANE AWARE OF CONSULT. ORDERED SETTINGS FOR BIPAP 07/04 BUP 8 40%. REPEAT ABG'S TO BE DRAWN AT 1100 TODAY. ATTEMPTED TO CALL PATIENT'S SON, PANCHO, TO NOTIFY HIM THAT THE PATIENT WAS TRANSFERRED TO THE ICCU. NO ANSWER AT PHONE NUMBER PROVIDED. LEFT MESSAGE TO PLEASE CALL BACK AT [facility]. PATIENT ON BIPAP AT THIS TIME. HEAD TO TOE ASSESSMENT COMPLETED. WITHIN SIGHT OF NURSING STATION.
--- NOTE | 2018-12-04 10:57 | NUR ---
Nursing screen received when patient in [id number]. He has been transferred to ICCU. Should patient require OT when medically stable, then please reorder. THank you. Tameka Avelar OTR/L
[2018-12-04 11:24] LABS: ABG HCO3 34.2 mmol/l (22-26); ABG O2 SATURATION 96.6 % (95-97)
[2018-12-04 11:31] LABS: ARTERIAL BLOOD GAS PH 7.152 (7.35-7.45)
--- NOTE | 2018-12-04 11:40 | NUR ---
UPDATED DR CRANE ON PT'S CONDITION AND ABG RESULTS. ORDER RECEIVED TO INTUBATE PT. SPOKE WITH PT'S DAUGHTER IN [place] R/T PT'S CONDITION AND NEED TO INTUBATE PT. SHE AGREED WITH INTUBATION BUT STATED PT DOES HAVE LIVING WILL PAPERS. I INFORMED JOYCE THAT WE HAVE HIM LISTED A FULL CODE. IF SHE HAS LIVING WILL PAPERS TO PLEASE BRING THEM IN TO THE HOSPITAL. JOYCE AGREED THAT SHE WOULD.
--- NOTE | 2018-12-04 11:46 | NUR ---
DR NASH CALLED IN REGARDING PT. UPDATED HER ON PT'S CONDITION AND ABG RESULTS.
--- NOTE | 2018-12-04 11:57 | NUR ---
Per Dr. jolly, he is out of town Dr. Louise is covering.
--- NOTE | 2018-12-04 12:00 | NUR ---
Infomed consent obtained from family by Dr. CRANE for elective intubation. Patient intubated with 8 Sami endotracheal tube orally X 1 attempts. Patient sedated with DIPRIVAN Respiratory therapy at bedside. Crash cart with emergency drugs available. Endotracheal tube inflated with 8cc's. Lungs auscultated for equality of breath sounds. Tube secured with Tube tamer at 26cm's. at level of LIP. Patient tolerated procedure WELL. Portable chest X-ray obtained and reviewed for tube placement. Patient connected to ventilator CMV mode, 600 tidal volume, 40% FIO2, 5 PEEP, and 0 pressure support. CONNER
--- NOTE | 2018-12-04 12:30 | NUR ---
PATIENT INTUBATED BY ANESTHESIA WITH 8.0 ET TUBE, SECURED 24 AT THE LIP. BBS PRESENT. PLACED ON VENTILATOR AT CMV 14, 600, 40%, +5.
--- NOTE | 2018-12-04 12:39 | NUR ---
OGT INSERTED PER POLICY. STAT CXR ORDERED FOR ENDOTUBE AND OGT PLACEMENT VERIFICATION. IV DIPRIVAN GTT STTARTED PER ORDER.
--- NOTE | 2018-12-04 12:40 | NUR ---
PT'S BP 50/O WITH DOPPLER. DR NASH AND ANESTHESIA NOTIIED OF PT'S CHANGE. IV FLUID BOLUS STARTED AND IV LEVOPHED GTT STARTED PER ORDER. WHITLEY HITCHCOCK, CAME UP TO ROOM AND PLACED A RIGHT BRACHIAL ART LINE.
--- NOTE | 2018-12-04 13:00 | NUR ---
FIO2 INCREASED TO 60% FOR A SPO2 88%.
--- NOTE | 2018-12-04 13:00 | NUR ---
PT'S BP 120'S SYSTOLIC AFTER NEOSYNEPHERINE PUSH GIVEN BY NALDO ARREAGA. IV FLUID BOLUS STOPPED. IV LEVPHED GTT STOPPED. WILL CONTIUE TO MONITOR PT.
--- NOTE | 2018-12-04 13:10 | NUR ---
PT GETTING RESTLESS. IV DIPRIVAN STARED AT 10MCG/KG/MIN FOR SEDATION. UPDATED DR NASH ON PT'S CONDITION.
--- NOTE | 2018-12-04 13:20 | NUR ---
PT'S SBP 80'S WITH MAP OF 58. IV LEVOPHED RESTARTED AT 10MCG/MIN AND DIPRIVAN GTT DECREASED TO 5 MICS/KG/MINUTE. WILL CONTINUE TO MONITOR PT.
--- NOTE | 2018-12-04 14:55 | NUR ---
ABG DRAWN BY RESP. THERAPIST. PT RESTING.
[2018-12-04 14:56] LABS: ABG BASE EXCESS 3.8 mmol/L (-2.0-2.0); ABG HCO3 30.3 mmol/l (22-26); ABG O2 SATURATION 99.6 % (95-97); ARTERIAL BLOOD GAS PCO2 59.2 mmHg (35-45); ARTERIAL BLOOD GAS PH 7.332 (7.35-7.45)
--- NOTE | 2018-12-04 15:00 | NUR ---
FIO2 DECREASED BACK TO 40%.
--- NOTE | 2018-12-04 15:06 | NUR ---
Decorating Machine Tender in to see patient. He is intubated. Discharge plan undecided at this time.
--- NOTE | 2018-12-04 15:25 | NUR ---
DR CRANE UPDATED ON PT'S ABG RESULTS. ORDERS RECEIVED.
--- NOTE | 2018-12-04 16:07 | NUR ---
MAP 97. IV LEVOPHED TITRATED DOWN TO 8MCG/MIN. WILL CONTINUE TO MONITOR PT.
--- NOTE | 2018-12-04 17:48 | NUR ---
STAT PCXR ORDERED AFTER ENDOTUBE RETRACTED 4CM BY RESP. THERAPIST PER RADIOLOGIST'S ORDER.
--- NOTE | 2018-12-04 17:48 | NUR ---
ET TUBE PULLED BACK TO 21 CM AT THE LIP. BBS PRESNT, CXR ORDERED TO CONFIRM PROPER PLACEMNT.
--- NOTE | 2018-12-04 18:21 | NUR ---
DR FRANCO IN TO SEE PT. UPADTED HIM ON PT'S CONDITION AND PLAN OF CARE. PT INCONT. MUSHY BROWN BM. PT CLEANSED AND LINENS CHANGED. IV LEVOPHED TITRATED TO 5MCG/MIN FOR MAP 80. WILL CONITNUE TO MONITOR PT.
--- NOTE | 2018-12-04 20:32 | NUR ---
RECTAL TYLENOL GIVEN FOR ELEVATED TEMPERATURE, RNWILL REASSESS FOR MEDICATION EFFECTIVENESS.
[2018-12-05] VITALS (61 sets, daily range): BP systolic 85–146; BP diastolic 41–99
--- NOTE | 2018-12-05 01:06 | NUR ---
PATIENT MEDICATED WITH VERSED PER DRS ORDERS FOR AGITATION, PATIENT AWAKE AND PULLING AT WRIST RESTRAINTS WHILE IN BED. ATTEMPTING TO BRING HANDS P TOWARDS ET AND OG TUBES. RN WILL MONITOR FOR RELIEF OF SYMPTOMS
--- NOTE | 2018-12-05 01:40 | NUR ---
DR FRANCO CALLED REGARDING PATIENTS CONTINUE AFIB WITH RVR DESPITE EARLIER MEDICATION. ORDERS RECIEVED
--- NOTE | 2018-12-05 01:51 | NUR ---
CARDIZEM DRIP STARTED PER PROTOCOL PER DR ROMERO ORDERS. RN WILL CLOSELY MONITOR HEARTRATE
--- NOTE | 2018-12-05 02:30 | NUR ---
PATIENT APPEARS TO BE RESTING EASIER SINCE EARLIER MEDICATION. RN WILL CONTINUE TO MONITOR
--- NOTE | 2018-12-05 05:00 | NUR ---
IV TO THE LEFT ANTECUBITAL LOOKING SWOLLEN AND IS TENDER TO THE TOUCH. RN HAS BEEN MONITORING THIS SITE D/T LEVOPHED INFUSING HER AND THE SWELING IS NEW. IV OF LEVOPHED WAS STOPPED AND SWITCHED TO A NEW SITE. [facility] WAS CALLED FROM RECOMMENDATIONS OF TREATMENT FOR THE POSSIBLE INFILTRATION. THEIR ADVICE WAS TO STOP INFUSION, ASPIRATE WHATEVER LEVOPHED THAT WE COULD FROM IV SITE AND THEN REMOVE IV SITE, AFTER THAT ELEVATE THE SITE AND THEN WE COULD APPLY DRY WARM COMPRESSES. ADDITIONALLY [facility] STATES THAT WE CAN APPLY 1 INCH OF NITRO PASTE TO THE AFFECTED AREA EVERY 8 HOURS NEEDED.
[2018-12-05 06:00] LABS: ALBUMIN 2.9 gm/dl (3.1-4.5); CREATININE 2.29 mg/dL (0.70-1.30); PHOSPHOROUS 3.1 mg/dL (2.5-4.9); POTASSIUM 3.8 mmol/L (3.5-5.1); TOTAL PROTEIN 7.3 gm/dL (6.4-8.2)
[2018-12-05 06:50] LABS: HEMATOCRIT 38.6 % (42.0-52.0); HEMOGLOBIN 11.2 g/dl (14.0-18.0); MEAN CORPUSCULAR HGB 23.5 pg (27.0-31.0); PLATELET COUNT AUTOMATED 379 10*3/uL (130-400); RED BLOOD COUNT 4.76 10*6/uL (4.50-5.90); RED CELL DISTRI WIDTH 18.8 % (0-14.5)
[2018-12-05 06:53] LABS: MEAN CELL VOLUME 81.1 fl (80.0-94.0)
[2018-12-05 07:45] LABS: PLATELET SUFFICIENCY NORMAL (NORMAL); TOTAL CELLS COUNTED 100 #CELLS
[2018-12-05 08:04] LABS: ABG BASE EXCESS 3.7 mmol/L (-2.0-2.0); ABG HCO3 27.6 mmol/l (22-26); ABG O2 SATURATION 98.8 % (95-97); ARTERIAL BLOOD GAS PCO2 40.6 mmHg (35-45); ARTERIAL BLOOD GAS PH 7.446 (7.35-7.45)
--- NOTE | 2018-12-05 08:07 | NUR ---
Shift chart check completed.
--- NOTE | 2018-12-05 08:30 | NUR ---
LEVOPHED MOVED TO LEFT HAND SITE WITH BETTER BLOOD RETURN. IV IN LEFT ANTECUBITAL REMOVED TO RISK OF INFILTRATE TO SAME AREA WHERE LEVOPHED INFILTRATED. IV started right hand with #22 protective cath after 1 attempts. Site prepped with Chloroprep. Sterile dressing applied. Patient tolerated procedure well. HOUSTON LANG
--- NOTE | 2018-12-05 09:00 | NUR ---
LEVOPHED DECREASED TO 3mcg. IV SITE ASYMPTOMATIC WITH GOOD BLOOD RETURN. DIPRIVAN INFUSING AT 20mcg & CARDIZEM DRIP AT 5mg
--- NOTE | 2018-12-05 10:11 | NUR ---
DR WAN MADE AWARE OF INFILTRATE OF LEVOPHED. MADE AWARE THAT NITROPASTE & HOT BLANKETS WERE APPLIED PER [facility] SUGGESTION. NO FURTHER ORDERS AT THIS TIME.
--- NOTE | 2018-12-05 10:39 | NUR ---
IV TO LEFT HAND WHERE LEVOPHED INFUSING HAS GOOD BLOOD RETURN & NO REDNESS, SWELLING
--- NOTE | 2018-12-05 10:45 | NUR ---
CARDIZEM DRIP DECREASSED TO 2.5 & CARDIZEM VIA OGT GIVEN. LEVOPHED INCREASED TO 3mcg/MIN. GOOD BLOOD RETURN FROM LEVOPHED SITE.
--- NOTE | 2018-12-05 11:15 | NUR ---
LEVOPHED DECREASED TO 2.5mcg/min (18.8cc/hr)...DIPRIVAN DECREASED TO 15mcg/kg/hr & CARDIZEM DRIP STOPPED.
--- NOTE | 2018-12-05 18:35 | NUR ---
HEPARIN PRESSURE BAG CHANGED.
--- NOTE | 2018-12-05 22:11 | NUR ---
VERSED GIVEN AT 2200 FOR AGITATION/COUGHING DESPITE SUCTIONING... EFFECTIVE, PT PT DOZING.
--- NOTE | 2018-12-05 22:44 | NUR ---
COMPLETE BATH AND BED LINEN CHANGE DONE.
[2018-12-06] VITALS (7 sets, daily range): BP systolic 118–137; BP diastolic 50–59
--- NOTE | 2018-12-06 02:30 | NUR ---
VERSED GIVEN AT 0215 FOR PT ANXIETY/GAGGING ON ETT WITH EYES WIDE OPEN...EFFECTIVE. PT APPEARS TO BE SLEEPING WITH RELAXED BODY.
[2018-12-06 04:35] LABS: BASO # 0.1 10*3/uL (0.0-0.1); BASO % 0.5 % (0.0-1.0); EOS # 0.2 10*3/uL (0.0-0.4); EOS % 1.3 % (1.0-4.0); HEMATOCRIT 35.2 % (42.0-52.0); HEMOGLOBIN 10.8 g/dl (14.0-18.0); LYMPH # 1.8 10*3/uL (1.3-4.4); LYMPH % 14.9 % (27.0-41.0); MEAN CORPUSCULAR HGB 23.9 pg (27.0-31.0); MEAN CORPUSCULAR HGB CONC 30.7 g/dl (33.0-37.0); MEAN PLATELET VOLUME 10.7 fl (9.6-12.3); MONO # 1.1 10*3/uL (0.1-1.0); NEUT % 73.2 % (47.0-73.0); PLATELET COUNT AUTOMATED 345 10*3/uL (130-400); RED BLOOD COUNT 4.51 10*6/uL (4.50-5.90); RED CELL DISTRI WIDTH 18.8 % (0-14.5); WHITE BLOOD COUNT 12.3 10*3/uL (4.8-10.8)
[2018-12-06 04:52] LABS: ALBUMIN 2.8 gm/dl (3.1-4.5); CREATININE 2.34 mg/dL (0.70-1.30); PHOSPHOROUS 4.6 mg/dL (2.5-4.9); POTASSIUM 3.6 mmol/L (3.5-5.1); TOTAL PROTEIN 6.8 gm/dL (6.4-8.2)
[2018-12-06 05:31] LABS: ABG BASE EXCESS 4.3 mmol/L (-2.0-2.0); ABG O2 SATURATION 98.8 % (95-97); ARTERIAL BLOOD GAS PH 7.468 (7.35-7.45)
--- NOTE | 2018-12-06 10:34 | NUR ---
IV TO RT FOREARM WAS REMOVED EARLIER & CLEAN DRESSING APPLIED D/T REDNESS. IV started left wrist with #22 protective cath after 4 attempts. Site prepped with Chloroprep. Sterile dressing applied. Patient tolerated procedure well. DR CRANE ROUNDED - ORDERS TO STOP DIPRIVAN THEN FOR CPAP AND ABG IN 2 HOURS. HOUSTON LANG
--- NOTE | 2018-12-06 10:42 | NUR ---
DIPRIVAN STOPPED PER ORDERS
--- NOTE | 2018-12-06 11:19 | NUR ---
1105 PLACED ON CPAP 5/10 - HR 88 - RR 35 1113 HR 87 - RR 30 ON CPAP - REASSURANCE PROVIDED.
--- NOTE | 2018-12-06 11:34 | NUR ---
DR MUSA IN TO SEE ANOTHER PATIENT & GLANCED AT LEFT UPPER ARM NO WOUND CARE HERE TO SEE IT UNTIL FRIDAY. SITE APPEARS LESS CONCERNING TODAY AND NO NEW ORDERS NEEDED
--- NOTE | 2018-12-06 11:44 | NUR ---
DTG-IN-LAW AT BEDSIDE HOLDING HIS HAND
--- NOTE | 2018-12-06 12:01 | NUR ---
PATIENT CALMER. HR MID 90, RR 30 BP STABLE. EYES OPEN SPONTANEOUSLY. AWARE OF FAMILY AT BEDSIDE.
--- NOTE | 2018-12-06 12:26 | NUR ---
TOLERATING CPAP WELL. FAMILY REMAINS AT BEDSIDE.
--- NOTE | 2018-12-06 13:23 | NUR ---
ABG DRAWN FROM ART LINE. FAMILY AT BEDSIDE
[2018-12-06 13:26] LABS: ABG BASE EXCESS 5.9 mmol/L (-2.0-2.0); ABG HCO3 29.8 mmol/l (22-26); ABG O2 SATURATION 95.4 % (95-97); ARTERIAL BLOOD GAS PH 7.451 (7.35-7.45); ARTERIAL BLOOD GAS PO2 84.7 mmHg (80-90)
--- NOTE | 2018-12-06 14:01 | NUR ---
DR CRANE CALLED WITH ABG RESULTS. MAINTAIN CPAP FOR ANOTHER 2 HOURS THEN REPEAT ABG
--- NOTE | 2018-12-06 15:22 | NUR ---
DR WAN HERE - SPOKE WITH DTG-IN-LAW (POA)
--- NOTE | 2018-12-06 15:35 | NUR ---
DR WAN NOTIFIED OF ELEVATED TEMP 101.8. ORDERS FOR STAT BLOOD CULTURES
[2018-12-06 16:05] LABS: ABG BASE EXCESS 6.9 mmol/L (-2.0-2.0); ABG HCO3 30.9 mmol/l (22-26); ABG O2 SATURATION 95.7 % (95-97); ARTERIAL BLOOD GAS PH 7.443 (7.35-7.45); ARTERIAL BLOOD GAS PO2 83.6 mmHg (80-90)
--- NOTE | 2018-12-06 16:05 | NUR ---
ABG DRAWN FROM ART LINE WELL 1 SET OF BLOOD CULTURES. URINE CULTURE SENT AFTER SPIKE IN TEMP AND URINE IS MORE CLOUDY W/ MORE SEDIMENT THAN EARLIER. SPUTUM SPECIMEN OBTAINED IN CASE DR CRANE WANTS REPEATED. PT REMAINS ON CPAP 10/30 UNTIL RESULTS CALLED TO DR CRANE.
--- NOTE | 2018-12-06 16:30 | NUR ---
PT EXTUBATED BY RESP THERAPY TO BIPAP 07/04 30% PER DR CRANE. SATS ARE MID 90'S. OGT REMOVED AND #16 NGT TO LEFT NARES PLACED PER DR CRANE. ALL SPECIMENS SENT & TYLENOL WAS GIVEN - SEE EARLIER NOTE. WRIST RESTRAINTS REMOVED.
[2018-12-06 18:39] LABS: ABG BASE EXCESS 6.3 mmol/L (-2.0-2.0); ABG HCO3 30.7 mmol/l (22-26); ABG O2 SATURATION 97.9 % (95-97); ARTERIAL BLOOD GAS PCO2 45.9 mmHg (35-45); ARTERIAL BLOOD GAS PH 7.443 (7.35-7.45); ARTERIAL BLOOD GAS PO2 94.2 mmHg (80-90)
--- NOTE | 2018-12-06 19:14 | NUR ---
24 HR chart check completed.
--- NOTE | 2018-12-06 20:15 | NUR ---
REPORTED ABGS AND BUN AND CREATINE RESULTS. ORDERS RECIEVED AND CARRIED OUT.
--- NOTE | 2018-12-06 20:30 | NUR ---
NG READJUSTED. AWAITING XRAY RESULTS.
[2018-12-07] VITALS: BP 144/60
[2018-12-07 04:00] VITALS: BP 112/103
[2018-12-07 06:54] LABS: BASO % 0.2 % (0.0-1.0); EOS # 0.2 10*3/uL (0.0-0.4); EOS % 1.5 % (1.0-4.0); HEMATOCRIT 35.9 % (42.0-52.0); HEMOGLOBIN 10.5 g/dl (14.0-18.0); LYMPH # 1.6 10*3/uL (1.3-4.4); MEAN CELL VOLUME 79.6 fl (80.0-94.0); MEAN CORPUSCULAR HGB 23.3 pg (27.0-31.0); MEAN CORPUSCULAR HGB CONC 29.2 g/dl (33.0-37.0); MEAN PLATELET VOLUME 11.5 fl (9.6-12.3); MONO # 1.2 10*3/uL (0.1-1.0); MONO % 9.4 % (3.0-9.0); NEUT # 9.9 10*3/uL (2.3-7.9); NEUT % 76.1 % (47.0-73.0); PLATELET COUNT AUTOMATED 316 10*3/uL (130-400); RED BLOOD COUNT 4.51 10*6/uL (4.50-5.90); RED CELL DISTRI WIDTH 18.7 % (0-14.5)
[2018-12-07 06:57] LABS: ALBUMIN 2.9 gm/dl (3.1-4.5); CREATININE 1.6 mg/dL (0.70-1.30); PHOSPHOROUS 4.5 mg/dL (2.5-4.9); POTASSIUM 3.2 mmol/L (3.5-5.1); TOTAL PROTEIN 7.2 gm/dL (6.4-8.2)
--- NOTE | 2018-12-07 07:50 | NUR ---
PHYSICAL THERAPY Nursing screen received. Chart review complete. Recommend normal daily mobility with nursing prn. 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 Thank you. Patricia Pang,PT
[2018-12-07 08:00] VITALS: BP 133/56
--- NOTE | 2018-12-07 09:00 | NUR ---
Medical Aide in to see patient. He is currently on bipap. He is a LTC resident at [facility]. digital sales planner following.
--- NOTE | 2018-12-07 09:29 | NUR ---
RENY QUEVEDO [id number] Please refer to the physician's history and physical for past medical history, comorbid conditions, and allergies. Diagnosis: UTI, CHF Refugio Score: 14,MODERATE RISK WOUND DESCRIPTIONS: Patient left upper arm near elbow edema noted, no open areas at time of assessment, ecchymotic areas noted in various stages on healing. Nurse caring for patient stated this is where an IV infiltrated. Area is cool to the touch. Surface the patient is resting on: Position Pro SKIN PREVENTION RECOMMENDATION: 1. Pressure redistribution support surface as appropriate 2. Elevate heels 3. Remove boots/TEDS every shift and reapply 4. Head of bed 30 degrees as tolerated 5. Assess nutrition and hydration 6. Manage moisture 7. Avoid the use of containment devices while in bed 8. Use absorptive products on surfaces limit layers of linens on bed 9. Turn and reposition every 1-2 hours in bed and every 1 hour in chair as tolerated 10. Weight shifts every 15 minutes while up in chair 11. Offloading with pillows or device to keep heels elevated off bed 12. Monitor skin at least every shift 13. Inspect under medical devices twice a day WOUND TREATMENT RECOMMENDATIONS: Continue dressing change orders per md for left upper arm.
--- NOTE | 2018-12-07 11:40 | NUR ---
11:00 PT TAKEN OFF OF BIPAP AT THIS TIME. PLACED ON 5 L NC. TOLERATING WELL. RESPS EASY AND UNLABORED. BIPAP ON S/B.
[2018-12-07 12:00] VITALS: BP 108/68
--- NOTE | 2018-12-07 15:07 | NUR ---
Patient updated clinicals faxed to [facility] for review. 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
[2018-12-07 16:00] VITALS: BP 128/52
[2018-12-07 20:00] VITALS: BP 119/46; BP 130/54
--- NOTE | 2018-12-07 20:54 | NUR ---
PT. RESTING IN BED. HEP LOCK IN RH AND LW ASYMPT. LUNGS DIMINISHED BILAT, PULSE OX 99-100% ON 4L NC. ABDOMEN SOFTLY DISTENDED, OBESE, NORMO. TRACE BLE EDEMA NOTED. WOUND DRESSING TO RIGHT UPPER QUAD AND LEFT INNER ANKLE INTACT. RIGHT BRACHIAL ARTERY INTACT, LINE LEVELED, ZEROED ANF FLUSHED. LICEA DRAINING A CLEAR PALE ELIANA URINE. TRACE BLE EDEMA NOTED. RESP. EASY AND REG, NO DISTRESS. PT. ALERT AND ORIENTED, TALKING WITH VISITOR AT TIME OF ASSESSMENT. XIOMARA CALDERON RN
--- NOTE | 2018-12-07 23:25 | NUR ---
PT PLACED ON BIPAP
[2018-12-08] VITALS (7 sets, daily range): BP systolic 115–155; BP diastolic 52–71
[2018-12-08 05:14] LABS: BASO % 0.3 % (0.0-1.0); EOS # 0.2 10*3/uL (0.0-0.4); EOS % 1.4 % (1.0-4.0); HEMATOCRIT 34.8 % (42.0-52.0); LYMPH # 1.1 10*3/uL (1.3-4.4); LYMPH % 7.5 % (27.0-41.0); MEAN CELL VOLUME 80.6 fl (80.0-94.0); MEAN CORPUSCULAR HGB 23.1 pg (27.0-31.0); MEAN CORPUSCULAR HGB CONC 28.7 g/dl (33.0-37.0); MEAN PLATELET VOLUME 11.3 fl (9.6-12.3); MONO # 1.1 10*3/uL (0.1-1.0); MONO % 7.3 % (3.0-9.0); NEUT # 12.3 10*3/uL (2.3-7.9); NEUT % 83.1 % (47.0-73.0); PLATELET COUNT AUTOMATED 321 10*3/uL (130-400); RED BLOOD COUNT 4.32 10*6/uL (4.50-5.90); RED CELL DISTRI WIDTH 18.2 % (0-14.5); WHITE BLOOD COUNT 14.8 10*3/uL (4.8-10.8)
[2018-12-08 05:57] LABS: ALBUMIN 2.9 gm/dl (3.1-4.5); CREATININE 1.42 mg/dL (0.70-1.30); POTASSIUM 2.9 mmol/L (3.5-5.1)
[2018-12-08 05:59] LABS: TOTAL PROTEIN 7.1 gm/dL (6.4-8.2)
--- NOTE | 2018-12-08 06:12 | NUR ---
AM GLUCOSE 89 FROM CMP. XIOMARA CALDERON RN
--- NOTE | 2018-12-08 06:59 | NUR ---
pt not on bipap at this time
--- NOTE | 2018-12-08 08:15 | NUR ---
PT AAOX3. VSS. RESP EASY. LUNG TEJEDA DIM. PT C/O OCCASIONAL PRODUCTIVE COUGH. ABD. OBESE WITH ACTIVE BOWEL SONDS. LICEA PATENT. MULTIPLE WOUND DRESSINGS INTACT. PT DENIES C/O AT THIS TIME. WILL CONTINUE TO MONITOR PT.
--- NOTE | 2018-12-08 08:50 | NUR ---
DR NASH IN TO SEE PT. UPDATED HER ON PT'S CONDITION. NEW ORDERS RECEIVED.
--- NOTE | 2018-12-08 13:13 | NUR ---
PT OFF BIPAP AT THIS TIME.
--- NOTE | 2018-12-08 14:08 | NUR ---
Notified Meeta at the [facility] patient will need a bipap and plan is to return tomorrow. Awaiting response.
--- NOTE | 2018-12-08 14:18 | NUR ---
Notified Meeta at [facility] of bipap settings
--- NOTE | 2018-12-08 14:19 | NUR ---
Meeta at the [facility] ordering bipap
--- NOTE | 2018-12-08 14:27 | NUR ---
Per Meeta at [facility] please send bipap mask with patient on discharge as [facility] doesn't have any bipap mask in stock at this time. Notified nurse. He may need auth to return skilled to [facility], [facility] will start auth. nurse discharge planner notified.
--- NOTE | 2018-12-08 15:33 | NUR ---
DRESSINGS CHANGED PER ORDERS. ART LINE D/C'D. PRESSURE DSG APPLIED.
--- NOTE | 2018-12-08 20:12 | NUR ---
PT. RESTING IN BED. HEP LOCK IN RH AND LW ASYMPT .LUNGS DIMINISHED BILAT, PULSE OX 97% ON 3L NC. ABDOMEN SOFTLY DISTENDED, MORBIDLY OBESE. NORMOACTIVE. PEDAL EDEMA BILT. DRESSING TO WOUNDS INTACT AND ASYMPT. LICEA CATHETER DRAINING A CLEAR YELLOW URINE. RESP. EASY AND REG NO DISTRESS. XIOMARA CALDERON RN
--- NOTE | 2018-12-08 20:30 | NUR ---
TYLENOL GIVEN AT 2020 ORDERED FOR TEMP OF 101.7 AND PERCOSET GIVEN AT 203 FOR COMPLAINTS OF LEG/FOOT WOUND PAIN.
--- NOTE | 2018-12-08 22:17 | NUR ---
PT. STATED PERCOSET EFFECTIVE FOR PAIN. WILL CLOSELY MONITOR TEMP. CURRENT TEMP 99.3
[2018-12-09 04:00] VITALS: BP 131/52
--- NOTE | 2018-12-09 04:29 | NUR ---
Upon discharge recommend patient to follow up for wound care in outpatient setting continue current wound care orders at discharging facility.
[2018-12-09 08:00] VITALS: BP 114/48
--- NOTE | 2018-12-09 08:00 | NUR ---
DR NASH IN TO SEE THE PATIENT AT THIS TIME. NEW ORDERS RECEIVED FOR CT OF THE CHEST AND CULTURES. PATIENT IS RESTING IN HIS BED CURRENTLY. NO S/S OF DISTRESS ON 4LNC. DENIES ANY DISCOMFORTS. CALL LIGHT WITHIN REACH.
--- NOTE | 2018-12-09 08:25 | NUR ---
PATIENT TAKEN DOWN TO CT BY TRANSPORT. HOOKED TO PORTABLE MONITOR, TRANSFER TO CART. NO S/S OF DISTRESS DURING TRANSFER.
--- NOTE | 2018-12-09 08:28 | NUR ---
JOYCE,PT'S [id number], NOTIFIED OF PT NOT BIENG DISCHARGED TODAY DUE PT'S ELEVATED TEMP. UPDATED HER ON PT'S PLAN OF CARE.
--- NOTE | 2018-12-09 09:00 | NUR ---
BACK FROM CT. DR CRANE IN TO SEE PATIENT AT THIS TIME.
--- NOTE | 2018-12-09 09:00 | NUR ---
Per Meeta at [facility] patient doesn't need auth to return as he is LTC and as long as the bipap is delivered. When medically stable he will be discharged to [facility]. digital sales planner following.
--- NOTE | 2018-12-09 09:13 | NUR ---
PHYSICAL THERAPY PAtient eating breakfast at this time. Patricia Pang,PT
--- NOTE | 2018-12-09 09:13 | NUR ---
Patient eating breakfast and not available for OT evaluation. Tameka Avelar OTR/l
--- NOTE | 2018-12-09 09:22 | NUR ---
PATIENT SITTING UP IN BED EATING BREAKFAST. SET UP BY NURSE. MEDICATIONS TAKEN, NO ISSUE NOTED WITH SWALLOWING PILLS. PATIENT TOLERATED. PATIENT DENIES ANY FEELINGS OF DISCOMFORT OR DISTRESS. CALL LIGHT WITHIN REACH.
[2018-12-09 11:51] VITALS: BP 127/70
--- NOTE | 2018-12-09 11:57 | NUR ---
PATIENT SITTING UP IN BED FOR LUNCH. STATES "THE NURSE IS GONNA BE MAD AT ME" NOTING THAT HE HAD HAD A PERIOD OF INCONTINENCE AND NEEDS HIS BED CHANGED. I ASSURED HIM THAT WE WERE NOT UPSET WITH HIM AND I WOULD HELP HIM GET CLEANED UP. HE STATED THAT HE WOULD LIKE TO EAT FIRST AND THEN WE COULD CHANGE HIS BED. STATES HE "SURE IS HUNGRY." CALL LIGHT IS WITHIN REACH CURRENTLY, AND BED ALARM INTACT.
--- NOTE | 2018-12-09 12:30 | NUR ---
PATIENT FINISHED LUNCH, DID NOT EAT VERY MUCH. PATIENT'S BED CHANGED AND PATIENT CLEANED UP BY MATERIALS ENGINEER MEMBERS. NO S/S OF DISTRESS. CALL LIGHT WITHIN REACH.
[2018-12-09 16:00] VITALS: BP 126/54
--- NOTE | 2018-12-09 16:56 | NUR ---
PATIENT'S OXYGEN DROPPED TO 3LNC DUE TO O2 SAT OF 98-99% CONSISTENTLY THROUGHOUT THE DAY.
--- NOTE | 2018-12-09 16:56 | NUR ---
TYLENOL GIVEN TO HELP REDUCE TEMPERATURE OF 100.5.
[2018-12-09 20:00] VITALS: BP 95/46
--- NOTE | 2018-12-09 20:13 | NUR ---
PT. RESTING IN BED. HEP LOCK IN LW AND RH ASYMPT .LUNGS DIMINISHED BILAT, PULSE OX 96% ON 3L NC. ABDOMEN SOFTLY DISTENDED, OBESE, NORMO. TRACE PEDAL EDEMA BILAT. RESP. EASY AND REG ,NO DISTRESS. XIOMARA CALDERON RN
[2018-12-10] VITALS: BP 123/57
[2018-12-10 04:00] VITALS: BP 118/50
[2018-12-10 05:31] LABS: CREATININE 1.41 mg/dL (0.70-1.30); POTASSIUM 3.7 mmol/L (3.5-5.1)
--- NOTE | 2018-12-10 05:45 | NUR ---
AM GLUC ON CMP IS 149.
[2018-12-10 06:13] LABS: HEMATOCRIT 36.7 % (42.0-52.0); HEMOGLOBIN 10.6 g/dl (14.0-18.0); MEAN CELL VOLUME 80.1 fl (80.0-94.0); MEAN CORPUSCULAR HGB 23.1 pg (27.0-31.0); MEAN CORPUSCULAR HGB CONC 28.9 g/dl (33.0-37.0); MEAN PLATELET VOLUME 11.4 fl (9.6-12.3); PLATELET COUNT AUTOMATED 318 10*3/uL (130-400); RED BLOOD COUNT 4.58 10*6/uL (4.50-5.90); RED CELL DISTRI WIDTH 18.1 % (0-14.5); WHITE BLOOD COUNT 16.5 10*3/uL (4.8-10.8)
[2018-12-10 07:03] LABS: OVALOCYTES FEW; PLATELET SUFFICIENCY NORMAL (NORMAL); POLYCHROMASIA SLIGHT; TOTAL CELLS COUNTED 100 #CELLS
--- NOTE | 2018-12-10 07:30 | NUR ---
DR NASH IN TO SEE PATIENT.
[2018-12-10 07:41] VITALS: BP 136/52
--- NOTE | 2018-12-10 08:01 | NUR ---
PATIENT RESTING IN HIS BED AT THIS TIME. RESP IN TO SEE PATIENT FOR BREATHING TREATMENT. PATIENT DISPLAYS NO S/S OF DISTRESS. CALL LIGHT WITHIN REACH. DENIES WANTING TO ORDER BREAKFAST RIGHT NOW. WILL CHECK BACK LATER IN THE MORNING.
--- NOTE | 2018-12-10 08:09 | NUR ---
DR DEXTER AWARE OF CONSULT.
--- NOTE | 2018-12-10 08:31 | NUR ---
DR DEXTER WAS WANTING TO DO A BEDSIDE LYNSEY, HOWEVER ANESTETHIA IS NOT AVAILABLE UNTIL 1130AM TODAY AND DR DEXTER STATES THAT HE CANNOT DO IT AT THAT TIME. GAVE INFORMATION ON LAST REGULAR ECHOCARDIOGRAM. MEDICARE INTERVIEWER PENNY AWARE OF SITUATION. SURGERY AWARE OF SITUATION. LYNSEY WILL NOT HAPPEN TODAY. WILL RESCHEDULE FOR ANOTHER DAY. PRINTING ECHO REPORT FOR DR DEXTER.
--- NOTE | 2018-12-10 08:35 | NUR ---
CARDIAC REHAB AWARE THAT LYNSEY WILL NOT BE PERFORMED TODAY.
--- NOTE | 2018-12-10 08:36 | NUR ---
PENNY SANDERS AWARE OF PATIENT BEING DOWNGRADED TO IMC.
--- NOTE | 2018-12-10 09:00 | NUR ---
1 CAN OF JEVITY GIVEN OVER AN HOUR PER FAMILY REQUEST. BACTROBAN APPLIED TO PEG SITE AND DRAINAGE SPONGE APPLIED.
--- NOTE | 2018-12-10 09:00 | NUR ---
Machine Gun Mechanic in to see patient. He is a LTC resident at [facility]. landscape architect and planner following.
[2018-12-10 12:00] VITALS: BP 137/50
--- NOTE | 2018-12-10 12:09 | NUR ---
PHYSICAL THERAPY After chart review PT notes years of non ambualtory and halima lift. Discussed case with nursing. Nursing agrees patient is non ambulatory greater than 2 years and halima lift at LTC. Will d/c PT orders: no PT skills/ needs. Recommend daily ROM with daily nursing care and halima lift via nursing staff as needed for bed to chair to bed. Thank you for this referral. Patricia Pang,.PT
--- NOTE | 2018-12-10 12:19 | NUR ---
Occupational Therapy referral received and screen completed. Patient has years of non-ambulatory and Naima lift status. 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 He is able to feed self and participate in grooming. He is dependent in all other ADls. At this time no further OT indicated. Recommend BUE ROM with daily nursing care. Thank you. Tameka Avelar OTR/l
--- NOTE | 2018-12-10 13:00 | NUR ---
PATIENT RESTING IN HIS BED AT THIS TIME. DOES NOT WANT TO ORDER LUNCH YET. NO S/S OF DISTRESS. CALL LIGHT WITHIN REACH.
--- NOTE | 2018-12-10 13:56 | NUR ---
DR NASH NOTIFIED OF + C-DIFF RESULTS. NEW ORDERS RECEIVED.
--- NOTE | 2018-12-10 14:55 | NUR ---
TRANSFERED PT TO 508 VIA BED. PT'S FAMILY, JOYCE NOTIFIED OF TRANSFER.
[2018-12-10 16:00] VITALS: BP 138/52
[2018-12-10 20:00] VITALS: BP 138/58
[2018-12-11] VITALS: BP 126/50
--- NOTE | 2018-12-11 01:35 | NUR ---
DR. WAN NOTIFIED OF SUSTAINED ELEVATED HEART RATE IN THE 130'S WITH FREQUENT PVC'S. SIMILAR EVENT HAPPENED ON 12/05/18. TOLD TO CALL CARDIOLOGY FOR FURTHER ORDERS.
--- NOTE | 2018-12-11 01:45 | NUR ---
SPOKE WITH PRODUCTION GRADER DR. DEXTER REGARDING SUSTAINED HR OF 130-140'S. PATIENT CONDITION REVIEWED, PATIENT IS ASYMPTOMATIC UPON ASSESSMENT. ORDERS RECEIVED TO INCREASE DAILY PO CARDIZEM FROM 180MG TO 240MG.
[2018-12-11 02:00] VITALS: BP 118/61
[2018-12-11 04:00] VITALS: BP 103/44
[2018-12-11 06:34] LABS: HEMOGLOBIN 10.8 g/dl (14.0-18.0); MEAN CELL VOLUME 78.9 fl (80.0-94.0); MEAN CORPUSCULAR HGB CONC 29.2 g/dl (33.0-37.0); MEAN PLATELET VOLUME 11.7 fl (9.6-12.3); PLATELET COUNT AUTOMATED 356 10*3/uL (130-400); RED BLOOD COUNT 4.69 10*6/uL (4.50-5.90); RED CELL DISTRI WIDTH 17.9 % (0-14.5); WHITE BLOOD COUNT 13.3 10*3/uL (4.8-10.8)
[2018-12-11 06:44] LABS: CREATININE 1.64 mg/dL (0.70-1.30); POTASSIUM 3.6 mmol/L (3.5-5.1)
[2018-12-11 07:43] LABS: ATYPICAL LYMPHS 1 % (0-0); MICROCYTOSIS SLIGHT; PLATELET SUFFICIENCY NORMAL (NORMAL); POLYCHROMASIA SLIGHT; SCHISTOCYTES FEW; TOTAL CELLS COUNTED 100 #CELLS
--- NOTE | 2018-12-11 11:00 | NUR ---
ASSUMED CARE FOR THIS PT AT THIS TIME. PT RESTING QUIETLY IN BED W/HEEL PROTECTORS ON. BED IN LOW POSITION W/WHEELS LOCKED AND ALARM ON. CALL LIGHT IN REACH. PT CONTINUES TO HAVE MULTIPLE LOOSE STOOLS. NO C/O VOICED.
--- NOTE | 2018-12-11 11:51 | NUR ---
Updated clinicals faxed to [facility]. Notified facility patients C-Diff came back positive, patient requires isolation room. They are checking on a room for him and will get back to me. 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
[2018-12-11 12:00] VITALS: BP 118/52
--- NOTE | 2018-12-11 12:26 | NUR ---
Yadira stating patient does have a private isolation room available. He is [facility] care and ok to return when medically stable for discharge.
[2018-12-11 16:00] VITALS: BP 134/52; BP 135/52
[2018-12-11 20:00] VITALS: BP 110/52
[2018-12-12] VITALS: BP 110/56
[2018-12-12 08:00] VITALS: BP 107/56
[2018-12-12 12:18] VITALS: BP 110/43
[2018-12-12 16:00] VITALS: BP 118/56
[2018-12-12 20:51] VITALS: BP 94/64
[2018-12-12 23:51] VITALS: BP 92/52
--- NOTE | 2018-12-13 | NUR ---
DR. NASH CALLED OF LOW BP OF 92/52. ORDERES RECEIVED.
[2018-12-13 06:08] VITALS: BP 104/50
[2018-12-13 06:11] LABS: BASO % 0.4 % (0.0-1.0); EOS # 0.1 10*3/uL (0.0-0.4); EOS % 1.5 % (1.0-4.0); HEMOGLOBIN 10.7 g/dl (14.0-18.0); LYMPH # 0.6 10*3/uL (1.3-4.4); MEAN CELL VOLUME 79.7 fl (80.0-94.0); MEAN CORPUSCULAR HGB 23.1 pg (27.0-31.0); MEAN CORPUSCULAR HGB CONC 28.9 g/dl (33.0-37.0); MEAN PLATELET VOLUME 11.7 fl (9.6-12.3); MONO # 0.7 10*3/uL (0.1-1.0); MONO % 7.8 % (3.0-9.0); NEUT # 7.8 10*3/uL (2.3-7.9); PLATELET COUNT AUTOMATED 390 10*3/uL (130-400); RED BLOOD COUNT 4.64 10*6/uL (4.50-5.90); RED CELL DISTRI WIDTH 18.3 % (0-14.5); WHITE BLOOD COUNT 9.4 10*3/uL (4.8-10.8)
--- NOTE | 2018-12-13 08:49 | NUR ---
NOTIFIED DR NASH THAT PT BLOOD PRESSURE IS 94/50. ORDERS GIVEN TO FINISH OFF BAG OF FLUIDS THAT WERE ORDERED LAST NIGHT. ORDERS ALSO RECEIVED TO HOLD AM CARDIZEM. PT HEART RATE IN 80S WITH NO S/S OF DISTRESS. PT APPEARS ASYMPTOMATIC. WILL NOTIFY PT OF ORDERS.
[2018-12-13 12:00] VITALS: BP 112/52
--- NOTE | 2018-12-13 14:00 | NUR ---
SCHEDULED MEDICATIONS TAKEN WITH EASE. DRESSINGS CHANGED PER ORDER. PT TOLERATED WELL. NO OTHER COMPLAINTS VOICED BY PT AT THIS TIME. NO S/S OF DISTRESS. CALL LIGHT IN REACH.
[2018-12-13 16:00] VITALS: BP 100/50
[2018-12-13 20:00] VITALS: BP 105/44
--- NOTE | 2018-12-13 23:19 | NUR ---
PT HAD SMALL BM IN BED ACOSTA. INCONTINENT OF URINE. PT CLEANED UP & NEW BED LINENS/CHUCKS PROVIDED. PT REFUSING TURN. WILL MONITOR. BED LEFT LOCKED IN LOW POSITION, BED ALARM INTACT, CALL LIGHT IN REACH.
[2018-12-14] VITALS: BP 139/58
--- NOTE | 2018-12-14 02:11 | NUR ---
PT ASLEEP IN BED. BIPAP IN USE. NO S/S OF DISTRESS NOTED. WILL MONITOR. CALL LIGHT IN REACH.
--- NOTE | 2018-12-14 05:34 | NUR ---
PT TAKEN OFF BIPAP PER REQUEST AND PLACED ON 3L NC. WILL NOTIFY RESPIRATORY.
[2018-12-14 08:00] VITALS: BP 118/72
--- NOTE | 2018-12-14 10:26 | NUR ---
RENY QUEVEDO [id number] Please refer to the physician's history and physical for past medical history, comorbid conditions, and allergies. Diagnosis: UTI, CHF Refugio Score: 14,MODERATE RISK WOUND DESCRIPTIONS: Wound Number: 1 Location of the wound: right upper quad medial apsect Type of wound: surgical Thickness: Full Size: 0.6cm x 1.5cm x 0.3cm Tunneling: none Undermining: none Sinus Tract: none Presence of Exudate: Purulent Amount: Light Color: Yellow, red Odor: None Periwound Skin Appearance: Scar Wound edges: approximated Pain (associated with wound): none at time of assessment Wound Number: 2 Location of the wound: right upper quadrant lateral aspect Type of wound: surgical Thickness: Full Size: 0.1cm x 0.4cm x 0.1cm Tunneling: none Undermining: none Sinus Tract: none Presence of Exudate: Serosanguineous Amount: Light Color: [place] Odor: None Periwound Skin Appearance: Scar Wound edges: approximated Pain (associated with wound): none at time of assessment Wound Number: 3 Intact scab noted left medial aspect of ankle surrounding tissue is intact scar. No drainage noted at time of assessment. Wound Number 4: Left upper extremity ecchymotic area noted. No open areas at time of assessment. Surface the patient is resting on: Position Pro SKIN PREVENTION RECOMMENDATION: 1. Pressure redistribution support surface as appropriate 2. Elevate heels 3. Remove boots/TEDS every shift and reapply 4. Head of bed 30 degrees as tolerated 5. Assess nutrition and hydration 6. Manage moisture 7. Avoid the use of containment devices while in bed 8. Use absorptive products on surfaces limit layers of linens on bed 9. Turn and reposition every 1-2 hours in bed and every 1 hour in chair as tolerated 10. Weight shifts every 15 minutes while up in chair 11. Offloading with pillows or device to keep heels elevated off bed 12. Monitor skin at least every shift 13. Inspect under medical devices twice a day WOUND TREATMENT RECOMMENDATIONS: Continue current wound care orders.
--- NOTE | 2018-12-14 11:44 | NUR ---
Patient is being [facility]. Transportation scheduled for 1:30 PM with [facility]. [facility], nursing/ward maid notified. Couldn't reach contact, left voicemail on her cell phone
--- NOTE | 2018-12-14 14:12 | NUR ---
Discharge instructions reviewed with patient/family. Patient receptive and verbalizes understanding. Follow-up care arranged. Written instructions given to patient/family.Patient was wheeled from unit by EMT's with all personal belongings accounted for. TOM ZAMORA
--- NOTE | 2018-12-14 23:32 | NUR ---
SPOKE WITH RICHA AT [facility]. SHE STATED THAT THE BIPAP THAT WAS DELIVERED HAS NO MASK. THIS NURSE WENT THROUGH CASE MANAGEMENT NOTES AND ORDERS AND DISCOVERED THAT THE MASK THAT THE PATIENT WAS SUPPOSED TO HAVE HIS BIPAP MASK SENT WITH HIM TO THE CARE HOME [facility] DID NOT HAVE A MASK IN STOCK. THIS WAS RELAYED TO NURSING SPINNER OPERATOR AND PANCHITO FROM RESPIRATORY. PANCHITO STATED THAT THE MASK HERE WOULD NOT FIT THE BIPAP MACHINE THAT WAS AT THE CARE HOME. ATTEMPTED TO EXPLAIN THAT [facility] WAS OUT OF STOCK AND WE WERE TO SEND OUR MASK WITH THE PATIENT ON DISCHARGE. SHE CONTINUED TO SAY THE MASK WOULD NOT FIT. NUMBER PROVIDED TO HER TO SPEAK WITH [facility] ABOUT SITUATION. PANCHITO CALLED THIS NURSE BACK AND STATED THAT SHE EXPLAINED TO THEM THE REASON WE CANNOT SEND THE MASK AND SHE STATED THAT THEY WOULD CALL THE UNEMPLOYMENT CLAIMS ADJUDICATOR COMPANY IN THE MORNING. THIS WAS ALL RELAYED BACK TO THE SPINNER OPERATOR.
== END 2018-12-14 14:12 | disposition other institution (70) | DRG 208 ==
LOC: ED 22:18 → EDHOLD 12-04 01:14 → ICCU 12-04 01:14 → 5E 12-04 01:24 → ICCU 12-04 08:14 → 5E 12-10 14:41
PROVIDERS: Emergency Medicine; Internal Medicine Critical Care Medicine; ADMIT Internal Medicine
PROC: 5A09357 Assistance with Respiratory Ventilation, Less than 24 Consecutive Hours, Continuous Positive Airway Pressure (ICD-10-PCS; principal; 2018-12-04)
PROC: 0BH17EZ Insertion of Endotracheal Airway into Trachea, Via Natural or Artificial Opening (ICD-10-PCS; principal; 2018-12-04)
PROC: 5A1945Z Respiratory Ventilation, 24-96 Consecutive Hours (ICD-10-PCS; principal; 2018-12-04)
PROC: 5A09357 Assistance with Respiratory Ventilation, Less than 24 Consecutive Hours, Continuous Positive Airway Pressure (ICD-10-PCS; 2018-12-07)
PROC: 5A09357 Assistance with Respiratory Ventilation, Less than 24 Consecutive Hours, Continuous Positive Airway Pressure (ICD-10-PCS; 2018-12-08)
PROC: 5A09357 Assistance with Respiratory Ventilation, Less than 24 Consecutive Hours, Continuous Positive Airway Pressure (ICD-10-PCS; 2018-12-10)
PROC: 5A09357 Assistance with Respiratory Ventilation, Less than 24 Consecutive Hours, Continuous Positive Airway Pressure (ICD-10-PCS; 2018-12-13)
PROC: 5A09357 Assistance with Respiratory Ventilation, Less than 24 Consecutive Hours, Continuous Positive Airway Pressure (ICD-10-PCS; 2018-12-14)
PROC: 02HV33Z Insertion of Infusion Device into Superior Vena Cava, Percutaneous Approach (ICD-10-PCS; 2018-12-14)
DX: J96.22 Acute and chronic respiratory failure with hypercapnia (principal); J18.9 Pneumonia, unspecified organism; I50.43 Acute on chronic combined systolic (congestive) and diastolic (congestive) heart failure; I13.0 Hypertensive heart and chronic kidney disease with heart failure and stage 1 through stage 4 chronic kidney disease, or unspecified chronic kidney disease; A04.72 Enterocolitis due to Clostridium difficile, not specified as recurrent; E66.2 Morbid (severe) obesity with alveolar hypoventilation; N39.0 Urinary tract infection, site not specified; I42.9 Cardiomyopathy, unspecified; J44.0 Chronic obstructive pulmonary disease with (acute) lower respiratory infection; N17.9 Acute kidney failure, unspecified; J44.1 Chronic obstructive pulmonary disease with (acute) exacerbation; E87.3 Alkalosis; N18.3 Chronic kidney disease, stage 3 (moderate); I95.9 Hypotension, unspecified; J96.21 Acute and chronic respiratory failure with hypoxia; E87.6 Hypokalemia; Z16.12 Extended spectrum beta lactamase (ESBL) resistance; I48.0 Paroxysmal atrial fibrillation; E78.5 Hyperlipidemia, unspecified; B96.20 Unspecified Escherichia coli [E. coli] as the cause of diseases classified elsewhere; R62.7 Adult failure to thrive; E11.51 Type 2 diabetes mellitus with diabetic peripheral angiopathy without gangrene; E11.22 Type 2 diabetes mellitus with diabetic chronic kidney disease; Z96.652 Presence of left artificial knee joint; E03.9 Hypothyroidism, unspecified; I48.2 Chronic atrial fibrillation; T50.2X5A Adverse effect of carbonic-anhydrase inhibitors, benzothiadiazides and other diuretics, initial encounter; Y92.098 Other place in other non-institutional residence as the place of occurrence of the external cause; Z99.81 Dependence on supplemental oxygen; Z79.4 Long term (current) use of insulin; Z86.718 Personal history of other venous thrombosis and embolism; Z85.038 Personal history of other malignant neoplasm of large intestine; Z88.0 Allergy status to penicillin; Z87.440 Personal history of urinary (tract) infections; Z82.49 Family history of ischemic heart disease and other diseases of the circulatory system; Z80.8 Family history of malignant neoplasm of other organs or systems; Z90.49 Acquired absence of other specified parts of digestive tract; Z79.01 Long term (current) use of anticoagulants; Z86.14 Personal history of Methicillin resistant Staphylococcus aureus infection; Z68.37 Body mass index [BMI] 37.0-37.9, adult

== ENCOUNTER 2019-02-21 22:46 | Emergency (ER) | payer MEDICARE, OTHER ==
[~2019-02-21] VITALS: Wt 122.5 kg
[~2019-02-21 22:46] MED LIST changes: +ALBUTEROL S5 MG/1 ML NEB; +CARDIZEM CD180 MG PO; +IMODIUM A-D2 M2 PO; +Ipratropium Brom3 ML INH; +JANUVIA100 MG PO; +MIRALAX17 GM PO
[2019-02-21 23:04] VITALS: BP 115/41
[2019-02-22 00:01] LABS: BILIRUBIN NEGATIVE (NEGATIVE); BLOOD 3+ (NEGATIVE); CLARITY SL CLOUDY (CLEAR); COLOR YELLOW (YELLOW); GLUCOSE NEGATIVE (NEGATIVE); KETONE NEGATIVE (NEGATIVE); LEUKO ESTERASE 3+ (NEGATIVE); NITRITE POSITIVE (NEGATIVE); PH 6.5 (5.0-9.0); UROBILINOGEN 0.2 E.U./dl (0.2-1.0)
[2019-02-22 00:12] LABS: RBC TNTC rbc/hpf (0-2); WBC TNTC wbc/hpf (0-5)
[2019-02-22] MEDS ORDERED: MACROBID100 M1 PO (00:16)
== END 2019-02-22 01:30 | disposition other institution (70) ==
LOC: ED 22:46
PROVIDERS: Physician Assistant
DX: N39.0 Urinary tract infection, site not specified (principal); Z88.0 Allergy status to penicillin; Z79.899 Other long term (current) drug therapy

== ENCOUNTER 2019-02-26 14:46 | Emergency (ER) | payer MEDICARE, OTHER ==
[~2019-02-26] VITALS: Ht 175.2 cm; Wt 113.4 kg
--- NOTE | ~2019-02-26 | EKG ---
[place], [place] ELECTROCARDIOGRAM REPORT NAME: RENY QUEVEDO UNIT #: [id number] ROOM: DOCTOR: EPIPHANY DRAFT REPORT BIRTHDATE: [birth year] [facility] Test Date: 2019-02-26 Test Time: 15:24:35 Pat Name: RENY QUEVEDO Department: Room: Gender: Cellular Equipment Repairer: Luisa Bettencourt : 1940 Requested By: BLAIR COLLAZO PA-C Order Number: [id number] Reading MD: Whitney Blackburn MD Measurements Intervals [place] Rate: 84 P: -42 NH: 225 QRS: -34 QRSD: 147 T: -25 QT: 422 QTc: 499 Interpretive Statements Sinus rhythm Prolonged NH interval Right bundle branch block Inferior infarct, old Compared to ECG 12/04/2018 00:00:04 Atrial premature complex(es) no longer present Myocardial infarct finding still present Electronically Signed On 02-28-2019 7:45:23 PDT by Whitney Blackburn MD CM:EKGRPT:ELECTROCARDIOGRAM REPORT [id number] BLAIR COLLAZO PA-C EPIPHANY DRAFT REPORT BLAIR COLLAZO PA-C
[~2019-02-26 14:46] MED LIST changes: +MACROBID100 M1 PO
[2019-02-26 15:21] LABS: BASO % 0.5 % (0.0-1.0); EOS # 0.2 10*3/uL (0.0-0.4); EOS % 2.8 % (1.0-4.0); HEMOGLOBIN 11.6 g/dl (14.0-18.0); LYMPH # 1.6 10*3/uL (1.3-4.4); LYMPH % 18.9 % (27.0-41.0); MEAN CELL VOLUME 83.2 fl (80.0-94.0); MEAN CORPUSCULAR HGB 24.1 pg (27.0-31.0); MEAN PLATELET VOLUME 10.9 fl (9.6-12.3); MONO # 0.8 10*3/uL (0.1-1.0); MONO % 8.8 % (3.0-9.0); NEUT # 5.9 10*3/uL (2.3-7.9); NEUT % 68.8 % (47.0-73.0); PLATELET COUNT AUTOMATED 292 10*3/uL (130-400); RED BLOOD COUNT 4.81 10*6/uL (4.50-5.90); RED CELL DISTRI WIDTH 19.4 % (0-14.5); WHITE BLOOD COUNT 8.5 10*3/uL (4.8-10.8)
[2019-02-26 15:44] LABS: ALBUMIN 2.9 gm/dl (3.1-4.5); ALKALINE PHOSPHATASE 93 U/L (45-117); BUN 26 mg/dl (7-24); CHLORIDE 98 mmol/L (98-107); CREATININE 1.23 mg/dL (0.70-1.30); POTASSIUM 3.8 mmol/L (3.5-5.1); SGOT/AST 20 IU/L (3-35); SGPT/ALT 17 U/L (12-78); SODIUM 138 mmol/L (136-145); TOTAL PROTEIN 7.3 gm/dL (6.4-8.2)
[2019-02-26 15:45] LABS: TROPONIN I 0.038 ng/ml (<0.045)
[2019-02-26 15:58] LABS: INTERNATIONAL NORM RATIO 1.2 (2.0-3.5)
[2019-02-27] MEDS ORDERED: LASIX40 MG PO (02:50)
[2019-02-27] MEDS ORDERED: PERCOCET 5-3251 EACH PO (02:54)
[2019-02-27] MEDS ORDERED: SENNA8.6 MG PO (02:59)
[2019-02-27] MEDS ORDERED: STARLIX60 M1 PO (03:00)
== END 2019-02-26 22:50 | disposition other institution (70) ==
LOC: ED 14:46
PROVIDERS: Physician Assistant
DX: N39.0 Urinary tract infection, site not specified (principal); R05 Cough; R06.02 Shortness of breath; F17.200 Nicotine dependence, unspecified, uncomplicated; Z88.0 Allergy status to penicillin; Z79.899 Other long term (current) drug therapy; Z79.2 Long term (current) use of antibiotics

== ENCOUNTER 2019-02-27 01:44 | Inpatient (IN) | payer MEDICARE, OTHER ==
[~2019-02-27] VITALS: Ht 175.3 cm; Wt 114.5 kg
--- NOTE | ~2019-02-27 | DS ---
[place], [place] DISCHARGE SUMMARY NAME: RENY QUEVEDO UNIT #: [id number] ROOM: 408 DOCTOR: CHAITANYA WAN MD BIRTHDATE: [birth year] DOS: 03/01/2019 DISCHARGE DIAGNOSES: 1. Acute exacerbation of chronic obstructive pulmonary disease, improved with treatment. 2. ESBL colonization causing positive urine cultures evaluated by Infectious Disease specialist, Dr. Cisse, no treatment required. 3. Chronic atrial fibrillation. The patient anticoagulated with Xarelto. 4. Morbid obesity with body mass index of 36.8. The patient worked with Dietary. 5. Benign essential hypertension. 6. Type 2 diabetes mellitus. 7. Hypothyroidism. 8. Gastroesophageal reflux disease and esophagitis. 9. Chronic constipation. 10. Benign essential hypertension. 11. Type 2 diabetes mellitus, also requires insulin. 12. Previous history of Clostridium difficile colitis. 13. Obesity hypoventilation syndrome. 14. Advanced adult failure to thrive. 15. Chronic obstructive pulmonary disease. 16. History of deep venous thrombosis. 17. History of hardware removal from the right foot. The patient had morbid obesity, advanced, disability, presented with increased shortness of breath, cough and cold-like symptoms despite of outpatient antibiotic therapy, which had failed. The patient admitted for acute exacerbation of COPD and treated with bronchodilators, oxygen, nebulizer treatments and his breathing has improved. The patient was also given Levaquin. ESBL positive urine cultures not to be treated because he is asymptomatic and there is no leukocytosis. The patient was evaluated by Infectious Disease specialist, Dr. Cisse. Chronic atrial fibrillation with controlled heart rates. The patient anticoagulated with Xarelto. Type 2 diabetes mellitus. The patient is on glimepiride. Blood sugars are being monitored. The patient kept on no concentrated sweet diet. Hypothyroidism, treated with levothyroxine. GERD and esophagitis, treated with Protonix. Morbid obesity with BMI of 36.8. The patient worked with dietary. LABORATORY DATA: Urine culture results as mentioned above. Hemoglobin 11.6, no leucocytosis. DISCHARGE MANAGEMENT: Potassium chloride 20 mEq daily, Xarelto 20 mg daily, [place], [place] DISCHARGE SUMMARY NAME: RENY QUEVEDO UNIT #: [id number] ROOM: 408 DOCTOR: CHAITANYA WAN MDDATE: [birth year] Protonix 40 mg a day, levothyroxine 25 mcg daily, glimepiride 4 mg b.i.d., furosemide 40 mg a day, diltiazem CD 180 mg a day, artificial tears 1 drop b.i.d. each eye, DuoNeb q.i.d. as needed with Pulmicort 0.5 mg b.i.d. with nebulizers. CHAITANYA WAN MD CM:NICOL [id number] CHAITANYA WAN MD 03/01/19 1602 interface
--- NOTE | ~2019-02-27 | WRIGHTHP ---
[place], [place] PATIENT HISTORY AND PHYSICAL EXAM NAME: RENY QUEVEDO [facility] #: [id number] UNIT #: [id number] ROOM: 408 DOCTOR: CHAITANYA WAN MD BIRTHDATE: [birth year] DOS: 02/27/2019 HISTORY OF PRESENT ILLNESS: The patient is an 78-year-old gentleman with a past medical history of: 1. Morbid obesity. 2. Mixed hyperlipidemia. 3. Gastroesophageal reflux disease and esophagitis. 4. Hypothyroidism. 5. Chronic constipation. 6. Benign essential hypertension. 7. Type 2 diabetes mellitus, insulin requiring. 8. Chronic atrial fibrillation. 9. History of C. diff colitis. 10. Obesity hypoventilation syndrome. 11. Advanced adult failure to thrive. 12. COPD. 13. History of DVT. 14. History of hardware removal from the right foot. The patient presented to the Emergency Department at [facility] with 2 days' complaint of increasing shortness of breath, cough and cold-like symptoms. The patient is already taking antibiotics at home, prescribed by Dr. Almazan, without much help for urinary tract infection. He normally resides at [facility]. The patient was diagnosed as having acute exacerbation of COPD, urinary tract infection, and recommended for admission and further management. His chest x-ray showed no acute changes. Urine was positive for infection. REVIEW OF SYSTEMS: RESPIRATORY: Increasing shortness of breath. GASTROINTESTINAL: No nausea, vomiting, diarrhea, or constipation. CARDIOVASCULAR: No chest pains or palpitations. ALLERGIES: KNOWN ALLERGIES TO PENICILLIN WHICH CAUSES THE PATIENT TO STOP BREATHING AND HAVE HIVES. FAMILY HISTORY: Noncontributory. HOME MEDICATIONS: Xarelto, Protonix, levothyroxine, glimepiride, furosemide, diltiazem, insulin, DuoNeb. PHYSICAL EXAMINATION: GENERAL APPEARANCE: Alert and oriented x 3. Morbidly obese. Generalized weakness and disability. HEENT AND NECK: Extraocular movements are intact. Sclerae are anicteric. Oral mucosa is moist and clean. No obvious facial weakness. Neck is supple without any lymphadenopathy. No thyromegaly. No JVD. No carotid arterial bruits. LUNGS: Showing decreased breath sounds all over. CARDIOVASCULAR SYSTEM: Heart rate is regular in rate and rhythm. S1 and S2 normally audible. No significant murmur or any other abnormal cardiac sounds. [place], [place] PATIENT HISTORY AND PHYSICAL EXAM NAME: RENY QUEVEDO UNIT #: [id number] ROOM: 408 DOCTOR: CHAITANYA WAN MD BIRTHDATE: [birth year] ABDOMEN: Soft, nontender. No obvious organomegaly. Bowel sounds are present. No obvious herniation. EXTREMITIES: Some trace leg and pedal edema. CENTRAL NERVOUS SYSTEM: Alert and oriented x 3. Cranial nerves II-XII are intact. Speech is normal. The patient is able to move all extremities. Normal muscle strength. Deep tendon reflexes are equal on both sides. Plantars were downgoing. LABORATORY DATA: Chest x-ray without any acute abnormality. Urinalysis showing signs of infection. Cultures are still pending. INR at 1.2. Normal serum electrolytes. Albumin at 2.9. IMPRESSION: 1. The patient with acute exacerbation of chronic obstructive pulmonary disease with acute or chronic respiratory failure, to be treated with bronchodilators and oxygen and followed closely. 2. Morbid obesity and advanced adult failure to thrive with a BMI of 36.8. The patient is being followed by Dietary. 3. Chronic atrial fibrillation. The patient is already anticoagulated with Xarelto, which is being continued. Heart rates are being controlled with diltiazem. 4. Benign essential hypertension, being treated and controlled. 5. Type 2 diabetes mellitus, treated with insulin and glimepiride, which are being continued and the patient is kept on a no concentrated sweet diet. 6. Hypothyroidism, replaced with levothyroxine. 7. Gastroesophageal reflux disease and esophagitis, treated with Protonix. CHAITANYA WAN MD CM:HISPHYS:PATIENT HISTORY AND PHYSICAL EXAMINATION [id number] CHAITANYA WAN MD 02/28/19 0532 interface
--- NOTE | ~2019-02-27 | CON ---
[place], [place] REPORT OF CONSULTATION NAME: RENY QUEVEDO UNIT #: [id number] ROOM: 408 DOCTOR: VANDANA MYERS DPM BIRTHDATE: [birth year] DOS: 03/01/2019 PODIATRY CONSULTATION SUBJECTIVE: This 78-year-old gentleman is seen as consulted for evaluation of an ulceration on his left medial ankle and also an area on his left fourth toe. The patient is diabetic. He is unsure how long they have been there. He is unaware of any trauma or injury. PAST MEDICAL HISTORY: Positive for morbid obesity, hyperlipidemia, gastroesophageal reflux disease, hypothyroidism, hypertension, type 2 diabetes that requires insulin, chronic AFib, history of C. diff colitis, COPD, and history of DVT. ALLERGIES: THE PATIENT HAS AN ALLERGY TO PENICILLIN. CURRENT MEDICATIONS: Include Percocet, Levaquin, Xarelto, K-Dur, Protonix, Synthroid, Amaryl, Lasix, Cardizem, Humulin, Pulmicort, and albuterol. OBJECTIVE: Upon lower extremity physical examination, pedal pulses are barely palpable. Chronic pigment changes are seen bilaterally with dependent edema. Negative Homans sign is seen. Skin temperature is warm. Hair growth is diminished. Sensation is decreased bilaterally. There is a superficial open wound noted in the left medial ankle that is clean and granular with no purulent drainage or malodor. There is no surrounding edema or erythema. He has a dry area of eschar on the distal fourth toe that shows no signs of infection either. His right great toenails are extremely elongated. No fluctuance or signs of abscess around the ulceration on left foot and ankle. ASSESSMENT: Diabetes mellitus, ulceration, left medial ankle, left fourth toe without infection. PLAN: Consult is performed. Agree with wound care with Medihoney and dressings to the areas on the left foot. Offload the areas. We will come back and trim the right great toenail. Offload both feet while in bed and we will continue to follow the patient while in the hospital. Thank you for the opportunity to take part in care of this patient. [place], [place] REPORT OF CONSULTATION NAME: RENY QUEVEDO UNIT #: [id number] ROOM: 408 DOCTOR: VANDANA MYERS DPM BIRTHDATE: [birth year] VANDANA MYERS DPM CM:CONSTR:REPORT OF CONSULTATION 1147 03/01/19 2348 interface
--- NOTE | ~2019-02-27 | PR ---
[place], [place] PROGRESS NOTE NAME: RENY QUEVEDO [facility] #: [id number] UNIT #: [id number] ROOM: 408 DOCTOR: CHAITANYA WAN MD BIRTHDATE: [birth year] DOS: 02/28/2019 SUBJECTIVE: The patient continues to improve. OBJECTIVE: VITAL SIGNS: Blood pressure 101/46, heart rate of 75 beats per minute, breathing 18-20 times per minute, temperature 97.6 degrees Fahrenheit. GENERAL APPEARANCE: The patient is alert and oriented x 3, in no visible distress. Obesity. HEENT AND NECK: Exam within normal limits. CARDIOVASCULAR SYSTEM: Heart rate is regular in rate and rhythm. S1 and S2 normally audible. LUNGS: Clear to auscultation. ABDOMEN: Soft, nontender. No obvious organomegaly. Bowel sounds are present. EXTREMITIES: Without significant cyanosis or edema. IMPRESSION AND PLAN: 1. The patient with acute exacerbation of chronic obstructive pulmonary disease with acute over chronic respiratory failure, being treated with bronchodilators and oxygen and improving. 2. Chronic atrial fibrillation. The patient I anticoagulated with Xarelto. Heart rates are controlled. The patient is taking diltiazem. 3. The patient with obesity and adult failure to thrive with body mass index of 36.8, to work with Dietary. 4. Benign essential hypertension, treated and controlled. Blood pressures are staying normal. 5. Type 2 diabetes mellitus. The patient kept on no concentrated sweet diet and glimepiride along with insulin. Blood sugar was 183. 6. Hypothyroidism, replaced with supplements. The patient takes levothyroxine. 7. Gastroesophageal reflux disease and esophagitis. The patient is asymptomatic with Protonix. CHAITANYA WAN MD CM:PNTRANS [id number] CHAITANYA WAN MD 03/01/19 0129 interface
[2019-02-27 02:20] VITALS: BP 115/51
--- NOTE | 2019-02-27 02:20 | NUR ---
A 78, admitted to , under the services of ROCÍO Austin MD with a diagnosis of CHF EXACERBATION. Chief complaint is PER DR NASH FOR DYSPNEA. Patient arrived via stretcher from OP/ADMIT. Monitor applied. Initial assessment completed. Vital signs taken and recorded. DR. SOCO PURDY,ROCÍO notified of admission to the unit. Orders received. See assessment for past medical history, medications and allergies. Patient and/or family oriented to unit. [address] visitation policy reviewed. Clothing/patient valuable form completed. CALEB BRINK
[2019-02-27] MEDS ORDERED: LASIX40 MG PO (02:50)
[2019-02-27] MEDS ORDERED: PERCOCET 5-3251 EACH PO (02:54)
[2019-02-27] MEDS ORDERED: SENNA8.6 MG PO (02:59)
[2019-02-27] MEDS ORDERED: STARLIX60 M1 PO (03:00)
[2019-02-27 04:00] VITALS: BP 115/51
--- NOTE | 2019-02-27 04:00 | NUR ---
Patient resting quietly with no c/o discomfort. Respirations easy and regular. Vital signs stable. No overt distress. CALEB BRINK
[2019-02-27 04:18] LABS: BILIRUBIN NEGATIVE (NEGATIVE); BLOOD 3+ (NEGATIVE); CLARITY SL CLOUDY (CLEAR); COLOR RED (YELLOW); GLUCOSE 2+ (NEGATIVE); KETONE NEGATIVE (NEGATIVE); LEUKO ESTERASE 3+ (NEGATIVE); NITRITE NEGATIVE (NEGATIVE); UROBILINOGEN 0.2 E.U./dl (0.2-1.0)
[2019-02-27 04:44] LABS: BACTERIA 3+; RBC TNTC rbc/hpf (0-2); WBC TNTC wbc/hpf (0-5)
[2019-02-27 08:00] VITALS: BP 120/85; BP 122/61
[2019-02-27 12:00] VITALS: BP 120/64
--- NOTE | 2019-02-27 13:01 | NUR ---
EDUCATED ON HEEL PROTECTORS AND THE IMPORTANCE OF WEARING THEM. STILL REFUSED.
[2019-02-27 16:00] VITALS: BP 108/63
--- NOTE | 2019-02-27 18:40 | NUR ---
PT RESTING COMFORTABLY. NO COMPLAINTS AT THIS TIME. CALL LIGHT WITHIN REACH.
[2019-02-27 20:00] VITALS: BP 106/56
[2019-02-28] VITALS: BP 118/56
--- NOTE | 2019-02-28 01:28 | NUR ---
MEDICATED WITH PO PERCOCET ORDERED PER PT REQUEST FOR C/O PAIN TO L ANKLE RATED 6/10. PT SILL REFUSING HEEL PROTECTORS. EDUCATION GIVEN.
--- NOTE | 2019-02-28 04:00 | NUR ---
MEDICATION EFFECTIVE FOR PAIN PT IS RESTING QUIETLY W/ NO DISTRESS NOTED.
--- NOTE | 2019-02-28 07:34 | NUR ---
CONSULT MESSAGE LEFT FOR DR BRUNER.
--- NOTE | 2019-02-28 07:40 | NUR ---
DR KEYES RETURENED CALL, MADE AWARE OF CONSULT.
[2019-02-28 08:00] VITALS: BP 116/50
--- NOTE | 2019-02-28 09:22 | NUR ---
DR BRUNER HERE AT THIS TIME, STATES PT HAS NO URINARY COMPLAINTS. ORDER RECEIVED TO D/C LOGAN, STATES IT IS NOT NECESSARY. STATES IF PT DOES HAVE FUTURE COMPLAINTS OF URINARY ISSUES TO REPEAT UA/UC.
[2019-02-28 12:00] VITALS: BP 101/46
--- NOTE | 2019-02-28 14:45 | NUR ---
PT PULLED IV OUT, NEW IV ESTABLISHED IN RIGHT ARM #22G.
[2019-02-28 16:00] VITALS: BP 110/63
--- NOTE | 2019-02-28 20:00 | NUR ---
Patient resting quietly with no c/o discomfort. Respirations easy and regular. Vital signs stable. No overt distress. CALEB BRINK 24 HR chart check completed.
[2019-03-01] VITALS: BP 143/57
--- NOTE | 2019-03-01 | NUR ---
Patient resting quietly with no c/o discomfort. Respirations easy and regular. Vital signs stable. No overt distress. CALEB BRINK
--- NOTE | 2019-03-01 04:00 | NUR ---
Patient resting quietly with no c/o discomfort. Respirations easy and regular. Vital signs stable. No overt distress. CALEB BRINK
--- NOTE | 2019-03-01 07:40 | NUR ---
PT RESTING IN BED. JUST REPOSITIONED BY WOUND CARE NURSE. NO C/O AT THIS TIME. OXYGEN IN USE. FEET ELEVATED UP ON PILLOW. CALL LIGHT IN REACH. SEE SHIFT ASSESSMENT.
[2019-03-01 08:00] VITALS: BP 142/60
--- NOTE | 2019-03-01 08:17 | NUR ---
CALLED DR. WAN WITH NO ANSWER REGARDING URINE CULTURE.
--- NOTE | 2019-03-01 08:45 | NUR ---
RENY QUEVEDO [id number] Please refer to the physician's history and physical for past medical history, comorbid conditions, and allergies. Diagnosis: CHF, EXACERBATION Refugio Score: 10,HIGH RISK WOUND DESCRIPTIONS: Wound # 1 left buttocks intact scar tissue noted. Wound Number: 2 Location of the wound: left inner ankle Type of wound: Thickness: Partial Size: 1.5cm x 1cm x 0.1cm Tunneling: none Undermining: npone Sinus Tract: none Presence of Exudate: Sanguineous Amount: Light Color: Red Odor: None Periwound Skin Appearance: Scar Wound edges: approximated Pain (associated with wound): denied at time of assessment How does patient state this happened? patient states that this is from surgery done by podiatry. Wound Number: 3 Location of the wound: left 4th toe Thickness: Full Size: 0.6cm x 0.7cm x <0.1cm Tunneling: none Undermining: none Sinus Tract: none Presence of Exudate:none Amount: None Color: Brown Odor: None Periwound Skin Appearance: Normal Wound edges: closed Pain (associated with wound): denied at time of assessment How does patient state this happened? patient unsure how this happened. If wound is on legs/feet or hands, capillary refill time, pulses, color temp, sensation: cap refill , 3 seconds Surface the patient is resting on: Position Pro SKIN PREVENTION RECOMMENDATION: 1. Pressure redistribution support surface as appropriate 2. Elevate heels 3. Remove boots/TEDS every shift and reapply 4. Head of bed 30 degrees as tolerated 5. Assess nutrition and hydration 6. Manage moisture 7. Avoid the use of containment devices while in bed 8. Use absorptive products on surfaces limit layers of linens on bed 9. Turn and reposition every 1-2 hours in bed and every 1 hour in chair as tolerated 10. Weight shifts every 15 minutes while up in chair 11. Offloading with pillows or device to keep heels elevated off bed 12. Monitor skin at least every shift 13. Inspect under medical devices twice a day WOUND TREATMENT RECOMMENDATIONS: Consult podiatry for left inner ankle and left 4th toe as patient is known to them. Partial thickness guidelines to Left inner ankle and left 4th toe: Cleanse with nss apply sureprep around the wound allow to dry apply therahoney and cover with optifoam gentle. Hydraguard to left buttock every shift and prn soiling.
--- NOTE | 2019-03-01 08:47 | NUR ---
DR. WAN CALLED AWARE OF URINE CULTURE.. ORDER TO CALL ID.
--- NOTE | 2019-03-01 08:50 | NUR ---
CALLED DR. BRUNER OFFICE REGARDING CULTURE. THEY WILL PAGE HER TO CALL.
--- NOTE | 2019-03-01 09:00 | NUR ---
Feather Stitcher in to see patient. He is from [facility] where he is a LTC resident and plans to return there upon discharge. He gets around in a wheelchair. O2 @ 3L nc and aerosols. When medically stable he will be discharged to [facility]. environmental emergencies planner following.
--- NOTE | 2019-03-01 09:04 | NUR ---
Patient updated clinicals faxed to [facility] for review. Notified facility patient is in contact isolation for ESBL/Urine culture and a private room will be required when patient returns.
--- NOTE | 2019-03-01 10:15 | NUR ---
PHYSICAL THERAPY Initial PT eval completed at bedside this morning. See eval for status, goals, POC. Recommend return to [facility] when medically stable. Chrissie Warren, PT
--- NOTE | 2019-03-01 11:01 | NUR ---
Dr. Rodriguez notified of wound care recommendations. Dr. Rodriguez states to consult podiatry and await orders from them for left inner ankle and left 4th toe.
--- NOTE | 2019-03-01 11:30 | NUR ---
DR. MYERS IN TO SEE PT.
[2019-03-01 12:00] VITALS: BP 147/55
--- NOTE | 2019-03-01 12:04 | NUR ---
LEFT MESSAGE ON MACHINE REGARDING CONSULT FOR DR. JOSEPH. HE IS THE ONE THAT WAS ON THE VOICEMAIL.
--- NOTE | 2019-03-01 13:58 | NUR ---
Occupational therapy orders received and evaluation completed in full on floor four. Patient precautions include bed alarm, fall risk, O2, and L ankle wound. Per chart review, OT eval, and POC, OTR recommend patient discharge to previous fdc. Patient at this time to be discharged from OT services secondary to patient being at [facility]. OTR recommends that patient participated in ADLs with daily nursing care. Patient complexity is moderate, [id number]. Thank you for the referral. Savanah Bah, OTR/L
--- NOTE | 2019-03-01 14:40 | NUR ---
Patient is discharged to return [facility]. Transportation scheduled for 3:30 pm with [place]. NH, nuring/ward nurse and daughter all notified.
--- NOTE | 2019-03-01 14:59 | NUR ---
Discharge instructions reviewed with patient/AMBULANCE. Patient receptive and verbalizes understanding. Follow-up care arranged. Written instructions given to patient/AMBULANCE. HEPLOCK REMOVED 2X2 APPLLIED. WOUND PICTURES TAKEN. HOLTER REMOVED. PEEWEE ROSS
--- NOTE | 2019-03-01 15:12 | NUR ---
SPOKE WITH EDWINA REGARDING PT RETURNING TO [facility].
--- NOTE | 2019-03-01 15:45 | NUR ---
PT ESCORTED VIA [facility] BY BED TO [facility]. PAPERS GIVEN.
== END 2019-03-01 15:45 | DRG 189 ==
LOC: 4E 01:44
PROVIDERS: ADMIT Internal Medicine
DX: J96.20 Acute and chronic respiratory failure, unspecified whether with hypoxia or hypercapnia (principal); J44.1 Chronic obstructive pulmonary disease with (acute) exacerbation; N39.0 Urinary tract infection, site not specified; E66.2 Morbid (severe) obesity with alveolar hypoventilation; L97.329 Non-pressure chronic ulcer of left ankle with unspecified severity; E78.2 Mixed hyperlipidemia; I48.2 Chronic atrial fibrillation; E11.621 Type 2 diabetes mellitus with foot ulcer; L97.529 Non-pressure chronic ulcer of other part of left foot with unspecified severity; I10 Essential (primary) hypertension; E11.9 Type 2 diabetes mellitus without complications; E03.9 Hypothyroidism, unspecified; K21.0 Gastro-esophageal reflux disease with esophagitis; K59.09 Other constipation; R62.7 Adult failure to thrive; Z86.718 Personal history of other venous thrombosis and embolism; Z88.0 Allergy status to penicillin; Z79.899 Other long term (current) drug therapy; Z79.01 Long term (current) use of anticoagulants; Z68.36 Body mass index [BMI] 36.0-36.9, adult

== ENCOUNTER 2019-05-10 09:40 | Inpatient (IN) | payer MEDICARE, OTHER ==
[~2019-05-10] VITALS: Ht 175.3 cm; Wt 113.9 kg
--- NOTE | ~2019-05-10 | CON ---
[place], [place] REPORT OF CONSULTATION NAME: RENY QUEVEDO UNIT #: [id number] ROOM: 401 DOCTOR: TAWANDA BRUNER MD BIRTHDATE: [birth year] DOS: 05/11/2019 REASON FOR CONSULTATION: UTI. HISTORY OF PRESENT ILLNESS: This is an 78-year-old male who is presenting from the intermediate with shortness of breath. He denies having any fever, chills. No chest pain, shortness of breath. He has no urinary complaints. ID has been consulted for management of UTI. He has no urinalysis done. He has no leukocytosis. A chest x-ray obtained in the ER shows no acute cardiopulmonary process. PAST MEDICAL HISTORY: Significant for COPD, ESBL colonization of the urine, chronic atrial fibrillation, obesity, hypertension, diabetes, hypothyroidism, previous history of C. diff colitis, DVTs, and hardware removal from the right foot. REVIEW OF SYSTEMS: A 12-point review of systems has been done. Pertinent negative and positive included in HPI, rest are noncontributory. HOME MEDICATIONS: Reviewed. ALLERGIES: SEVERE ALLERGY TO PENICILLIN. PHYSICAL EXAMINATION: GENERAL: The patient is alert, oriented x 3, not in acute distress. HEENT: Atraumatic, normocephalic. PERRLA, EOMI. RESPIRATORY: Air entry bilaterally equal. No wheeze or crackles. CARDIOVASCULAR: S1, S2 normal. No murmur, rubs, or gallop. ABDOMEN: Obese, distended, nontender, soft. EXTREMITIES: No pedal edema. NEUROLOGIC: Grossly intact. ASSESSMENT AND PLAN: 1. Acute respiratory distress. 2. No concern for urinary tract infection. 3. Keep the patient off antibiotics. Check urinalysis. If there is a concern for UTI, we will follow as needed. Thank you for your consult. Please call for any questions. [place], [place] REPORT OF CONSULTATION NAME: RENY QUEVEDO UNIT #: [id number] ROOM: 401 DOCTOR: TAWANDA BRUNER MD BIRTHDATE: [birth year] Tawanda Bruner MD CM:CONSTR:REPORT OF CONSULTATION 1036 05/11/19 1127 interface
--- NOTE | ~2019-05-10 | EKG ---
[place], [place] ELECTROCARDIOGRAM REPORT NAME: RENY QUEVEDO UNIT #: [id number] ROOM: 401 DOCTOR: ANAIS DRAFT REPORT BIRTHDATE: [birth year] [facility] Test Date: 2019-05-10 Test Time: 10:05:26 Pat Name: RENY QUEVEDO Department: Room: 401 Gender: M Enterprise Application Analyst: : 1940 Requested By: RENY MCKEON Order Number: [id number] Reading MD: Ana Faulkner MD Measurements Intervals [place] Rate: 98 P: -16 AL: 211 QRS: -35 QRSD: 150 T: 10 QT: 373 QTc: 477 Interpretive Statements Sinus rhythm Borderline prolonged AL interval Right bundle branch block Inferior infarct, old Baseline wander in lead(s) I,III,aVL Compared to ECG 02/26/2019 15:24:35 No significant changes Electronically Signed On 05-11-2019 8:55:17 PST by Ana Faulkner MD CM:EKGRPT:ELECTROCARDIOGRAM REPORT [id number] RENY LORA DRAFT REPORT RENY MCKEON DO
--- NOTE | ~2019-05-10 | PR ---
[place], [place] PROGRESS NOTE NAME: RENY QUEVEDO UNIT #: [id number] ROOM: 401 DOCTOR: CHAITANYA WAN MD BIRTHDATE: [birth year] DOS: 05/11/2019 SUBJECTIVE: The patient's breathing is improving. OBJECTIVE: VITAL SIGNS: Blood pressure 121/70, heart rate 93 beats per minute, breathing 18 times per minute, temperature 98.4 degrees Fahrenheit. GENERAL APPEARANCE: The patient is alert and oriented x 3, in no visible distress. Obesity and generalized weakness. HEENT AND NECK: Exam within normal limits. CARDIOVASCULAR SYSTEM: Heart rate is regular in rate and rhythm. S1 and S2 normally audible. LUNGS: Clear to auscultation. ABDOMEN: Soft, nontender. No obvious organomegaly. Bowel sounds are present. EXTREMITIES: Without significant cyanosis or edema. IMPRESSION: 1. Advanced adult failure to thrive. The patient is bedridden. We are taking bedsore and fall precautions using an air mattress. 2. Acute exacerbation of chronic obstructive pulmonary disease, being treated with DuoNeb, antibiotic. Dr. Cisse the Infectious Disease specialist is on consult. 3. Resistant urinary tract infection with Escherichia coli and Proteus mirabilis, to be followed and treated by Dr. Cisse, the patient is PENICILLIN allergic and has severe allergy to PENICILLIN. I am asking Dr. Cisse to decide whether he needs treatment and with which antibiotic. 4. Benign essential hypertension. Blood pressure is being monitored and treated. 5. Chronic kidney disease, stage 3A. CHAITANYA WAN MD CM:PNTRANS [id number] CHAITANYA WAN MD 05/11/19 1130 interface
--- NOTE | ~2019-05-10 | DS ---
[place], [place] DISCHARGE SUMMARY NAME: RENY QUEVEDO [facility] #: [id number] UNIT #: [id number] ROOM: 401 DOCTOR: CHAITANYA WAN MD BIRTHDATE: [birth year] DOS: 05/12/2019 DISCHARGE DIAGNOSES: 1. Acute exacerbation of chronic obstructive pulmonary disease with hypoxemia. 2. Advance adult failure to thrive. The patient is bedridden. 3. Resistant urinary tract infection with Escherichia coli and Proteus asymptomatic reevaluated by Dr. Cisse. 4. Benign essential hypertension. 5. Chronic kidney disease, stage 3A. 6. Obesity, BMI of 35.9. 7. Moderate protein-calorie malnutrition with albumin level of 2.8. 8. Chronic atrial fibrillation. The patient anticoagulated with Xarelto. 9. Chronic obstructive pulmonary disease. 10. Type 2 diabetes mellitus. 11. Hypothyroidism. 12. Gastroesophageal reflux disease and esophagitis. 13. Chronic constipation. 14. Previous history of Clostridium difficile colitis. 15. Previous history of deep venous thrombosis. 16. Previous history of hardware removal from the right foot. HOSPITAL COURSE: The patient was sent over from intermediate with hypoxemia and was admitted for acute exacerbation of COPD from the Emergency Department. The patient was treated with DuoNebs, oxygen, and an ID consult was obtained. The patient's hypoxemia and breathing has improved and the patient is being discharged back to [facility] where he resides long-term. 1. Resistant Urinary tract infection with Proteus and resistant Escherichia coli, was reevaluated by Dr. Cisse, the ID specialist and he is asymptomatic, so no more treatment was recommended. Apparently, the patient is asymptomatic bacteriuria and colonization. 2. Chronic atrial fibrillation, heart rates controlled with Cardizem and the patient anticoagulated with Xarelto. 3. Hypothyroidism, treated with levothyroxine. 4. Behavioral issues controlled with mirtazapine. The patient followed by Psychiatry. 5. Type 2 diabetes mellitus. The patient remains on glimepiride and Starlix. Blood sugar has been monitored and treated and he is being kept on no concentrated sweet diet. 6. Chronic arthritic pains to be controlled with Tylenol 1000 mg every 8 hours, if Percocet is needed, then please call the patient's PCP, Dr. Shae Almazan. 7. Advanced adult failure to thrive. We took bedsore precautions and fall precautions and turn him every 2 hours and use an air mattress. 8. Type 2 diabetes mellitus. The patient also remains on insulin and a sugar-free diet. Moderate protein-calorie malnutrition with albumin level of 28.5. The patient worked with Dietary. DISCHARGE MANAGEMENT: Tylenol 1000 mg every 8 hours straight, DuoNebs q.i.d. as needed, glimepiride 4 mg b.i.d., Starlix 60 mg t.i.d., artificial tears 1 drop b.i.d. in each eye, mirtazapine 15 mg at bedtime, levothyroxine 25 mcg daily, Protonix 40 mg a day, diltiazem CD 180 mg a day, Colace 100 mg daily, furosemide [place], [place] DISCHARGE SUMMARY NAME: RENY QUEVEDO [facility] #: [id number] UNIT #: [id number] ROOM: [facility] DOCTOR: CHAITANYA WAN MD BIRTHDATE: [birth year] 40 mg a day, MiraLax 17 grams daily, potassium chloride 20 mEq daily, Xarelto 20 mg daily. CHAITANYA WAN MD CM:DISCHARG [id number] [id number] CHAITANYA WAN MD 05/12/19 1058 interface
--- NOTE | ~2019-05-10 | WRIGHTHP ---
[place], [place] PATIENT HISTORY AND PHYSICAL EXAM NAME: RENY QUEVEDO [facility] #: [id number] UNIT #: [id number] ROOM: 401 DOCTOR: CHAITANYA WAN MD BIRTHDATE: [birth year] DOS: 05/10/2019 HISTORY OF PRESENT ILLNESS: The patient is an 78-year-old gentleman with a past medical history of: 1. COPD. 2. ESBL colonization of the urine, followed by Dr. Cisse, the ID specialist. 3. Chronic atrial fibrillation. The patient is anticoagulated with Xarelto. 4. Morbid obesity. 5. Benign essential hypertension. 6. Type 2 diabetes mellitus. 7. Hypothyroidism. 8. GERD and esophagitis. 9. Chronic constipation. 10. Previous history of C. difficile colitis. 11. Obesity hypoventilation syndrome. 12. History of DVT. 13. History of hardware removal from the right foot. The patient with advanced adult failure to thrive and morbid obesity with chronic respiratory failure, who presents to [facility] with increasing hypoxemia, cough, and increased shortness of breath. No chest pain and no other GI or urinary symptoms. REVIEW OF SYSTEMS: RESPIRATORY: Increasing shortness of breath. GASTROINTESTINAL: No nausea, vomiting, diarrhea, or constipation. CARDIOVASCULAR SYSTEM: No chest pains or palpitations. FAMILY HISTORY: Noncontributory. HOME MEDICATIONS: Xarelto, potassium, MiraLax, furosemide, Colace, Cardizem, Protonix, levothyroxine, mirtazapine, insulin, glimepiride, Starlix, DuoNebs, and Percocet. ALLERGIES: Known severe allergy to PENICILLIN. PHYSICAL EXAMINATION: GENERAL APPEARANCE: Awake, alert, oriented, morbidly obese, and disabled, generally stays in a bed and nonambulatory, BMI of 35.9. VITAL SIGNS: Blood pressure ____ , heart rate ____ beats per minute, respiratory rate ____ per minute, temperature ____ degrees Fahrenheit. HEENT AND NECK: Extraocular movements are intact. Sclerae are anicteric. Oral mucosa is moist and clean. No obvious facial weakness. Neck is supple without any lymphadenopathy. No thyromegaly. No JVD. No carotid arterial bruits. LUNGS: Clear to auscultation. No wheezing. No rhonchi. CARDIOVASCULAR SYSTEM: Heart rate is regular in rate and rhythm. S1 and S2 normally audible. No significant murmur or any other abnormal cardiac sounds. ABDOMEN: Soft, nontender. No obvious organomegaly. Bowel sounds are present. No obvious herniation. [place], [place] PATIENT HISTORY AND PHYSICAL EXAM NAME: RENY QUEVEDO UNIT #: [id number] ROOM: [facility] DOCTOR: CHAITANYA WAN MD BIRTHDATE: [birth year] EXTREMITIES: Without significant cyanosis or edema. Warm to touch. CENTRAL NERVOUS SYSTEM: Alert and oriented x 3. Cranial nerves II-XII are intact. Speech is normal. The patient is able to move all extremities. Normal muscle strength. Deep tendon reflexes are equal on both sides. Plantars were downgoing. IMPRESSION: 1. Advanced adult failure to thrive. The patient stays in his bed, obese with generalized weakness. Will take bedsore precautions, use an air mattress, and every 2 hour turning. 2. Acute exacerbation of chronic obstructive pulmonary disease with increased shortness of breath and hypoxemia, to be treated with DuoNebs, antibiotic, and oxygen. I will let Infectious Disease specialist, Dr. Cisse decide on his antibiotics because of his resistant urine infection. 3. Recent recurrent urine infection with resistant Escherichia coli and Proteus mirabilis, appears quite resistant and patient is allergic to PENICILLIN. I will let Dr. Cisse decide on his antibiotic for his urinary tract infection and for his acute exacerbation of chronic obstructive pulmonary disease. 4. Benign essential hypertension. I will continue his medication including diltiazem and monitor blood pressure and adjust treatment accordingly. 5. Type 2 diabetes mellitus. Blood sugars to be monitored. The patient to be continued on insulin and glimepiride and no concentrated sweet diet. 6. Chronic constipation, treated with MiraLax and Colace, continued and to be monitored. 7. Chronic atrial fibrillation. The patient to be continued on Xarelto. No signs of pulmonary embolism. 8. Hypothyroidism, treated with levothyroxine, which was continued. CHAITANYA WAN MD CM:HISPHYS:PATIENT HISTORY AND PHYSICAL EXAMINATION 1512 [id number] CHAITANYA WAN MD 05/10/19 1601 interface
[~2019-05-10 09:40] MED LIST changes: +PERCOCET 5-3251 EACH PO; +SENNA8.6 MG PO; +STARLIX60 M1 PO
[2019-05-10 09:41] VITALS: BP 115/49
[2019-05-10 10:14] LABS: BASO % 0.3 % (0.0-1.0); EOS # 0.2 10*3/uL (0.0-0.4); EOS % 1.4 % (1.0-4.0); HEMATOCRIT 41.7 % (42.0-52.0); HEMOGLOBIN 12.7 g/dl (14.0-18.0); LYMPH # 1.6 10*3/uL (1.3-4.4); LYMPH % 13.5 % (27.0-41.0); MEAN CELL VOLUME 85.8 fl (80.0-94.0); MEAN CORPUSCULAR HGB 26.1 pg (27.0-31.0); MEAN CORPUSCULAR HGB CONC 30.5 g/dl (33.0-37.0); MEAN PLATELET VOLUME 10.5 fl (9.6-12.3); MONO # 1.1 10*3/uL (0.1-1.0); MONO % 9.1 % (3.0-9.0); NEUT # 8.8 10*3/uL (2.3-7.9); NEUT % 75.3 % (47.0-73.0); PLATELET COUNT AUTOMATED 300 10*3/uL (130-400); RED BLOOD COUNT 4.86 10*6/uL (4.50-5.90); RED CELL DISTRI WIDTH 18.3 % (0-14.5); WHITE BLOOD COUNT 11.7 10*3/uL (4.8-10.8)
[2019-05-10 10:22] LABS: ACT PARTIAL THROMBO TIME 29.7 SECONDS (20.0-32.1); INTERNATIONAL NORM RATIO 1.1 (2.0-3.5)
[2019-05-10 10:28] LABS: ALBUMIN 2.8 gm/dl (3.1-4.5); CREATININE 1.52 mg/dL (0.70-1.30); POTASSIUM 3.8 mmol/L (3.5-5.1); TOTAL PROTEIN 7.5 gm/dL (6.4-8.2); TROPONIN I 0.02 ng/ml (<0.045)
[2019-05-10 11:30] VITALS: BP 116/60
[2019-05-10 12:00] VITALS: BP 136/67
[2019-05-10] MEDS ORDERED: PERCOCET 5-3251 EACH PO (14:37)
[2019-05-10] MEDS ORDERED: LOPERAMIDE HCL2 MG PO (14:44)
[2019-05-10 16:00] VITALS: BP 140/70
[2019-05-10 20:00] VITALS: BP 139/72
[2019-05-11] VITALS: BP 143/68
[2019-05-11 06:47] LABS: HEMATOCRIT 40.9 % (42.0-52.0); HEMOGLOBIN 12.6 g/dl (14.0-18.0); LYMPH # 1.3 10*3/uL (1.3-4.4); LYMPH % 12.7 % (27.0-41.0); MEAN CELL VOLUME 83.5 fl (80.0-94.0); MEAN CORPUSCULAR HGB 25.7 pg (27.0-31.0); MEAN CORPUSCULAR HGB CONC 30.8 g/dl (33.0-37.0); MEAN PLATELET VOLUME 10.8 fl (9.6-12.3); MONO # 0.7 10*3/uL (0.1-1.0); MONO % 6.6 % (3.0-9.0); NEUT # 7.9 10*3/uL (2.3-7.9); NEUT % 79.3 % (47.0-73.0); PLATELET COUNT AUTOMATED 304 10*3/uL (130-400); RED CELL DISTRI WIDTH 17.5 % (0-14.5)
[2019-05-11 07:07] LABS: POTASSIUM 3.8 mmol/L (3.5-5.1)
[2019-05-11 07:12] LABS: CREATININE 1.4 mg/dL (0.70-1.30)
[2019-05-11 08:00] VITALS: BP 121/70
[2019-05-11 12:00] VITALS: BP 108/45
[2019-05-11 16:00] VITALS: BP 106/41
[2019-05-11 20:00] VITALS: BP 117/56
[2019-05-12] VITALS: BP 115/55
[2019-05-12 08:00] VITALS: BP 116/88
[2019-05-12] MEDS ORDERED: TYLENOL EXTRA500 M2 PO (10:24)
== END 2019-05-12 12:45 | DRG 191 ==
LOC: ED 09:40 → 4E 11:29
PROVIDERS: Emergency Medicine; ADMIT Internal Medicine
DX: J44.1 Chronic obstructive pulmonary disease with (acute) exacerbation (principal); E44.0 Moderate protein-calorie malnutrition; E66.2 Morbid (severe) obesity with alveolar hypoventilation; J96.11 Chronic respiratory failure with hypoxia; I13.0 Hypertensive heart and chronic kidney disease with heart failure and stage 1 through stage 4 chronic kidney disease, or unspecified chronic kidney disease; R62.7 Adult failure to thrive; N18.3 Chronic kidney disease, stage 3 (moderate); E11.22 Type 2 diabetes mellitus with diabetic chronic kidney disease; I50.9 Heart failure, unspecified; E03.9 Hypothyroidism, unspecified; G89.29 Other chronic pain; M25.50 Pain in unspecified joint; K59.09 Other constipation; I48.20 Chronic atrial fibrillation, unspecified; K21.0 Gastro-esophageal reflux disease with esophagitis; Z87.440 Personal history of urinary (tract) infections; Z86.718 Personal history of other venous thrombosis and embolism; Z79.01 Long term (current) use of anticoagulants; Z88.0 Allergy status to penicillin; Z74.01 Bed confinement status; Z79.899 Other long term (current) drug therapy; Z68.35 Body mass index [BMI] 35.0-35.9, adult

== ENCOUNTER 2019-07-14 11:28 | Inpatient (IN) | payer MEDICARE, OTHER ==
[~2019-07-14] VITALS: Ht 175.2 cm; Wt 111.1 kg
[~2019-07-14 11:28] MED LIST changes: +LOPERAMIDE HCL2 MG PO; +TYLENOL EXTRA500 M2 PO
[2019-07-14 11:43] VITALS: BP 122/70
[2019-07-14 13:29] LABS: BILIRUBIN 2+ (NEGATIVE); CLARITY TURBID (CLEAR); COLOR RED (YELLOW); GLUCOSE NEGATIVE (NEGATIVE); KETONE 1+ (NEGATIVE)
[2019-07-14 13:32] LABS: BLOOD 3+ (NEGATIVE); LEUKO ESTERASE 3+ (NEGATIVE); NITRITE POSITIVE (NEGATIVE); UROBILINOGEN 0.2 E.U./dl (0.2-1.0)
[2019-07-14 13:33] LABS: RBC TNTC rbc/hpf (0-2)
[2019-07-14 13:35] LABS: BACTERIA 4+; WBC 41-50 wbc/hpf (0-5)
[2019-07-14 14:16] LABS: BASO # 0.1 10*3/uL (0.0-0.1); BASO % 0.6 % (0.0-1.0); EOS # 0.2 10*3/uL (0.0-0.4); EOS % 1.5 % (1.0-4.0); HEMATOCRIT 42.8 % (42.0-52.0); HEMOGLOBIN 13.3 g/dl (14.0-18.0); LYMPH # 2.2 10*3/uL (1.3-4.4); LYMPH % 17.1 % (27.0-41.0); MEAN CELL VOLUME 88.8 fl (80.0-94.0); MEAN CORPUSCULAR HGB 27.6 pg (27.0-31.0); MEAN CORPUSCULAR HGB CONC 31.1 g/dl (33.0-37.0); MONO # 1.4 10*3/uL (0.1-1.0); MONO % 10.7 % (3.0-9.0); NEUT # 9.1 10*3/uL (2.3-7.9); NEUT % 69.7 % (47.0-73.0); PLATELET COUNT AUTOMATED 288 10*3/uL (130-400); RED BLOOD COUNT 4.82 10*6/uL (4.50-5.90); RED CELL DISTRI WIDTH 18.6 % (0-14.5)
[2019-07-14 14:33] LABS: ALBUMIN 3.2 gm/dl (3.1-4.5); CREATININE 1.52 mg/dL (0.70-1.30); POTASSIUM 3.7 mmol/L (3.5-5.1); TOTAL PROTEIN 8.1 gm/dL (6.4-8.2)
[2019-07-14 14:34] VITALS: BP 109/34
--- NOTE | 2019-07-14 15:33 | NUR ---
PT WAS COMPLAINING OF INCREASED ABD PAIN AND NAUSEA PT VOMITED X1 SMALL AMOUNT YELLOW IN COLOR SPOKE WITH SUZE CASTRO PT GIVEN MEDS FOR PAIN AND NAUSEA PT NOW IN LOW FOWLERS SLEEPING RESP EASY NO SIGN OF DISTRESS
[2019-07-14 16:25] VITALS: BP 118/52
--- NOTE | 2019-07-14 17:09 | NUR ---
PT WAS CLEANED UP PT SOILED BED PT HAD STAGE 1 WOUND DOC AND PIC TAKED MRSA SENT UNABLE TO REACH RECIEVING RN LEFT MESSAGE TO HAVE THEM CALL ME
--- NOTE | 2019-07-14 18:00 | NUR ---
A 78, admitted to , under the services of Dr. SOCO PURDY,[facility] with a diagnosis of UTI COPD. Chief complaint is HEMATURIA SOB. Patient arrived via stretcher from ER. Monitor applied. Initial assessment completed. Vital signs taken and recorded. See assessment for past medical history, medications and allergies. Patient and/or family oriented to unit. [facility] visitation policy reviewed. Clothing/patient valuable form completed. BELKIS ROBERTS
[2019-07-14] MEDS ORDERED: PERCOCET 5-3251 EACH PO (18:32)
--- NOTE | 2019-07-14 18:35 | NUR ---
DR. WAN NOTIFIED OF ADM. NEW ORDERS RECEIVED.
[2019-07-14] MEDS ORDERED: TYLENOL325 M1 PO (18:37)
[2019-07-14] MEDS ORDERED: NYSTATIN OINTME30 GM T (18:38)
--- NOTE | 2019-07-14 19:02 | NUR ---
Dr. Nielson notified of consult. States pt does not need fluids at this time. States to DC lasix and DC KCL.
[2019-07-14 20:00] VITALS: BP 141/66
--- NOTE | 2019-07-14 20:11 | NUR ---
RESTING IN BED WITH EYES CLOSED. HOB ELEVATED. SIDE RAILS UP X'S 2. CALL LIGHT IN REACH. NO DISTRESS NOTED. HEP LOCK INTACT. NO C/O'S VOICED AT PRESENT TIME.
--- NOTE | 2019-07-14 21:36 | NUR ---
INCONTINENT OF URINE. CLOTS NOTED. COMPLETE BED BATH GIVEN AND LINENS CHANGED.
[2019-07-15] VITALS: BP 141/67
--- NOTE | 2019-07-15 00:47 | NUR ---
HAD SMALL EMESIS BILE COLORED FLUID. MEDICATED FOR NAUSEA. WILL MONITOR.
--- NOTE | 2019-07-15 05:39 | NUR ---
WEARLIER MED FOR NAUSEA EFFECTIVE.
[2019-07-15 06:07] LABS: HEMATOCRIT 41.2 % (42.0-52.0); HEMOGLOBIN 12.6 g/dl (14.0-18.0); MEAN CELL VOLUME 87.7 fl (80.0-94.0); MEAN CORPUSCULAR HGB 26.8 pg (27.0-31.0); MEAN CORPUSCULAR HGB CONC 30.6 g/dl (33.0-37.0); MEAN PLATELET VOLUME 11.5 fl (9.6-12.3); PLATELET COUNT AUTOMATED 300 10*3/uL (130-400); RED CELL DISTRI WIDTH 18.5 % (0-14.5)
--- NOTE | 2019-07-15 06:12 | NUR ---
NO DISTRESS NOTED. RESTING IN BED WITH EYES CLOSED. CONDITION GUARDED.
[2019-07-15 06:25] LABS: CREATININE 1.99 mg/dL (0.70-1.30); POTASSIUM 4.1 mmol/L (3.5-5.1)
[2019-07-15 07:16] LABS: TOTAL CELLS COUNTED 100 #CELLS
[2019-07-15 07:17] LABS: PLATELET SUFFICIENCY NORMAL (NORMAL); POLYCHROMASIA SLIGHT
[2019-07-15 08:00] VITALS: BP 104/44
--- NOTE | 2019-07-15 09:12 | NUR ---
PT RESTING IN BED. NO DISTRESS NOTED. WILL MONITOR
--- NOTE | 2019-07-15 09:24 | NUR ---
RENY QUEVEDO [id number] Please refer to the physician's history and physical for past medical history, comorbid conditions, and allergies. Diagnosis: URINARY TRACT INFECTION COPD EXACERBATION Refugio Score: 13,MODERATE RISK WOUND DESCRIPTIONS: Wound Number: 1 Location of the wound: left buttocks Type of wound: stage 2 Thickness: Partial Size: 3.4cm x 1.2cm x 0.1cm Tunneling: none Undermining: none Sinus Tract: none Presence of Exudate: Serous Amount: Light Color: Red Odor: None Periwound Skin Appearance: Normal Wound edges: approximated Pain (associated with wound): none at time of assessment How does patient state this happened? pt unsure how this happened Wound Number: 2 Location of the wound: right medial aspect of great toe Type of wound: stage 1 Thickness: Partial Size: 0.5cm x 0.3cm x <0.1cm Tunneling: none Undermining: none Sinus Tract: none Presence of Exudate: none Amount: None Color: Red Odor: None Periwound Skin Appearance: Normal Wound edges: approximated Pain (associated with wound): none at time of assessment How does patient state this happened? patient unable to state how this happened Bilateral lower extremities several areas that are red in blanchable in color. No open areas noted to bilateral lower extremities. Dry and flaky areas noted at time of assessment. No drainage noted at time of assessment. Surface the patient is resting on: Position Pro SKIN PREVENTION RECOMMENDATION: 1. Pressure redistribution support surface as appropriate 2. Elevate heels 3. Remove boots/TEDS every shift and reapply 4. Head of bed 30 degrees as tolerated 5. Assess nutrition and hydration 6. Manage moisture 7. Avoid the use of containment devices while in bed 8. Use absorptive products on surfaces limit layers of linens on bed 9. Turn and reposition every 1-2 hours in bed and every 1 hour in chair as tolerated 10. Weight shifts every 15 minutes while up in chair 11. Offloading with pillows or device to keep heels elevated off bed 12. Monitor skin at least every shift 13. Inspect under medical devices twice a day WOUND TREATMENT RECOMMENDATIONS: Heel raiser pro boot to bilateral lower extremities Wheelchair cushion when oob. Stage 1 guidelines to right great toe: Apply sureprep and cover with bandaid daily and prn for soiling Cleanse left buttocks with soap and water and apply calazime every shift and prn for soiling.
--- NOTE | 2019-07-15 10:30 | NUR ---
Hand Baseball Sewer in to see patient. He is from [facility] where he is a LTC resident and plans to return there upon discharge. He gets around in a wheelchair. O2 @ 3L nc and aerosols. When medically stable he will be discharged to [facility]. marine air ground task force planners following.
[2019-07-15 12:00] VITALS: BP 102/57
--- NOTE | 2019-07-15 14:00 | NUR ---
DR WAN NOTIFIED OF POSITIVE BC NEW ORDERS RECIEVED
--- NOTE | 2019-07-15 15:21 | NUR ---
DR LUNA OFFICE NOTIFIED OF CONSULT
[2019-07-15 16:00] VITALS: BP 130/62
[2019-07-15 20:00] VITALS: BP 114/50
--- NOTE | 2019-07-15 20:24 | NUR ---
1952 ON BEDPAN, HAD MODERATED AMOUNT BROWN LIQUID STOOL AND LINENS ALSO SOILED. KATINA CARE DONE AND INCONTINENT PADS CHANGED. PT REPOSITIONED IN BED. LICEA PATENT AND DRAINING BLOOD TINGED URINE. IV FLUIDS MAINTAINED. SL TEMP NOTED OF 100.2. NO DISTRESS NOTED.
--- NOTE | 2019-07-15 22:13 | NUR ---
IV FLUIDS. RESTING IN BED WATCHING TV.
--- NOTE | 2019-07-15 23:24 | NUR ---
PATIENT IS RESTING IN BED WITH EASY AND REGULAR RESPERS ON 2L O2 VIA NC. ASSESSMENT IS COMPLETE WITH NO C/O OR S/S OF DISTRESS NOTED AT THIS TIME. BED IS LOW, LOCKED, ALARMED, AND CALL LIGHT IS WITHIN REACH. WILL CONTNIUE TO MONITOR, SEE SHIFT ASSESSMENT.
[2019-07-16] VITALS: BP 103/49
[2019-07-16 06:48] LABS: HEMATOCRIT 35.9 % (42.0-52.0); HEMOGLOBIN 11.3 g/dl (14.0-18.0); MEAN CELL VOLUME 87.1 fl (80.0-94.0); MEAN CORPUSCULAR HGB 27.4 pg (27.0-31.0); MEAN CORPUSCULAR HGB CONC 31.5 g/dl (33.0-37.0); MEAN PLATELET VOLUME 11.4 fl (9.6-12.3); PLATELET COUNT AUTOMATED 247 10*3/uL (130-400); RED BLOOD COUNT 4.12 10*6/uL (4.50-5.90); RED CELL DISTRI WIDTH 18.3 % (0-14.5); WHITE BLOOD COUNT 17.5 10*3/uL (4.8-10.8)
[2019-07-16 07:06] LABS: CREATININE 2.25 mg/dL (0.70-1.30); POTASSIUM 3.8 mmol/L (3.5-5.1)
[2019-07-16 07:10] LABS: PLATELET SUFFICIENCY NORMAL (NORMAL); POLYCHROMASIA SLIGHT; TOTAL CELLS COUNTED 100 #CELLS
[2019-07-16 08:00] VITALS: BP 126/53
--- NOTE | 2019-07-16 08:15 | NUR ---
patient updated clinicals faxed to [facility] for review. 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
--- NOTE | 2019-07-16 11:00 | NUR ---
Enhanced Environmental Operator in to see patient. No new needs or request at this time. When medically stable he will be discharged to [facility] where he is a LTC resident. digital sales planner following.
[2019-07-16 12:00] VITALS: BP 122/58
[2019-07-16 16:00] VITALS: BP 120/62
--- NOTE | 2019-07-16 18:56 | NUR ---
IV TO RAN REMOVED AFTER BECOMING REDDENED.. NEW SITE PLACED IN RIGHT LOWER ARM PER POLICY & PATIENT TOLERATED WELL. PATIENT SAT UP TO EAT
--- NOTE | 2019-07-16 19:41 | NUR ---
SEKOU DYKES AT [facility] GIVEN NURSE TO NURSE REPORT AT THIS TIME.
--- NOTE | 2019-07-16 20:22 | NUR ---
PT MEDICATED W/NORCO FOR C/O BILATERAL FEET PAIN 04/01. ALL BELONGINGS PACKED.
--- NOTE | 2019-07-16 20:30 | NUR ---
PT LEFT VIA [facility] W/BELONGINGS AND PAPERWORK AT THIS TIME.
== END 2019-07-16 20:30 | disposition short-term general hospital (02) | DRG 871 ==
LOC: ED 11:28 → 4E 15:54 → EDHOLD 15:54 → 4E 16:11
PROVIDERS: Physician Assistant; ADMIT Internal Medicine
DX: A41.51 Sepsis due to Escherichia coli [E. coli] (principal); J96.21 Acute and chronic respiratory failure with hypoxia; N17.9 Acute kidney failure, unspecified; J44.1 Chronic obstructive pulmonary disease with (acute) exacerbation; N39.0 Urinary tract infection, site not specified; K59.39 Other megacolon; I13.0 Hypertensive heart and chronic kidney disease with heart failure and stage 1 through stage 4 chronic kidney disease, or unspecified chronic kidney disease; I48.21 Permanent atrial fibrillation; I50.22 Chronic systolic (congestive) heart failure; F33.0 Major depressive disorder, recurrent, mild; Z96.652 Presence of left artificial knee joint; N18.3 Chronic kidney disease, stage 3 (moderate); E11.22 Type 2 diabetes mellitus with diabetic chronic kidney disease; N20.0 Calculus of kidney; N40.0 Benign prostatic hyperplasia without lower urinary tract symptoms; K21.0 Gastro-esophageal reflux disease with esophagitis; E03.9 Hypothyroidism, unspecified; E66.01 Morbid (severe) obesity due to excess calories; Z87.440 Personal history of urinary (tract) infections; Z86.718 Personal history of other venous thrombosis and embolism; Z88.0 Allergy status to penicillin; Z79.01 Long term (current) use of anticoagulants; Z74.01 Bed confinement status; Z79.899 Other long term (current) drug therapy

== ENCOUNTER 2020-02-11 07:16 | Emergency (ER) | payer OTHER ==
[~2020-02-11] VITALS: Wt 112.9 kg
[~2020-02-11 07:16] MED LIST changes: +NYSTATIN OINTME30 GM T; +TYLENOL325 M1 PO
[2020-02-11 07:25] VITALS: BP 126/61
[2020-02-11 07:36] LABS: BASO # 0.1 10*3/uL (0.0-0.1); BASO % 0.7 % (0.0-1.0); EOS # 0.4 10*3/uL (0.0-0.4); EOS % 3.4 % (1.0-4.0); HEMATOCRIT 36.2 % (42.0-52.0); LYMPH # 2.9 10*3/uL (1.3-4.4); LYMPH % 24.1 % (27.0-41.0); MEAN CORPUSCULAR HGB 23.6 pg (27.0-31.0); MEAN CORPUSCULAR HGB CONC 29.8 g/dl (33.0-37.0); MEAN PLATELET VOLUME 10.9 fl (9.6-12.3); MONO # 1.1 10*3/uL (0.1-1.0); MONO % 9.5 % (3.0-9.0); NEUT # 7.4 10*3/uL (2.3-7.9); NEUT % 61.6 % (47.0-73.0); PLATELET COUNT AUTOMATED 359 10*3/uL (130-400); RED BLOOD COUNT 4.58 10*6/uL (4.50-5.90); RED CELL DISTRI WIDTH 18.2 % (0-14.5)
[2020-02-11 07:46] LABS: ACT PARTIAL THROMBO TIME 30.6 SECONDS (20.0-32.1); INTERNATIONAL NORM RATIO 1.1 (2.0-3.5)
[2020-02-11 07:54] LABS: ALKALINE PHOSPHATASE 101 U/L (45-117); BUN 18 mg/dl (7-24); CHLORIDE 108 mmol/L (98-107); CREATININE 1.34 mg/dL (0.70-1.30); POTASSIUM 3.8 mmol/L (3.5-5.1); SGOT/AST 18 IU/L (3-35); SGPT/ALT 22 U/L (12-78); SODIUM 138 mmol/L (136-145); TOTAL PROTEIN 7.4 gm/dL (6.4-8.2)
[2020-02-11 07:55] LABS: TROPONIN I < 0.015 ng/ml (<0.045)
[2020-02-11 08:52] LABS: ABG BASE EXCESS -0.7 mmol/L (-2.0-2.0); ARTERIAL BLOOD GAS PH 7.399 (7.35-7.45)
== END 2020-02-11 09:15 | disposition home or self-care (01) ==
LOC: ED 07:16
PROVIDERS: Emergency Medicine
DX: G45.9 Transient cerebral ischemic attack, unspecified (principal); I48.91 Unspecified atrial fibrillation; J44.9 Chronic obstructive pulmonary disease, unspecified; I50.9 Heart failure, unspecified; I11.0 Hypertensive heart disease with heart failure; E03.9 Hypothyroidism, unspecified; Z79.01 Long term (current) use of anticoagulants; Z88.0 Allergy status to penicillin; Z79.899 Other long term (current) drug therapy; Z79.4 Long term (current) use of insulin

== ENCOUNTER 2020-02-13 07:26 | Emergency (ER) | payer MEDICARE, OTHER ==
[~2020-02-13] VITALS: Wt 111.1 kg
[2020-02-13 07:26] VITALS: BP 116/58
[2020-02-13 07:45] LABS: BASO # 0.1 10*3/uL (0.0-0.1); BASO % 0.6 % (0.0-1.0); EOS # 0.5 10*3/uL (0.0-0.4); EOS % 4.5 % (1.0-4.0); HEMATOCRIT 37.1 % (42.0-52.0); LYMPH # 2.8 10*3/uL (1.3-4.4); LYMPH % 26.8 % (27.0-41.0); MEAN CELL VOLUME 78.9 fl (80.0-94.0); MEAN CORPUSCULAR HGB 23.6 pg (27.0-31.0); MEAN CORPUSCULAR HGB CONC 29.9 g/dl (33.0-37.0); MEAN PLATELET VOLUME 10.3 fl (9.6-12.3); MONO # 0.8 10*3/uL (0.1-1.0); MONO % 7.7 % (3.0-9.0); NEUT # 6.3 10*3/uL (2.3-7.9); NEUT % 59.7 % (47.0-73.0); PLATELET COUNT AUTOMATED 339 10*3/uL (130-400); RED CELL DISTRI WIDTH 18.3 % (0-14.5); WHITE BLOOD COUNT 10.5 10*3/uL (4.8-10.8)
[2020-02-13 08:01] LABS: ALKALINE PHOSPHATASE 93 U/L (45-117); BUN 19 mg/dl (7-24); CHLORIDE 106 mmol/L (98-107); CREATININE 1.36 mg/dL (0.70-1.30); SGOT/AST 19 IU/L (3-35); SGPT/ALT 22 U/L (12-78); SODIUM 139 mmol/L (136-145); TOTAL PROTEIN 7.3 gm/dL (6.4-8.2)
[2020-02-13 08:30] LABS: BILIRUBIN NEGATIVE; BLOOD 3+ (NEGATIVE); CLARITY TURBID (CLEAR); COLOR YELLOW (YELLOW); GLUCOSE NEGATIVE; KETONE NEGATIVE; LEUKO ESTERASE 3+ (NEGATIVE); NITRITE POSITIVE (NEGATIVE); SPECIFIC GRAVITY 1.025 (1.005-1.030); UROBILINOGEN < 0.2 E.U./dl (0.2-1.0)
[2020-02-13 08:35] LABS: WBC TNTC wbc/hpf (0-5)
[2020-02-13] MEDS ORDERED: CIPRO500 MG PO (09:26)
== END 2020-02-13 09:30 | disposition other institution (70) ==
LOC: ED 07:26
PROVIDERS: Emergency Medicine
DX: N39.0 Urinary tract infection, site not specified (principal); I10 Essential (primary) hypertension; E11.9 Type 2 diabetes mellitus without complications; K21.9 Gastro-esophageal reflux disease without esophagitis; F41.9 Anxiety disorder, unspecified; E78.00 Pure hypercholesterolemia, unspecified; Z86.73 Personal history of transient ischemic attack (TIA), and cerebral infarction without residual deficits; Z88.0 Allergy status to penicillin; Z79.899 Other long term (current) drug therapy; Z79.4 Long term (current) use of insulin

== ENCOUNTER 2020-03-13 20:25 | Inpatient (IN) | payer MEDICARE, OTHER ==
[2020-03-13] VITALS (7 sets, daily range): BP systolic 90–142; BP diastolic 38–125
[~2020-03-13] VITALS: Ht 177.8 cm; Wt 106.8 kg
[~2020-03-13 20:25] MED LIST changes: +CIPRO500 MG PO
--- NOTE | 2020-03-13 21:00 | NUR ---
aware of pt with blood pressure ranging from 142 to 80s.Ok to use manual blood pressure at this time.Ok to also use urine from guerra at this time.
[2020-03-13 21:26] LABS: HEMATOCRIT 40.3 % (42.0-52.0); MEAN CELL VOLUME 80.8 fl (80.0-94.0); MEAN CORPUSCULAR HGB 23.2 pg (27.0-31.0); MEAN CORPUSCULAR HGB CONC 28.8 g/dl (33.0-37.0); MEAN PLATELET VOLUME 11.2 fl (9.6-12.3); PLATELET COUNT AUTOMATED 304 10*3/uL (130-400); RED BLOOD COUNT 4.99 10*6/uL (4.50-5.90); RED CELL DISTRI WIDTH 19.1 % (0-14.5)
[2020-03-13 21:31] LABS: WHITE BLOOD COUNT 42.1 10*3/uL (4.8-10.8)
--- NOTE | 2020-03-13 21:31 | NUR ---
Cornelius orders to give 500cc bolus of fluids at this time.
[2020-03-13 21:37] LABS: ACT PARTIAL THROMBO TIME 32.1 SECONDS (20.0-32.1); INTERNATIONAL NORM RATIO 1.3 (2.0-3.5)
[2020-03-13 21:43] LABS: BURR CELLS FEW; MICROCYTOSIS SLIGHT; PLATELET SUFFICIENCY NORMAL (NORMAL); TOTAL CELLS COUNTED 100 #CELLS
[2020-03-13 21:45] LABS: POTASSIUM 4.6 mmol/L (3.5-5.1); TOTAL PROTEIN 7.2 gm/dL (6.4-8.2); TROPONIN I 0.042 ng/ml (<0.045)
[2020-03-13 22:02] LABS: BILIRUBIN NEGATIVE; CLARITY TURBID (CLEAR); COLOR YELLOW (YELLOW); GLUCOSE NEGATIVE; KETONE NEGATIVE
[2020-03-13 22:03] LABS: BACTERIA 3+; BLOOD 3+ (NEGATIVE); LEUKO ESTERASE 3+ (NEGATIVE); NITRITE NEGATIVE (NEGATIVE); RBC TNTC rbc/hpf (0-2); SPECIFIC GRAVITY 1.015 (1.001-1.030); UROBILINOGEN 0.2 E.U./dl (0.0-1.0); WBC TNTC wbc/hpf (0-5)
--- NOTE | 2020-03-13 23:00 | NUR ---
Per pt to have another 500cc bolus of fluids.
--- NOTE | 2020-03-13 23:29 | NUR ---
Pt is alert to self.Pt has edema noted trace to b/l legs at this time.Pt has scabbed areas noted to buttock area, left lower leg and pink scabbed areas taken noted around colostomy bag at this time.
--- NOTE | 2020-03-13 23:30 | NUR ---
A 79, admitted to ICCU, under the services of Dr. SOCO PURDY,CHAITANYA Mahan with a diagnosis of acute kidney injury, UTI, septic shock, dehydration, hereditary stomatocyosis. Chief complaint is fever and low pulse ox at [facility]. Patient arrived via stretcher from ER. Monitor applied. Initial assessment completed. Vital signs taken and recorded. DR. SOCO PURDY,CHAITANYA Mahan notified of admission to the unit. Orders received. See assessment for past medical history, medications and allergies. Patient and/or family oriented to unit. [facility] visitation policy reviewed. Clothing/patient valuable form completed. FINN PAULSON
[2020-03-14] MEDS ORDERED: CONSTULOSE10 GM/151 PO (00:16)
[2020-03-14] MEDS ORDERED: MUCINEX D ER 61 EACH PO (00:19)
[2020-03-14 04:00] VITALS: BP 114/45
[2020-03-14 05:36] LABS: CREATININE 1.65 mg/dL (0.70-1.30); POTASSIUM 4.7 mmol/L (3.5-5.1)
[2020-03-14 08:00] VITALS: BP 107/45
--- NOTE | 2020-03-14 10:30 | NUR ---
CM in to see patient. He is a LTC resident at [facility]. communications planner/oncology social work following for return.
[2020-03-14 12:00] VITALS: BP 114/57
--- NOTE | 2020-03-14 14:00 | NUR ---
PT TO ULTRASOUND VIA CART.
--- NOTE | 2020-03-14 15:52 | NUR ---
SPOKE WITH RADIOLOGIST FROM [facility]. HE STATED THAT PT'S LICEA CATH IS NOT IN THE PT'S BLADDER. LICEA NEED DEFLATED AND ADVANCED. LICEA EMPTIED FOR 550CC ELIANA URINE. SMALL AMOUNT OF DRIED BLOOD NOTED ON AND AROUND PT'S PENIS. LICEA BALLOOON DEFLATED. BRIGHT RED BLOOD MIXED WITH URINE NOTED IN IN LICEA TUBING. BLOOD NOTED COMING FROM PENIS. LICEA CATH ADVANCED AND ONCE URINE SEEN IN TUBING SALINE INSERTED INTO BALLOON.
[2020-03-14 16:00] VITALS: BP 117/47
[2020-03-14 20:00] VITALS: BP 134/47
--- NOTE | 2020-03-14 20:00 | NUR ---
LICEA CATHETER REPOSITIONED PER CT, URINE PALE TEA COLORED RETURN. XIOMARA CALDERON RN
--- NOTE | 2020-03-14 20:11 | NUR ---
PT. SITTING UP IN BED EATING SNACK. HEP LOCK IN RH AND LA ASYMPT. NS REFUSING ORDERED VIA RH. LUNGS DIMINISHED BILAT, UPULSE OX 98% ON 2L NC. ABDOMEN SOFTLY DISTENDED AND NORMO. NO PERIPHERAL EDEMA NOTED. PALE TEA COLORED URINE NOTED. DRIED BLOOD NOTED AROUND PENIS AND LICEA CATH INSERTION SITE. XIOMARA CALDERON RN
--- NOTE | 2020-03-14 20:31 | NUR ---
PT. YELLING OUT "GET THE 28 OUT", WHEN ASKING PATIENT WHAT HE WANTED. HE STARTED YELLING AT STAFF AND THREW REMOTE CONTROL. ATTEMPTS TO CALM PATIENT.
[2020-03-15] VITALS: BP 141/55
[2020-03-15 04:00] VITALS: BP 114/54
[2020-03-15 06:05] LABS: BUN 23 mg/dl (7-24); CHLORIDE 108 mmol/L (98-107); CREATININE 1.19 mg/dL (0.70-1.30); SODIUM 140 mmol/L (136-145)
--- NOTE | 2020-03-15 07:59 | NUR ---
Patient comes in from [facility] as a [facility]. Faxed updated clinicals for review. Patient is ok to return when medically stable.
[2020-03-15 08:00] VITALS: BP 114/54
--- NOTE | 2020-03-15 09:00 | NUR ---
CM in to see patient. He is a LTC resident at [facility]. meeting/event planner/social work coordinator following for return.
[2020-03-15 10:59] LABS: BASO % 0.4 % (0.0-1.0); EOS # 0.2 10*3/uL (0.0-0.4); EOS % 1.3 % (1.0-4.0); HEMATOCRIT 32.1 % (42.0-52.0); LYMPH % 8.9 % (27.0-41.0); MEAN CELL VOLUME 79.3 fl (80.0-94.0); MEAN CORPUSCULAR HGB 23.2 pg (27.0-31.0); MEAN CORPUSCULAR HGB CONC 29.3 g/dl (33.0-37.0); MEAN PLATELET VOLUME 11.5 fl (9.6-12.3); MONO # 1.1 10*3/uL (0.1-1.0); MONO % 9.6 % (3.0-9.0); NEUT % 79.4 % (47.0-73.0); RED BLOOD COUNT 4.05 10*6/uL (4.50-5.90); RED CELL DISTRI WIDTH 18.5 % (0-14.5); WHITE BLOOD COUNT 11.3 10*3/uL (4.8-10.8)
[2020-03-15 11:01] LABS: PLATELET COUNT AUTOMATED 211 10*3/uL (130-400)
[2020-03-15 12:00] VITALS: BP 136/42
--- NOTE | 2020-03-15 15:09 | NUR ---
DR DUBON IN TO SEE PT. UPDATED HER ON PT'S CONDITION AND PLAN OF CARE. NO NEW ORDERS RECEIVED AT THIS TIME.
[2020-03-15 16:00] VITALS: BP 126/54
--- NOTE | 2020-03-15 16:05 | NUR ---
PT RESTING. NO ACUTE DISTRESS NOTED.
[2020-03-15 20:00] VITALS: BP 107/47
--- NOTE | 2020-03-15 20:00 | NUR ---
PT RESTING IN BED AWAKE, A&O, PLEASANT AND COOPERATIVE. RESP NONLABORED. NO ACUTE DISTRESS NOTED. NO COMPLAINTS VOICED. HEPLOCKS PATENT, NO ACUTE DISTRESS OR DISCOMFORT NOTED. LICEA PATENT FOR CLOUDY ELIANA URINE WITH SEDIMENT, NO SOS OF HYPO/HYPERGLYCEMIA NOTED.
--- NOTE | 2020-03-15 22:35 | NUR ---
PT C/O SOB AND SOME CHEST HEAVINESS. POX 96% ON RA AND PLACED ON 2L NC. PT DENIES AND CHEST PAIN. PT STATES THAT SAME THING HAPPENED THE OTER NIGHT AND HAD TO HAVE LASIX AND A LICEA CATH INSERTED. DR JIMENEZ NOTIFIED AND NEW ORDERS FOR A CXR AND AN EKG.
[2020-03-16] VITALS: BP 117/48
[2020-03-16 04:00] VITALS: BP 124/56
[2020-03-16 06:09] LABS: BASO % 0.4 % (0.0-1.0); EOS # 0.2 10*3/uL (0.0-0.4); EOS % 2.4 % (1.0-4.0); HEMATOCRIT 32.8 % (42.0-52.0); LYMPH % 22.1 % (27.0-41.0); MEAN CORPUSCULAR HGB 23.1 pg (27.0-31.0); MEAN CORPUSCULAR HGB CONC 29.3 g/dl (33.0-37.0); MEAN PLATELET VOLUME 11.5 fl (9.6-12.3); MONO # 1.3 10*3/uL (0.1-1.0); MONO % 13.6 % (3.0-9.0); NEUT # 5.7 10*3/uL (2.3-7.9); NEUT % 61.1 % (47.0-73.0); PLATELET COUNT AUTOMATED 232 10*3/uL (130-400); RED BLOOD COUNT 4.15 10*6/uL (4.50-5.90); RED CELL DISTRI WIDTH 18.6 % (0-14.5); WHITE BLOOD COUNT 9.3 10*3/uL (4.8-10.8)
[2020-03-16 06:22] LABS: BUN 21 mg/dl (7-24); CHLORIDE 109 mmol/L (98-107); CREATININE 1.28 mg/dL (0.70-1.30); POTASSIUM 4.1 mmol/L (3.5-5.1); SODIUM 141 mmol/L (136-145)
[2020-03-16 08:00] VITALS: BP 126/87
--- NOTE | 2020-03-16 09:00 | NUR ---
CM in to see patient. He is a LTC resident at [facility]. finished goods planner/social media marketing manager following for return.
[2020-03-16] MEDS ORDERED: ERTAPENEM1 GM IV (11:13)
--- NOTE | 2020-03-16 11:33 | NUR ---
Faxed clinical updates and prescription to [facility] for review. Notified facility patient has ESBL/UTI and will require meropenem. Patient is penitentiary care and ok to return when medically stable.
[2020-03-16 12:00] VITALS: BP 111/56
--- NOTE | 2020-03-16 14:51 | NUR ---
Nutritional Support Services Note: Appetite is good for meals, has improved. He is eating 100%. NCS diet as ordered with yogurt every meal. Albumin is at 3.0- moderate. Staff to continue to encourage good po intake of meals and fluids. [place] pt food preferences. Ht.5'10 Wt.236# IBW [phone]. Will follow as needed. BS are controlled at this time. Wounds noted to left and right buttock. Continue to encourage increased protein. Maribel Morillo Rdn Ld
[2020-03-16 16:00] VITALS: BP 112/46
[2020-03-16 20:00] VITALS: BP 119/46
--- NOTE | 2020-03-16 20:15 | NUR ---
1946 RESTING IN BED WITH HOB ELEVATED. SIDE RAILS UP X'S 2. CALL LIGHT IN REACH.HEP LOCK'S INTACT X'S 2. NO DISTRESS NOTED. NO C/O'S VOICED. LICEA PATENT AND DRAINING CLEAR YELLOW URINE
[2020-03-17] VITALS: BP 154/67
--- NOTE | 2020-03-17 00:23 | NUR ---
RESTING IN BED WITH EYES CLOSED. REMAINS WITHOUT DISTRESS.
--- NOTE | 2020-03-17 06:13 | NUR ---
REPOSITIONED. REFUSES TO TURN. LICEA PATENT. CONDITION GUARDED.
[2020-03-17 07:01] LABS: BASO # 0.1 10*3/uL (0.0-0.1); BASO % 0.7 % (0.0-1.0); EOS # 0.3 10*3/uL (0.0-0.4); EOS % 3.4 % (1.0-4.0); HEMATOCRIT 34.2 % (42.0-52.0); LYMPH # 1.6 10*3/uL (1.3-4.4); LYMPH % 21.1 % (27.0-41.0); MEAN CELL VOLUME 77.7 fl (80.0-94.0); MEAN CORPUSCULAR HGB 23.4 pg (27.0-31.0); MEAN CORPUSCULAR HGB CONC 30.1 g/dl (33.0-37.0); MEAN PLATELET VOLUME 11.6 fl (9.6-12.3); MONO % 12.7 % (3.0-9.0); NEUT # 4.7 10*3/uL (2.3-7.9); NEUT % 61.6 % (47.0-73.0); PLATELET COUNT AUTOMATED 247 10*3/uL (130-400); RED CELL DISTRI WIDTH 18.2 % (0-14.5); WHITE BLOOD COUNT 7.6 10*3/uL (4.8-10.8)
[2020-03-17 07:48] LABS: BUN 18 mg/dl (7-24); CHLORIDE 106 mmol/L (98-107); CREATININE 1.06 mg/dL (0.70-1.30); POTASSIUM 4.1 mmol/L (3.5-5.1); SODIUM 139 mmol/L (136-145)
[2020-03-17 08:00] VITALS: BP 131/66
--- NOTE | 2020-03-17 09:00 | NUR ---
CM in to see patient. He is a LTC resident at [facility]. telecommunications network planner/social media senior associate following for return.
--- NOTE | 2020-03-17 12:01 | NUR ---
[facility] is [facility] at 1:30. Discharge orders faxed, NH, nursing/fish and wildlife warden and patients family all notified.
--- NOTE | 2020-03-17 12:43 | NUR ---
REFUSED PCS/MEASUREMENTS TO WOUNDS TO BUTTOCK FOR DISCHARGE. ALL OTHER AREAS WERE NOTED TO BE INTACT SCABS.
--- NOTE | 2020-03-17 13:43 | NUR ---
Discharge instructions reviewed with patient/family. Patient receptive and verbalizes understanding. Follow-up care arranged. Written instructions given to patient/family. TORRES ELLER
== END 2020-03-17 13:43 | DRG 871 ==
LOC: ED 20:25 → ICCU 22:45 → EDHOLD 22:45 → ICCU 23:05 → 4E 03-16 17:44
PROVIDERS: Emergency Medicine; Hospitalist; ADMIT Internal Medicine; ATTEND Internal Medicine
DX: A41.9 Sepsis, unspecified organism (principal); R65.21 Severe sepsis with septic shock; N17.0 Acute kidney failure with tubular necrosis; N39.0 Urinary tract infection, site not specified; F33.9 Major depressive disorder, recurrent, unspecified; Z16.12 Extended spectrum beta lactamase (ESBL) resistance; R62.7 Adult failure to thrive; B96.20 Unspecified Escherichia coli [E. coli] as the cause of diseases classified elsewhere; I95.9 Hypotension, unspecified; E86.0 Dehydration; E87.8 Other disorders of electrolyte and fluid balance, not elsewhere classified; N20.0 Calculus of kidney; Z20.828 Contact with and (suspected) exposure to other viral communicable diseases; Z96.652 Presence of left artificial knee joint; E03.9 Hypothyroidism, unspecified; K21.0 Gastro-esophageal reflux disease with esophagitis; N18.9 Chronic kidney disease, unspecified; E11.22 Type 2 diabetes mellitus with diabetic chronic kidney disease; I12.9 Hypertensive chronic kidney disease with stage 1 through stage 4 chronic kidney disease, or unspecified chronic kidney disease; Z68.33 Body mass index [BMI] 33.0-33.9, adult; Z88.0 Allergy status to penicillin

== ENCOUNTER 2020-04-19 13:13 | Emergency (ER) | payer MEDICARE, OTHER ==
[~2020-04-19 13:13] MED LIST changes: +CONSTULOSE10 GM/151 PO; +ERTAPENEM1 GM IV; +GOOD SENSE PAI500 M1 PO; +MERREM IV1 GM IV; +MUCINEX D ER 61 EACH PO; +NATEGLINIDE60 MG PO
[2020-04-19 13:44] LABS: BASO # 0.1 10*3/uL (0.0-0.1); BASO % 0.5 % (0.0-1.0); EOS # 0.5 10*3/uL (0.0-0.4); EOS % 4.8 % (1.0-4.0); HEMATOCRIT 36.4 % (42.0-52.0); LYMPH # 2.1 10*3/uL (1.3-4.4); MEAN CORPUSCULAR HGB 22.8 pg (27.0-31.0); MEAN CORPUSCULAR HGB CONC 28.8 g/dl (33.0-37.0); MEAN PLATELET VOLUME 10.7 fl (9.6-12.3); MONO # 0.9 10*3/uL (0.1-1.0); MONO % 8.8 % (3.0-9.0); NEUT # 6.4 10*3/uL (2.3-7.9); NEUT % 64.5 % (47.0-73.0); PLATELET COUNT AUTOMATED 318 10*3/uL (130-400); RED BLOOD COUNT 4.61 10*6/uL (4.50-5.90); RED CELL DISTRI WIDTH 18.7 % (0-14.5); WHITE BLOOD COUNT 9.9 10*3/uL (4.8-10.8)
[2020-04-19 14:04] LABS: ALBUMIN 2.7 gm/dl (3.1-4.5); ALKALINE PHOSPHATASE 90 U/L (45-117); BUN 19 mg/dl (7-24); CHLORIDE 111 mmol/L (98-107); CREATININE 1.05 mg/dL (0.70-1.30); LIPASE 127 U/L (73-393); POTASSIUM 4.4 mmol/L (3.5-5.1); SGOT/AST 23 IU/L (3-35); SGPT/ALT 17 U/L (12-78); SODIUM 145 mmol/L (136-145); TOTAL PROTEIN 6.8 gm/dL (6.4-8.2)
[2020-04-19 16:03] VITALS: BP 126/58
[2020-04-19 16:03] LABS: BILIRUBIN Negative (Negative); BLOOD 2+ (Negative); CLARITY Clear (Clear); COLOR Yellow (Yellow); GLUCOSE Negative (Negative); KETONE Negative (Negative); LEUKO ESTERASE 2+ (Negative); NITRITE Negative (Negative); SPECIFIC GRAVITY 1.015 (1.001-1.030); UROBILINOGEN 0.2 E.U./dl (0.0-1.0)
[2020-04-19 16:06] LABS: BACTERIA TRACE
[2020-04-19] MEDS ORDERED: MACROBID100 M1 PO (16:50)
== END 2020-04-19 16:54 | disposition other institution (70) ==
LOC: ED 13:13
PROVIDERS: Emergency Medicine
DX: N39.0 Urinary tract infection, site not specified (principal); Z79.899 Other long term (current) drug therapy; Z79.4 Long term (current) use of insulin

== ENCOUNTER 2020-06-18 09:01 | Inpatient (IN) | payer MEDICARE, OTHER ==
[~2020-06-18] VITALS: Ht 170.2 cm; Wt 107.2 kg
[2020-06-18 09:25] VITALS: BP 140/71
[2020-06-18 09:36] LABS: BASO % 0.5 % (0.0-1.0); EOS % 0.5 % (1.0-4.0); HEMATOCRIT 36.2 % (42.0-52.0); LYMPH % 31.4 % (27.0-41.0); MEAN CELL VOLUME 78.7 fl (80.0-94.0); MEAN CORPUSCULAR HGB 22.8 pg (27.0-31.0); MEAN PLATELET VOLUME 10.5 fl (9.6-12.3); MONO % 15.9 % (3.0-9.0); NEUT # 3.2 10*3/uL (2.3-7.9); NEUT % 51.2 % (47.0-73.0); PLATELET COUNT AUTOMATED 261 10*3/uL (130-400); RED CELL DISTRI WIDTH 19.6 % (0-14.5); WHITE BLOOD COUNT 6.3 10*3/uL (4.8-10.8)
[2020-06-18 09:46] LABS: ACT PARTIAL THROMBO TIME 28.8 SECONDS (20.0-32.1)
[2020-06-18 09:53] LABS: ALKALINE PHOSPHATASE 95 U/L (45-117); BUN 17 mg/dl (7-24); CHLORIDE 105 mmol/L (98-107); CREATININE 1.44 mg/dL (0.70-1.30); POTASSIUM 4.4 mmol/L (3.5-5.1); SGOT/AST 100 IU/L (3-35); SGPT/ALT 78 U/L (12-78); SODIUM 139 mmol/L (136-145); TOTAL PROTEIN 7.1 gm/dL (6.4-8.2)
[2020-06-18 10:03] LABS: TROPONIN I < 0.015 ng/ml (<0.045)
[2020-06-18 11:30] LABS: ABG BASE EXCESS -0.3 mmol/L (-2.0-2.0); ARTERIAL BLOOD GAS PH 7.273 (7.35-7.45)
[2020-06-18 12:53] LABS: BILIRUBIN 1+ (Negative); BLOOD 3+ (Negative); CLARITY Turbid (Clear); COLOR Orange (Yellow); GLUCOSE Negative (Negative); KETONE Negative (Negative); LEUKO ESTERASE 3+ (Negative); NITRITE Positive (Negative); SPECIFIC GRAVITY 1.015 (1.001-1.030); UROBILINOGEN 0.2 E.U./dl (0.0-1.0)
[2020-06-18 13:12] LABS: RBC TNTC rbc/hpf (0-2); WBC TNTC wbc/hpf (0-5)
[2020-06-18 16:10] LABS: ABG BASE EXCESS -0.4 mmol/L (-2.0-2.0); ARTERIAL BLOOD GAS PH 7.274 (7.35-7.45)
[2020-06-18 19:51] VITALS: BP 113/65
[2020-06-18 20:50] LABS: ABG BASE EXCESS -0.9 mmol/L (-2.0-2.0); ARTERIAL BLOOD GAS PH 7.283 (7.35-7.45)
[2020-06-18] MEDS ORDERED: PROVENTIL HFA6.7 GM IH (21:59)
[2020-06-18] MEDS ORDERED: BUSPAR5 MG PO (22:01)
[2020-06-18] MEDS ORDERED: VISTARIL25 MG PO (22:03)
[2020-06-18] MEDS ORDERED: PROSCAR5 M1 PO (22:04)
[2020-06-18] MEDS ORDERED: FLOMAX0.4 MG PO (22:05)
[2020-06-18 22:06] VITALS: BP 142/70
[2020-06-18] MEDS ORDERED: LOMOTIL 2.5-0.1 EACH PO (22:09)
[2020-06-18] MEDS ORDERED: ANTI MONKEY BU170 GM T (22:12)
[2020-06-18] MEDS ORDERED: LIQUACEL 30 ML30 M1 PO (22:17)
[2020-06-18 23:13] VITALS: BP 141/76
[2020-06-19] VITALS (9 sets, daily range): BP systolic 94–128; BP diastolic 57–100
[2020-06-19 06:02] LABS: ALBUMIN 2.9 gm/dl (3.1-4.5); BUN 19 mg/dl (7-24); CHLORIDE 106 mmol/L (98-107); CHOLESTEROL 99 mg/dL (<200); CREATININE 1.25 mg/dL (0.70-1.30); POTASSIUM 4.6 mmol/L (3.5-5.1); SGOT/AST 68 IU/L (3-35); SGPT/ALT 68 U/L (12-78); SODIUM 139 mmol/L (136-145); TOTAL PROTEIN 7.3 gm/dL (6.4-8.2); TRIGLYCERIDES 122 mg/dl (<150); VLDL CHOLESTEROL 24 mg/dL (6-40)
[2020-06-19 06:09] LABS: ALKALINE PHOSPHATASE 90 U/L (45-117); FREE T4 0.92 ng/dl (0.76-1.46); HDL CHOLESTEROL 38 mg/dl (40-60); LDL CHOLESTEROL 37 mg/dL (9-159); THYROID STIM HORMONE (HS) 0.567 uIU/ml (0.358-4.75)
[2020-06-19 06:25] LABS: HEMATOCRIT 38.8 % (42.0-52.0); LYMPH % 33.8 % (27.0-41.0); MEAN CELL VOLUME 79.2 fl (80.0-94.0); MEAN CORPUSCULAR HGB 23.1 pg (27.0-31.0); MEAN CORPUSCULAR HGB CONC 29.1 g/dl (33.0-37.0); MEAN PLATELET VOLUME 10.6 fl (9.6-12.3); MONO # 0.5 10*3/uL (0.1-1.0); MONO % 17.9 % (3.0-9.0); NEUT # 1.4 10*3/uL (2.3-7.9); PLATELET COUNT AUTOMATED 264 10*3/uL (130-400); RED CELL DISTRI WIDTH 19.2 % (0-14.5)
[2020-06-19 07:04] LABS: VITAMIN D, 25-HYDROXY 34.9 ng/mL (30-100)
[2020-06-20] VITALS: BP 125/66
[2020-06-20 07:37] LABS: HEMATOCRIT 37.8 % (42.0-52.0); LYMPH % 22.2 % (27.0-41.0); MEAN CELL VOLUME 79.6 fl (80.0-94.0); MEAN CORPUSCULAR HGB 22.7 pg (27.0-31.0); MEAN CORPUSCULAR HGB CONC 28.6 g/dl (33.0-37.0); MEAN PLATELET VOLUME 10.6 fl (9.6-12.3); MONO # 0.6 10*3/uL (0.1-1.0); MONO % 13.2 % (3.0-9.0); NEUT # 2.8 10*3/uL (2.3-7.9); NEUT % 64.1 % (47.0-73.0); PLATELET COUNT AUTOMATED 250 10*3/uL (130-400); RED BLOOD COUNT 4.75 10*6/uL (4.50-5.90); RED CELL DISTRI WIDTH 18.6 % (0-14.5); WHITE BLOOD COUNT 4.3 10*3/uL (4.8-10.8)
[2020-06-20 07:53] LABS: ALBUMIN 2.6 gm/dl (3.1-4.5); ALKALINE PHOSPHATASE 81 U/L (45-117); BUN 21 mg/dl (7-24); CHLORIDE 106 mmol/L (98-107); CREATININE 1.13 mg/dL (0.70-1.30); LDH 244 U/L (87-241); POTASSIUM 4.3 mmol/L (3.5-5.1); SGOT/AST 42 IU/L (3-35); SGPT/ALT 49 U/L (12-78); SODIUM 137 mmol/L (136-145); TOTAL PROTEIN 6.7 gm/dL (6.4-8.2)
[2020-06-20 08:00] VITALS: BP 123/54
[2020-06-20 12:00] VITALS: BP 130/40
[2020-06-20 13:00] VITALS: BP 130/40
[2020-06-20 16:00] VITALS: BP 117/71
[2020-06-20 20:00] VITALS: BP 132/56
[2020-06-21] VITALS: BP 121/58
[2020-06-21 05:29] LABS: BUN 22 mg/dl (7-24); CHLORIDE 104 mmol/L (98-107); CREATININE 1.03 mg/dL (0.70-1.30); LDH 224 U/L (87-241); POTASSIUM 4.5 mmol/L (3.5-5.1); SODIUM 140 mmol/L (136-145)
[2020-06-21 06:01] LABS: HEMATOCRIT 34.1 % (42.0-52.0); LYMPH # 1.2 10*3/uL (1.3-4.4); LYMPH % 19.4 % (27.0-41.0); MEAN CELL VOLUME 78.8 fl (80.0-94.0); MEAN CORPUSCULAR HGB 22.9 pg (27.0-31.0); MEAN PLATELET VOLUME 11.4 fl (9.6-12.3); MONO # 0.8 10*3/uL (0.1-1.0); MONO % 12.5 % (3.0-9.0); NEUT # 4.2 10*3/uL (2.3-7.9); NEUT % 67.5 % (47.0-73.0); PLATELET COUNT AUTOMATED 249 10*3/uL (130-400); RED BLOOD COUNT 4.33 10*6/uL (4.50-5.90); RED CELL DISTRI WIDTH 18.5 % (0-14.5); WHITE BLOOD COUNT 6.2 10*3/uL (4.8-10.8)
[2020-06-21 08:00] VITALS: BP 110/50; BP 110/60
[2020-06-21 12:00] VITALS: BP 112/58
[2020-06-21 16:00] VITALS: BP 128/48
[2020-06-21 20:00] VITALS: BP 108/41
[2020-06-22] VITALS: BP 146/78
[2020-06-22 06:27] LABS: BASO % 0.2 % (0.0-1.0); LYMPH # 1.1 10*3/uL (1.3-4.4); LYMPH % 19.8 % (27.0-41.0); MEAN CELL VOLUME 78.1 fl (80.0-94.0); MEAN CORPUSCULAR HGB 22.5 pg (27.0-31.0); MEAN CORPUSCULAR HGB CONC 28.9 g/dl (33.0-37.0); MEAN PLATELET VOLUME 11.1 fl (9.6-12.3); MONO # 0.6 10*3/uL (0.1-1.0); MONO % 11.4 % (3.0-9.0); NEUT # 3.7 10*3/uL (2.3-7.9); NEUT % 67.9 % (47.0-73.0); PLATELET COUNT AUTOMATED 235 10*3/uL (130-400); RED BLOOD COUNT 4.48 10*6/uL (4.50-5.90); RED CELL DISTRI WIDTH 18.4 % (0-14.5); WHITE BLOOD COUNT 5.5 10*3/uL (4.8-10.8)
[2020-06-22 06:50] LABS: BUN 21 mg/dl (7-24); CHLORIDE 102 mmol/L (98-107); CREATININE 0.99 mg/dL (0.70-1.30); LDH 218 U/L (87-241); POTASSIUM 4.4 mmol/L (3.5-5.1); SODIUM 139 mmol/L (136-145)
[2020-06-22 08:00] VITALS: BP 148/73
[2020-06-22 12:00] VITALS: BP 117/52
[2020-06-22] MEDS ORDERED: DECADRON4 MG PO ×2 (12:13)
[2020-06-22] MEDS ORDERED: MONUROL3 G1 PO ×2 (12:13)
[2020-06-22] MEDS ORDERED: HYDROCODONE-AC1 EAC1 PO (12:14)
[2020-06-22 16:00] VITALS: BP 138/54
== END 2020-06-22 16:45 | disposition other institution (70) | DRG 698 ==
LOC: ED 09:01 → EDHOLD 11:46 → 4E 11:46
PROVIDERS: Emergency Medicine; Internal Medicine; Internal Medicine Critical Care Medicine; ADMIT Student in an Organized Health Care Education/Training Program; ATTEND Student in an Organized Health Care Education/Training Program
PROC: 5A09357 Assistance with Respiratory Ventilation, Less than 24 Consecutive Hours, Continuous Positive Airway Pressure (ICD-10-PCS; principal; 2020-06-18)
PROC: XW033E5 Introduction of Remdesivir Anti-infective into Peripheral Vein, Percutaneous Approach, New Technology Group 5 (ICD-10-PCS; 2020-06-18)
DX: T83.511A Infection and inflammatory reaction due to indwelling urethral catheter, initial encounter (principal); A41.89 Other specified sepsis; N17.0 Acute kidney failure with tubular necrosis; U07.1 COVID-19; J12.89 Other viral pneumonia; J96.22 Acute and chronic respiratory failure with hypercapnia; J96.21 Acute and chronic respiratory failure with hypoxia; R65.20 Severe sepsis without septic shock; Z16.12 Extended spectrum beta lactamase (ESBL) resistance; J98.11 Atelectasis; J44.0 Chronic obstructive pulmonary disease with (acute) lower respiratory infection; I48.21 Permanent atrial fibrillation; D68.59 Other primary thrombophilia; N39.0 Urinary tract infection, site not specified; A49.9 Bacterial infection, unspecified; I50.9 Heart failure, unspecified; D50.9 Iron deficiency anemia, unspecified; Y83.8 Other surgical procedures as the cause of abnormal reaction of the patient, or of later complication, without mention of misadventure at the time of the procedure; I48.91 Unspecified atrial fibrillation; I11.0 Hypertensive heart disease with heart failure; E03.9 Hypothyroidism, unspecified; R74.01 Elevation of levels of liver transaminase levels; N20.0 Calculus of kidney; Z96.652 Presence of left artificial knee joint; Z66 Do not resuscitate; Z51.5 Encounter for palliative care; Y92.89 Other specified places as the place of occurrence of the external cause; Z79.01 Long term (current) use of anticoagulants; Z86.73 Personal history of transient ischemic attack (TIA), and cerebral infarction without residual deficits; Z86.718 Personal history of other venous thrombosis and embolism; Z93.3 Colostomy status

== ENCOUNTER 2020-06-28 21:33 | Emergency (ER) | payer MEDICARE, OTHER ==
[~2020-06-28] VITALS: Ht 175.2 cm; Wt 107.5 kg
[~2020-06-28 21:33] MED LIST changes: +ANTI MONKEY BU170 GM T; +BUSPAR5 MG PO; +DECADRON4 MG PO; +FLOMAX0.4 MG PO; +HYDROCODONE-AC1 EAC1 PO; +LIQUACEL 30 ML30 M1 PO; +LOMOTIL 2.5-0.1 EACH PO; +MONUROL3 G1 PO; +PROSCAR5 M1 PO; +PROVENTIL HFA6.7 GM IH; +VISTARIL25 MG PO
[2020-06-28 21:40] VITALS: BP 116/53
[2020-06-28 22:08] LABS: BASO % 0.1 % (0.0-1.0); EOS % 0.1 % (1.0-4.0); HEMATOCRIT 38.5 % (42.0-52.0); LYMPH # 0.7 10*3/uL (1.3-4.4); LYMPH % 4.6 % (27.0-41.0); MEAN CELL VOLUME 74.9 fl (80.0-94.0); MEAN CORPUSCULAR HGB 22.4 pg (27.0-31.0); MEAN CORPUSCULAR HGB CONC 29.9 g/dl (33.0-37.0); MEAN PLATELET VOLUME 11.2 fl (9.6-12.3); MONO # 1.1 10*3/uL (0.1-1.0); MONO % 7.6 % (3.0-9.0); NEUT # 12.4 10*3/uL (2.3-7.9); NEUT % 86.1 % (47.0-73.0); PLATELET COUNT AUTOMATED 231 10*3/uL (130-400); RED BLOOD COUNT 5.14 10*6/uL (4.50-5.90); RED CELL DISTRI WIDTH 19.5 % (0-14.5); WHITE BLOOD COUNT 14.4 10*3/uL (4.8-10.8)
[2020-06-28 22:13] LABS: BILIRUBIN Negative (Negative); BLOOD 3+ (Negative); CLARITY Cloudy (Clear); COLOR Orange (Yellow); GLUCOSE Negative (Negative); KETONE Negative (Negative); LEUKO ESTERASE 3+ (Negative); NITRITE Positive (Negative); PH 5.5 (4.5-8.0)
[2020-06-28 22:22] LABS: ALBUMIN 2.8 gm/dl (3.1-4.5); ALKALINE PHOSPHATASE 81 U/L (45-117); BUN 35 mg/dl (7-24); CHLORIDE 103 mmol/L (98-107); CREATININE 1.34 mg/dL (0.70-1.30); POTASSIUM 4.7 mmol/L (3.5-5.1); SGOT/AST 25 IU/L (3-35); SGPT/ALT 23 U/L (12-78); SODIUM 135 mmol/L (136-145); TOTAL PROTEIN 6.5 gm/dL (6.4-8.2)
[2020-06-28 22:26] LABS: RBC TNTC rbc/hpf (0-2)
--- NOTE | 2020-06-28 22:54 | NUR ---
[facility]. CT SCAN COMPLETE. VSS. WILL CONTINUE TO MONITOR.
[2020-06-28] MEDS ORDERED: SEMGLEE100 UNIT/1 SQ (23:08)
[2020-06-28] MEDS ORDERED: LIQUACEL 30 ML30 M1 PO (23:11)
[2020-06-28] MEDS ORDERED: NATEGLINIDE120 MG PO (23:16)
[2020-06-28] MEDS ORDERED: PANTOPRAZOLE SO40 MG PO (23:19)
[2020-06-28] MEDS ORDERED: PERCOCET 5-3251 EACH PO (23:24)
[2020-06-28] MEDS ORDERED: POTASSIUM CHLO20 ME4 PO (23:30)
[2020-06-28] MEDS ORDERED: Synthroid,Levo25 MCG PO (23:34)
--- NOTE | 2020-06-29 00:25 | NUR ---
IV STARTED FOR MEDICATION AT THIS TIME. THIS RN WAS ABLE TO PHOTOGRAPH PT RIGHT ARM SKIN TEAR. PT REFUSING TO ROLL FOR FULL SKIN ASSESSMENT AT THIS TIME. PT VERY AGITATED AND SWINGING AT STAFF. BEDRAILS X2. CALL LIGHT IN REACH. SAFETY PRECAUTIONS INTACT. WILL CONTINUE TO MONITOR.
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
--- NOTE | 2020-06-29 02:00 | NUR ---
NURSE TO NURSE REPORT GIVEN TO VENITA SAPP AT [facility]. PT WILL REMAIN ON SITE UNTIL GEORGE BOTKINS RETURNS FROM PREVIOUS TRIP. WILL CONTINUE TO MONITOR.
--- NOTE | 2020-06-29 02:08 | NUR ---
NURSE TO NURSE REPORT GIVEN TO THIS RN.PT AWAITING TRANSFER TO [facility].
[2020-06-29 02:27] VITALS: BP 113/78
--- NOTE | 2020-06-29 04:05 | NUR ---
[facility] ON UNIT FOR PT TRANSPORT.
--- NOTE | 2020-06-29 04:10 | NUR ---
[facility] CONTACTED AND THIS RN ADVISED SEKOU LANDEROS OF PT CURRENT DEPARTURE TO THEIR FACILITY.
[2020-06-29 04:13] VITALS: BP 123/65
== END 2020-06-29 04:33 | disposition short-term general hospital (02) ==
LOC: ED 21:33 → EDHOLD 06-29 00:15 → ED 06-29 04:33
PROVIDERS: Emergency Medicine
DX: N39.0 Urinary tract infection, site not specified (principal); E86.0 Dehydration; Z88.0 Allergy status to penicillin; Z79.899 Other long term (current) drug therapy